=== PATIENT | male | born 1950 | race Caucasian/White ===

== ENCOUNTER 2019-02-14 14:41 | Outpatient (CLI) | payer MEDICARE ==
--- NOTE | 2019-02-14 15:11 | RAD ---
Exam: 2 views lumbar spine HISTORY: Fall lumbar spine fracture COMPARISON: 12/27/2018 FINDINGS: Stable atherosclerosis. 5 lumbar type vertebral bodies are identified. Redemonstration of a compression fracture at L4. There is been interval slight decrease in loss of vertebral body height when compared to the previous examination. There is a resorption of the superior endplate of L 4. IMPRESSION: Redemonstration of compression fracture at L4 with interval slight decrease in loss of ve rtebral body height and resumption of the superior endplate.
== END 2019-02-14 14:42 | disposition home or self-care (01) ==
LOC: TBSIIMAG 14:41
PROVIDERS: ATTEND Neurological Surgery
DX: S32.049D Unspecified fracture of fourth lumbar vertebra, subsequent encounter for fracture with routine healing (principal)
CPT/HCPCS: 72100

== ENCOUNTER 2019-02-17 16:16 | Inpatient (IN) | payer MEDICARE ==
[~2019-02-17 16:16] MED LIST: ISOVUE-370 76%-LOCM 1 ML ONE
[2019-02-17] MEDS ORDERED: Norepinephrine 8 MG/0.9% NS 250 ML ONE (16:23)
[2019-02-17 16:45] LABS: Hemoglobin 3.9 g/dL (14.0-18.0); Mean Corpuscular HGB CONC 32.8 g/dL (32.0-36.0); Mean Platelet Volume 6.9 fL (7.4-10.4); Platelet Count 283 thou/uL (130-400); RBC Distribution Width 11.5 % (11.5-14.5); Red Blood Cell (RBC) Count 1.19 mill/uL (4.70-6.10); White Blood Cell (WBC) Count 9.1 thou/uL (4.8-10.8)
[2019-02-17 16:54] LABS: ALT (SGPT) 7 U/L (8-55); AST (SGOT) 16 U/L (5-34); Alkaline Phosphatase 31 U/L (40-150); Anion Gap 11 mmol/L (10-20); BUN (Urea Nitrogen) 48 mg/dL (8.4-25.7); Bilirubin, Total 0.2 mg/dL (0.2-1.2); Calc. Creatinine Clearance 0 mL/min (70-130); Calcium 7.1 mg/dL (7.8-10.44); Carbon Dioxide 16 mmol/L (23-31); Chloride 106 mmol/L (98-107); Estimated GFR-MDRD 63; Globulin 1.7 g/dL (2.4-3.5); Glucose 165 mg/dL (80-115); Lipase 239 U/L (8-78); Magnesium 1.5 mg/dL (1.6-2.6); Potassium 4.4 mmol/L (3.5-5.1); Protein, Total 3.7 g/dL (5.8-8.1); Sodium 129 mmol/L (136-145)
[2019-02-17 16:55] LABS: INR-International Normal Ratio 1.4; PTT 41.3 SEC (22.9-36.1); Prothrombin Time 17.7 SEC (12.0-14.7)
[2019-02-17 16:59] LABS: #Eosinphils 0.4 thou/uL (0.0-0.7); #Lymphocytes 1.3 thou/uL (1.20-3.40); #Monocytes 0.6 thou/uL (0.11-0.59); #Neutrophils 6.7 thou/uL (1.40-6.50); %Basophils 0.3 % (0.0-1.0); %Eosinophils 4.9 % (0.0-10.0); %Lymphocytes 14.4 % (21.0-51.0); %Monocytes 6.3 % (0.0-10.0); %Neutrophils 74.2 % (42.0-75.0); Platelet Morphology Comment Appears Adequate
[2019-02-17] MEDS ORDERED: Fentanyl 100 MCG/2 ML VIAL ONE ×4 (17:10→21:11)
[2019-02-17] MEDS ORDERED: Ondansetron PF 4 MG/2 ML Vial ONE (17:18)
[2019-02-17] MEDS ORDERED: Succinylcholine Chloride 20 MG/ML 10 ml SYRINGE FS ONE (17:18)
[2019-02-17] MEDS ORDERED: Magnesium 2 GM/50 ML BAG (IN WATER) ONE (17:18)
[2019-02-17] MEDS ORDERED: EPINEPHrine 1 MG/10 ML Abboject SYRINGE ONE ×2 (17:18→23:33)
[2019-02-17] MEDS ORDERED: PHENYLEPHRINE-NS 100 MCG/ML 10 ML SYRINGE ONE (17:18)
[2019-02-17] MEDS ORDERED: PROPOFOL 200 MG/20 ML VIAL ONE (17:18)
[2019-02-17] MEDS ORDERED: ePHEDrine 50 MG/ML VIAL ONE (17:18)
[2019-02-17] MEDS ORDERED: Calcium Chloride 1 GM/10 ML Abboject SYRINGE ONE ×3 (17:18→23:04)
[2019-02-17] MEDS ORDERED: Lidocaine 1% PF 5 ML VIAL ONE (17:18)
[2019-02-17] MEDS ORDERED: Acetaminophen 1,000 MG in Premix Bag 1 BAG IVPB ONE (17:30)
--- NOTE | 2019-02-17 17:33 | CT ---
CTA CHEST WITH IV CONTRAST AND 3D POST PROCESSING CTA ABDOMEN WITH IV CONTRAST AND 3D POST PROCESSING: History: Chest pain, back pain, nausea. FINDINGS: There are vascular calcifications without evidence of aneurysm or dilatation of the thoracoabdominal aorta. The aortic lumen is well opacified without intimal flap to suggest dissection. There is severe stenosis at the origin of the celiac access and moderate stenosis of the origin of the SMA. There is good flow to the right renal artery. Flow is seen in the JAZMIN. There is good contrast opacification of the pulmonary artery vasculature without filling defects as w ell as pulmonary embolism. No pericardial or pleural effusions are seen. There has been interval resolution of the multiple pulm onary nodules noted on the CT chest of 07-01-15. There is a 5 mm peripheral nodule in the right upper l obe. There is a calcified granuloma in the left lower lobe. There are mild patchy infiltrates in the lung holland bilaterally. No calcified gallstones are seen. The patient is post left nephrectomy. The liver, pancreas, adrenal glands, and right kidney are unremarkable. No free air or free fluid is seen in the abdomen. No lymphadenopathy is seen in the chest or abdomen. There are fluid filled dilated loops of small bowel with transition zone in the distal ileum. There i s chronic compression of the superior endplates of L4 and T12 vertebral bodies. No subluxation was se en in the thoracolumbar spine. IMPRESSION: 1. No CT evidence of aortic dissection. 2. Findings are suspicious for bilateral pneumonia. A follow up CT chest after course of antibiotics is recommended. 3. Small bowel obstruction. Possibility of ischemic bowel cannot be excluded given the presence of at herosclerotic vascular disease. POS: YA[facility]
[2019-02-17] MEDS ORDERED: cefTRIAXone\\ROCEPHIN 1 GM VIAL ONE (17:36)
[2019-02-17] MEDS ORDERED: Pantoprazole 40 MG VIAL ONE ×2 (17:36→18:16)
--- NOTE | 2019-02-17 17:37 | CON ---
DATE OF CONSULTATION: 02/17/2019 REASON FOR CONSULTATION: Chest pain, possible STEMI. HISTORY OF PRESENT ILLNESS: Mr. Stroud is a 69-year-old white gentleman, who comes to the hospital after he was in the bathroom and had a syncopal spell. He has been having diarrhea for the last 2 days. He was found pale, diaphoretic, nauseated, and complained of chest pain, 5/10. His blood pressure was 50/30. He was given IV fluids, blood pressure normalized. Again, dropped blood pressure and had to be started on Levophed. EKG showed inferior ST elevations with reciprocal changes and tachycardia. So, Cardiology was consulted. CT of the chest was done to rule out dissection as he had back pain as well. He was ruled out, taken emergently to the catheterization lab, where initially a needle was placed on the right femoral artery and the blood was very, very diluted suggesting a very, very low hemoglobin. At that same time, ER came up and let us know about the blood work being with a hemoglobin of 3.9, so the cath was aborted. He continued to have chest pain, but most likely related to demand from having such a low hemoglobin. PAST MEDICAL HISTORY: 1. History of renal cell carcinoma with metastasis to the lungs in the past. 2. Nephrectomy due to renal cell cancer. 3. Hypertension. SOCIAL HISTORY: He smokes about 2 packs a day for many years now. PAST SURGICAL HISTORY: Nephrectomy. ALLERGIES: NO KNOWN DRUG ALLERGIES. MEDICATIONS: Outpatient medications are unknown. He does not remember. Somebody will bring his medications. REVIEW OF SYSTEMS: A 12-point review of systems was done and was found to be negative unless stated in history of present illness. PHYSICAL EXAMINATION: VITAL SIGNS: Blood pressure 120/62, on Levophed and fluids, however, 77/57 on arrival to the ER with a pulse of 112; respiratory rate 16; saturating 98% on room air; temperature was 96. GENERAL: Awake, alert, and oriented x3, in no distress. HEENT: Normocephalic and atraumatic. NECK: Supple. LUNGS: Have reduced breath sounds bilaterally. CARDIOVASCULAR: S1 and S2. No S3 or S4. No murmurs. ABDOMEN: Soft. EXTREMITIES: No edema. SKIN: Warm, but very pale. LABORATORY DATA: Laboratory work was reviewed. EKGs were reviewed. ASSESSMENT AND PLAN: 1. Severe symptomatic anemia. 2. Inferior ST elevations, improved after blood pressure increased. Most likely demand ischemia. Catheterization was attempted, but not done given the very low hemoglobin. 3. History of renal cell carcinoma with metastatic disease in the past. This was in 2014. I do not have any updates on this. 4. Very critically ill and would not be unexpected. We will follow. 80 minutes of critical care were delivered at bedside. Job ID: [id number]
[2019-02-17 17:51] LABS: Bilirubin Negative (Negative); Blood, Urine Negative (Negative); Clarity CLEAR (Clear); Glucose, Urine (Dipstick) Negative (Negative); Leukocyte Negative (Negative); Nitrite Negative (Negative); Protein, Urine (Dipstick) Negative (Neg-Trace); Specific Gravity, Urine 1.021 (1.002-1.036); Urobilinogen 0.2 mg/dL (0.2-1.0)
[2019-02-17] MEDS ORDERED: Octreotide Acetate 50 MCG/ML AMP SLOW IVP SCH (18:00)
[2019-02-17] MEDS ORDERED: Pantoprazole 80 MG in Sodium Chloride 0.9% 100 ML IVPB SCH (18:00)
[2019-02-17] MEDS ORDERED: Octreotide Acetate 1,250 MCG in Sodium Chloride 0.9% 250 ML 250 ML IVPB SCH (18:00)
[2019-02-17 18:48] LABS: #Eosinphils 0.3 thou/uL (0.0-0.7); #Lymphocytes 1.1 thou/uL (1.20-3.40); #Monocytes 0.7 thou/uL (0.11-0.59); #Neutrophils 8.4 thou/uL (1.40-6.50); %Basophils 0.2 % (0.0-1.0); %Eosinophils 2.8 % (0.0-10.0); %Lymphocytes 10.7 % (21.0-51.0); %Neutrophils 79.3 % (42.0-75.0); Hemoglobin 7.4 g/dL (14.0-18.0); Mean Corpuscular HGB CONC 33.6 g/dL (32.0-36.0); Mean Corpuscular Hemoglobin 30.1 pg (27.0-31.0); Mean Corpuscular Volume 89.8 fL (78.0-98.0); Platelet Count 241 thou/uL (130-400); RBC Distribution Width 14.3 % (11.5-14.5); Red Blood Cell (RBC) Count 2.46 mill/uL (4.70-6.10); White Blood Cell (WBC) Count 10.6 thou/uL (4.8-10.8)
--- NOTE | 2019-02-17 19:06 | RAD ---
XR Chest 1 View Portable HISTORY: Chest pain, nausea COMPARISON: 02/17/2019, 4:14 PM FINDINGS: The heart size is normal. The lungs are well expanded without focal areas of consolidation, pneumothorax or pleural effusions. The aorta is tortuous. There is evidence of old granulomatous disease. I IMPRESSION: No radiographic evidence of acute cardiopulmonary process.
--- NOTE | 2019-02-17 19:07 | RAD ---
XR Chest 1 View Portable HISTORY: Chest pain COMPARISON: None FINDINGS: The heart size is normal. The lungs are well expanded without focal areas of consolidation, pneumothorax or pleural effusions. The aorta is tortuous. There is evidence of old granulomatous disease. I IMPRESSION: No radiographic evidence of acute cardiopulmonary process.
--- NOTE | 2019-02-17 19:14 | HP ---
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 He was brought in by EMS after a syncopal episode. The patient reports that he has had been having diarrhea for 2-3 days, black copious stool, foul smelling. He prior to that was having constipation, taking a laxative. He has not experienced hematemesis. In the hospital, he was evaluated by Dr. Wheeler. Apparently at some point, he complained of chest pain. His troponins were negative. He has a significant smoking history. He apparently had some ST changes and Dr. Parikh was called and the patient was taken to the label rewinder and on cannulation of his femoral artery, the blood was very dilute, red colored saline as described and Dr. Parikh called the ER to check the patient's hemoglobin, it was 3.9. The procedure was canceled. He was brought back to the emergency room. During this hospitalization, initially the patient was hypotensive, blood pressure is in the 50s to 70s. He was on pressors. He had a central line placed, was given blood and his pressure now is 120-130/70, heart rate is 80. He is mentating communicating normally. He has been complaining of mid to lower back pain. He has not had any nausea or vomiting. He has not had any abdominal pain. Review of labs reveals his white count is 9 hemoglobin 3.9. He has received 4 units of blood. His coagulation studies are normal. His CO2 was 16 on 02/15. Sodium 129, creatinine 1.59. The patient's liver function tests are normal. BUN slightly elevated at 48 and creatinine 1.15. CAT scan dissection protocol obtained on admission suggests possible bowel obstruction, distended small bowel loops, transitioned to ileum. The patient has not had any prior abdominal operations except for robotic left nephrectomy 2 years ago at [facility]. ALLERGIES: NONE. SOCIAL HISTORY: Tobacco, over one pack a day until the last few weeks when he has cut down to a half to one pack a day. Alcohol, 2-3 beers a day. A month ago, he was drinking 9-12 beers a day. MEDICATIONS: At home: 1. Zolpidem tartrate. 2. Votrient. 3. Lisinopril 40 mg a day. 4. Lorazepam as needed. 5. Hydrocortisone . PAST MEDICAL HISTORY: Left renal cell carcinoma status post left robotic left nephrectomy at [facility] 2 years ago. Surveillance scans do not reveal any evidence of disease per the patient. The patient had a colonoscopy with Dr. Gaytan about 2 years ago, was told to come back in 5 years. Review of the hospital records reveals pathology report from August 2017 revealing TVA ascending polyp, descending TVA from Dr. Gaytan. The patient has a bone scan on 07/01/2015, at [facility] that revealed absence of any metastasis. He has a chest CAT scan from 07/01/2015, revealing bilateral pulmonary nodules suggestive of metastatic disease. On the repeat CT angio in this hospitalization, those nodules are not present anymore. On 02/14/2019, lumbar spine x-rays were obtained ordered by Dr. Messina revealed a compression fracture at L4 with slight interval decrease and loss of vertebral height and resumption of superior endplate, this compared to 12/27/2018 lumbar scan. The patient reports having had a treadmill stress test probably 6 years ago or more that was normal. He denies having chest pain prior to this. He is not having chest pain now. On 09/19/2016, he had a hemoglobin of 15.9, today it is 3.9. He denies prior history of peptic ulcer disease. As noted above, socially lives with his . 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 He lives in [place]. PHYSICAL EXAMINATION: VITAL SIGNS: Blood pressure 120/70, heart rate 88, respiratory rate 18. CARDIAC: Regular rate and rhythm without murmur or gallop. ABDOMEN: Soft, slightly full, slightly distended, but nontender. Bowel sounds present. EXTREMITIES: Unremarkable. ASSESSMENT AND PLAN: 1. GI bleeding, severe anemia, suspect upper GI source. We will place an NG tube to decompress him which I have already had. He has about 600 mL of dark stool. Rectal exam performed was without masses, but he had copious amount of bloody stool. This is dark maroon stools. Probably, the patient has upper GI bleed and Dr. Candido Beavers has been called and he will perform the upper endoscopy. 2. ST changes with anemia, probably related to his anemia. Resuscitate the patient. His troponins are negative. Dr. Parikh has seen the patient, and cardiac cath initiated but aborted due to findings of severe anemia in which his hypotension has resolved with a blood resuscitation. 3. History of left renal cell carcinoma. Prior CAT scan suggested pulmonary metastases which have resolved after left nephrectomy. I do not know whether he has received chemotherapy or not. 4. Tobacco abuse. 5. Hypertension. 6. Alcohol abuse. Coagulation studies are normal. Platelet counts were normal. Currently, no indication for surgical intervention. Although CAT scan suggests transition point of bowel obstruction. I suspect this is a distended bowel with blood and fluid and with him having bowel movements and bloody stools , clinically does not have a bowel obstruction. I will be following the patient along with medical and surgical. He has a central line placed in the ER. Job ID: [id number]
[2019-02-17] MEDS ORDERED: Ondansetron PF 4 MG/2 ML Vial IVP PRN (19:56)
[2019-02-17] MEDS ORDERED: Norepinephrine 8 MG/0.9% NS 250 ML IVPB SCH (20:00)
[2019-02-17] MEDS ORDERED: Sodium Chloride 0.9% 1,000 ML IV SCH (20:00)
[2019-02-17] MEDS ORDERED: Ondansetron HCl/PF 4 MG/2 ML Vial IVP PRN (20:58)
[2019-02-17] MEDS ORDERED: Promethazine HCl 25 MG/ML VIAL IM PRN (20:58)
[2019-02-17] MEDS ORDERED: Promethazine HCl 25 MG/ML VIAL SLOW IVP PRN (20:58)
--- NOTE | 2019-02-17 21:34 | HP ---
PRIMARY CARE DOCTOR: Dr. Viki Cohen. CODE STATUS: Full code. TIME OF EVALUATION: 07:50 p.m. CHIEF COMPLAINT: GI bleeding and severe chest pain. HISTORY OF PRESENT ILLNESS: This is a 69-year-old male patient with past medical history of multiple comorbidities, including hypertension; renal cell carcinoma, status full nephrectomy; also history of hep C, treated with interferon; also history of chronic back pain. The patient uses NSAIDs on a daily basis 2 to 3 times a day for pain, also on hydrocortisone, came to the hospital after having severe chest pain associated with nausea, diaphoresis, hypotension. The patient was found to be in shock, was taken to the cardiac cath due to acute ST-elevation [place], result came back and they found the patient was in severe acute anemia with hemoglobin of 3.9. The patient was resuscitated with fluids, blood products including 4 PRBCs, 3 FFPs, and 1 unit of platelet. The patient has recovered, initially needed to be on Levophed. By the time of my examination, the patient is still needing Levophed 10 mcg, however, blood pressure is in the normal range. We will attempt to taper it if possible. Surgery has been consulted, Dr. Beavers has been consulted. Most likely source of the bleeding is upper given presence of blood in the NG tube. The patient is going for endoscopy and hopefully we can find the etiology and it can be treated. After that, we will place the patient in ICU for close monitoring given high risk for severe decompensation. REVIEW OF SYSTEMS: CONSTITUTIONAL: No fever. The patient did have severe chills and generalized weakness. RESPIRATORY: No cough, sputum production, shortness of breath. CARDIOVASCULAR: The patient has severe chest pain, palpitation. GASTROINTESTINAL: The patient has bloody stools for the past few days that were in the dark side, liquid stools and mild abdominal tenderness. 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 GENITOURINARY: No burning on urination. EXTREMITIES: No leg swelling. All other systems were reviewed and negative except for the findings mentioned above. PAST MEDICAL HISTORY: Positive for the findings mentioned in the HPI. PAST SURGICAL HISTORY: Left nephrectomy and left adrenal gland removal. PSYCH HISTORY: No previous psych history. SOCIAL HISTORY: The patient has a history of alcohol use, although he has not been drinking that much in the past few days. Everyday smoker. FAMILY HISTORY: Reviewed and noncontributory for current presentation. ALLERGIES: NO KNOWN DRUG ALLERGIES REPORTED TO MEDICATIONS. MEDICATIONS: 1. Sodium chloride. 2. Hydrocortisone. 3. Lisinopril. PHYSICAL EXAMINATION: VITAL SIGNS: On presentation, blood pressure was low. The patient was in shock with systolic in the 70s. This has recovered after replacement with blood products, IV fluids, and Levophed. Heart rate was within normal limits. Respiratory rate was 16. Pain was 5/10. GENERAL APPEARANCE: The patient is alert, oriented, not in acute distress. HEENT: Eyes, normal conjunctivae. Moist oral mucosa. Anicteric. NECK: No JVD. RESPIRATORY: Bilateral air entry. No rales. No wheezes. Symmetric expansion. CARDIOVASCULAR: Normal rate. Patient is hypotensive, on Levophed. Blood pressure now is within normal limits. No murmurs or gallops. No edema. ABDOMEN: Soft, tender. Normal bowel sounds. MUSCULOSKELETAL: Baseline range of motion and strength. No tenderness. SKIN: Warm and cold, pale. No redness. Peripheral pulses are present. Capillary refill seems to be intact. NEUROLOGIC: No evidence of any new focal weakness. Baseline speech. Cranial nerves seem to be intact. PSYCHIATRIC: The patient is in good mood. No anxiety. Optimal judgment. IMAGING STUDIES: EKG was reviewed. The patient has undetermined rhythm with pulmonary disease pattern with ST and then T-wave abnormalities consistent with anterolateral ischemia. EKG from EMS showed ST-elevation IN. Chest x-ray was reviewed. The patient has no other acute evidence of acute cardiopulmonary process. CT dissection was done. The patient had no CTA evidence of aortic dissection. Findings are suspicious for bilateral pneumonia. Followup CT chest after course of antibiotics recommended. Small bowel obstruction. Possibility of ischemic bowel cannot be excluded given the presence of atherosclerotic vascular disease. LABORATORY DATA: Labs were reviewed. The patient presented with white count 9.1, hemoglobin 3.9, hematocrit 12, MCV 101, platelet count 283, neutrophils 74.2. Coagulation was PT 17.7, INR 1.4, PTT 41.3. Sodium 129, potassium 4.4, chloride 106, carbon dioxide 16, anion gap 11, BUN 48, creatinine 1.15, GFR 63, glucose 165, POC glucose 187, calcium 7.1, magnesium 1.5, total bilirubin 0.2. LFTs were negative. Troponin was negative. Serum total protein 3.7, albumin 2.0, globulin 1.7, albumin globulin ratio is 1.2, lipase 239. Urine was negative. Repeat hemoglobin after 4 PRBCs was 7.4. ASSESSMENT AND PLAN: The patient will be placed in the hospital with following medical problems; 1. Acute coronary syndrome secondary to acute severe anemia. We will treat the underlying condition. Dr. Parikh was consulted. We will follow his recommendations. 2. Acute severe blood loss anemia due to upper gastrointestinal bleeding with hemoglobin 3.9. The patient was in hypovolemic shock, has received 4 PRBCs, 3 units of FFP, and 1 unit of platelets with calcium IV for the massive transfusion protocol. The patient has recovered, is more stable. He needed Levophed. We might be able to take care off if the patient does not continue to bleed or we are able to find the bleeding source and stop the bleeding by Dr. Beavers during the EGD. The patient will be transferred to ICU given high risk for severe complications including . We will continue to monitor closely. Continue aggressive fluid resuscitation and blood products as necessary. 3. Abnormal coagulation panel. This could be secondary to underlying liver disease. It is known that the patient had history of alcohol use and also history of hep C in the past. We will not be surprised if thi is variceal bleeding given the large amount of blood loss. The patient had received FFPs, continue to monitor and treat accordingly. 4. Hyponatremia, sodium 129. The patient is receiving IV fluids, we will monitor, we will treat accordingly, this problem is moderate. 5. Nonanion gap metabolic acidosis. This might be due to GI bicarb lost from reported diarrhea that he had in the past few days. 6. High BUN in the ratio more than 3:1 when compared with creatinine, likely due to upper gastrointestinal bleeding. We will treat underlying condition. 7. Hyperglycemia likely due to acute physical distress. We will monitor. No need for any acute intervention at this point. 8. Mildly elevated lipase, could be secondary to shock, no evidence of pancreatitis on the CT. We will treat underlying condition. 9. Deep venous thrombosis prophylaxis. 10. Hemorrhagic shock. The patient needing Levophed, has responded well to resuscitation. We will try to taper off on Levophed. Rest of treatment as above. Monitor in ICU. CRITICAL CARE TIME: I spent more than 35 minutes in bedside assessment, discussion with consultants, medication reconciliation, stabilization of the patient in coordination of care. Job ID: [id number]
--- NOTE | 2019-02-17 21:53 | RAD ---
ABDOMINAL RADIOGRAPH: History: NG tube placement. FINDINGS/IMPRESSION: Nasogastric tube with tip in the projection of the proximal stomach in the left upper medial quadrant . There are degenerative changes of the spine. POS: YA[facility]
[2019-02-17] MEDS ORDERED: Rocuronium Bromide 10 MG/ML (10ML VIAL) ONE (22:22)
--- NOTE | 2019-02-17 22:33 | CON ---
DATE OF CONSULTATION: 02/17/2019 CHIEF COMPLAINT: Passed out. HISTORY OF PRESENT ILLNESS: Mr. Stroud is a 69-year-old man, who has had diarrhea for the last couple of days. He noted that was very dark. He has had no abdominal pain with this. He suddenly developed some nausea and was about to throw up, but then passed out earlier this evening. He was taken to the local emergency room by ambulance. On ambulance ride, he was thought to have a possible ST-elevation [place] and he was transferred to [place]. During the workup, he was found to have severe anemia with a hemoglobin of 3.9. He was hypotensive and tachycardic. He was transfused 4 units of red blood cells, 3 units of FFP, and 1 unit of liquid plasma. After that, his blood pressure and heart rate have improved. He is still on pressors with Levophed. He is awake and alert. An NG tube placed with a large amount of dark material returned. Prior to the diarrhea, 2 days ago, he has been having more problems with constipation. He had some diffuse pressure-like abdominal pain associated with constipation, but otherwise no ongoing pain. He has been short of breath with exertion for the last couple of days. He has been on Motrin and steroids. He has a history of hepatitis C treated with interferon, 20 years ago, this achieved cure. He has had chronic alcohol use, but has cut down to a couple of beers per day and cut down further than that more recently. PAST MEDICAL HISTORY: Renal cancer status post left nephrectomy, history of hypertension, chronic back pain, and adrenal insufficiency. PAST SURGICAL HISTORY: Nephrectomy and colonoscopy a couple years ago with Dr. Lucila estrada. 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 FAMILY HISTORY: Negative for GI malignancies. SOCIAL HISTORY: He smoked 2 packs per day for many years. He started smoking when he was 16. He cut down to half a pack a day more recently over the last few years. He used to drink more heavily and then cut down to a couple of beers per day and more recently drinks less than that. History of IV drug use in the remote past. ALLERGIES: NO KNOWN DRUG ALLERGIES. MEDICATIONS: Prior to admission: 1. Lisinopril. 2. Hydrocortisone. 3. Motrin. 4. Tylenol No. 3. REVIEW OF SYSTEMS: Negative x10 systems reviewed except as stated in history of present illness. He did have a CT scan dissection protocol in the ER that showed findings suspicious for bilateral pneumonia and question small bowel obstruction with dilated fluid-filled loops of small bowel with a transition zone in the distal ileum. Clinically, however, he has been passing bowel movements and he has no abdominal pain and he is nontender. PHYSICAL EXAMINATION: VITAL SIGNS: Pulse 90, blood pressure 92/60. He is on Levophed. Temperature 96.0. His blood pressure was low as the 40s systolic on initial presentation. GENERAL: He is pale. An NG tube in place. Alert and oriented x3. HEENT: Eyes have no scleral icterus. Oropharynx is clear without lesions. No cervical or supraclavicular lymphadenopathy. LUNGS: Clear to auscultation bilaterally. HEART: Regular rate and rhythm without murmur. ABDOMEN: Soft, nontender, and nondistended. Bowel sounds are present. EXTREMITIES: No lower extremity edema. Cranial nerves are grossly intact. LABORATORY DATA: White blood cell count 10.6, hemoglobin is 7.4 after 3 or 4 units of blood, platelets 241. INR 1.4. Sodium 129, creatinine 1.15, bilirubin 0.2, AST 16, ALT 7, alkaline phosphatase 31, albumin 2.0, and lipase 239. IMPRESSION: 1. Apparent acute gastrointestinal bleed with severe anemia and hypovolemic shock. He is at risk for peptic ulcer given the chronic NSAID and steroid use. He is also a risk for cirrhosis and varices considering the past history of hepatitis C and chronic alcohol abuse. 2. Anemia of acute blood loss. 3. Hypovolemic shock, improved with blood transfusion and FFP. 4. Elevated INR and hypoalbuminemia raises again possibility for chronic liver disease. His platelet count, however, has been normal. 5. Adrenal insufficiency and history of renal cancer, status post resection. RECOMMENDATIONS: 1. Octreotide. 2. Proton pump inhibitor drip. 3. He has been volume resuscitated and received appropriate transfusion. 4. He is still on Levophed to maintain blood pressure. 5. We will plan for EGD this evening. 6. If varices are identified, then we will start antibiotics for SBP prophylaxis. In fact, he did receive a dose of ceftriaxone in the ER this evening. Job ID: [id number]
[2019-02-17 22:52] LABS: Hemoglobin 5.4 g/dL (14.0-18.0); Platelet Count 174 thou/uL (130-400)
[2019-02-17] MEDS ORDERED: EPINEPHrine 1 MG/ML AMP ONE (23:33)
--- NOTE | 2019-02-17 23:39 | RAD ---
PORTABLE CHEST ONE VIEW: Date: 02-17-19 Time: 10:56 p.m. History: Code Blue. Respiratory failure. FINDINGS: Interval placement of an endotracheal tube is seen with the tip about 2.5 cm above the devon since e arlier exam at 5:20 p.m. same day. The right subclavian central line remains in place. No pneumothoraces, lobar consolidation or large e ffusions are identified. Calcified granuloma in the left lower lobe is again seen. There is gaseous d istention of the stomach. POS: [facility]
--- NOTE | 2019-02-17 23:41 | RAD ---
ABDOMEN ONE VIEW: History: Nasogastric tube placement. FINDINGS/IMPRESSION: There has been interval re-positioning of the nasogastric tube since earlier exam at 6:06 p.m. The na sogastric tube is coiled in the gastric fundus with tip directed in the region of the GE junction. r is noted in loops of small and large bowel. The small bowel loops appear well dilated. POS: [facility]
--- NOTE | 2019-02-17 23:44 | PDOC.EVN ---
Event Note - Event Note Event Note: Code note Course after admission: Pt went for EGD after admission, and returned from OR stable off vasopressors, sitting in bed and talkative. I was paged by RN because pt became hypotensive again, needing levophed high dose, agressive IVF resuscitation. Pt continued to be unstable, with mental status deterioration, and was intubated for airway protection and because he was complaining that he was not able to breath properly. repeat hb when pt became hypotensive was 5.2, Pt has received another 4 units of PRBC with FFP/PLt and calcium as per massive transfusion protocol. Case has been discussed with Dr Beavers who is going to repeat egd to look for a bleeding source. xrays has been ordered to r/o perforation and radiology has reported that there is no evidence of perforation. Case also discussed with Dr Madden , we will follow recommendations.
--- NOTE | 2019-02-17 23:44 | RAD ---
PORTABLE LATERAL VIEW OF THE ABDOMEN: History: free air. FINDINGS: There are dilated loops of small bowel. No free air is seen. POS: [facility]
[2019-02-18] MEDS ORDERED: Fentanyl 100 MCG/2 ML VIAL ONE (00:24)
[2019-02-18 00:31] LABS: Base Excess (BEa) -16.7 mEq/L (-2.0 to +3.0); CO2 Tension 46.9 mmHg (35.0-45.0); Calcium, Ionized 0.94 mmol/L (1.12-1.30); Carboxyhemoglobin (COHb) 0.6 gm% (0.0-3.0); Hemoglobin (Hb) 10.5 g/dL (14.0-18.0); O2 Tension (PaO2) 276.2 mmHg (> 80.0); Potassium - ABG Lab 4.54 mmol/L (3.70-5.30)
[2019-02-18 00:32] LABS: ALV-art Gradient 378.175 (0-20); Puncture Site ALINE; pH, Arterial 7.06 (7.35-7.45)
[2019-02-18] MEDS ORDERED: Sodium Bicarb 50 MEQ/50 ML Abboject 8.4% SYRINGE ONE (00:40)
[2019-02-18] MEDS ORDERED: Norepinephrine 8 MG/0.9% NS 0 ML ONE (01:05)
--- NOTE | 2019-02-18 02:39 | OP ---
DATE OF PROCEDURE: 02/17/2019 PROCEDURES PERFORMED: Esophagogastroduodenoscopy with control of hemorrhage and biopsy. PREOPERATIVE DIAGNOSES: Gastrointestinal bleed and septic shock and anemia of acute blood loss. DESCRIPTION OF PROCEDURE: Informed consent was obtained from the patient. He was sedated with general anesthesia. The endoscope was advanced easily to the second portion of the duodenum and retroflexion was performed in the stomach. The esophagus was normal. There were no varices. The stomach was normal including retroflex views as far as the mucosa is concerned. There was red blood and clot in the fundus, which was suctioned clear. The scope was advanced to the duodenum where there was a large 2 cm ulcer on the lateral wall of the duodenum just beyond the first portion of the duodenum into the second portion of the duodenum. There was a large blood clot in the base of this, which was suctioned free. Epinephrine 1:91945 was injected a total of 5 mL per injection in 5 areas around the ulcer. A total of 5 mL of epinephrine were injected. The clot was then fully dislodged and there was a large blood vessel in the base of the ulcer with active pulsatile bleeding. This was then cauterized with a 10-[place] Gold Probe with good hemostasis confirmed. Biopsies were then taken from the stomach to rule out Helicobacter pylori. IMPRESSION: 1. Large ulcer on the lateral wall of the duodenum just beyond the first portion into the second portion. 2. Blood clot was dislodged from the ulcer base and a large visible vessel with pulsatile bleeding was found underneath. Epinephrine 5 mL were injected around the ulcer. The vessel was then cauterized with a 10-[place] Gold Probe with good hemostasis. 3. Otherwise normal esophagogastroduodenoscopy. Gastric biopsies were taken to rule out Helicobacter pylori. 4. Ulcer is most likely secondary to the nonsteroidal anti-inflammatory drugs and steroids. 5. The patient has received 5 units red blood cell transfusion. He has had a total of 3 units fresh frozen plasma and 1 unit of platelet. With additional volume resuscitation and blood transfusion, he has been able to wean off the Levophed for now. RECOMMENDATIONS: 1. Continue Protonix drip. 2. Transfer to the Intensive Care Unit and remain n.p.o. 3. Discontinue octreotide. There are no signs of cirrhosis at this point. There were no varices. 4. Monitor trend of the hemoglobin. Job ID: [id number]
--- NOTE | 2019-02-18 02:51 | OP ---
DATE OF PROCEDURE: 02/17/2019 PROCEDURE PERFORMED: Esophagogastroduodenoscopy with submucosal injection. PREOPERATIVE NOTE: Mr. Stroud initially did well following upper endoscopy and cautery of the blood vessel in the base of the duodenal ulcer. He was transferred up to CCU. He developed respiratory distress and hypotension and was intubated. He received additional blood transfusion and an OG tube was placed without much return. An x-ray was obtained upright as possible and also lateral decubitus, which showed no obvious free air. I repeated upper endoscopy and the endoscope was advanced through the first portion of the duodenum. The stomach was full of blood and clot. The endoscope was advanced through the first portion of the duodenum. However, there was somewhat large organized clot in the duodenum that I cannot see the ulcer base or really even get adequate access to the duodenum itself. I injected epinephrine 3 mL into the duodenal wall, but it was difficult to maintain position in the duodenum and even have any meaningful chance of treating his recurrent bleeds. Ultimately, the procedure was aborted and plan is to go to the OR for surgical treatment of the patient's ongoing recurrent bleed from his ulcer. His clinical status is complicated by hemorrhagic shock. He has received additional blood transfusions, FFP and platelets. IMPRESSION: Recurrent bleeding from duodenal ulcer again with hemorrhagic shock and severe anemia. He has received multiple blood products. The blood clot prevents adequate access to the bleeding sites endoscopically. Epinephrine was injected into the duodenum to try to restrict the blood flow to the ulcer. However, ultimately the endoscopic therapy is not adequate at this point. RECOMMENDATIONS: Dr. Rea is taking this patient back now for surgery for the bleeding ulcer. Job ID: [id number]
[2019-02-18] MEDS ORDERED: Sodium Chloride 0.9% 1,000 ML IV SCH (03:15)
[2019-02-18] MEDS ORDERED: Ventilator Sedation Protocol 1 EACH FS SCH (03:15)
[2019-02-18] MEDS ORDERED: Fentanyl BOLUS 250 ML IVPB PRN (03:20)
[2019-02-18] MEDS ORDERED: Fentanyl CADD 250 ML IVPB SCH (03:20)
[2019-02-18] MEDS ORDERED: Lorazepam 2 MG/ML VIAL SLOW IVP PRN (03:20)
[2019-02-18] MEDS ORDERED: Propofol BOLUS 1,000 MG/100 ML VIAL IV PRN (03:20)
[2019-02-18] MEDS ORDERED: DISCONTINUE PREVIOUS NARCOTIC PAIN MEDICATIONS AND BENZODIAZEPINES FS SCH (03:20)
[2019-02-18] MEDS ORDERED: Morphine 2 MG/ML SYRINGE SLOW IVP PRN (03:20)
[2019-02-18 03:44] LABS: Actual Bicarbonate (HCO3a) 22.1 mEq/L (22-28); Base Excess (BEa) -2.1 mEq/L (-2.0 to +3.0); CO2 Tension 34.8 mmHg (35.0-45.0); Calcium, Ionized 1.21 mmol/L (1.12-1.30); Carboxyhemoglobin (COHb) 1.8 gm% (0.0-3.0); Hemoglobin (Hb) 7.4 g/dL (14.0-18.0); O2 Tension (PaO2) 230.2 mmHg (> 80.0); Potassium - ABG Lab 3.47 mmol/L (3.70-5.30); pH, Arterial 7.42 (7.35-7.45)
[2019-02-18 03:45] LABS: Puncture Site ALINE
[2019-02-18 03:54] LABS: Hemoglobin 7.5 g/dL (14.0-18.0); Mean Corpuscular HGB CONC 35.4 g/dL (32.0-36.0); Mean Corpuscular Hemoglobin 31.8 pg (27.0-31.0); Mean Corpuscular Volume 89.8 fL (78.0-98.0); Mean Platelet Volume 7.3 fL (7.4-10.4); Platelet Count 149 thou/uL (130-400); RBC Distribution Width 14.3 % (11.5-14.5); Red Blood Cell (RBC) Count 2.35 mill/uL (4.70-6.10)
[2019-02-18 04:09] LABS: Phosphorus 4.2 mg/dL (2.3-4.7)
[2019-02-18 04:18] LABS: ALT (SGPT) 59 U/L (8-55); AST (SGOT) 128 U/L (5-34); Albumin 2.1 g/dL (3.4-4.8); Alkaline Phosphatase 31 U/L (40-150); Anion Gap 9 mmol/L (10-20); BUN (Urea Nitrogen) 32 mg/dL (8.4-25.7); Calc. Creatinine Clearance 66 mL/min (70-130); Calcium 8.8 mg/dL (7.8-10.44); Carbon Dioxide 22 mmol/L (23-31); Chloride 115 mmol/L (98-107); Estimated GFR-MDRD 75; Globulin 1.3 g/dL (2.4-3.5); Glucose 123 mg/dL (80-115); Magnesium 1.4 mg/dL (1.6-2.6); Potassium 3.6 mmol/L (3.5-5.1); Protein, Total 3.4 g/dL (5.8-8.1); Sodium 142 mmol/L (136-145)
[2019-02-18] MEDS: Fluconazole In NaCl,Iso-Osm 200 MG in Premix Bag 1 BAG IVPB SCH (04:19)
[2019-02-18] MEDS: fentaNYL Citrate/PF 2,000 MCG in Sodium Chloride 0.9% 60 ML IV SCH (04:31)
[2019-02-18 04:48] LABS: Band 24 % (5-11); Eosinophils 2 % (0-10); Lymphocytes 6 % (21-51); MDiff Complete? YES; Metamyelocyte 1 % (0-0); Monocytes 4 % (0-10); Neutrophil 63 % (42-75); Platelet Morphology Comment Appears Adequate
[2019-02-18] MEDS: Piperacillin/Tazobactam 3.375 GM in Sodium Chloride 0.9% 100 ML IVPB SCH ×4 (04:59→23:26)
--- NOTE | 2019-02-18 05:05 | OP ---
DATE OF PROCEDURE: 02/18/2019 PREOPERATIVE DIAGNOSES: Bleeding duodenal ulcer, status post esophagogastroduodenoscopy cauterization with recurrent bleeding and hemorrhagic shock requiring emergency transport to the operating room for laparotomy and control of bleeding duodenal ulcer, hepatitis C history, history of left nephrectomy, and robotic renal cell carcinoma. POSTOPERATIVE DIAGNOSES: Bleeding duodenal ulcer, status post esophagogastroduodenoscopy cauterization with recurrent bleeding and hemorrhagic shock requiring emergency transport to the operating room for laparotomy and control of bleeding duodenal ulcer, hepatitis C history, history of left nephrectomy, and robotic renal cell carcinoma. PROCEDURES PERFORMED: Exploratory laparotomy, gastrotomy to evacuate clots and evacuate bowel to allow treatment. Duodenostomy source oversew duodenal ulcer, Heineke-Mikulicz pyloroplasty. ANESTHESIA: General. Blood evacuated from the GI tract and out of the NG tube in the OR, more than 5 L. Blood transfused in the emergency room on presentation, 5 units of blood, 3 units of fresh frozen plasma, 1 unit of platelets. In the emergency room, resuscitation in the ICU, he had another 5 units of blood, 1 unit of fresh frozen plasma, and another unit of platelets. During this operation, he has 6 units of blood, 4 units of FFP, 2 units of platelets and . ANESTHESIA: General. The patient on high-dose Levophed, coming to the operating room on Levophed and ventilator going back to the ICU. DRAINS: #19 Gold KRIS drain. DESCRIPTION OF PROCEDURE: The patient was taken to the operating room, transferred emergently from the ICU, where he underwent bedside EGD, attempted controlling the duodenal ulcer unsuccessful by Dr. Candido Beavers. He was transferred to the operating room. In the supine position, abdomen was clipped of hair, prepared with ChloraPrep, and draped in routine fashion. Midline incision was made from the xiphoid to below the umbilicus, having to extend the incision due to his bowel dilatation with blood and post endoscopy treatment. Small bowel contents milked retrograde into the stomach and after 2 NG tube attempts at evacuating the stomach, I made a small gastrotomy, pursestring 2-0 silk to evacuate clot and blood to decompress the stomach and bowel to allow treatment. Bennett maneuver was performed remobilizing the duodenum and the hepatic flexure, taking down fatty attachments, ligamentous attachments with cautery. The 1st, 2nd, and 3rd portions of the duodenum mobilized into the field. Bookwalter retractor was used for stabilization. A pool sucker device was left in the stomach to continue evacuation of the stomach. A duodenotomy made over the 2nd portion and I could visualize the bleeding ulcer with a hemorrhaging large arterial bleeder in the posterior distal first portion of the duodenum. This was oversewn with 2 [id number] sutures of 3-0 silk. Good hemostasis was noted. Clot was evacuated from the stomach with ring forceps and a new NG tube placed and palpated in good position. The duodenostomy was closed in a transverse fashion in 2 layers with the inner layer of continuous locking sutures of 3-0 Vicryl and outer layer of interrupted Lembert sutures of 3-0 silk. To facilitate better drainage procedure, the stomach and some form of ulcer control (the patient on steroid replacement for adrenal insufficiency, NSAIDs), a pyloromyotomy was made. Approximately 3 cm incision was made over the pylorus and pool Heineke-Mikulicz pyloroplasty undertaken with lateral closure, interrupted Lembert suture of 3-0 silk. The gastrotomy was closed by excising this with a MANGO 75 stapler. The staple line with interrupted Lembert suture of 3-0 silk. Abdominal cavity was irrigated thoroughly with saline solution. Irrigant evacuated. inspected and noted to be free of harm. Liver appeared to be normal. Gallbladder was without masses or stones. #19 gold KRIS drain was placed in the right lateral abdomen in the subhepatic space and subdiaphragmatic and secured with 3-0 nylon suture. Mastisol and OpSite applied. Sponge, needle, and instrument counts were correct. The midline fascia was closed with continuous suture of #1 PDS after placing 2 layers of Seprafilm. An omental patch had been fashioned, mobilizing the omentum from the proximal transverse colon and swinging the flap prior to the abdominal wall closure, placing the omentum over the duodenostomy and pyloroplasty area and securing with 3-0 silk to the serosa. Once the abdominal wall was closed, skin and subcutaneous tissues were irrigated. Skin was approximated loosely with parvez and Telfa mahesh placed between and incisional dressing applied. Again, this incisional dressing replacement for Prevena was suboptimal. It had leaks and no alarms and it was reinforced to obtain a seal. The patient tolerated the procedure well. The patient was transferred to the intensive care unit in critical condition on the ventilator on Levophed, which was slowly being weaned. Job ID: [id number]
[2019-02-18] MEDS: Propofol 1,000 MG/100 ML VIAL IV PRN ×3 (05:08→23:30)
[2019-02-18] MEDS ORDERED: Heparin 10,000 UNITS/1 ML VIAL ONE (06:26)
[2019-02-18] MEDS: Albumin 25% 25 GM/100 ML BOT IVPB SCH ×3 (06:28→16:06)
[2019-02-18] MEDS ORDERED: Albuterol Sulfate 2.5 mg/3 ml Neb NEB SCH ×2 (06:30→14:30)
[2019-02-18] MEDS: Albuterol Sulfate 2.5 mg/3 ml Neb NEB SCH ×2 (07:16→12:44)
[2019-02-18] MEDS ORDERED: Magnesium Sulfate 4 GM in Sodium Chloride 0.9% 250 ML 250 ML IVPB SCH (07:30)
--- NOTE | 2019-02-18 07:35 | RAD ---
CHEST 1 VIEW: Date: 02/18/19 INDICATION: Intubation and central line placement. COMPARISON: Prior exam dated 02/17/19 at 2253 hours. IMPRESSION: There is worsening central edema pattern, pulmonary vascular congestion, and tiny bilateral pleural e ffusions. Cardiomegaly persists. Right subclavian central venous catheter, ET tube, and gastric pedro pablo ter are unchanged. No pneumothorax is evident. POS: [facility]
[2019-02-18] MEDS: Hydrocortisone Sod Succ/PF 100 MG in Sodium Chloride 0.9% 50 ML IVPB SCH ×2 (08:01→14:31)
[2019-02-18] MEDS: Hydrocortisone Sod Succ/PF 100 mg/2 ml Vial IVP SCH ×3 (08:01→21:56)
[2019-02-18] MEDS: Lactated Ringer's 1,000 ML IV SCH ×2 (08:02→16:07)
--- NOTE | 2019-02-18 08:07 | PRG ---
DATE OF SERVICE: 02/18/2019 SUBJECTIVE: Mr. Stroud is doing well today. This morning, he is intubated. His vital signs remained stable. He returned from the operating room off pressors and has remained off vasopressors overnight. OBJECTIVE: VITAL SIGNS: His heart rate is 88, blood pressure 130 to 136/90. His urine output has remained excellent one at 150 to 300 per hour with dilute urine. NG tube output is more serous and certainly not bloody, 30 mL postoperatively. The patient is sedated on the ventilator. LUNGS: Clear to auscultation. CARDIAC: Regular rate and rhythm without murmur or gallop. ABDOMEN: Soft, flat, nontender. Incisional wound VAC intact. Dressing dry. KRIS drain serosanguineous. LABORATORY DATA: This morning, his sodium is 142, potassium 3.6, chloride 115, carbon dioxide 22, BUN 32 (improved from preoperative 48), creatinine 1. His magnesium is 1.5, slightly low, and bilirubin is 1.0. Transaminases slightly elevated, 128 and 59 AST and ALT. Hemoglobin 7.5, white count 9, platelet count 149,000. His blood gases are normal this morning on the ventilator. ASSESSMENT/PLAN: 1. Bleeding duodenal ulcer, bleeding abscess. Hemoglobin is stable. We will monitor this. We will not transfuse him for this as his vital signs are stable. He is diuresing, and we will decrease his IV fluids from 150 to 100 and his sodium has corrected. We will change his IV fluids from normal saline to LR. We will check his hemoglobin at noon today. 2. Low magnesium, replaced. 3. Respiratory failure. Would expect him to remain on the ventilator for another day or 2 as he recovers from his hemorrhagic shock and resuscitation and mobilize his fluids. Abdominal closure was very loose, and I do not have any concerns for compartment syndrome and there are no clinical signs for that. 4. Tobacco abuse. 5. Status post left nephrectomy for renal cell carcinoma with multiple pulmonary nodules, resolved on chemotherapy. 6. Adrenal insufficiency on Solu-Cortef 100 mg IV q.8 hours for stress levels. Wean as appropriate. Job ID: [id number]
--- NOTE | 2019-02-18 08:26 | PDOC.PN ---
- Subjective Encounter Start Date: 02/18/19 Encounter Start Time: 11:40 -: non-verbal Subjective: Patient intubated and sedated. Had surgery overnight for recurrent -: hemorrage from ulcer, now resolved. - Objective Resuscitation Status - Order Detail: 02/17/19 19:56 Resuscitation Status Routine Resuscitation Status: FULL: Full Resuscitation MAR Reviewed: Yes Vital Signs & Weight: Vital Signs (12 hours) Temp Pulse Pulse Resp BP BP Pulse Ox 02/18/19 07:17 74 02/18/19 06:00 93.2 F L 14 02/18/19 04:00 14 100 02/18/19 03:28 91 F L 02/17/19 23:30 98.5 F 141 H 16 111/70 02/17/19 23:25 98.7 F 02/17/19 23:16 149 H 126/86 02/17/19 21:45 93 L 02/17/19 21:40 98.5 F Weight Admit Weight 144 lb 6.444 oz Weight 144 lb 6.444 oz Most Recent Monitor Data Heart Rate from ECG 72 NIBP 136/99 NIBP BP-Mean 110 Respiration from ECG 14 SpO2 100 I&O: 02/17/19 02/18/19 02/19/19 06:59 06:59 06:59 Intake Total 604.6 Output Total 1555 Balance -950.4 Result Diagrams: 02/18/19 13:07 02/18/19 03:41 Additional Labs: Accuchecks 02/18/19 02/17/19 01:40 16:22 POC Glucose 191 H 187 H Phys Exam - Physical Examination sedated, easily agitated on vent HEENT: moist MMs Respiratory: no rales, no rhonchi some upper airway/ tube noises with ventilation Cardiovascular: RRR, no significant murmur Gastrointestinal: soft, positive bowel sounds Musculoskeletal: no edema Deviation from normal: sedated on vent Dx/Plan (1) Acute upper GI hemorrhage Code(s): K92.2 - GASTROINTESTINAL HEMORRHAGE, UNSPECIFIED Status: Acute Comment: severe, multiple units PRBC and FFP, now resolved (2) Duodenal ulcer Status: Acute Comment: Large, pulsatile vessel, s/p failed endoscopic control s/p laparotomy with oversewing ulcer and pyloroplasty (3) Anemia due to acute blood loss Code(s): D62 - ACUTE POSTHEMORRHAGIC ANEMIA Status: Acute Comment: stabilized in 7s, monitor closely (4) Acute respiratory failure Code(s): J96.00 - ACUTE RESPIRATORY FAILURE, UNSP W HYPOXIA OR HYPERCAPNIA Status: Acute Qualifiers: Respiratory failure complication: unspecified whether with hypoxia or hypercapnia Qualified Code(s): J96.00 - Acute respiratory failure, unspecified whether with hypoxia or hypercapnia Comment: intubated (5) Hypertension Code(s): I10 - ESSENTIAL (PRIMARY) HYPERTENSION Status: Chronic (6) Hx of renal cell carcinoma Code(s): Z85.528 - PERSONAL HISTORY OF OTHER MALIGNANT NEOPLASM OF KIDNEY Status: Chronic Comment: S/P nephrectomy (7) Hx of hepatitis C Code(s): Z86.19 - PERSONAL HISTORY OF OTHER INFECTIOUS AND PARASITIC DISEASES Status: Chronic Comment: s/p interferron therapy - Plan cont current plan of care ventilator management and wean per pulmonology * . - Discharge Day Encounter end time: 11:50
[2019-02-18 09:13] LABS: Hemoglobin 9.1 g/dL (14.0-18.0)
--- NOTE | 2019-02-18 09:17 | CON ---
DATE OF CONSULTATION: 02/18/2019 SUBJECTIVE: Dannie Stroud is a 69-year-old who is intubated in the vent and sedated with Diprivan and fentanyl. History is obtained by reviewing his medical record. His is to arrive and we will discuss with at length. Presented to the hospital after he became unresponsive. He is diaphoretic. His blood pressure was low, systolic was 50. He was given IV fluids on arrival to ER. Initial vital signs in the ER revealed a pulse of 91, respirations 16, sat difficult to obtain. He is apparently having chest pain all day as per the family. He then was seen by Dr. Candido Beavers on an emergency basis for abdominal pain, diarrhea and vomiting. Severe anemia. Endoscopy revealed bleeding ulcer, which was uncontrollable. He was then taken to surgery where he underwent appropriate surgical intervention. Please review surgery note. PAST MEDICAL HISTORY: Pertinent for renal cell carcinoma status post nephrectomy, hypertension, chronic pain and renal insufficiency. PAST SURGICAL HISTORY: Colonoscopy, nephrectomy. SOCIAL HISTORY: Longstanding history of tobacco abuse. Apparently, no alcohol or drugs. HOME MEDICATIONS: Includes Votrient 600 mg a day, treatment for renal cell; lisinopril 40; Ativan 0.1; hydrocortisone 2 in the morning and 5 in the evening. ALLERGIES: NONE. REVIEW OF SYSTEMS: Otherwise unobtainable. PHYSICAL EXAMINATION: VITAL SIGNS: Pulse 109, blood pressure is 160/80 on the A line, saturations are 100%. CHEST: Decreased breath sounds. No wheezing. CARDIAC: Normal S1, S2. No gallops. ABDOMEN: No masses. LABORATORY DATA: His initial hemoglobin was 3.9, hematocrit was 16. H and H this morning 7.5 and 21, platelet count normal. White count 9000, 63 segs. PO2 is 230, pCO2 34, pH 7.42, O2 60%. His lytes are normal. Albumin is low 2.1. ASSESSMENT: 1. Status post massive gastrointestinal bleed, status post lap for bleeding duodenal ulcer. 2. Chronic obstructive pulmonary disease and tobacco abuse. 3. . 4. Left nephrectomy for renal cell carcinoma. 5. Pulmonary nodules apparently. I agree with present treatment. Continue vent support, neb treatments, steroids, wean when stable. We will discuss with family as they arrive. This is a 45-minute critical time. Job ID: [id number]
[2019-02-18 10:53] LABS: Actual Bicarbonate (HCO3a) 18.4 mEq/L (22-28); Analyzer IN Cardio OR; Base Excess (BEa) -7.4 mEq/L (-2.0 to +3.0); CO2 Tension 38.4 mmHg (35.0-45.0); Calcium, Ionized 0.84 mmol/L (1.12-1.30); O2 Tension (PaO2) 234.3 mmHg (> 80.0); Potassium - ABG Lab 4.17 mmol/L (3.70-5.30)
[2019-02-18 10:53] LABS: Actual Bicarbonate (HCO3a) 19.6 mEq/L (22-28); Analyzer IN Cardio OR; Base Excess (BEa) -4.5 mEq/L (-2.0 to +3.0); CO2 Tension 31.8 mmHg (35.0-45.0); Calcium, Ionized 1.19 mmol/L (1.12-1.30); Carboxyhemoglobin (COHb) 0.5 gm% (0.0-3.0); Hemoglobin (Hb) 8.8 g/dL (14.0-18.0); O2 Tension (PaO2) 443.5 mmHg (> 80.0); Potassium - ABG Lab 3.69 mmol/L (3.70-5.30); pH, Arterial 7.41 (7.35-7.45)
[2019-02-18 10:55] LABS: Puncture Site A
[2019-02-18 10:56] LABS: Puncture Site A
[2019-02-18 13:19] LABS: #Basophils 0.1 thou/uL (0.0-0.2); #Lymphocytes 0.2 thou/uL (1.20-3.40); #Monocytes 0.2 thou/uL (0.11-0.59); #Neutrophils 6.9 thou/uL (1.40-6.50); %Basophils 1.3 % (0.0-1.0); %Eosinophils 0.5 % (0.0-10.0); %Lymphocytes 2.5 % (21.0-51.0); %Monocytes 2.4 % (0.0-10.0); %Neutrophils 93.3 % (42.0-75.0); Mean Corpuscular HGB CONC 34.3 g/dL (32.0-36.0); Mean Corpuscular Volume 87.3 fL (78.0-98.0); Mean Platelet Volume 8.1 fL (7.4-10.4); Platelet Count 176 thou/uL (130-400); RBC Distribution Width 14.4 % (11.5-14.5); Red Blood Cell (RBC) Count 2.66 mill/uL (4.70-6.10); White Blood Cell (WBC) Count 7.4 thou/uL (4.8-10.8)
[2019-02-18] MEDS ORDERED: Sodium Bicarb 50 MEQ/50 ML VIAL ONE (16:40)
[2019-02-18] MEDS ORDERED: Calcium Chloride 1 GM/10 ML Abboject SYRINGE ONE (16:40)
[2019-02-18] MEDS ORDERED: Hydrocortisone Sod Succ/PF 100 mg/2 ml Vial ONE (16:40)
[2019-02-18] MEDS ORDERED: Rocuronium Bromide 10 MG/ML (10ML VIAL) ONE (16:40)
--- NOTE | 2019-02-18 17:29 | PDOC.CTH ---
Cardiology Progress Note - Subjective He remains intubated, sedated. - Objective Vital Signs Temp Pulse Resp Pulse Ox 02/18/19 16:00 98.8 F 14 02/18/19 14:24 64 02/18/19 14:00 11 L 02/18/19 13:04 87 02/18/19 12:00 10 L 02/18/19 11:00 99 F 02/18/19 10:23 75 02/18/19 10:00 14 02/18/19 09:00 96.9 F L 02/18/19 08:00 14 100 02/18/19 07:17 74 02/18/19 06:00 93.2 F L 14 Admit Weight 144 lb 6.444 oz Weight 144 lb 6.444 oz 02/17/19 02/18/19 02/19/19 06:59 06:59 06:59 Intake Total 604.6 1288 Output Total 1555 1065 Balance -950.4 223 - Physical Examination General/Neuro: other: (Intubated, sedated. ) Neck: no JVD present Lungs: unlabored respirations Heart: RRR Abdomen: NT/ND Extremities: other: (no edema) - Telemetry Telemetry Rhythm: NSR - Labs Result Diagrams: 02/18/19 13:07 02/18/19 03:41 Troponin/CKMB Troponin I Less than 0.010 ng/mL (< 0.028) 02/17/19 16:26 - Assessment/Plan 1. Acute blood loss anemia 2. Severe symptomatic anemia 3. ST elevations on ECG while Hgb 3.9 PLAN: - Echocadiogram - Likely ECG changes from demand ischemia. - Continue supportive care.
[2019-02-18 17:49] LABS: Hemoglobin 7.2 g/dL (14.0-18.0)
[2019-02-18] MEDS: Sodium Chloride 0.9% (PF) 10 ML VIAL FS PRN (20:43)
[2019-02-18] MEDS: Pantoprazole 40 MG VIAL IVP SCH (20:43)
[2019-02-19] MEDS: Fluconazole In NaCl,Iso-Osm 200 MG in Premix Bag 1 BAG IVPB SCH (03:52)
[2019-02-19 04:35] LABS: #Lymphocytes 0.3 thou/uL (1.20-3.40); #Monocytes 0.3 thou/uL (0.11-0.59); #Neutrophils 8.6 thou/uL (1.40-6.50); %Basophils 0.3 % (0.0-1.0); %Eosinophils 0.2 % (0.0-10.0); %Lymphocytes 3.7 % (21.0-51.0); %Monocytes 3.6 % (0.0-10.0); %Neutrophils 92.3 % (42.0-75.0); Mean Corpuscular Hemoglobin 30.6 pg (27.0-31.0); Mean Corpuscular Volume 89.9 fL (78.0-98.0); Platelet Count 155 thou/uL (130-400); RBC Distribution Width 14.9 % (11.5-14.5); Red Blood Cell (RBC) Count 2.29 mill/uL (4.70-6.10); White Blood Cell (WBC) Count 9.4 thou/uL (4.8-10.8)
[2019-02-19] MEDS: fentaNYL Citrate/PF 2,000 MCG in Sodium Chloride 0.9% 60 ML IV SCH ×2 (04:45→10:26)
[2019-02-19 05:09] LABS: ALT (SGPT) 30 U/L (8-55); AST (SGOT) 52 U/L (5-34); Albumin 3.2 g/dL (3.4-4.8); Alkaline Phosphatase 27 U/L (40-150); Anion Gap 12 mmol/L (10-20); BUN (Urea Nitrogen) 28 mg/dL (8.4-25.7); Bilirubin, Total 0.4 mg/dL (0.2-1.2); Calc. Creatinine Clearance 51 mL/min (70-130); Calcium 8.5 mg/dL (7.8-10.44); Carbon Dioxide 21 mmol/L (23-31); Chloride 114 mmol/L (98-107); Estimated GFR-MDRD 56; Globulin 1.6 g/dL (2.4-3.5); Glucose 120 mg/dL (80-115); Magnesium 2.5 mg/dL (1.6-2.6); Potassium 3.9 mmol/L (3.5-5.1); Protein, Total 4.8 g/dL (5.8-8.1); Sodium 143 mmol/L (136-145)
[2019-02-19] MEDS: Piperacillin/Tazobactam 3.375 GM in Sodium Chloride 0.9% 100 ML IVPB SCH ×3 (05:10→17:58)
[2019-02-19] MEDS: Hydrocortisone Sod Succ/PF 100 mg/2 ml Vial IVP SCH ×3 (05:48→21:31)
[2019-02-19 06:40] LABS: Actual Bicarbonate (HCO3a) 23.7 mEq/L (22-28); Base Excess (BEa) -1.3 mEq/L (-2.0 to +3.0); CO2 Tension 41.1 mmHg (35.0-45.0); Calcium, Ionized 1.16 mmol/L (1.12-1.30); Carboxyhemoglobin (COHb) 1.5 gm% (0.0-3.0); Hemoglobin (Hb) 6.7 g/dL (14.0-18.0); O2 Tension (PaO2) 82.2 mmHg (> 80.0); Potassium - ABG Lab 3.79 mmol/L (3.70-5.30); pH, Arterial 7.38 (7.35-7.45)
[2019-02-19 06:48] LABS: ALV-art Gradient 80.325 (0-20); Puncture Site LINE
[2019-02-19] MEDS: Propofol 1,000 MG/100 ML VIAL IV PRN (07:05)
--- NOTE | 2019-02-19 08:37 | PRG ---
DATE OF SERVICE: 02/19/2019 SUBJECTIVE: Maximus remains intubated in the vent. Sedated. OBJECTIVE: VITAL SIGNS: Blood pressure 127/36, pulse 87, saturations 99%, respirations 18. GENERAL: He is afebrile. His I's and O's have been . CHEST: Decreased breath sounds. No wheezing. CARDIAC: Normal S1 and S2. No gallops. ABDOMEN: Soft without masses. NEUROLOGICAL: He is sedated. LABORATORY DATA: His H and H are 7 and 20. His platelet count is normal. PO2 is 82, pCO2 is 41.38, and ph 7,43_ 30%. His lytes are normal. His creatinine is 1.29. IMPRESSION: Respiratory failure, status post laparotomy for massive gastrointestinal bleed, anemia, abnormal EKG. PLAN: Transfusion of packed cells. Hold sedation. We will try and hopefully wean and extubate, neb treatment, supportive care. We will follow. One-half hour of critical time. Job ID: [id number] MTDD
[2019-02-19] MEDS: Pantoprazole 40 MG VIAL IVP SCH ×2 (08:57→21:31)
[2019-02-19] MEDS: Sodium Chloride 0.9% (PF) 10 ML VIAL FS PRN ×2 (08:57→21:31)
--- NOTE | 2019-02-19 10:13 | PRG ---
DATE OF SERVICE: 02/18/2019 SUBJECTIVE: Mr. Stroud is intubated. The nurses state that when his sedation is diminished, he does respond appropriately. OBJECTIVE: VITAL SIGNS: Pulse 53, blood pressure 120/58, temperature 97.7. ABDOMEN: Soft and nontender. There is no blood in the NG tube. LABORATORY DATA: Hemoglobin 8, white count 7.4, platelet count 173. BUN and creatinine are 32 and 1, magnesium 1.4, AST 128, ALT 59, alkaline phosphatase 31. ASSESSMENT: Status post massive gastrointestinal hemorrhage from duodenal ulcer, which was unable to be controlled endoscopically. He has gone to surgery and is doing well. We will continue to follow. Job ID: [id number]
[2019-02-19] MEDS ORDERED: Ondansetron PF 4 MG/2 ML Vial IVP PRN (10:30)
[2019-02-19] MEDS ORDERED: diphenhydrAMINE 50 MG/ML VIAL IM/IV PRN (10:30)
[2019-02-19] MEDS ORDERED: Promethazine HCl 25 MG/ML VIAL IM PRN (10:30)
[2019-02-19] MEDS ORDERED: Ketorolac Tromethamine 30 MG/ML VIAL IVP PRN (10:30)
[2019-02-19] MEDS ORDERED: Naloxone HCl 0.4 mg/ml Vial IV PRN (10:30)
[2019-02-19] MEDS ORDERED: Zolpidem Tartrate 5 MG TAB PO PRN (10:30)
[2019-02-19] MEDS ORDERED: diphenhydrAMINE 25 MG CAP PO PRN (10:30)
[2019-02-19] MEDS: Lactated Ringer's 1,000 ML IV SCH ×2 (10:31→21:31)
--- NOTE | 2019-02-19 10:46 | PDOC.PN ---
- Subjective Encounter Start Date: 02/19/19 Encounter Start Time: 10:44 Mr. Stroud was seen today in follow-up of Duodenal Ulcer with bleed and hemorrhagic shock. He is complaining of feeling weak, and having back pain. - Objective Resuscitation Status - Order Detail: 02/17/19 19:56 Resuscitation Status Routine Resuscitation Status: FULL: Full Resuscitation MAR Reviewed: Yes Vital Signs & Weight: Vital Signs (12 hours) Temp Pulse Resp BP Pulse Ox 02/19/19 08:10 63 18 100 02/19/19 07:19 99 02/19/19 07:13 87 02/19/19 07:00 98.2 F 02/19/19 06:00 20 02/19/19 04:00 98.3 F 11 L 02/19/19 02:55 69 02/19/19 02:00 10 L 02/19/19 00:00 98.2 F 02/18/19 23:52 56 L 114/62 Weight Admit Weight 144 lb 6.444 oz Weight 144 lb 6.444 oz Most Recent Monitor Data Heart Rate from ECG 62 NIBP 127/56 NIBP BP-Mean 75 Respiration from ECG 26 SpO2 100 I&O: 02/18/19 02/19/19 02/20/19 06:59 06:59 06:59 Intake Total 604.6 3072 Output Total 1555 1910 35 Balance -950.4 1162 -35 Result Diagrams: 02/19/19 04:23 02/19/19 04:23 Phys Exam - Physical Examination HEENT: PERRLA Respiratory: no rales, wheezing present + occasional faint wheeze, and occasional rhonchi Cardiovascular: RRR, no significant murmur, no rub Gastrointestinal: soft, non-tender, no distention, positive bowel sounds Musculoskeletal: no edema Dx/Plan (1) Duodenal ulcer hemorrhagic Code(s): K26.4 - CHRONIC OR UNSPECIFIED DUODENAL ULCER WITH HEMORRHAGE Status : Acute (2) Hemorrhagic shock Code(s): R57.8 - OTHER SHOCK Status: Acute (3) Hx of renal cell carcinoma Code(s): Z85.528 - PERSONAL HISTORY OF OTHER MALIGNANT NEOPLASM OF KIDNEY Status: Chronic Comment: S/P nephrectomy (4) Hypertension Code(s): I10 - ESSENTIAL (PRIMARY) HYPERTENSION Status: Chronic (5) Low back pain Code(s): M54.5 - LOW BACK PAIN Status: Acute - Plan * Duodenal Ulcer with Bleed- He is s/p surgery with duodenal oversew-continue IV Protonix- * His H&H has been stable * HTN- blood pressure is a bit labile- will add Hydralazine as needed * Low back pain- he reports having a recent Lumbar fracture- continue symptom control.
[2019-02-19] MEDS ORDERED: hydrALAZINE 20 MG/ML VIAL SLOW IVP PRN (10:48)
[2019-02-19] MEDS: Acetaminophen 1,000 MG in Premix Bag 1 BAG IVPB SCH ×2 (12:14→17:58)
--- NOTE | 2019-02-19 13:50 | PRG ---
DATE OF SERVICE: 02/19/2019 SUBJECTIVE: He is extubated today. He is having no bleeding. He wants the eat. OBJECTIVE: VITAL SIGNS: Temperature is 98.3, pulse is 63, blood pressure is 149/97. ABDOMEN: Soft and nontender. He has NG tube in place. LABORATORY DATA: Hemoglobin 7, white count is 9.4, and platelets 155, BUN and creatinine are 28 and 1.29, . Electrolytes are otherwise normal. AST 52, ALT 30, alkaline phosphatase 27, TSH is 0.316. ASSESSMENT: Upper gastrointestinal hemorrhage, duodenal ulcer. He was taking quite a bit of NSAIDs for the past 2 weeks. Apparently, he has had a back injury, possibly a fracture, for this he has an outpatient MRI set up with, he has been seeing [facility]. RECOMMENDATIONS: Continue PPI. Continue postop care per General Surgery. We will check a stool H pylori antigen. Job ID: [id number]
--- NOTE | 2019-02-19 16:36 | PRG ---
DATE OF SERVICE: 02/19/2019 SUBJECTIVE: Dannie Stroud is in ICU. He was extubated this morning. He is followed by Dr. Sherman. He has a T5 compression fracture and wears a brace at home. His will bring that brace tomorrow. Otherwise, he will be on bed till then. I have made a call to Dr. Messina to see if this brace is to be worn for comfort or all times when out of bed. I am awaiting his call. OBJECTIVE: VITAL SIGNS: Heart rate 99 and blood pressure 163/82. GENERAL: He has a LOCOMOTIVE ELECTRICIAN pump for pain management, started today by Anesthesia and managed by Anesthesia. LUNGS: Clear to auscultation. CARDIAC: Regular tristen and rhythm without murmur or gallop. ABDOMEN: Soft. Bowel sounds present. NG tube output reveals perhaps old blood. KRIS drain is serosanguineous at 380 for 24 hours. Urine output 1430 for 24 hours. Gastric drainage 100 for 24 hours. LABORATORY DATA: Apparently, his hemoglobin yesterday morning was 8 and today is 7.2, I rechecked it, 5 yesterday and 7.0 today this morning. We will recheck another. ASSESSMENT AND PLAN: 1. Anemia, status post duodenal ulcer hemorrhage and laparotomy oversew of duodenal ulcer bleeder with pyloroplasty performed and gastrotomy repair. Continue NG tube. Avoid Lovenox at this time. Use SCDs. Recheck his CBC tonight in the morning. Platelet count is good at 155. 2. The patient's BUN is chronically elevated with GFR 56. He has had a left nephrectomy for renal cell many years ago, has a well-functioning right kidney. 3. Respiratory failure, extubated today. Job ID: [id number]
[2019-02-19 16:49] LABS: #Basophils 0.1 thou/uL (0.0-0.2); #Lymphocytes 0.4 thou/uL (1.20-3.40); #Monocytes 0.7 thou/uL (0.11-0.59); #Neutrophils 11.7 thou/uL (1.40-6.50); %Basophils 0.7 % (0.0-1.0); %Eosinophils 0.2 % (0.0-10.0); %Lymphocytes 3.5 % (21.0-51.0); %Monocytes 5.3 % (0.0-10.0); %Neutrophils 90.3 % (42.0-75.0); Hemoglobin 7.8 g/dL (14.0-18.0); Mean Corpuscular HGB CONC 33.8 g/dL (32.0-36.0); Mean Corpuscular Hemoglobin 30.1 pg (27.0-31.0); Mean Corpuscular Volume 89.1 fL (78.0-98.0); Mean Platelet Volume 8.4 fL (7.4-10.4); Platelet Count 168 thou/uL (130-400); RBC Distribution Width 15.4 % (11.5-14.5)
[2019-02-20] MEDS: Piperacillin/Tazobactam 3.375 GM in Sodium Chloride 0.9% 100 ML IVPB SCH ×5 (00:05→23:30)
[2019-02-20] MEDS: Acetaminophen 1,000 MG in Premix Bag 1 BAG IVPB SCH ×5 (00:05→23:30)
[2019-02-20] MEDS: fentaNYL Citrate/PF 2,000 MCG in Sodium Chloride 0.9% 60 ML IV PRN ×2 (01:43→16:33)
[2019-02-20] MEDS: Fluconazole In NaCl,Iso-Osm 200 MG in Premix Bag 1 BAG IVPB SCH (03:32)
[2019-02-20 04:18] LABS: ALT (SGPT) 22 U/L (8-55); AST (SGOT) 31 U/L (5-34); Albumin 3.2 g/dL (3.4-4.8); Alkaline Phosphatase 30 U/L (40-150); Anion Gap 12 mmol/L (10-20); BUN (Urea Nitrogen) 28 mg/dL (8.4-25.7); Bilirubin, Total 0.6 mg/dL (0.2-1.2); Calc. Creatinine Clearance 60 mL/min (70-130); Calcium 8.6 mg/dL (7.8-10.44); Carbon Dioxide 25 mmol/L (23-31); Chloride 111 mmol/L (98-107); Estimated GFR-MDRD 67; Globulin 1.9 g/dL (2.4-3.5); Glucose 132 mg/dL (80-115); Magnesium 2.2 mg/dL (1.6-2.6); Protein, Total 5.1 g/dL (5.8-8.1); Sodium 145 mmol/L (136-145)
[2019-02-20 04:20] LABS: Potassium 2.8 mmol/L (3.5-5.1)
[2019-02-20 04:41] LABS: Band 13 % (5-11); Hemoglobin 7.8 g/dL (14.0-18.0); MDiff Complete? YES; Mean Corpuscular HGB CONC 34.1 g/dL (32.0-36.0); Mean Corpuscular Hemoglobin 30.3 pg (27.0-31.0); Mean Corpuscular Volume 88.7 fL (78.0-98.0); Mean Platelet Volume 7.9 fL (7.4-10.4); Monocytes 8 % (0-10); Neutrophil 79 % (42-75); Platelet Count 174 thou/uL (130-400); RBC Distribution Width 15.7 % (11.5-14.5); Red Blood Cell (RBC) Count 2.57 mill/uL (4.70-6.10); White Blood Cell (WBC) Count 19.1 thou/uL (4.8-10.8)
[2019-02-20] MEDS ORDERED: Potassium Chloride 40 MEQ in Premix Bag 1 BAG IVPB SCH (04:45)
[2019-02-20] MEDS: Hydrocortisone Sod Succ/PF 100 mg/2 ml Vial IVP SCH ×3 (05:17→15:56)
[2019-02-20] MEDS: Lactated Ringer's 1,000 ML IV SCH (05:30)
[2019-02-20] MEDS: Pantoprazole 40 MG VIAL IVP SCH ×2 (08:03→21:01)
--- NOTE | 2019-02-20 08:12 | PRG ---
DATE OF SERVICE: 02/20/2019 SUBJECTIVE: Mr. Stroud is doing well today. He is in the ICU. His NG tube has only put out 200 mL for 24 hours. It is slightly bloody. His hemoglobin has remained stable. His urine output is excellent with his Garcia catheter. His urine output for 24 hours is 1895. KRIS drain 205 for 24 hours, serosanguineous, gastric drainage 100 mL for 24 hours. OBJECTIVE: LUNGS: Clear to auscultation. CARDIAC: Regular rate and rhythm without murmur or gallop. ABDOMEN: Soft. Bowel sounds present. ABDOMEN: Nondistended. EXTREMITIES: Unremarkable. LABORATORY DATA: Sodium 145, potassium 2.8, chloride 111, carbon dioxide 25, BUN 28, creatinine 1.10. Magnesium and phosphorus are normal. Liver function tests essentially normal. This morning, his hemoglobin is stable at 7.8, which has been for the last 3 days. White count 19. ASSESSMENT/PLAN: 1. Decrease hydrocortisone from 100 to 50 q.8h. 2. T5 compression fracture. He has a back brace. His is bringing today. I have contacted Dr. Patrice Messina who has seen him in the past to see whether this back brace is for comfort or should be on at all times when out of bed. We were waiting to get him out of bed until we resolve this issue and his brings the brace. 3. Chronic pain secondary to above. He is on Tylenol No. 3 and hydrocodone for this at home. 4. Nonsteroidal antiinflammatory drug use. We will discontinue oral nonsteroidal antiinflammatory drugs due to his recent hemorrhaging duodenal ulcer. 5. Anemia. His hemodynamics are stable. 6. Mobilizing fluids. Urine output is high and we will decrease IV fluids to 50 per hour. We will remove his NG tube and remove his Garcia. Change his IV fluids to half-normal saline with potassium for his hypokalemia. We will recheck his potassium and hemoglobin later tonight and of course in the morning. I would like to increase his mobility after he gets his back brace. 7. Tobacco use. 8. Transfer to the floor. Job ID: [id number]
--- NOTE | 2019-02-20 08:46 | PRG ---
DATE OF SERVICE: 02/20/2019 SUBJECTIVE: Dannie echavarria was extubated yesterday. He is doing well. Less short of breath, still having some abdominal pain. OBJECTIVE: VITAL SIGNS: Blood pressure 168/97, temperature 97, respiratory rate 21, oxygen saturation 96% on 2L. GENERAL: Awake, alert, and responsive. CHEST: No wheezing. CARDIAC: Normal S1 and S2. No gallops. ABDOMEN: Soft. LABORATORY DATA: Potassium is 2.8. Otherwise, lytes are normal. White count 19,000, H and H are 7 and 22, platelet count is 174. IMPRESSION: 1. Status post massive gastrointestinal bleed. 2. Underlying adrenal insufficiency for renal cell carcinoma. PLAN: Continue PT supportive care. Disposition is as per surgery. We will follow while in the ICU. Job ID: [id number]
[2019-02-20] MEDS: Potassium Chloride 40 MEQ in Sodium Chloride 0.45% 1,000 ML IV SCH (08:51)
--- NOTE | 2019-02-20 09:45 | RAD ---
Exam: Chest one view HISTORY:Shortness of breath Comparison: 02/18/2019 FINDINGS: Cardiac silhouette: Normal Pulmonary vessels: Normal Costophrenic angles: Clear LUNGS: Diffuse interstitial and alveolar opacities, unchanged from the previous examination Pneumothorax: None Interval removal of endotracheal tube. Stable right-sided vascular catheter. Osseous abnormalities: None IMPRESSION: Stable interstitial and alveolar opacities. Correlate for congestive heart failure. Super imposed pneumonia cannot be excluded.
--- NOTE | 2019-02-20 10:34 | PDOC.PN ---
- Subjective Encounter Start Date: 02/20/19 Encounter Start Time: 10:32 Mr. Stroud was seen today in follow-up. He is complaining of feeling sore. He also notes a bit of shortness of breath. - Objective Resuscitation Status - Order Detail: 02/17/19 19:56 Resuscitation Status Routine Resuscitation Status: FULL: Full Resuscitation MAR Reviewed: Yes Vital Signs & Weight: Vital Signs (12 hours) Temp Pulse Resp Pulse Ox 02/20/19 08:00 97.9 F 94 L 02/20/19 06:51 68 17 97 02/20/19 04:00 98.2 F 02/20/19 01:20 93 L 02/20/19 00:00 97.9 F 02/19/19 23:35 64 16 97 Weight Admit Weight 144 lb 6.444 oz Weight 144 lb 6.444 oz Most Recent Monitor Data Heart Rate from ECG 78 NIBP 167/98 NIBP BP-Mean 136 Respiration from ECG 20 SpO2 92 I&O: 02/19/19 02/20/19 02/21/19 06:59 06:59 06:59 Intake Total 3072 4381.0 500 Output Total 1910 2200 875 Balance 1162 2181.0 -375 Result Diagrams: 02/20/19 03:00 02/20/19 03:00 Phys Exam - Physical Examination HEENT: PERRLA Cardiovascular: RRR, no significant murmur, no rub Gastrointestinal: soft + diffuse tenderness, no rebound or guarding Musculoskeletal: no edema, pulses present Dx/Plan (1) Duodenal ulcer hemorrhagic Code(s): K26.4 - CHRONIC OR UNSPECIFIED DUODENAL ULCER WITH HEMORRHAGE Status : Acute (2) Hemorrhagic shock Code(s): R57.8 - OTHER SHOCK Status: Acute (3) Hx of renal cell carcinoma Code(s): Z85.528 - PERSONAL HISTORY OF OTHER MALIGNANT NEOPLASM OF KIDNEY Status: Chronic Comment: S/P nephrectomy (4) Hypertension Code(s): I10 - ESSENTIAL (PRIMARY) HYPERTENSION Status: Chronic (5) Low back pain Code(s): M54.5 - LOW BACK PAIN Status: Acute - Plan * Duodenal Ulcer with hemorrhage- he is s/p surgical repair . * His H&H has been stable- continue Protonix IV * Hypokalemia- replace * HTN- blood pressure has been a bit elevated- will start Amlodipine in lieu of Lisinopril, given the recent hemorrhagic shock * Periods of intermittent hypoxemia- possible undiagnosed COPD ( he smokes daily per history)
[2019-02-20] MEDS ORDERED: Furosemide 40 MG/4 ML VIAL SLOW IVP SCH (10:45)
[2019-02-20] MEDS ORDERED: Amlodipine 5 MG TAB PO SCH (12:00)
[2019-02-20 16:41] LABS: Anion Gap 16 mmol/L (10-20); BUN (Urea Nitrogen) 22 mg/dL (8.4-25.7); Calc. Creatinine Clearance 61 mL/min (70-130); Calcium 8.9 mg/dL (7.8-10.44); Carbon Dioxide 28 mmol/L (23-31); Chloride 104 mmol/L (98-107); Estimated GFR-MDRD 67; Glucose 125 mg/dL (80-115); Sodium 145 mmol/L (136-145)
[2019-02-20 16:44] LABS: Potassium 2.6 mmol/L (3.5-5.1)
[2019-02-20 16:52] LABS: Anisocytosis SLIGHT = 6-15 cells (100X) (0-5/hpf); Band 3 % (5-11); Hemoglobin 8.6 g/dL (14.0-18.0); Lymphocytes 2 % (21-51); MDiff Complete? YES; Mean Corpuscular HGB CONC 32.9 g/dL (32.0-36.0); Mean Corpuscular Hemoglobin 29.4 pg (27.0-31.0); Mean Corpuscular Volume 89.4 fL (78.0-98.0); Mean Platelet Volume 8.4 fL (7.4-10.4); Monocytes 2 % (0-10); Neutrophil 93 % (42-75); Platelet Count 217 thou/uL (130-400); Platelet Morphology Comment Appears Adequate; RBC Distribution Width 15.8 % (11.5-14.5); Red Blood Cell (RBC) Count 2.94 mill/uL (4.70-6.10); White Blood Cell (WBC) Count 24.3 thou/uL (4.8-10.8)
[2019-02-20] MEDS: Potassium Chloride 40 MEQ in Premix Bag 1 BAG IVPB SCH ×2 (17:45→23:32)
--- NOTE | 2019-02-20 17:49 | PDOC.CTH ---
Cardiology Progress Note - Subjective He is doing better. He is still having chest pains. No bleeding. - Objective Vital Signs Temp Pulse Pulse Pulse Resp BP BP 02/20/19 15:26 93 108 H 149/85 H 02/20/19 13:55 75 20 02/20/19 12:00 98.4 F 02/20/19 10:51 73 161/101 H 02/20/19 08:00 97.9 F 02/20/19 06:51 68 17 Pulse Ox Pulse Ox Pulse Ox 02/20/19 15:26 90 L 96 02/20/19 13:55 97 02/20/19 12:00 02/20/19 10:51 02/20/19 08:00 94 L 02/20/19 06:51 97 Admit Weight 144 lb 6.444 oz Weight 144 lb 6.444 oz 02/19/19 02/20/19 02/21/19 06:59 06:59 06:59 Intake Total 3072 4381.0 1100 Output Total 1910 2200 4425 Balance 1162 2181.0 -3325 - Physical Examination General/Neuro: NAD Neck: no JVD present Lungs: unlabored respirations Heart: RRR Abdomen: NT/ND Extremities: other: (no edema) - Telemetry Telemetry Rhythm: NSR - Labs Result Diagrams: 02/20/19 16:06 02/20/19 16:06 Troponin/CKMB Troponin I Less than 0.010 ng/mL (< 0.028) 02/17/19 16:26 - Assessment/Plan 1. Acute blood loss anemia 2. Severe symptomatic anemia 3. ST elevations on ECG while Hgb 3.9 4. Dilated CM EF at 35-40% PLAN: - Prohibitive at this time to do any risk stratification for his heart given his life threatening blood loss. - Once more stable will need to start BB and ACEI if BP allows. - Will follow. - Hypokalemia, replace K.
[2019-02-21 03:30] LABS: Actual Bicarbonate (HCO3a) 28.6 mEq/L (22-28); Base Excess (BEa) 5.2 mEq/L (-2.0 to +3.0); CO2 Tension 37.2 mmHg (35.0-45.0); Calcium, Ionized 1.12 mmol/L (1.12-1.30); Carboxyhemoglobin (COHb) 0.6 gm% (0.0-3.0); Hemoglobin (Hb) 9.3 g/dL (14.0-18.0); Potassium - ABG Lab 2.84 mmol/L (3.70-5.30)
[2019-02-21 03:47] LABS: Mean Corpuscular HGB CONC 33.2 g/dL (32.0-36.0); Mean Corpuscular Hemoglobin 29.9 pg (27.0-31.0); Mean Platelet Volume 7.9 fL (7.4-10.4); Platelet Count 260 thou/uL (130-400); RBC Distribution Width 15.5 % (11.5-14.5); Red Blood Cell (RBC) Count 3.01 mill/uL (4.70-6.10); White Blood Cell (WBC) Count 27.1 thou/uL (4.8-10.8)
[2019-02-21 04:01] LABS: ALT (SGPT) 21 U/L (8-55); AST (SGOT) 36 U/L (5-34); Albumin 3.5 g/dL (3.4-4.8); Alkaline Phosphatase 42 U/L (40-150); Anion Gap 15 mmol/L (10-20); BUN (Urea Nitrogen) 19 mg/dL (8.4-25.7); Bilirubin, Total 0.9 mg/dL (0.2-1.2); Calc. Creatinine Clearance 65 mL/min (70-130); Carbon Dioxide 29 mmol/L (23-31); Chloride 104 mmol/L (98-107); Estimated GFR-MDRD 73; Globulin 2.2 g/dL (2.4-3.5); Glucose 133 mg/dL (80-115); Potassium 3.2 mmol/L (3.5-5.1); Protein, Total 5.7 g/dL (5.8-8.1); Sodium 145 mmol/L (136-145)
[2019-02-21 04:03] LABS: Lymphocytes 4 % (21-51); MDiff Complete? YES; Monocytes 1 % (0-10); Neutrophil 95 % (42-75); Toxic Granulation SLIGHT
[2019-02-21] MEDS: Potassium Chloride 40 MEQ in Sodium Chloride 0.45% 1,000 ML IV SCH (05:38)
[2019-02-21] MEDS: Fluconazole In NaCl,Iso-Osm 200 MG in Premix Bag 1 BAG IVPB SCH (05:39)
[2019-02-21] MEDS: Piperacillin/Tazobactam 3.375 GM in Sodium Chloride 0.9% 100 ML IVPB SCH ×4 (05:40→23:02)
[2019-02-21] MEDS: Acetaminophen 1,000 MG in Premix Bag 1 BAG IVPB SCH ×4 (05:41→23:02)
[2019-02-21 05:42] LABS: Puncture Site RRA
[2019-02-21] MEDS: fentaNYL Citrate/PF 2,000 MCG in Sodium Chloride 0.9% 60 ML IV PRN (06:30)
--- NOTE | 2019-02-21 07:48 | RAD ---
PORTABLE CHEST: HISTORY: Respiratory distress. COMPARISON: Prior day's study. FINDINGS: The interstitial alveolar lung changes are similar to the prior exam. Right subclavian line is uncha nged in position. IMPRESSION: Stable exam. POS: YAIR
--- NOTE | 2019-02-21 08:32 | PRG ---
DATE OF SERVICE: 02/20/2019 SUBJECTIVE: Mr. Stroud is tolerating liquid diet. He has had no nausea or vomiting. He did have some black stools today. OBJECTIVE: VITAL SIGNS: Temperature 98.9, blood pressure 149/85, and pulse 88 to 95. GENERAL: He is resting in bed. LUNGS: Clear. HEART: Regular rate and rhythm. ABDOMEN: Soft and nontender. LABORATORY DATA: White count of 24,000, hemoglobin 8.6, and platelet count 217. INR 1.4 on the 28th, potassium is 2.6, going to replace, sodium 145. BUN and creatinine of 22 and 1.9. BNP was 1191. ASSESSMENT: 1. Gastrointestinal bleed from a large duodenal ulcer, treated surgically. 2. Massive transfusion protocol. 3. He has had some shortness of breath and received some Lasix. Did have an elevated BNP. It is unclear if he has had some pneumonia or if he has heart failure. Echocardiogram is planned. RECOMMENDATIONS: 1. The patient is going to stay in the ICU. H and H are rechecked and stable. 2. Observe in ICU secondary to respiratory issues and elevated white blood cell count. We will continue to follow. Job ID: [id number]
[2019-02-21] MEDS: Hydrocortisone Sod Succ/PF 100 mg/2 ml Vial IVP SCH ×4 (08:54→23:02)
[2019-02-21] MEDS ORDERED: Furosemide 20 MG/2 ML VIAL SLOW IVP SCH (09:00)
--- NOTE | 2019-02-21 09:03 | PRG ---
DATE OF SERVICE: 02/21/2019 SUBJECTIVE: This morning, he is having difficulty breathing. X-ray shows diffuse pulmonary infiltrates consistent with CHF, ARDS. OBJECTIVE: VITAL SIGNS: High-flow 45, saturations 100%, pulse 100, respirations 24, blood pressure 124/107. GENERAL: He is clearly having difficulty breathing. His I's and O's have been ahead. CHEST: Decreased breath sounds. Bilateral crackles. CARDIAC: Sinus tach. ABDOMEN: Soft, massive. LABORATORY DATA: His lytes are normal. His BNP was elevated at 1000. Echo shows decreased EF. White count 29537. ASSESSMENT: Congestive heart failure, acute respiratory distress syndrome, status post lap, massive gastrointestinal bleed. PLAN: Continue high-flow, continue neb treatments, steroids, PT supportive care. He cannot be transferred out of the ICU until he is more stable. One-half hour of critical time. Job ID: [id number]
[2019-02-21] MEDS: Pantoprazole 40 MG VIAL IVP SCH ×2 (09:08→20:15)
[2019-02-21] MEDS: Amlodipine 5 MG TAB PO SCH (09:09)
[2019-02-21] MEDS ORDERED: Potassium Chloride 40 MEQ in Premix Bag 1 BAG IVPB SCH (10:00)
--- NOTE | 2019-02-21 10:08 | PRG ---
DATE OF SERVICE: 02/21/2019 SUBJECTIVE: Mr. Stroud is in ICU still because of lung infiltrates, dyspnea, and hypoxia. The patient has a combination of possible aspiration from his duodenal ulcer bleed versus ARDS or combination of the tube. The chest x-ray demonstrates infiltrates. He is dyspneic with minimal activity. OBJECTIVE: VITAL SIGNS: Heart rate 128, blood pressure 126/95. LUNGS: Rhonchi at base. CARDIAC: Regular rate and rhythm. Sinus tachycardia. ABDOMEN: Soft plus bowel sounds. Nontender. He has had stools black. LABORATORY DATA: Hemoglobin is stable at 9, white count is 27 with a normal differential. Sodium 145, potassium 3.2, BUN 19, creatinine 1.02. ASSESSMENT AND PLAN: 1. Acute kidney injury has improved with hydration. He is diuresing, his IV fluids were TKO with a POWER ELECTRONICS RESEARCH ENGINEER. Garcia left in place due to his diuresis. With diuresis, he is put out 7.6 L in the last 24 hours. 2. Hypokalemia, replaced. He is on IV fluids with potassium, although TKO, we may need of fluids. He is on hydrocortisone 50 q.8. He has adrenal insufficiency treated as he came to the hospital. Wean steroids as able. Continue ICU observation. Job ID: [id number]
--- NOTE | 2019-02-21 11:43 | PDOC.PN ---
- Subjective Encounter Start Date: 02/21/19 Encounter Start Time: 11:41 Mr. Stroud was seen today in follow-up of duodenal ulcer with hemorrhagic shock, and respiratory failure. He says he gets severely short of breath, with just minimal exertion, for example, moving around in the bed, and talking. He also notes some lower back and abdominal discomfort. - Objective Resuscitation Status - Order Detail: 02/17/19 19:56 Resuscitation Status Routine Resuscitation Status: FULL: Full Resuscitation MAR Reviewed: Yes Vital Signs & Weight: Vital Signs (12 hours) Temp Pulse Resp BP Pulse Ox 02/21/19 10:06 127 H 22 H 97 02/21/19 09:09 128 H 126/95 H 02/21/19 08:00 97.6 F 02/21/19 07:06 100 02/21/19 07:03 110 H 24 H 100 02/21/19 03:51 100 02/21/19 03:00 99.2 F Weight Admit Weight 144 lb 6.444 oz Weight 144 lb 6.444 oz Most Recent Monitor Data Heart Rate from ECG 118 NIBP 135/102 NIBP BP-Mean 113 Respiration from ECG 27 SpO2 98 I&O: 02/20/19 02/21/19 02/22/19 06:59 06:59 06:59 Intake Total 4381.0 3918 254 Output Total 2200 8175 420 Balance 2181.0 -4257 -166 Result Diagrams: 02/21/19 03:15 02/21/19 03:15 Phys Exam - Physical Examination HEENT: PERRLA Respiratory: wheezing present + wheezing and rhonchi bilaterally Cardiovascular: RRR, no significant murmur, no rub Gastrointestinal: soft, non-tender, no distention, positive bowel sounds Musculoskeletal: no edema, pulses present + mottling of skin in both lower extremities Dx/Plan (1) Duodenal ulcer hemorrhagic Code(s): K26.4 - CHRONIC OR UNSPECIFIED DUODENAL ULCER WITH HEMORRHAGE Status : Acute (2) Acute and chronic respiratory failure with hypoxia Code(s): J96.21 - ACUTE AND CHRONIC RESPIRATORY FAILURE WITH HYPOXIA Status: Acute (3) Hemorrhagic shock Code(s): R57.8 - OTHER SHOCK Status: Acute (4) Hx of renal cell carcinoma Code(s): Z85.528 - PERSONAL HISTORY OF OTHER MALIGNANT NEOPLASM OF KIDNEY Status: Chronic Comment: S/P nephrectomy (5) Hypertension Code(s): I10 - ESSENTIAL (PRIMARY) HYPERTENSION Status: Chronic (6) Low back pain Code(s): M54.5 - LOW BACK PAIN Status: Acute (7) Acute on chronic systolic and diastolic heart failure, NYHA class 4 Code(s): I50.43 - ACUTE ON CHRONIC COMBINED SYSTOLIC AND DIASTOLIC HRT FAIL Status: Acute - Plan * Duodenal Ulcer with hemorrhage and hemorrhagic shock- he is s/p surgery- his H &H has remained stable- continue IV Protonix * Acute respiratory failure- this is likely due to both CHF exacerbation and COPD- he has diuresed a large volume overnight. He is still symptomatic * Continue duonebs as needed * Chronic low back pain- treat symptomatically. * HTN- blood pressure is stable
[2019-02-21] MEDS: Furosemide 20 MG/2 ML VIAL SLOW IVP SCH (14:00)
--- NOTE | 2019-02-21 14:11 | PRG ---
DATE OF SERVICE: 02/21/2019 SUBJECTIVE: Mr. Stroud has a nasal prong oxygen on, nasal prong CPAP. Nurses note he has had 2 stools, which were dark and black. He had been staying in ICU secondary to pulmonary concerns. He has coarse breath sounds and worsening pulmonary function. MEDICATIONS: 1. Tylenol. 2. Norvasc. 3. Benadryl. 4. Fentanyl. 5. Fluconazole. 6. Furosemide. 7. Hydrocortisone 50 IV q.8. 8. Toradol. 9. Zosyn. PHYSICAL EXAMINATION: GENERAL: He is frail and thin. VITAL SIGNS: Pulse is 127, respirations 22, O2 saturations 97% on 45% FiO2 by nasal CPAP. HEENT: Conjunctivae and sclerae are clear. Oropharynx is without lesions. LUNGS: Coarse breath sounds. EXTREMITIES: No edema. LABORATORY DATA: White count is 27,000 today, hemoglobin is 9, platelet count is 260. Sodium 145, potassium 3.2, BUN and creatinine are 19 and 1.02. AST is 36, ALT is 21, bilirubin is normal. ASSESSMENT: 1. Gastrointestinal hemorrhage, duodenal ulcer, status post endoscopy, which was unsuccessful in controlling hemorrhage and then he had a laparotomy. Last transfusion was on the . No blood products yesterday or today. 2. Respiratory difficulties, unclear if it is ARDS or pneumonia. He has been started on broad-spectrum antibiotics. We are giving some diuretics. His EF was okay on his echocardiogram. Pulmonary is concerned that the x-ray looks like ARDS. There is no prior history of hepatitis C. No cirrhosis. PLAN: Continue IV PPI. I agree with keeping in the ICU for now. We will follow along with you. Job ID: [id number]
[2019-02-21] MEDS ORDERED: Furosemide 40 MG/4 ML VIAL SLOW IVP SCH (14:30)
[2019-02-21 16:06] LABS: Actual Bicarbonate (HCO3a) 26.4 mEq/L (22-28); Base Excess (BEa) 3.4 mEq/L (-2.0 to +3.0); Calcium, Ionized 1.11 mmol/L (1.12-1.30); Carboxyhemoglobin (COHb) 0.4 gm% (0.0-3.0); Hemoglobin (Hb) 9.8 g/dL (14.0-18.0); O2 Tension (PaO2) 87.9 mmHg (> 80.0); Potassium - ABG Lab 2.95 mmol/L (3.70-5.30); pH, Arterial 7.51 (7.35-7.45)
[2019-02-21 16:07] LABS: Puncture Site RRA
[2019-02-21] MEDS: Sodium Chloride 0.9% (PF) 10 ML VIAL FS PRN (20:15)
--- NOTE | 2019-02-21 20:22 | PDOC.CTH ---
Cardiology Progress Note - Subjective He has been much more SOB today. Currently on BiPAP. - Objective Vital Signs Temp Pulse Resp BP Pulse Ox 02/21/19 18:20 112 H 02/21/19 18:19 124 H 30 H 02/21/19 16:00 97.9 F 97 02/21/19 14:26 111 H 02/21/19 13:06 130 H 30 H 95 02/21/19 12:00 96 02/21/19 10:06 127 H 22 H 97 02/21/19 09:09 128 H 126/95 H Admit Weight 144 lb 6.444 oz Weight 144 lb 6.444 oz 02/20/19 02/21/19 02/22/19 06:59 06:59 06:59 Intake Total 4381.0 3918 1023.3 Output Total 2200 8175 1385 Balance 2181.0 -4257 -361.7 - Physical Examination General/Neuro: NAD Neck: no JVD present Lungs: other: (Tachypneic, reduced breath sounds. ) Heart: RRR, other: (Tachycardic. ) Abdomen: soft Extremities: other: (no edema) - Telemetry Telemetry Rhythm: S tach - Labs Result Diagrams: 02/21/19 03:15 02/21/19 03:15 Troponin/CKMB Troponin I Less than 0.010 ng/mL (< 0.028) 02/17/19 16:26 - Assessment/Plan 1. Acute blood loss anemia 2. Severe symptomatic anemia 3. ST elevations on ECG while Hgb 3.9 4. Dilated CM EF at 35-40% 5. Acute on chronic systolic heart failure. PLAN: - Replace K. - IV lasix at 80 BID for one or two days - Sinus tachycardia, no arrhythmias for now. - Judiscious use of fluids due to LV dysfunction. - Will follow.
[2019-02-22] MEDS: Fluconazole In NaCl,Iso-Osm 200 MG in Premix Bag 1 BAG IVPB SCH (03:53)
[2019-02-22] MEDS: Furosemide 20 MG/2 ML VIAL SLOW IVP SCH ×2 (05:31→14:17)
[2019-02-22] MEDS: Acetaminophen 1,000 MG in Premix Bag 1 BAG IVPB SCH (05:31)
[2019-02-22] MEDS: Piperacillin/Tazobactam 3.375 GM in Sodium Chloride 0.9% 100 ML IVPB SCH ×4 (05:31→22:25)
[2019-02-22 06:07] LABS: ALT (SGPT) 265 U/L (8-55); AST (SGOT) 518 U/L (5-34); Albumin 3.2 g/dL (3.4-4.8); Alkaline Phosphatase 45 U/L (40-150); Anion Gap 16 mmol/L (10-20); BUN (Urea Nitrogen) 32 mg/dL (8.4-25.7); Bilirubin, Total 0.8 mg/dL (0.2-1.2); Calc. Creatinine Clearance 56 mL/min (70-130); Calcium 8.6 mg/dL (7.8-10.44); Carbon Dioxide 30 mmol/L (23-31); Chloride 106 mmol/L (98-107); Estimated GFR-MDRD 61; Globulin 2.1 g/dL (2.4-3.5); Glucose 96 mg/dL (80-115); Protein, Total 5.3 g/dL (5.8-8.1); Sodium 149 mmol/L (136-145)
[2019-02-22 06:08] LABS: Band 2 % (5-11); Hemoglobin 9.3 g/dL (14.0-18.0); Lymphocytes 4 % (21-51); MDiff Complete? YES; Mean Corpuscular HGB CONC 33.7 g/dL (32.0-36.0); Mean Corpuscular Hemoglobin 30.5 pg (27.0-31.0); Mean Corpuscular Volume 90.6 fL (78.0-98.0); Mean Platelet Volume 9.1 fL (7.4-10.4); Monocytes 1 % (0-10); Neutrophil 93 % (42-75); Nucleated RBC 4 % (0); Platelet Count 302 thou/uL (130-400); Platelet Morphology Comment Appears Adequate; RBC Distribution Width 15.8 % (11.5-14.5); Red Blood Cell (RBC) Count 3.04 mill/uL (4.70-6.10); White Blood Cell (WBC) Count 21.3 thou/uL (4.8-10.8)
[2019-02-22 06:13] LABS: Potassium 2.8 mmol/L (3.5-5.1)
--- NOTE | 2019-02-22 08:03 | RAD ---
PORTABLE CHEST 1 VIEW: DATE: 02/22/2019. TIME: 4:47 a.m. HISTORY: Respiratory distress. FINDINGS: Comparison is made with the exam of the previous day. There is mild interval improvement in the aera tion of the lungs since the previous day. Parenchymal lung changes demonstrate mild interval improve ment in the lower lung hol[place]. Right-sided central line remains in place. POS: OFF
[2019-02-22] MEDS: Hydrocortisone Sod Succ/PF 100 mg/2 ml Vial IVP SCH ×2 (08:10→16:30)
[2019-02-22] MEDS: Pantoprazole 40 MG VIAL IVP SCH ×2 (08:13→21:32)
[2019-02-22] MEDS: Sodium Chloride 0.9% (PF) 10 ML VIAL FS PRN ×2 (08:14→21:32)
[2019-02-22] MEDS ORDERED: Potassium Chloride 40 MEQ in Premix Bag 1 BAG IVPB SCH (08:15)
[2019-02-22] MEDS: Amlodipine 5 MG TAB PO SCH (08:19)
[2019-02-22] MEDS: Multivitamin W/ Minerals 1 TAB PO SCH (08:20)
--- NOTE | 2019-02-22 08:23 | PRG ---
DATE OF SERVICE: 02/22/2019 SUBJECTIVE: Dannie Stroud is in the ICU with respiratory problems. He is otherwise doing well. He has required BiPAP for adequate oxygenation. During his duodenal ulcer hemorrhage, it is felt he probably suffered aspiration at some point. He probably has some degree of aspiration pneumonitis and/or ARDS from his hemorrhagic shock episode. He did require more than 15 units of blood transfusion during that episode. He is communicating appropriately. Heart rate 119 to 126, respiratory rate 30, saturations 92% to 97% on supplemental oxygen, blood pressure 125/93. His white count this morning is 21, down from 27 yesterday. His differential is unremarkable. Hemoglobin is stable at 9.3. He has not required transfusions in several days. He is on Lasix IV twice a day, and urine output, the last 24 hours has been 1985. The last 24 hours prior to that 7.6 L. He is tolerating clear liquids. He has an incisional wound VAC, which was removed today. His Telfa mahesh removed today. His wound looks good. He is having black stool. This is probably from old blood in the GI tract. Lungs, rhonchi base. Cardiac sinus tachycardia. Abdomen soft, nondistended. Serosanguineous drainage from KRIS drain has been minimal over the past 24 hours. His KRIS drain is removed. He has diffuse infiltrates in both lung holland on his chest x-ray. ASSESSMENT/PLAN: 1. Aspiration pneumonitis versus and/or acute respiratory distress syndrome. Continue ICU monitoring. This is the source of his tachycardia, tachypnea, hypoxia. Treatment per Pulmonary. 2. Adrenal insufficiency. He was on steroid replacement prior to the operation. He currently is on 50 mg of Solu-Cortef q.8 hours. We will talk to Dr. Sherman regarding appropriate antibiotic coverage for his pulmonary condition and is renal insufficiency. We could wean this as appropriate per Pulmonary recommendation. 3. Status post hemorrhagic shock from bleeding duodenal ulcer, status post laparotomy oversewn and pyloroplasty. I advanced him to full liquids and nutritional supplements, leave him on full liquids for a few a day or 2 with slow advancement to a GI soft diet. I will be away until next . Dr. Allen is covering on the weekend. We will assume his care. 4. Incisional wound VAC. It has been removed. His Telfa mahesh removed. His wound is healthy looking. There is no infection. At this point, I would wash it daily with soap and water, place a dry dressing and can leave it open after 1 or 2 days, if there is no significant drainage. We will leave the parvez in for another 5 to 7 days. 5. History of renal cell carcinoma status post left nephrectomy. Renal function is stable. 6. History of tobacco abuse. 7. History of alcohol consumption, 2 to 3 beers a day. A month prior to this admission, he was drinking 9 to 12 beers a day. Job ID: [id number]
--- NOTE | 2019-02-22 08:39 | PRG ---
DATE OF SERVICE: 02/22/2019 SUBJECTIVE: This morning, he is awake, alert, and responsive. BiPAP, he is somewhat better. OBJECTIVE: VITAL SIGNS: His heart rate is 140, blood pressure 110/50, respiratory rate is 30_. His I's and O's have been ahead. Awake and responsive. Still short of breath, on BiPAP. CHEST: Bilateral crackles. CARDIAC: Sinus tach. ABDOMEN: Soft without any masses. PHYSICAL EXAMINATION: PO2 is 87, pCO2 34. pH 7.5. White count 21,000, H and H 9 and 27. Potassium is 2.8. Otherwise, ALT is 518, AST 265, markedly elevated. Chest x-ray still shows bilateral diffuse pulmonary infiltrates. IMPRESSION: 1. Respiratory failure. 2. Acute respiratory distress syndrome. 3. Congestive heart failure. 4. Abnormal LFT. PLAN: Continue diuretics. Continue to place steroids. Continue to replace potassium. Continue broad-spectrum antibiotics. Continue observation in the ICU. If his condition gets worse, he may need to be intubated. We will follow. One-half hour of critical care time. Job ID: [id number] [id number]
[2019-02-22] MEDS ORDERED: CCU Electrolyte Replacement 1 EACH IVPB ONE (10:02)
--- NOTE | 2019-02-22 10:04 | PDOC.PN ---
- Subjective Encounter Start Date: 02/22/19 (f/u elevated lft's) Encounter Start Time: 10:00 Subjective: Pt c/o difficulty with his breathing this morning. Denies anything new - Objective Resuscitation Status - Order Detail: 02/17/19 19:56 Resuscitation Status Routine Resuscitation Status: FULL: Full Resuscitation Vital Signs & Weight: Vital Signs (12 hours) Temp Pulse Resp Pulse Ox 02/22/19 09:56 142 H 31 H 99 02/22/19 08:19 119 H 02/22/19 08:00 97.8 F 02/22/19 06:45 119 H 97 02/22/19 06:43 126 H 30 H 92 L 02/22/19 04:00 98.6 F 02/22/19 00:00 98.2 F 02/21/19 23:07 137 H 28 H Weight Admit Weight 144 lb 6.444 oz Weight 143 lb 15.39 oz Most Recent Monitor Data Heart Rate from ECG 128 NIBP 121/102 NIBP BP-Mean 113 Respiration from ECG 31 SpO2 98 I&O: 02/21/19 02/22/19 02/23/19 06:59 06:59 06:59 Intake Total 3918 2366.3 100 Output Total 8175 2050 375 Balance -4257 316.3 -275 Result Diagrams: 02/22/19 04:30 02/22/19 04:30 EKG Reviewed by me: Yes (narrow complex tachy 120-140's) Phys Exam - Physical Examination Constitutional: NAD wheezing, fair air movement, rhonchi Cardiovascular: RRR Musculoskeletal: no edema Neurological: non-focal, moves all 4 limbs Psychiatric: normal affect Dx/Plan (1) Tachycardia Code(s): R00.0 - TACHYCARDIA, UNSPECIFIED Status: Acute (2) Elevated liver function tests Code(s): R94.5 - ABNORMAL RESULTS OF LIVER FUNCTION STUDIES Status: Acute (3) Hypokalemia Code(s): E87.6 - HYPOKALEMIA Status: Acute (4) Acute and chronic respiratory failure with hypoxia Code(s): J96.21 - ACUTE AND CHRONIC RESPIRATORY FAILURE WITH HYPOXIA Status: Acute (5) Acute upper GI hemorrhage Code(s): K92.2 - GASTROINTESTINAL HEMORRHAGE, UNSPECIFIED Status: Acute Comment: severe, multiple units PRBC and FFP, now resolved (6) Anemia due to acute blood loss Code(s): D62 - ACUTE POSTHEMORRHAGIC ANEMIA Status: Acute Comment: stabilized in 7s, monitor closely (7) Duodenal ulcer hemorrhagic Code(s): K26.4 - CHRONIC OR UNSPECIFIED DUODENAL ULCER WITH HEMORRHAGE Status : Acute (8) Hypertension Code(s): I10 - ESSENTIAL (PRIMARY) HYPERTENSION Status: Chronic - Plan * Pt with multiple significant issues - appreciate Specialist care * Pulmonology - managing breathing on HF oxygen now, was on bipap and with any change may need intubation * Gen Surgery - s/p surgery, on antibiotics, antifungal, * Cardiology - tachycardia - will d/w Dr Parikh as narrow complex, on neb treatments, however baseline is 120's over night and up to 140's - may be atrial fibrillation as well * Elevated LFT's - repeating these and will contact GI, minimize medications if repeat is true, and US liver ordered * Heart failure/volume overload - on diuresis for this * hypokalemia - add the electrolyte replacement protocol for potassium, check magnesium today * * pt remains in critical condition * * dvt prophy - scd's * gi prophy - PPI * code status full * * reviewed the changes with patient with regards to further evaluating liver, no questions at end of eval.
[2019-02-22] MEDS ORDERED: Magnesium 2 GM/50 ML 2 GM in Premix Bag 1 BAG IVPB PRN (10:05)
[2019-02-22] MEDS ORDERED: Potassium Chloride 40 MEQ in Sodium Chloride 0.9% 250 ML 250 ML IVPB PRN (10:05)
[2019-02-22] MEDS ORDERED: Potassium Phosphate 15 MMOL in Sodium Chloride 0.9% 250 ML 250 ML IV PRN (10:05)
[2019-02-22] MEDS ORDERED: CCU ELECTROLYTE REPLACEMENT PROTOCOL FS PRN (10:05)
[2019-02-22] MEDS ORDERED: PHOS-NAK 1 PKT PACK PO PRN ×2 (10:05)
[2019-02-22] MEDS ORDERED: Potassium Phosphate 9 MMOL in Sodium Chloride 0.9% 100 ML IVPB PRN (10:05)
[2019-02-22] MEDS ORDERED: Potassium Phosphate 12 MMOL in Sodium Chloride 0.9% 250 ML 250 ML IV PRN (10:05)
[2019-02-22] MEDS ORDERED: Potassium Chloride 20 MEQ TAB PO PRN (10:05)
[2019-02-22] MEDS ORDERED: Magnesium Oxide 400 MG TAB PO PRN ×2 (10:05)
[2019-02-22 10:10] LABS: INR-International Normal Ratio 1.7; Prothrombin Time 19.9 SEC (12.0-14.7)
[2019-02-22 10:25] LABS: ALT (SGPT) 249 U/L (8-55); AST (SGOT) 339 U/L (5-34); Albumin 3.2 g/dL (3.4-4.8); Alkaline Phosphatase 46 U/L (40-150); Bilirubin, Direct 0.5 mg/dL (0.1-0.3); Bilirubin, Total 0.9 mg/dL (0.2-1.2); Protein, Total 5.5 g/dL (5.8-8.1)
[2019-02-22] MEDS: Potassium Chloride 40 MEQ in Premix Bag 1 BAG IVPB PRN (12:38)
--- NOTE | 2019-02-22 15:04 | ULT ---
RIGHT UPPER QUADRANT ULTRASOUND: HISTORY: Elevated LFTs. Recent surgery. The patient has parvez along the midline. FINDINGS: The liver demonstrates normal echogenicity without focal mass or intrahepatic ductal dilatation. No shadowing gallstones are seen. There is sludge in the dependent portion of the gallbladder with a no nshadowing, 3 mm, immobile, echogenic focus arising from the wall of the gallbladder, consistent with a polyp. The gallbladder wall measures 3 mm in thickness. No pericholecystic fluid is seen. The c ommon duct measures 3 mm in diameter. The pancreas could not be visualized due to overlying bowel ga s. The right kidney is unremarkable. No free fluid is seen in the Harrison pouch. IMPRESSION: A 3 mm gallbladder polyp. POS: OFF
--- NOTE | 2019-02-22 15:45 | PDOC.CTH ---
Cardiology Progress Note - Subjective He is better as he is not needing BiPAP and is maintaining his sats on high flow oxygen. No chest pain, tightness, pressure, SOB. - Objective Vital Signs Temp Pulse Resp Pulse Ox 02/22/19 13:43 131 H 34 H 97 02/22/19 12:00 98.0 F 02/22/19 09:56 142 H 31 H 99 02/22/19 08:19 119 H 02/22/19 08:00 97.8 F 88 L 02/22/19 06:45 119 H 97 02/22/19 06:43 126 H 30 H 92 L 02/22/19 04:00 98.6 F Admit Weight 144 lb 6.444 oz Weight 143 lb 15.39 oz 02/21/19 02/22/19 02/23/19 06:59 06:59 06:59 Intake Total 3918 2366.3 150 Output Total 8175 2050 660 Balance -4257 316.3 -510 - Physical Examination General/Neuro: NAD Neck: no JVD present Lungs: other: (reduced breath sounds. ) Heart: RRR Abdomen: NT/ND Extremities: other: (no edema) - Telemetry Telemetry Rhythm: S tach HR 110-140 - Labs Result Diagrams: 02/22/19 04:30 02/22/19 11:59 Troponin/CKMB Troponin I Less than 0.010 ng/mL (< 0.028) 02/17/19 16:26 - Assessment/Plan 1. Acute blood loss anemia 2. Severe symptomatic anemia 3. ST elevations on ECG while Hgb 3.9 4. Dilated CM EF at 35-40% 5. Acute on chronic systolic heart failure. 6. Sinus tachycardia. PLAN: - Replace K. - Continue IV lasix - Judiscious use of fluids due to LV dysfunction. - Likely ischemic CM but prohibitive to do a LHC due to acute life-threatening bleed. - Elevated LFT's may be related to RV dysfunction due to COPD and LV dysfunction but may want to make sure no other hepatic process is going on.
[2019-02-22] MEDS ORDERED: Amiodarone In Dextrose 200 ML IVPB SCH (17:00)
[2019-02-22] MEDS ORDERED: Norepinephrine 8 MG/0.9% NS 250 ML ONE (17:14)
--- NOTE | 2019-02-22 17:44 | PRG ---
DATE OF SERVICE: 02/22/2019 SUBJECTIVE: Mr. Stroud remains in the ICU, remains tachycardic, so that began about 48 hours ago, late on 02/20. He is alert and awake, does ask questions about what happened to him and how he ended up here when he came off the helicopter. Nurses noted a KRIS drain was removed. He has not had any further bleeding. He remains on nasal CPAP. MEDICATIONS: 1. Albuterol. 2. Norvasc. 3. Furosemide. 4. Solu-Cortef 50 IV q.8. 5. Multivitamin, thiamine, folate. 6. Magnesium. 7. Protonix q.12. 8. Zosyn 3.375 g IV q.6. 9. Fluconazole 200 mg daily. OBJECTIVE: VITAL SIGNS: Pulse 131, respirations 34, blood pressure 129/96, weight 143. GENERAL: He is tachypneic. He has nasal CPAP. LUNGS: Coarse rhonchi bilaterally. ABDOMEN: Nontender. There is fluid draining from his KRIS drain site that was pulled. There is no palpable hepatosplenomegaly. EXTREMITIES: Livedo reticularis with cool extremities. LABORATORY DATA: White count 21,000, hemoglobin 9.3, platelet count 302, 93 segs, 2% bands, 4% nucleated. red blood cells. INR is 1.7. Sodium 149, potassium 2.8, chloride 106, BUN 32, creatinine 1.92. AST from 36 to 518 today. ALT from 21 to 265. Albumin 3.2. His recheck AST was 339 and ALT was 249. ASSESSMENT: 1. Duodenal ulcer, likely secondary to NSAIDs, status post surgical control of bleeding with multiple transfusions required at that time, now no longer bleeding, remains on PPIs. H. pylori serology was negative. This is likely an NSAID related ulcer. 2. Did well for a time after extubation, but with worsening respiratory function and was felt to have acute respiratory distress syndrome. It is unclear if this is transfusion related lung injury aspiration. 3. Component of congestive heart failure, but no signs of right heart failure with minimal tricuspid regurgitation. 4. Liver function tests became abnormal today. On recheck, they were a little bit less abnormal. I suspect this is ischemic. They jumped up to 518 and 265, now 339 and 249. They had ultimately showed some stones, but no masses in the liver. Differential diagnosis includes drug toxicity. He is on Diflucan 200 mg daily, dropped to 100 a day now. RECOMMENDATIONS: Follow liver enzymes. If they continue to escalate, he needs Doppler studies of his liver to rule out portal vein or hepatic vein thrombosis which was not assessed upon recent ultrasound of the liver. We will continue to follow along with you. Job ID: [id number]
--- NOTE | 2019-02-22 17:58 | RAD ---
Portable frontal chest radiograph: 02/22/2019. COMPARISON: 02/22/2019 HISTORY: Evaluate following intubation FINDINGS: This study is performed at 5:37 PM and compared to prior study at 4:57 AM. Endotracheal tube in proper position. Coarse increased linear interstitial density noted bilaterally, suspicious for interstitial pulmonary edema. Supine imaging limits assessment for pneumothorax and pleural fluid. Heart and mediastinal contours are stable. Right-sided vascular catheter present, distal tip overlying the region of the cavoatrial junction. Tubing overlies the visualized neck which may represent a nasogastric tube curling in the hypopharynx . Probable nasogastric tube terminates at the level of the thoracic inlet and should be advanced and reimaged. IMPRESSION: Lines and tubes as detailed above. Please see above discussion regarding malpositioned na sogastric tube. The covering nurse, Verónica, was made aware of these findings at 5:56 PM. Findings suggesting pulmonary edema.
[2019-02-22 18:10] LABS: Actual Bicarbonate (HCO3a) 25.4 mEq/L (22-28); Base Excess (BEa) 0.4 mEq/L (-2.0 to +3.0); CO2 Tension 42.2 mmHg (35.0-45.0); Calcium, Ionized 1.11 mmol/L (1.12-1.30); Carboxyhemoglobin (COHb) 0.3 gm% (0.0-3.0); Hemoglobin (Hb) 10.2 g/dL (14.0-18.0); Potassium - ABG Lab 3.28 mmol/L (3.70-5.30)
[2019-02-22] MEDS ORDERED: Fentanyl BOLUS 250 ML IVPB PRN (18:10)
[2019-02-22] MEDS ORDERED: Propofol BOLUS 1,000 MG/100 ML VIAL IV PRN (18:10)
[2019-02-22 18:11] LABS: Puncture Site RR
[2019-02-22] MEDS: methylPREDNISolone Sod Succ/PF 125 MG/2 ML VIAL IVP SCH ×2 (18:38→23:55)
[2019-02-22] MEDS: Propofol 1,000 MG/100 ML VIAL IV PRN (18:38)
[2019-02-22] MEDS ORDERED: EPINEPHrine 1 MG/10 ML Abboject SYRINGE ONE (19:00)
[2019-02-22] MEDS ORDERED: Sodium Bicarb 50 MEQ/50 ML VIAL ONE (19:00)
[2019-02-22] MEDS ORDERED: Amiodarone 150 MG/3 ML VIAL ONE (19:00)
--- NOTE | 2019-02-22 19:04 | CON ---
DATE OF CONSULTATION: HISTORY OF PRESENT ILLNESS: This is a 69-year-old gentleman, who about 5 o'clock suddenly vomited a very large quantity of dark blackish brown vomitus. Proceeded to aspirate, and he proceeded to stop breathing right away. A code blue was called, and on arrival, he was being bagged. Clearly agonal respirations. His pulse was about 44. I could not get a blood pressure as he was bagged and given an amp of epi. A direct visualization of his posterior pharynx revealed a large volume of dark blackish brown vomitus, which was lavaged and suctioned with the help of a big Yankauer until we were able to see his vocal cords. 7.5 endotracheal tube was used to intubate him directly with the help of constant suctioning. A tube was placed in, cuff was inflated. Placement was confirmed by change in color of the CO2 disk, continued bagging going on. Bronchoscope was passed in and tube was in appropriate position. Very large volume of dark blackish brown vomitus was found in both lungs, which was suctioned and lavaged numerous times until all the vomitus secretions were completely clear. Ongoing bagging, blood pressure remained low. He was started on Levophed drip. Thereafter, he went into a fast what appeared to be SVT about 230. He was shocked 3 times. He was given an amp of bicarb. Continued CPR in progress. He was given thereafter 150 of amiodarone and started on amiodarone drip. He is now on Levophed drip. Amiodarone drip is connected to volume cycle respirator. PHYSICAL EXAMINATION: VITAL SIGNS: His heart rate is now 110, respiratory drives set at 30, and his oxygen saturation is difficult to obtain at this time, but his blood pressure systolic is 100. CHEST: Rhonchi. CARDIAC: Sinus tach. ABDOMEN: Soft. IMPRESSION: 1. Large volume aspiration followed by respiratory arrest and cardiac arrest. 2. CPR emergency intubation, emergency bronchoscopy lavage, emergency cardioversion, and on multiple trips as outlined. I spoke to the patient's that she needs to come to the hospital to see the . Prognosis was grave. I spoke to his safe and vault installer, Dr. Parikh, informed him about the events. He is being connected to volume cycle respirator. At this stage, I would consider his prognosis as grave. Continue all supportive care. He is a full code. This is a one-half hour of critical time along with the CPR time along with intubation time along with bronchoscopy lavage time. Job ID: [id number]
[2019-02-22] MEDS: Cefepime 1 GM in Sodium Chloride 0.9% 100 ML IVPB SCH (21:32)
[2019-02-22] MEDS: Amiodarone 450 MG in Dextrose 5% in Water 250 ML IVPB SCH (21:54)
[2019-02-22] MEDS: fentaNYL Citrate/PF 2,000 MCG in Sodium Chloride 0.9% 60 ML IV SCH (23:34)
[2019-02-23] MEDS: Norepinephrine 8 MG/250 ML IVPB SCH ×2 (04:17→10:36)
[2019-02-23] MEDS: Piperacillin/Tazobactam 3.375 GM in Sodium Chloride 0.9% 100 ML IVPB SCH (04:46)
[2019-02-23] MEDS: Propofol 1,000 MG/100 ML VIAL IV PRN ×2 (04:49→15:42)
[2019-02-23] MEDS: methylPREDNISolone Sod Succ/PF 125 MG/2 ML VIAL IVP SCH (05:02)
[2019-02-23 05:05] LABS: ALT (SGPT) 476 U/L (8-55); AST (SGOT) 739 U/L (5-34); Albumin 2.8 g/dL (3.4-4.8); Alkaline Phosphatase 49 U/L (40-150); Anion Gap 18 mmol/L (10-20); BUN (Urea Nitrogen) 51 mg/dL (8.4-25.7); Bilirubin, Total 1.2 mg/dL (0.2-1.2); Calc. Creatinine Clearance 38 mL/min (70-130); Calcium 8.4 mg/dL (7.8-10.44); Carbon Dioxide 28 mmol/L (23-31); Chloride 111 mmol/L (98-107); Estimated GFR-MDRD 40; Globulin 2.2 g/dL (2.4-3.5); Glucose 96 mg/dL (80-115); Phosphorus 3.2 mg/dL (2.3-4.7); Potassium 3.1 mmol/L (3.5-5.1); Sodium 154 mmol/L (136-145)
[2019-02-23] MEDS: Furosemide 20 MG/2 ML VIAL SLOW IVP SCH (05:22)
[2019-02-23 05:26] LABS: Band 45 % (5-11); Elliptocytes MODERATE= 6-15 cells (100X) (0-1/hpf); Hemoglobin 10.3 g/dL (14.0-18.0); Lymphocytes 3 % (21-51); MDiff Complete? YES; Mean Corpuscular HGB CONC 32.7 g/dL (32.0-36.0); Mean Corpuscular Hemoglobin 30.4 pg (27.0-31.0); Mean Platelet Volume 8.4 fL (7.4-10.4); Metamyelocyte 3 % (0-0); Monocytes 2 % (0-10); Myelocyte 1 % (0-0); Neutrophil 46 % (42-75); Nucleated RBC 14 % (0); Platelet Count 202 thou/uL (130-400); Platelet Morphology Comment Appears Adequate; Polychromasia SLIGHT = 2-3 cells (100X) (0-2/hpf); RBC Distribution Width 16.3 % (11.5-14.5); Red Blood Cell (RBC) Count 3.38 mill/uL (4.70-6.10); White Blood Cell (WBC) Count 22.3 thou/uL (4.8-10.8)
[2019-02-23 07:09] LABS: Base Excess (BEa) 0.9 mEq/L (-2.0 to +3.0); CO2 Tension 28.4 mmHg (35.0-45.0); Calcium, Ionized 1.09 mmol/L (1.12-1.30); Carboxyhemoglobin (COHb) 0.4 gm% (0.0-3.0); Hemoglobin (Hb) 10.5 g/dL (14.0-18.0); O2 Tension (PaO2) 252.6 mmHg (> 80.0); pH, Arterial 7.53 (7.35-7.45)
[2019-02-23 07:10] LABS: Puncture Site LRA
[2019-02-23] MEDS: Potassium Chloride 40 MEQ in Premix Bag 1 BAG IVPB PRN (07:36)
--- NOTE | 2019-02-23 08:30 | RAD ---
AP view chest. HISTORY: Ventilator dependent patient. AP view chest obtained. Nasogastric and endotracheal tubes in place. Right subclavian central line is seen. Pulmonary vascular congestion seen. Airspace opacities seen in both lungs. IMPRESSION: Stable AP view chest not significantly changed since the previous day's exam.
[2019-02-23] MEDS: Pantoprazole 40 MG VIAL IVP SCH ×2 (08:35→20:48)
[2019-02-23] MEDS: Cefepime 1 GM in Sodium Chloride 0.9% 100 ML IVPB SCH ×2 (08:35→20:47)
[2019-02-23] MEDS: Amlodipine 5 MG TAB PO SCH (08:36)
[2019-02-23] MEDS ORDERED: Fluconazole In NaCl,Iso-Osm 100 MG, Admixture Fee 1 EACH in Premix Bag 1 BAG IVPB SCH (09:00)
[2019-02-23] MEDS ORDERED: Fluconazole In NaCl,Iso-Osm 100 MG in Premix Bag 1 BAG IVPB SCH (09:00)
--- NOTE | 2019-02-23 09:20 | PRG ---
DATE OF SERVICE: 02/23/2019 SUBJECTIVE: This morning, he is intubated in the vent, sedated on Diprivan. He is on amiodarone drip and Levophed. OBJECTIVE: VITAL SIGNS: Pulse is 90, blood pressure is 92/64, and respiratory rate was 30. GENERAL: He is unresponsive. His I's and O's have been consistently negative. CHEST: Decreased breath sounds with bilateral rhonchi. CARDIAC: Sinus tach. ABDOMEN: Soft without masses. LABORATORY DATA: White count 22,000, H and H 10 and 30, and platelet count is normal. He has a big left shift. The pO2 is 252, pCO2 20%, pH 7.53 at a rate of 30 on a bilevel. Sodium is 154. He is probably dry. BUN and creatinine are 54 and 1.72. Renal function shows an AST 739 and ALT of 576. IMPRESSION: 1. Acute respiratory distress syndrome, on x-ray. 2. Congestive heart failure. 3. Aspiration pneumonia. 4. Elevated LFT. 5. Azotemia prerenal. 6. Hypotension shock. PLAN: Lasix discontinued. Slow hydration. Continue amiodarone for SVT. Continue steroids. Continue broad-spectrum antibiotics. Consider nutrition. We will discuss with Surgery regarding nutrition. PT. Prognosis is guarded. This is One-half hour of critical time. Job ID: [id number]
--- NOTE | 2019-02-23 09:26 | PDOC.PN ---
- Subjective Encounter Start Date: 02/23/19 (f/u sally) Encounter Start Time: 09:24 Subjective: Pt with resp/cardiac arrest and code blue yesterday -intubated and sedated -: pupil asymmetry noted, both reactive to light. overnight hypotensive -: and remains on pressor support - Objective Resuscitation Status - Order Detail: 02/17/19 19:56 Resuscitation Status Routine Resuscitation Status: FULL: Full Resuscitation Vital Signs & Weight: Vital Signs (12 hours) Temp Pulse Resp Pulse Ox 02/23/19 08:36 92 02/23/19 08:00 30 H 02/23/19 06:49 92 02/23/19 06:00 30 H 02/23/19 04:00 100.6 F H 30 H 02/23/19 02:16 108 H 02/23/19 02:00 31 H 02/23/19 00:38 113 H 29 H 94 L 02/23/19 00:00 99.8 F H 30 H 02/22/19 22:22 89 02/22/19 22:00 34 H Weight Admit Weight 144 lb 6.444 oz Weight 143 lb 8.335 oz Most Recent Monitor Data Heart Rate from ECG 96 NIBP 95/69 NIBP BP-Mean 79 Respiration from ECG 30 SpO2 100 I&O: 02/22/19 02/23/19 02/24/19 06:59 06:59 06:59 Intake Total 2366.3 1971.8 Output Total 2050 2460 5 Balance 316.3 -488.2 -5 Result Diagrams: 02/23/19 04:30 02/23/19 04:30 EKG Reviewed by me: Yes (tele - sinus 100's occ pvc's) Phys Exam - Physical Examination Constitutional: NAD intubated and sedated right pupil slightly enlarged compared to left fair air movement, no audible wheezing Cardiovascular: RRR, no significant murmur Gastrointestinal: soft, positive bowel sounds bilateral pulses present by doppler, feet are cool to touch some spontaneous eye opening Deviation from normal: unable to assess Dx/Plan (1) Cardiac arrest Code(s): I46.9 - CARDIAC ARREST, CAUSE UNSPECIFIED Status: Acute (2) Tachycardia Code(s): R00.0 - TACHYCARDIA, UNSPECIFIED Status: Acute (3) Elevated liver function tests Code(s): R94.5 - ABNORMAL RESULTS OF LIVER FUNCTION STUDIES Status: Acute (4) Hypokalemia Code(s): E87.6 - HYPOKALEMIA Status: Acute (5) Acute and chronic respiratory failure with hypoxia Code(s): J96.21 - ACUTE AND CHRONIC RESPIRATORY FAILURE WITH HYPOXIA Status: Acute (6) Acute upper GI hemorrhage Code(s): K92.2 - GASTROINTESTINAL HEMORRHAGE, UNSPECIFIED Status: Acute Comment: severe, multiple units PRBC and FFP, now resolved (7) Anemia due to acute blood loss Code(s): D62 - ACUTE POSTHEMORRHAGIC ANEMIA Status: Acute Comment: stabilized in 7s, monitor closely (8) Duodenal ulcer hemorrhagic Code(s): K26.4 - CHRONIC OR UNSPECIFIED DUODENAL ULCER WITH HEMORRHAGE Status : Acute (9) Hypertension Code(s): I10 - ESSENTIAL (PRIMARY) HYPERTENSION Status: Chronic (10) SALLY (acute kidney injury) Code(s): N17.9 - ACUTE KIDNEY FAILURE, UNSPECIFIED Status: Acute - Plan * Intubated and sedated on pressor support * Appreciate Pulm - directing care during this critical time. Zosyn changed to cefepime, on Vent. * SALLY secondary to cardiac arrest and hypotension, currently on pressor support - receiving volume, monitor UOP * worsening lft's - attribute to cardiac arrest. will d/c fluconazole, continue to monitor, GI following as well * s/p surgery - wound appears clean/dry * . * Monitor distal pulses for complications associated with this critical state and pressor support * * dvt prophy - scd's * gi prophy - IV protonix * code status full * * pt remains at high risk and in critical condition, including risk of in- hospital decompensation/
[2019-02-23] MEDS: Multivitamin W/ Minerals 1 TAB PO SCH (10:33)
[2019-02-23] MEDS: methylPREDNISolone Sod Succ 40 MG VIAL IVP SCH ×2 (10:34→20:48)
[2019-02-23] MEDS: D5 1/2 NS w/20 mEq KCL 1,000 ML IV SCH (10:40)
[2019-02-23] MEDS: Amiodarone 450 MG in Dextrose 5% in Water 250 ML IVPB SCH (13:54)
[2019-02-23] MEDS: Lorazepam 2 MG/ML VIAL SLOW IVP PRN (13:54)
[2019-02-23] MEDS: Ventilator Sedation Protocol 1 EACH FS SCH (13:58)
[2019-02-23] MEDS: fentaNYL Citrate/PF 2,000 MCG in Sodium Chloride 0.9% 60 ML IV SCH (15:43)
--- NOTE | 2019-02-23 16:51 | PRG ---
DATE OF SERVICE: 02/23/2019 REASON FOR CONSULTATIONS: elevated liver function tests SUBJECTIVE: The patient experienced a Code Blue last night, but was ultimately able to achieve return of spontaneous circulation. However, today he remains intubated, sedated and on pressor support in the wake of the code experience yesterday. During the code, he was noted to have a large amount of black/coffee-ground emesis that was suctioned out through his mouth and upon placement of an OG tube, has had suctioning of an additional 100 to 200 mL of this particular fluid. Otherwise, there has been no evidence of gross bleeding and per nursing staff, he has had some darker colored stools today, but has not had a melenic type stools yet. OBJECTIVE: VITAL SIGNS: Temperature 99.7, pulse 94, blood pressure 93/64, respiratory rate 27, saturating 94% on mechanical ventilation. GENERAL: The patient was lying in bed, in no acute distress. Currently, intubated and sedated, on mechanical ventilation. CARDIOVASCULAR: Regular rate and rhythm. RESPIRATORY: Coarse breath sounds heard in all lung [place] consistent with mechanical ventilation. ABDOMEN: Normoactive bowel sounds. Soft, nondistended, possible tenderness to palpation in the left upper quadrant, but otherwise no grimacing to palpation. EXTREMITIES: Livedo reticularis with cool extremities. LABORATORY DATA: CBC with a white blood cell count of 22.3, hemoglobin 10.3, hematocrit 31.4, platelets 202. Chemistry with a sodium of 154, potassium 3.1, chloride 111, CO2 of 28, BUN 51, creatinine 1.72, glucose 76. AST 739, ALT 476, alkaline phosphatase 49, total bilirubin 1.2. IMAGING DATA: Chest x-ray obtained on February 23, 2019, showed nasogastric and endotracheal tubes in appropriate positioning with the appearance of pulmonary vascular congestion and airspace opacities seen in both lungs. ASSESSMENT AND PLAN: 1. Duodenal ulcer, likely secondary to NSAIDs, now status post surgical control bleeding. There had been no evidence of bleeding up until the code last night, but with the Code Blue yesterday did have expression of a large amount of black coffee-ground emesis concerning for rebleeding within this region. I would continue to monitor his H and H, and if he continues to drop his H and H or has significant coffee-ground material expressed from his OG tube, would consider consultation of surgery for evaluation given the difficulty with stopping bleeding endoscopically, although we could consider endoscopic evaluation as well. 2. Elevated LFTs. The patient initially presented with a significant elevation in his LFTs, but had been downtrending up until yesterday with most likely a congestive hepatopathy type picture. However, with the code that he experienced yesterday , he has had uptrend in both AST and ALT again, which is more likely related to the hypotension experienced during the code. I agree with discontinuation of any hepatotoxic medications. I would continue to trend these enzymes as we maintain more normotensive pressures. If his LFTs continue to rise, then I would consider possible right upper quadrant ultrasound with Doppler to rule out portal vein or hepatic vein thrombosis. We will continue to follow. Please call with any questions. Job ID: [id number] MTDD
[2019-02-23] MEDS ORDERED: Sodium Chloride 0.9% 200 ML IVPB SCH (18:30)
[2019-02-23] MEDS ORDERED: Digoxin 0.5 MG/2 ML AMP ONE (19:47)
[2019-02-23] MEDS ORDERED: Digoxin 0.5 MG/2 ML AMP SLOW IVP SCH (20:00)
[2019-02-23] MEDS ORDERED: Metoprolol Tartrate 5 MG/5 ML VIAL ONE (20:18)
[2019-02-23] MEDS ORDERED: Metoprolol Tartrate 5 MG/5 ML VIAL IVP SCH (20:30)
--- NOTE | 2019-02-23 21:38 | PDOC.GSPN ---
Surgery Progress Note: Subj - Subjective Narrative: Patient had cardiac arrest last night and was intubated and resuscitated. He is following commands for his nurses when his sedation is withheld and moving all extremities to command except the left leg. He is still requiring pressors and is oliguric. He reportedly aspirated at the time of his arrest after throwing up a large amount of brownish fluid. NG tube was placed at the time of his intubation and had immediate return of over a liter of brownish fluid and has been draining since. He was diuresed yesterday but today has had very little urine output. He just received a small fluid bolus to see if this would help with the urine output and tachycardia but has not so far. He has clear serous drainage from the old KRIS site on the right abdomen. He is having melenic stools as well. No bright for fresh-appearing blood from the NG tube. Incision is clean. Bowel sounds are diminished. Assessment/plan: Patient is status post arrest and still critically ill requiring pressors. Cardiology and pulmonology are managing his cardiac issues and critical care. He has a large amount of brownish drainage from his NG tube but no fresh-appearing blood. I doubt that he has any surgical bleeding or leak. His fever and white count are likely due to his massive aspiration. His prognosis is very poor given his underlying heart failure and other medical issues. He is also in acute renal failure at this time. No new recommendations. Surgery Progress Note: Obj - Vital signs Vital signs: Vital Signs - Most Recent Temp Pulse Resp BP Pulse Ox 97.7 F 147 H 22 H 99/82 100 02/23/19 19:58 02/23/19 20:43 02/23/19 20:00 02/22/19 17:37 02/23/19 20:00 Surgery Progress Note: Results - Labs Result Diagrams: 02/23/19 04:30 02/23/19 04:30
[2019-02-24] MEDS: Metoprolol Tartrate 5 MG/5 ML VIAL IVP PRN ×5 (00:28→19:58)
[2019-02-24] MEDS: D5 1/2 NS w/20 mEq KCL 1,000 ML IV SCH (04:50)
[2019-02-24 04:51] LABS: Anion Gap 12 mmol/L (10-20); BUN (Urea Nitrogen) 55 mg/dL (8.4-25.7); Calc. Creatinine Clearance 38 mL/min (70-130); Calcium 7.9 mg/dL (7.8-10.44); Carbon Dioxide 29 mmol/L (23-31); Chloride 114 mmol/L (98-107); Estimated GFR-MDRD 40; Glucose 167 mg/dL (80-115); Potassium 3.8 mmol/L (3.5-5.1); Sodium 151 mmol/L (136-145)
[2019-02-24 04:54] LABS: ALT (SGPT) 396 U/L (8-55); AST (SGOT) 421 U/L (5-34); Albumin 2.9 g/dL (3.4-4.8); Alkaline Phosphatase 49 U/L (40-150); Bilirubin, Direct 0.8 mg/dL (0.1-0.3); Bilirubin, Total 1.3 mg/dL (0.2-1.2); Protein, Total 4.9 g/dL (5.8-8.1)
[2019-02-24 05:06] LABS: Hemoglobin 8.3 g/dL (14.0-18.0); Mean Corpuscular HGB CONC 34.2 g/dL (32.0-36.0); Mean Corpuscular Volume 93.3 fL (78.0-98.0); Mean Platelet Volume 9.1 fL (7.4-10.4); Platelet Count 71 thou/uL (130-400); RBC Distribution Width 16.3 % (11.5-14.5); Red Blood Cell (RBC) Count 2.61 mill/uL (4.70-6.10); White Blood Cell (WBC) Count 42.5 thou/uL (4.8-10.8)
[2019-02-24 05:29] LABS: Band 25 % (5-11); Elliptocytes SLIGHT = 2-5 cells (100X) (0-1/hpf); Lymphocytes 5 % (21-51); MDiff Complete? YES; Metamyelocyte 3 % (0-0); Monocytes 1 % (0-10); Neutrophil 66 % (42-75); Nucleated RBC 4 % (0); Platelet Morphology Comment Appears Decreased; Polychromasia SLIGHT = 2-3 cells (100X) (0-2/hpf); Vacuoles SLIGHT
[2019-02-24] MEDS: Amiodarone 450 MG in Dextrose 5% in Water 250 ML IVPB SCH ×2 (06:19→21:55)
[2019-02-24 07:16] LABS: Actual Bicarbonate (HCO3a) 26.7 mEq/L (22-28); CO2 Tension 37.5 mmHg (35.0-45.0); Calcium, Ionized 1.09 mmol/L (1.12-1.30); Carboxyhemoglobin (COHb) 1.9 gm% (0.0-3.0); O2 Tension (PaO2) 82.5 mmHg (> 80.0); pH, Arterial 7.47 (7.35-7.45)
[2019-02-24 07:19] LABS: ALV-art Gradient 155.825 (0-20); Puncture Site RRA
--- NOTE | 2019-02-24 07:44 | PDOC.PN ---
- Subjective Encounter Start Date: 02/24/19 (f/u SALLY) Encounter Start Time: 07:43 Subjective: Pt remains intubated, off pressor support, in A fib and has received -: digoxin and IV lopressor, continues on amiodarone gtt - Objective Resuscitation Status - Order Detail: 02/17/19 19:56 Resuscitation Status Routine Resuscitation Status: FULL: Full Resuscitation Vital Signs & Weight: Vital Signs (12 hours) Temp Pulse Resp Pulse Ox 02/24/19 07:04 94 02/24/19 06:00 21 H 02/24/19 04:00 99.2 F 20 02/24/19 02:09 137 H 02/24/19 02:00 23 H 02/24/19 00:07 109 H 22 H 100 02/24/19 00:00 99.7 F H 21 H 02/23/19 22:01 122 H 02/23/19 22:00 21 H 02/23/19 20:43 147 H 02/23/19 20:00 22 H 100 02/23/19 19:58 97.7 F 02/23/19 19:48 147 H Weight Admit Weight 144 lb 6.444 oz Weight 146 lb 2.664 oz Most Recent Monitor Data Heart Rate from ECG 111 NIBP 115/76 NIBP BP-Mean 81 Respiration from ECG 20 SpO2 100 I&O: 02/23/19 02/24/19 02/25/19 06:59 06:59 06:59 Intake Total 1971.8 3385.1 Output Total 2460 941 Balance -488.2 2444.1 Result Diagrams: 02/24/19 04:55 02/24/19 04:17 Radiology Reviewed by me: Yes (pulmonary edema/infiltrates - left > right) EKG Reviewed by me: Yes (a fib 120-140's) Phys Exam - Physical Examination Constitutional: NAD decreased/distant breath sounds throughout the left side no audible wheezing Cardiovascular: no significant murmur, irregular Gastrointestinal: soft, positive bowel sounds incision clean/dry/intact opens eyes briefly and moves head. Intubated and sedated Deviation from normal: unable to assess Dx/Plan (1) Cardiac arrest Code(s): I46.9 - CARDIAC ARREST, CAUSE UNSPECIFIED Status: Acute (2) Tachycardia Code(s): R00.0 - TACHYCARDIA, UNSPECIFIED Status: Acute (3) Elevated liver function tests Code(s): R94.5 - ABNORMAL RESULTS OF LIVER FUNCTION STUDIES Status: Acute (4) Hypokalemia Code(s): E87.6 - HYPOKALEMIA Status: Acute (5) Acute and chronic respiratory failure with hypoxia Code(s): J96.21 - ACUTE AND CHRONIC RESPIRATORY FAILURE WITH HYPOXIA Status: Acute (6) Acute upper GI hemorrhage Code(s): K92.2 - GASTROINTESTINAL HEMORRHAGE, UNSPECIFIED Status: Acute Comment: severe, multiple units PRBC and FFP, now resolved (7) Anemia due to acute blood loss Code(s): D62 - ACUTE POSTHEMORRHAGIC ANEMIA Status: Acute Comment: stabilized in 7s, monitor closely (8) Duodenal ulcer hemorrhagic Code(s): K26.4 - CHRONIC OR UNSPECIFIED DUODENAL ULCER WITH HEMORRHAGE Status : Acute (9) Hypertension Code(s): I10 - ESSENTIAL (PRIMARY) HYPERTENSION Status: Chronic (10) SALLY (acute kidney injury) Code(s): N17.9 - ACUTE KIDNEY FAILURE, UNSPECIFIED Status: Acute (11) Hypernatremia Code(s): E87.0 - HYPEROSMOLALITY AND HYPERNATREMIA Status: Acute - Plan * Pt remains complicated and in critical condition - intubated/sedated * Appreciate Pulm - directing care during this critical time. On cefepime, on Vent. Worsening CXR today * SALLY secondary to cardiac arrest and hypotension - stable with consistent UOP * Appreciate GI - elevated lft's - mildly improved - fluconazole d/c yesterday * s/p surgery - wound appears clean/dry * Appreciate Cardiology - Atrial fibrillation on amiodarone gtt with prn lopressor to manage rate. * Hypernatremia - on D5 1/2 NS currently. * continue electrolyte replacement, ordered magnesium level this AM. * * dvt prophy - scd's * gi prophy - IV protonix * code status full * * pt remains at high risk and in critical condition, including risk of in- hospital decompensation/.
[2019-02-24] MEDS: Cefepime 1 GM in Sodium Chloride 0.9% 100 ML IVPB SCH (08:20)
[2019-02-24] MEDS: methylPREDNISolone Sod Succ 40 MG VIAL IVP SCH ×2 (08:21→21:04)
[2019-02-24] MEDS: Multivitamin W/ Minerals 1 TAB PO SCH (08:26)
[2019-02-24] MEDS: Pantoprazole 40 MG VIAL IVP SCH ×2 (08:26→21:05)
--- NOTE | 2019-02-24 08:45 | PRG ---
DATE OF SERVICE: 02/24/2019 SUBJECTIVE: This morning, he is on the vent, responsive, off sedation. OBJECTIVE: VITAL SIGNS: Respiratory rate is 22, blood pressure 122/96, pulse 100, temperature 99, heart rate is 114, irregularly irregular. I's and O's 3385 in 941 out. CHEST: Decreased breath sounds. Extensive rhonchi and crackles. CARDIAC: Atrial fibrillation. ABDOMEN: Soft. NEUROLOGIC: He opens eyes. Moves all 4 extremities. LABORATORY DATA: White count 42,000, H and H 8 and 24, platelet count is low 71,000; drop for yesterday from 202 to 71. Still has a big left shift. PO2 82, pCO2 40%, PEEP of 7. Sodium 151. Lytes otherwise normal. Creatinine 1.73. Liver function somewhat improved. IMPRESSION: 1. Multiorgan failure, status post large volume aspiration. 2. Leukocytosis. 3. Atrial fibrillation. 4. Abnormal liver function profile. 5. Increasing azotemia, electrolyte imbalance, atrial fibrillation, congestive heart failure. PLAN: Antibiotics being adjusted. He is on meropenem and Diflucan, steroids, neb treatments, and his nutrition. He needs ongoing supportive care. Discussed with family as they arrive. Prognosis remains guarded. One-half hour of critical care time. Job ID: [id number]
--- NOTE | 2019-02-24 09:23 | RAD ---
AP VIEW CHEST: HISTORY: Ventilator dependent patient. FINDINGS: AP view chest obtained on 02/24/2019. Comparison made to previous exam from 02/23/2019. Multiple lines and tubes in place. Pulmonary vascular congestion seen. Bilateral airspace opacities seen. Radiographic appearance of the chest is stable and unchanged. IMPRESSION: Stable AP view chest. Transcribed Date/Time: 02/24/2019 9:44 AM
[2019-02-24] MEDS: Micafungin 100 MG in Sodium Chloride 0.9% 100 ML IVPB SCH (09:26)
[2019-02-24] MEDS: Propofol 1,000 MG/100 ML VIAL IV PRN (09:48)
[2019-02-24] MEDS: Lorazepam 2 MG/ML VIAL SLOW IVP PRN (09:48)
--- NOTE | 2019-02-24 10:06 | CT ---
CT brain. HISTORY: Clinical symptoms of stroke. Noncontrast enhanced CT images of the brain obtained. Images and demonstrates diffuse cortical atrophy and deep white matter ischemic changes. No evidence of acute intracranial masses hemorrhages or strokes seen. No significant evidence of intr acranial pathology seen. IMPRESSION: Cortical atrophy otherwise unremarkable CT brain.
[2019-02-24] MEDS: Dextrose 5% in Water 1,000 ML IV SCH ×2 (10:19→21:04)
[2019-02-24] MEDS: fentaNYL Citrate/PF 2,000 MCG in Sodium Chloride 0.9% 60 ML IV SCH (12:45)
[2019-02-24] MEDS: MEROPENEM 1 GM/50 ML 1 GM in Premix Bag 1 BAG IVPB SCH ×2 (13:57→21:05)
[2019-02-24] MEDS ORDERED: Meropenem 1 GM in Sodium Chloride 0.9% 100 ML IVPB SCH (14:00)
[2019-02-24] MEDS: Heparin 5,000 UNITS/ML VIAL SC SCH ×2 (14:33→21:04)
[2019-02-24] MEDS: Ventilator Sedation Protocol 1 EACH FS SCH (14:34)
--- NOTE | 2019-02-24 15:10 | PRG ---
DATE OF SERVICE: 02/24/2019 SUBJECTIVE: The patient was able to be weaned from pressor support over the last 24 hours, but still remains otherwise intubated and sedated. Per nursing staff, he has had minimal amounts of black liquid suction through the OG tube and did have a small darker bowel movement earlier today, but was minimal in terms of volume. As part of the workup yesterday, he did receive a fair amount of fluid including albumin infusion. OBJECTIVE: VITAL SIGNS: Temperature 98.5, pulse 103, blood pressure 120/81, respiratory rate 23, and saturating 98% on mechanical ventilation. GENERAL: The patient is lying in bed, in no acute distress, currently intubated and sedated. CARDIOVASCULAR: Tachycardic rate with possible irregular rhythm. RESPIRATORY: Coarse breath sounds heard in all lung [place] consistent with mechanical ventilation. ABDOMEN: Hypoactive bowel sounds. Soft and nondistended. No eliciting, grimacing or tenderness to palpation in any abdominal quadrant. EXTREMITIES: No cyanosis, clubbing, or edema. LABORATORY DATA: CBC with a white blood cell count of 42.5, hemoglobin 8.3, hematocrit 24.4, platelets 71. Chemistry with a sodium of 151, potassium 3.8, chloride 114, CO2 of 29, BUN 55, creatinine 1.73, glucose 167. AST 421, ALT 396 , alkaline phosphatase 49, and total bilirubin 1.3. IMAGING DATA: No current GI imaging is available for review. ASSESSMENT AND PLAN: Duodenal ulcer, likely secondary to NSAIDs. The patient is now status post surgery for bleeding duodenal ulcer that was unable to be controlled endoscopically and had not had any repeat episodes of bleeding until after the code blue where he had a large amount of black-colored emesis as well as black- colored stools concerning for melenic type process. In the last 12 to 24 hours, he has had minimal amounts of more this black colored gastric fluid or melenic type stools , but has experienced a significant drop in his hemoglobin and hematocrit. At this point, it is unclear if the drop in his hemoglobin and hematocrit is more reflective of a hemodilutional type process given the fluids and resuscitation he received during the course of his code blue or if this truly reflects a bleeding type process. Given that the amount of fluid received from the OG tube and the lack of significant melenic stools, makes me think that this is less likely a recurrent GI bleed, but may be in relation to the actual code itself. At this time, I would continue to monitor his hemoglobin and hematocrit and transfuse as necessary to maintain hemoglobin and hematocrit of 7/21. If his hemoglobin and hematocrit continues to drop or he has worsening of this black-colored fluid or gross blood per OG tube , I would then consider endoscopic evaluation. Recommendations: 1. Would continue to trend H/H and transfuse as necessary to maintain an H/H of 7/21 2. Continue to monitor clinically for active GI bleeding 3. Would avoid any unnecessary anticoagulation for now in light of recent probable rebleeding Elevated LFTs. The patient initially presented with significant elevation in his LFTs and had been downtrending until he experienced the code. He did experience a slight spike in the immediate period after the code, but now has continued downward trend again. At this point, the most likely reason for his elevation in LFTs would be congestive hepatopathy versus ischemic type injury related to either blood loss or code. If his LFTs continue to rise, I would then consider possible right upper quadrant ultrasound with Doppler to rule out any portal or hepatic vein thrombosis. Recommendations: 1. Would continue to trend LFTs and INR daily 2. Would avoid any potential hepatotoxins 3. Would maintain normotensive pressures to prevent against further liver injury We will continue to follow. Please call with any questions. Job ID: [id number] [facility]
--- NOTE | 2019-02-24 15:37 | PDOC.OP ---
Operative Note - Operative Note Operative Note: Patient is still sedated on the vent although his Levophed has been weaned off. Urine output is better today and after the initial large amount of output from the NG there was very little output, so I have started tube feeds and the nurse is checking residuals which are low. He is still having some serous drainage from the KRIS site but his midline incision is clean. No new surgical issues. Prognosis remains guarded but he has improved somewhat since yesterday.
[2019-02-25 04:36] LABS: Hemoglobin 8.3 g/dL (14.0-18.0); Mean Corpuscular HGB CONC 31.7 g/dL (32.0-36.0); Mean Corpuscular Hemoglobin 30.4 pg (27.0-31.0); RBC Distribution Width 16.8 % (11.5-14.5); Red Blood Cell (RBC) Count 2.73 mill/uL (4.70-6.10); White Blood Cell (WBC) Count 46.8 thou/uL (4.8-10.8)
[2019-02-25 04:49] LABS: Anion Gap 11 mmol/L (10-20); BUN (Urea Nitrogen) 49 mg/dL (8.4-25.7); Calc. Creatinine Clearance 52 mL/min (70-130); Calcium 7.8 mg/dL (7.8-10.44); Carbon Dioxide 31 mmol/L (23-31); Chloride 110 mmol/L (98-107); Estimated GFR-MDRD 56; Glucose 168 mg/dL (80-115); Potassium 3.6 mmol/L (3.5-5.1); Sodium 148 mmol/L (136-145)
[2019-02-25 04:50] LABS: ALT (SGPT) 296 U/L (8-55); AST (SGOT) 169 U/L (5-34); Albumin 2.7 g/dL (3.4-4.8); Alkaline Phosphatase 83 U/L (40-150); Bilirubin, Direct 0.7 mg/dL (0.1-0.3); Protein, Total 4.9 g/dL (5.8-8.1)
[2019-02-25 04:56] LABS: Band 2 % (5-11); Hypochromia SLIGHT = 6-15 cells (100X) (0-5/hpf); Lymphocytes 1 % (21-51); MDiff Complete? YES; Mean Platelet Volume 10.3 fL (7.4-10.4); Monocytes 3 % (0-10); Neutrophil 94 % (42-75); Nucleated RBC 5 % (0); Platelet Count 57 thou/uL (130-400); Platelet Morphology Comment Appears Adequate
[2019-02-25] MEDS: MEROPENEM 1 GM/50 ML 1 GM in Premix Bag 1 BAG IVPB SCH ×3 (05:26→21:04)
[2019-02-25] MEDS: Metoprolol Tartrate 5 MG/5 ML VIAL IVP PRN ×3 (06:03→20:58)
[2019-02-25] MEDS: Ventilator Sedation Protocol 1 EACH FS SCH (07:10)
[2019-02-25 07:30] LABS: Actual Bicarbonate (HCO3a) 29.1 mEq/L (22-28); Base Excess (BEa) 4.5 mEq/L (-2.0 to +3.0); CO2 Tension 43.9 mmHg (35.0-45.0); Carboxyhemoglobin (COHb) 1.9 gm% (0.0-3.0); Hemoglobin (Hb) 8.9 g/dL (14.0-18.0); O2 Tension (PaO2) 101.4 mmHg (> 80.0); Potassium - ABG Lab 3.62 mmol/L (3.70-5.30); pH, Arterial 7.44 (7.35-7.45)
--- NOTE | 2019-02-25 07:49 | RAD ---
Chest AP view INDICATION: Intubation COMPARISON: Prior exam dated February 24, 2019 FINDINGS: Lungs:Bilateral infrahilar opacities are stable. Cardiac silhouette pulmonary vasculature:Mild pulmonary vascular congestion persists. Heart size is n ormal. Pleural spaces:There are small bilateral pleural effusions which are stable. No pneumothorax is demon strated. Upper abdomen:Gastric catheter is unchanged in position. There are skin parvez overlying the upper m idline of the abdomen. Osseous structures: No acute osseous abnormality. ET tube and right subclavian central venous catheter are unchanged in position. IMPRESSION: Stable exam. No pneumothorax
[2019-02-25 07:53] LABS: ALV-art Gradient 128.925 (0-20); Puncture Site LRA
[2019-02-25] MEDS: Heparin 5,000 UNITS/ML VIAL SC SCH (08:01)
[2019-02-25] MEDS: methylPREDNISolone Sod Succ 40 MG VIAL IVP SCH ×2 (08:05→21:02)
[2019-02-25] MEDS: Pantoprazole 40 MG VIAL IVP SCH ×2 (08:05→21:03)
[2019-02-25] MEDS: Multivitamin W/ Minerals 1 TAB PO SCH (08:06)
[2019-02-25] MEDS: Propofol 1,000 MG/100 ML VIAL IV PRN (09:10)
[2019-02-25 09:11] LABS: Platelet Count 58 thou/uL (130-400)
[2019-02-25 09:36] LABS: EPI 138 SEC (67-199)
--- NOTE | 2019-02-25 10:06 | PRG ---
DATE OF SERVICE: 02/25/2019 SUBJECTIVE: This morning, he was on fentanyl and Diprivan drip, amiodarone drip. He is off all the pressors, alert and more responsive. OBJECTIVE: VITAL SIGNS: His pulse is 135 and AFib, blood pressure is 130/80, saturations are 97% to 98%, respiratory rate 5. His I's and O's have been consistently ahead. NEUROLOGIC: He appears to be moving his left side, which he was not doing yesterday. CHEST: Decreased breath sounds. No wheezing. Minimal crackles. CARDIAC: Atrial fibrillation. ABDOMEN: Soft. LABORATORY DATA: X-ray shows much improvement in his diffuse pulmonary infiltrates. His platelet count is 57,000 and white count is 46,000. PO2 is 101, pCO2 of 40, pH 7.44, on 40%, 7 of PEEP. BUN and creatinine much improved to 149 and 1.2. Liver function is improved. To note, he has evidence of some bluish discoloration of his feet. IMPRESSION: 1. Respiratory failure, massive aspiration of gastrointestinal tract. 2. Status post lap. 3. Ongoing leukocytosis with azotemia, better. 4. Atrial fibrillation. 5. Hypertension, resolved. 6. Thrombocytopenia. PLAN: We concerned about the ongoing leukocytosis and ongoing worsening thrombocytopenia. He was started on heparin a few days ago. I doubt this is HIT. We will order a HIT panel, though stop his heparin for the time being. Cardiology to address his ongoing atrial fibrillation. He is still on broad-spectrum antibiotics, meropenem and micafungin. PROGNOSIS: Guarded. TIME SPENT: I spent one-half hour of critical care time. Job ID: [id number]
[2019-02-25] MEDS: Micafungin 100 MG in Sodium Chloride 0.9% 100 ML IVPB SCH (10:39)
[2019-02-25] MEDS: Dextrose 5% in Water 1,000 ML IV SCH (11:48)
--- NOTE | 2019-02-25 11:57 | PDOC.PN ---
- Subjective Encounter Start Date: 02/25/19 Encounter Start Time: 11:00 -: non-verbal Subjective: Patient remains intubated and sedated. No events overnight. - Objective Resuscitation Status - Order Detail: 02/17/19 19:56 Resuscitation Status Routine Resuscitation Status: FULL: Full Resuscitation MAR Reviewed: Yes Vital Signs & Weight: Vital Signs (12 hours) Temp Pulse Resp Pulse Ox 02/25/19 11:08 93 02/25/19 10:00 21 H 02/25/19 08:00 22 H 100 02/25/19 07:13 104 H 02/25/19 06:00 18 02/25/19 04:00 97.9 F 17 02/25/19 02:30 114 H 02/25/19 02:00 19 02/25/19 00:34 127 H 18 100 02/25/19 00:00 98.2 F 21 H Weight Admit Weight 144 lb 6.444 oz Weight 146 lb 2.664 oz Most Recent Monitor Data Heart Rate from ECG 90 NIBP 106/72 NIBP BP-Mean 89 Respiration from ECG 17 SpO2 100 I&O: 02/24/19 02/25/19 02/26/19 06:59 06:59 06:59 Intake Total 3385.1 3191.3 Output Total 941 1215 285 Balance 2444.1 1976.3 -285 Result Diagrams: 02/25/19 04:17 02/25/19 04:17 Phys Exam - Physical Examination Constitutional: NAD HEENT: moist MMs Respiratory: no wheezing, no rales, no rhonchi Cardiovascular: RRR Gastrointestinal: no distention, positive bowel sounds Neurological: non-focal Deviation from normal: sedated on vent Dx/Plan (1) Aspiration pneumonia due to regurgitated gastric secretions Code(s): J69.0 - PNEUMONITIS DUE TO INHALATION OF FOOD AND VOMIT Status: Acute Qualifiers: Laterality: bilateral Comment: Due to vomiting of coffee ground emesis from GI bleed, bronchoscopy with lavage during initial code (2) Sepsis associated hypotension Code(s): A41.9 - SEPSIS, UNSPECIFIED ORGANISM; I95.9 - HYPOTENSION, UNSPECIFIED Status: Acute Comment: Severe WBC elevation, on broad spectrum antibiotics - Meropenem and Micofungin (3) Acute respiratory failure Code(s): J96.00 - ACUTE RESPIRATORY FAILURE, UNSP W HYPOXIA OR HYPERCAPNIA Status: Acute Qualifiers: Respiratory failure complication: unspecified whether with hypoxia or hypercapnia Qualified Code(s): J96.00 - Acute respiratory failure, unspecified whether with hypoxia or hypercapnia Comment: intubated (4) Acute upper GI hemorrhage Code(s): K92.2 - GASTROINTESTINAL HEMORRHAGE, UNSPECIFIED Status: Acute Comment: severe, multiple units PRBC and FFP, now resolved (5) Duodenal ulcer Status: Acute Comment: Large, pulsatile vessel, s/p failed endoscopic control s/p laparotomy with oversewing ulcer and pyloroplasty (6) Anemia due to acute blood loss Code(s): D62 - ACUTE POSTHEMORRHAGIC ANEMIA Status: Acute Comment: stabilized in 7s, monitor closely (7) Hypertension Code(s): I10 - ESSENTIAL (PRIMARY) HYPERTENSION Status: Chronic (8) Hx of renal cell carcinoma Code(s): Z85.528 - PERSONAL HISTORY OF OTHER MALIGNANT NEOPLASM OF KIDNEY Status: Chronic Comment: S/P nephrectomy (9) Hx of hepatitis C Code(s): Z86.19 - PERSONAL HISTORY OF OTHER INFECTIOUS AND PARASITIC DISEASES Status: Chronic Comment: s/p interferron therapy - Plan cont current plan of care, plan discussed w/ family, continue antibiotics, respiratory therapy patient remains critically ill with poor prognosis -: son updated on status -: CT abd planned for today to workup leukocytosis * . - Discharge Day Encounter end time: 11:15 Pulmonology Consult: Meds - Medications MAR Reviewed: Yes Medications: Current Medications Albuterol/Ipratropium (Duoneb) 3 ml NEB [id number] PRN PRN Reason: SOB &/or Wheezing Last Admin: 02/22/19 09:56 Dose: 3 ml Albuterol/Ipratropium (Duoneb) 3 ml NEB [id number] LANRE Last Admin: 02/25/19 07:12 Dose: 3 ml Diphenhydramine HCl (Benadryl) 25 mg IM/IV Q3H PRN PRN Reason: Itching Last Admin: 02/20/19 00:10 Dose: 25 mg Diphenhydramine HCl (Benadryl) 25 mg PO Q3H PRN PRN Reason: Itching Hydralazine HCl (Apresoline) 10 mg SLOW IVP Q4H PRN PRN Reason: SBP > 180 and HR < 70 Thiamine HCl 100 mg/ Sodium (Chloride) 51 mls @ 100 mls/hr IVPB Q24HR LANRE Last Admin: 02/25/19 07:26 Dose: 51 mls Potassium Chloride 40 meq/ (Sodium Chloride) 270 mls @ 135 mls/hr IVPB ASDIR PRN PRN Reason: FOR SERUM K+ 2.5 - 3.5 Potassium Chloride 40 meq/ (Device) 100 mls @ 50 mls/hr IVPB ASDIR PRN PRN Reason: FOR SERUM K+ 2.5 - 3.5 Last Admin: 02/23/19 07:36 Dose: 100 mls Magnesium Sulfate 1 gm/ Sodium (Chloride) 102 mls @ 102 mls/hr IV PRN PRN PRN Reason: MAG LEVEL 1.4 - 2.0 Last Admin: 02/23/19 08:35 Dose: 102 mls Magnesium Sulfate 2 gm/ Device 50 mls @ 50 mls/hr IVPB ASDIR PRN PRN Reason: MAGNESIUM < 1.4 Potassium Phosphate 9 mmol/ (Sodium Chloride) 103 mls @ 25.75 mls/hr IVPB ASDIR PRN PRN Reason: Phosphate 1.0-1.8 Potassium Phosphate 12 mmol/ (Sodium Chloride) 254 mls @ 63.5 mls/hr IV ASDIR PRN PRN Reason: Serum phosphate 0.5-0.9 Potassium Phosphate 15 mmol/ (Sodium Chloride) 255 mls @ 63.75 mls/hr IV ASDIR PRN PRN Reason: Serum Phos < 0.5 Fentanyl Citrate 2,000 mcg/ (Sodium Chloride) 100 mls @ 0 mls/hr IV INF LANRE; Protocol Stop: 03/24/19 18:10 Last Admin: 02/24/19 12:45 Dose: 100 mls Fentanyl Citrate (Fentanyl Bolus) 250 mls @ 0 mls/hr IVPB PRN PRN PRN Reason: Breakthrough pain/agitation Stop: 03/24/19 18:10 Amiodarone HCl 450 mg/ (Dextrose/Water) 259 mls @ 0 mls/hr IVPB INF LANRE; Protocol Last Admin: 02/24/19 21:55 Dose: 259 mls Norepinephrine Bitartrate (Levophed) 250 mls @ 0 mls/hr IVPB INF LANRE; Protocol Last Admin: 05/04/19 10:36 Dose: 250 mls Dextrose/Water (D5w) 1,000 mls @ 75 mls/hr IV .[id number] [facility] Last Admin: 02/25/19 11:48 Dose: 1,000 mls Micafungin Sodium 100 mg/ (Sodium Chloride) 100 mls @ 100 mls/hr IVPB Q24H [facility] Last Admin: 02/25/19 10:39 Dose: 100 mls Meropenem 1 gm/ Device 50 mls @ 100 mls/hr IVPB Q8HR [facility] Last Admin: 02/25/19 05:26 Dose: 50 mls Iron/Minerals/Multivitamins (Theragran M) 1 tab PO DAILY [facility] Last Admin: 02/25/19 08:06 Dose: Not Given Lorazepam (Ativan) 2 mg SLOW IVP Q1H PRN PRN Reason: Breakthrough agitation Stop: 03/24/19 18:10 Last Admin: 02/24/19 09:48 Dose: 2 mg Magnesium Oxide (Magnesium Oxide) 400 mg PO BIDPRN PRN PRN Reason: FOR SERUM MAG 1.4 - 2.0 Magnesium Oxide (Magnesium Oxide) 800 mg PO PRN PRN PRN Reason: FOR SERUM MAG < 1.4 Methylprednisolone Sodium Succinate (Solu-Medrol) 40 mg IVP BID [facility] Last Admin: 02/25/19 08:05 Dose: 40 mg Metoprolol Tartrate (Lopressor) 2 mg IVP Q2H PRN PRN Reason: HR > 120 and SBP > 100 Last Admin: 02/25/19 09:09 Dose: 2 mg Miscellaneous Medication (Phos-Nak) 1 pkt PO TIDPRN PRN PRN Reason: FOR PHOS LEVEL 1.0 - 1.8 Miscellaneous Medication (Phos-Nak) 2 pkt PO TIDPRN PRN PRN Reason: FOR PHOS LEVEL 0.5 - 1.0 Miscellaneous Medication (Ventilator Sedation Protocol) 1 each FS 1800 [facility] Last Admin: 02/25/19 07:10 Dose: Not Given Morphine Sulfate (Morphine) 2 mg SLOW IVP Q1H PRN PRN Reason: BREAKTHROUGH PAIN/Agitation Stop: 03/24/19 18:10 Naloxone HCl (Narcan) 0.2 mg IV Q5MIN PRN PRN Reason: RR <8 or pt obtun/unarousable Ccu Electrolyte (Replacement Protocol) 0 each FS PRN PRN PRN Reason: FOR ELECTROLYTE REPLACEMENT Ondansetron HCl (Zofran) 4 mg IVP Q6H PRN PRN Reason: Nausea/Vomiting Pantoprazole Sodium (Protonix) 40 mg IVP Q12HR LANRE Last Admin: 02/25/19 08:05 Dose: 40 mg Potassium Chloride (K-Dur) 40 meq PO ASDIR PRN PRN Reason: FOR SERUM K+ 2.5 - 3.5 Potassium Chloride (Klor-Con) 40 meq PER TUBE ASDIR PRN PRN Reason: FOR SERUM K+ 2.5-3.5 Propofol (Diprivan) 1,000 mg IV INF PRN; Protocol PRN Reason: TO ACHIEVE GOAL RASS Stop: 03/24/19 18:10 Last Admin: 02/25/19 09:10 Dose: 1,000 mg Propofol (Diprivan Bolus) 20 mg IV Q5MIN PRN PRN Reason: BREAKTHROUGH AGITATION Stop: 03/24/19 18:10 Sodium Chloride (Flush - Normal Saline) 10 ml IVF PRN PRN PRN Reason: Saline Flush Last Admin: 02/19/19 21:31 Dose: 10 ml Sodium Chloride (Normal Saline Pf) 10 ml FS PRN PRN PRN Reason: RECONSTITUTION Last Admin: 02/22/19 21:32 Dose: 10 ml - Allergies Allergies/Adverse Reactions: Allergies Allergy/AdvReac Type Severity Reaction Status Date / Time No Known Allergies Allergy Unverified 09/19/16 12:31
--- NOTE | 2019-02-25 12:04 | PDOC.CTH ---
Cardiology Progress Note - Subjective He had a PEA arrest Monday. He went into asystole and had several doses of epinephrine. Eventually had VT and had to be shocked once. He is now on amiodarone drip and has been weaned off all pressors and inotropes. During the episode he had a large amount of coffee grounds emesis, he had a bronchoscopy and had some coffee grounds aspirated from his lungs. He remains intubated and sedated. He staretd to have tachycardia last night and he was in afib RVR so he had his amiodarone restarted. - Objective Vital Signs Temp Pulse Resp Pulse Ox 02/25/19 11:08 93 02/25/19 10:00 21 H 02/25/19 08:00 22 H 100 02/25/19 07:13 104 H 02/25/19 06:00 18 02/25/19 04:00 97.9 F 17 02/25/19 02:30 114 H 02/25/19 02:00 19 02/25/19 00:34 127 H 18 100 Admit Weight 144 lb 6.444 oz Weight 146 lb 2.664 oz 02/24/19 02/25/19 02/26/19 06:59 06:59 06:59 Intake Total 3385.1 3191.3 Output Total 941 1215 285 Balance 2444.1 1976.3 -285 - Physical Examination General/Neuro: other: (Sedated intubated. ) Neck: no JVD present Lungs: CTA, unlabored respirations Heart: RRR Abdomen: NT/ND Extremities: + edema B (1+) - Telemetry Telemetry Rhythm: Afib HR 80's to 90's - Labs Result Diagrams: 02/25/19 04:17 02/25/19 04:17 Troponin/CKMB Troponin I Less than 0.010 ng/mL (< 0.028) 02/17/19 16:26 - Assessment/Plan 1. Acute blood loss anemia, hgb stable at this time. 2. Severe symptomatic anemia 3. ST elevations on ECG while Hgb 3.9 4. Dilated CM EF at 35-40% 5. Acute on chronic systolic heart failure. 6. Afib RVR, rate controlled now. 7. Possible aspiration. PLAN: - Judiscious use of fluids due to LV dysfunction. - Likely ischemic CM but prohibitive to do a LHC due to acute life-threatening bleed. - Dropped his hgb 2 points from day of event, may be related to bleeding or large amount of fluid resuscitation and dilution. - Continue Amiodarone drip. - Continue supportive care. - Rate control for afib only for now. - Elevated white count, would worry about abdominal process. Per general surgery. - Severely ill and would not be unexpected. - 30 minutes critical care.
[2019-02-25] MEDS: Lorazepam 2 MG/ML VIAL SLOW IVP PRN (13:10)
--- NOTE | 2019-02-25 14:35 | PRG ---
DATE OF SERVICE: 02/25/2019 SUBJECTIVE: Mr. Stroud is intubated. He apparently had respiratory arrest on Monday evening. His LFTs have increased on Monday the 3rd could be likely related to shock liver that have dropped down over the weekend. Leukocytosis has worsened. The patient had a CT scan last night modified. Presently he is intubated, he has minimal NG output. OBJECTIVE: VITAL SIGNS: T-max 97.9, intubated and sedated. LUNGS: Coarse rhonchi. HEART: Regular rate and rhythm. ABDOMEN: Soft and nontender. abdomen. LABORATORY DATA: Sodium 148, potassium 3.6, BUN and creatinine are 49 and 1.29 and down from 51 and 1.72. Bilirubin 1; AST is 169 down from 739 a few days ago. AlT 296 down from 476 a few days ago. Albumin is 2.7. Mircobiologies,moderate white cells, no organisms from 02/24. Helicobacter stool negative. Blood cultures on 02/17, negative. Hematology: White count 13897, hemoglobin is 8.8, platelet count 57,000, 94 segs . ASSESSMENT: 1. Status post laparoscopy last week for GI hemorrhage could not be controlled endoscopically. 2. treated in the remote past. No signs of cirrhosis. Normal liver function tests . 3. Likely aspiration at the time of initial presentation. 4. Respiratory arrest . 5. Thrombocytopenia likely related to sepsis. 6. Elevated liver enzymes . RECOMMENDATIONS: . I would recommend a CAT scan of the abdomen and pelvis. Job ID: [id number]
--- NOTE | 2019-02-25 15:00 | CT ---
CT ABDOMEN AND PELVIS WITH IV AND ORAL CONTRAST: HISTORY: Abdominal pain. Recent surgery for bleeding ulcer. Leukocytosis. Evaluate for leak. COMPARISON: 02/17/2019. FINDINGS: Bilateral pleural fluid and dense bibasilar infiltrates/atelectasis. Nasogastric tube in place. Posto perative changes of the upper anterior abdomen and bowel. No evidence of bowel obstruction. No free fluid or free air at the site of surgery. Minimal free fluid within the dependent portion of the pelv is. Left kidney not visualized, likely surgically absent. Bowel is not dilated. Mild circumferential wall thickening and adjacent fat stranding involving the cecum is nonspecific. The small bowel overall is significantly improved compared to the previous exam. Degenerative changes lumbar spine. Calcifica tion throughout the arterial structures. IMPRESSION: 1. Interval surgical bowel changes. No evidence of complication. 2. Bilateral pleural fluid with dense bibasilar atelectasis/infiltrates. Likely dependent atelectasi s. 3. Atherosclerosis. Transcribed Date/Time: 02/25/2019 3:15 PM
--- NOTE | 2019-02-25 15:03 | PDOC.GSPN ---
Surgery Progress Note: Subj - Subjective Narrative: White count went up today and a CT of the abdomen and pelvis with oral contrast has been ordered. His abdomen is soft and nondistended and his incision looks good. He doesn't have any grimacing or indication of pain with abdominal palpation and the drainage from his KRIS site is clear and serous. I doubt that he is leaking from his operation, although a contained leak as possible. I will await the CT results Surgery Progress Note: Obj - Vital signs Vital signs: Vital Signs - Most Recent Temp Pulse Resp BP Pulse Ox 97.9 F 90 24 H 134/108 H 100 02/25/19 04:00 02/25/19 14:54 02/25/19 12:00 02/25/19 14:54 02/25/19 11:04 Surgery Progress Note: Results - Labs Result Diagrams: 02/25/19 04:17 02/25/19 04:17 Lab results: Laboratory Results - last 24 hr 02/25/19 02/25/19 02/25/19 04:17 04:17 04:17 WBC 46.8 H* RBC 2.73 L Hgb 8.3 L Hct 26.2 L MCV 96.0 MCH 30.4 MCHC 31.7 L RDW 16.8 H Plt Count 57 L MPV 10.3 Neutrophils % (Manual) 94 H Band Neuts % (Manual) 2 L Lymphocytes % (Manual) 1 L Monocytes % (Manual) 3 Neutrophils # Not Reportable Lymphocytes # Not Reportable Nucleated RBCs # (Man) 5 H Hypochromia SLIGHT = 6-15 cells Plt Morphology Comment Appears Adequate Hematocrit Plt Func Scrn - Epineph Plt Func Collagen/Epi Plt Function Comment Specimen Type Puncture Site Bicarbonate Actual ABG pH ABG pCO2 ABG pO2 ABG O2 Sat Calc/Christian ABG O2 Content ABG Base Excess ABG Hematocrit ABG Hemoglobin ABG Oxyhemoglobin ABG Carboxyhemoglobin ABG Methemoglobin ABG Deoxyhemoglobin A-a O2 Gradient Ionized Calcium Mode of Support % Minute Volume Mechanical Rate Spontaneous Rate Inspired O2 Tidal Volume Spontaneous Tidal Vol Peak Inspir Pressure Pressure Support PEEP or CPAP Sodium 148 H Potassium 3.6 Chloride 110 H Carbon Dioxide 31 Anion Gap 11 BUN 49 H Creatinine 1.29 Estimated GFR (MDRD) 56 Glucose 168 H Calcium 7.8 Total Bilirubin 1.0 Direct Bilirubin 0.7 H AST 169 H ALT 296 H Alkaline Phosphatase 83 Serum Total Protein 4.9 L Albumin 2.7 L 02/25/19 02/25/19 06:50 08:54 WBC RBC Hgb Hct MCV MCH MCHC RDW Plt Count 58 L MPV Neutrophils % (Manual) Band Neuts % (Manual) Lymphocytes % (Manual) Monocytes % (Manual) Neutrophils # Lymphocytes # Nucleated RBCs # (Man) Hypochromia Plt Morphology Comment Hematocrit 27.2 L Plt Func Scrn - Epineph No Message Plt Func Collagen/Epi 138 Plt Function Comment : Specimen Type ARTERIAL Puncture Site LRA Bicarbonate Actual 29.1 H ABG pH 7.44 ABG pCO2 43.9 ABG pO2 101.4 H ABG O2 Sat Calc/Christian 98.2 H ABG O2 Content 12.2 L ABG Base Excess 4.5 H ABG Hematocrit 26.0 L ABG Hemoglobin 8.9 L ABG Oxyhemoglobin 96.1 ABG Carboxyhemoglobin 1.9 ABG Methemoglobin 0.20 ABG Deoxyhemoglobin 1.8 A-a O2 Gradient 128.925 H Ionized Calcium 1.10 L Mode of Support SIMV % Minute Volume 8.6 Mechanical Rate 12 Spontaneous Rate 7 Inspired O2 40 Tidal Volume 500 Spontaneous Tidal Vol 385 Peak Inspir Pressure 22 Pressure Support 10 PEEP or CPAP 7.0 Sodium 145 Potassium 3.62 L Chloride 111 H Carbon Dioxide Anion Gap BUN Creatinine Estimated GFR (MDRD) Glucose Calcium Total Bilirubin Direct Bilirubin AST ALT Alkaline Phosphatase Serum Total Protein Albumin
[2019-02-25] MEDS: Amiodarone 450 MG in Dextrose 5% in Water 250 ML IVPB SCH (15:13)
[2019-02-25] MEDS ORDERED: Iopamidol 370 76% 50 ML VIAL FS ONE (17:07)
[2019-02-25] MEDS ORDERED: ISOVUE-370 76%-LOCM 1 ML ONE (17:07)
[2019-02-25] MEDS: fentaNYL Citrate/PF 2,000 MCG in Sodium Chloride 0.9% 60 ML IV SCH (21:49)
[2019-02-26] MEDS: Dextrose 5% in Water 1,000 ML IV SCH ×2 (01:00→13:59)
[2019-02-26 04:00] LABS: Anion Gap 7 mmol/L (10-20); BUN (Urea Nitrogen) 39 mg/dL (8.4-25.7); Calc. Creatinine Clearance 78 mL/min (70-130); Calcium 7.8 mg/dL (7.8-10.44); Carbon Dioxide 32 mmol/L (23-31); Chloride 109 mmol/L (98-107); Estimated GFR-MDRD 84; Glucose 158 mg/dL (80-115); Potassium 3.4 mmol/L (3.5-5.1); Sodium 145 mmol/L (136-145)
[2019-02-26] MEDS: Amiodarone 450 MG in Dextrose 5% in Water 250 ML IVPB SCH ×2 (05:50→21:34)
[2019-02-26] MEDS: MEROPENEM 1 GM/50 ML 1 GM in Premix Bag 1 BAG IVPB SCH ×3 (05:51→21:34)
[2019-02-26] MEDS: Propofol 1,000 MG/100 ML VIAL IV PRN ×2 (05:54→09:55)
[2019-02-26 07:04] LABS: pH, Arterial 7.44 (7.35-7.45)
[2019-02-26 07:05] LABS: ALV-art Gradient 124.375 (0-20); Actual Bicarbonate (HCO3a) 30.8 mEq/L (22-28); Base Excess (BEa) 5.9 mEq/L (-2.0 to +3.0); CO2 Tension 46.9 mmHg (35.0-45.0); Calcium, Ionized 1.11 mmol/L (1.12-1.30); Carboxyhemoglobin (COHb) 1.7 gm% (0.0-3.0); Hemoglobin (Hb) 7.7 g/dL (14.0-18.0); O2 Tension (PaO2) 102.2 mmHg (> 80.0); Puncture Site RRA
--- NOTE | 2019-02-26 08:34 | PDOC.PN ---
- Subjective Encounter Start Date: 02/26/19 Encounter Start Time: 11:50 Subjective: Patient remains on vent. Vitals stable. Off pressors. On sedation holiday -: right now. - Objective Resuscitation Status - Order Detail: 02/17/19 19:56 Resuscitation Status Routine Resuscitation Status: FULL: Full Resuscitation MAR Reviewed: Yes Vital Signs & Weight: Vital Signs (12 hours) Pulse Resp BP Pulse Ox 02/26/19 06:44 86 115/81 02/26/19 06:40 98 19 99 02/26/19 04:00 18 02/26/19 02:00 17 02/26/19 00:00 16 02/25/19 23:23 104 H 20 100 02/25/19 22:00 24 H Weight Admit Weight 144 lb 6.444 oz Weight 152 lb 5.431 oz Most Recent Monitor Data Heart Rate from ECG 108 NIBP 128/98 NIBP BP-Mean 112 Respiration from ECG 20 SpO2 100 I&O: 02/25/19 02/26/19 02/27/19 06:59 06:59 06:59 Intake Total 3191.3 3756.3 30 Output Total 1215 1965 Balance 1976.3 1791.3 30 Result Diagrams: 02/26/19 10:30 02/26/19 03:30 Phys Exam - Physical Examination on vent, opens eyes some but not responsive HEENT: moist MMs junky breath sounds L worse than R Cardiovascular: RRR, no significant murmur Gastrointestinal: soft hypoactive bowel sounds, some significant old KRIS drain site drainage not moving left foot per nursing Deviation from normal: minimally responsive right now Dx/Plan (1) Aspiration pneumonia due to regurgitated gastric secretions Code(s): J69.0 - PNEUMONITIS DUE TO INHALATION OF FOOD AND VOMIT Status: Acute Qualifiers: Laterality: bilateral Comment: Due to vomiting of coffee ground emesis from GI bleed, bronchoscopy with lavage during initial code (2) Sepsis associated hypotension Code(s): A41.9 - SEPSIS, UNSPECIFIED ORGANISM; I95.9 - HYPOTENSION, UNSPECIFIED Status: Acute Comment: Severe WBC elevation, on broad spectrum antibiotics - Meropenem and Micofungin, CT abdomen without evidence of leak (3) Acute respiratory failure Code(s): J96.00 - ACUTE RESPIRATORY FAILURE, UNSP W HYPOXIA OR HYPERCAPNIA Status: Acute Qualifiers: Respiratory failure complication: unspecified whether with hypoxia or hypercapnia Qualified Code(s): J96.00 - Acute respiratory failure, unspecified whether with hypoxia or hypercapnia Comment: intubated (4) Acute upper GI hemorrhage Code(s): K92.2 - GASTROINTESTINAL HEMORRHAGE, UNSPECIFIED Status: Acute Comment: severe, multiple units PRBC and FFP, now resolved (5) Duodenal ulcer Status: Acute Comment: Large, pulsatile vessel, s/p failed endoscopic control s/p laparotomy with oversewing ulcer and pyloroplasty (6) Anemia due to acute blood loss Code(s): D62 - ACUTE POSTHEMORRHAGIC ANEMIA Status: Acute Comment: stabilized in 7s, monitor closely (7) Hypertension Code(s): I10 - ESSENTIAL (PRIMARY) HYPERTENSION Status: Chronic (8) Hx of renal cell carcinoma Code(s): Z85.528 - PERSONAL HISTORY OF OTHER MALIGNANT NEOPLASM OF KIDNEY Status: Chronic Comment: S/P nephrectomy (9) Hx of hepatitis C Code(s): Z86.19 - PERSONAL HISTORY OF OTHER INFECTIOUS AND PARASITIC DISEASES Status: Chronic Comment: s/p interferron therapy - Plan cont current plan of care, plan discussed w/ family, continue antibiotics, social worker aide, DVT proph w/SCDs * . - Discharge Day Encounter end time: 12:05
--- NOTE | 2019-02-26 09:44 | PRG ---
DATE OF SERVICE: 02/26/2019 SUBJECTIVE: Dannie Stroud remains intubated in the vent, sedated. CT of the abdomen did not show any abdominal pathology, but showed bilateral pleural effusion and atelectatic changes. His pulse 119. He is on amiodarone drip. OBJECTIVE: VITAL SIGNS: Blood pressure 128/68, sats 100%, respirations are 19. His I's and O's have been consistently ahead. CHEST: Decreased breath sounds. Bilateral crackles. CARDIAC: Normal S1 and S2. No gallops. ABDOMEN: No masses. His lytes are normal. Await results of the CBCs. His platelet count is only 58,000. IMPRESSION: 1. Status post lap. 2. Perforated duodenal ulcer. 3. Respiratory failure. 4. Acute respiratory distress syndrome. 5. Congestive heart failure. 6. Encephalopathy. Vent is being adjusted. Continue nutrition and PT. Prognosis remains guarded. One-half hour of critical time. Job ID: [id number]
[2019-02-26] MEDS: methylPREDNISolone Sod Succ 40 MG VIAL IVP SCH ×2 (09:45→21:34)
[2019-02-26] MEDS: Sodium Chloride 0.9% (PF) 10 ML VIAL FS PRN (09:51)
[2019-02-26] MEDS: Pantoprazole 40 MG VIAL IVP SCH ×2 (09:51→21:34)
[2019-02-26] MEDS: Multivitamin W/ Minerals 1 TAB PO SCH (09:54)
[2019-02-26] MEDS: Micafungin 100 MG in Sodium Chloride 0.9% 100 ML IVPB SCH (09:56)
[2019-02-26] MEDS: Potassium Chloride 40 MEQ in Premix Bag 1 BAG IVPB PRN (10:04)
[2019-02-26 10:47] LABS: Hemoglobin 8.1 g/dL (14.0-18.0); Mean Corpuscular HGB CONC 31.7 g/dL (32.0-36.0); Mean Corpuscular Hemoglobin 30.6 pg (27.0-31.0); Mean Corpuscular Volume 96.5 fL (78.0-98.0); Mean Platelet Volume 11.4 fL (7.4-10.4); Platelet Count 63 thou/uL (130-400); RBC Distribution Width 17.9 % (11.5-14.5); Red Blood Cell (RBC) Count 2.63 mill/uL (4.70-6.10); White Blood Cell (WBC) Count 49.4 thou/uL (4.8-10.8)
[2019-02-26 11:07] LABS: Band 5 % (5-11); Hypochromia SLIGHT = 6-15 cells (100X) (0-5/hpf); Lymphocytes 1 % (21-51); MDiff Complete? YES; Neutrophil 94 % (42-75); Nucleated RBC 4 % (0); Platelet Morphology Comment Appears Decreased; Polychromasia SLIGHT = 2-3 cells (100X) (0-2/hpf)
[2019-02-26] MEDS: Metoprolol Tartrate 5 MG/5 ML VIAL IVP PRN (13:40)
[2019-02-26] MEDS: Ventilator Sedation Protocol 1 EACH FS SCH (13:59)
[2019-02-26] MEDS: Lorazepam 2 MG/ML VIAL SLOW IVP PRN ×2 (14:39→18:49)
--- NOTE | 2019-02-26 16:11 | PDOC.GSPN ---
Surgery Progress Note: Subj - Subjective Narrative: CT yesterday didn't show any evidence of leak. He continues to have a lot of serous drainage from his KRIS site which I believe is due to his heart failure. We are managing this with an ostomy bag. He is tolerating his tube feeds with low residuals. His incision looks good. No surgical issues. Surgery Progress Note: Obj - Vital signs Vital signs: Vital Signs - Most Recent Temp Pulse Resp BP Pulse Ox 97.8 F 94 24 H 135/95 H 99 02/26/19 12:00 02/26/19 14:53 02/26/19 13:03 02/26/19 14:53 02/26/19 13:03 Surgery Progress Note: Results - Labs Result Diagrams: 02/26/19 10:30 02/26/19 03:30 Lab results: Laboratory Results - last 24 hr 02/26/19 02/26/19 06:45 10:30 WBC 49.4 H* RBC 2.63 L Hgb 8.1 L Hct 25.4 L MCV 96.5 MCH 30.6 MCHC 31.7 L RDW 17.9 H Plt Count 63 L MPV 11.4 H Neutrophils % (Manual) 94 H Band Neuts % (Manual) 5 Lymphocytes % (Manual) 1 L Neutrophils # Not Reportable Lymphocytes # Not Reportable Nucleated RBCs # (Man) 4 H Hypochromia SLIGHT = 6-15 cells Plt Morphology Comment Appears Decreased L Polychromasia SLIGHT = 2-3 cells Specimen Type ARTERIAL Puncture Site RRA Bicarbonate Actual 30.8 H ABG pH 7.44 ABG pCO2 46.9 H ABG pO2 102.2 H ABG O2 Sat Calc/Christian 98.1 H ABG O2 Content 10.6 L ABG Base Excess 5.9 H ABG Hematocrit 23.0 L ABG Hemoglobin 7.7 L ABG Carboxyhemoglobin 1.7 ABG Methemoglobin 0.30 Noe Test POSITIVE A-a O2 Gradient 124.375 H Sodium 141 Potassium 3.40 L Chloride 107 H Ionized Calcium 1.11 L Mode of Support SIMV.PSV Mechanical Rate 10 Inspired O2 40 Tidal Volume 460 Pressure Support 10 PEEP or CPAP 7.0
--- NOTE | 2019-02-26 17:01 | PDOC.CTH ---
Cardiology Progress Note - Subjective He remains sedated nad intubated, Had a sedation holiday this morning. Still not moving left leg. - Objective Vital Signs Temp Pulse Pulse Pulse Resp BP BP 02/26/19 14:53 94 135/95 H 02/26/19 13:04 100 136/98 H 02/26/19 13:03 96 24 H 02/26/19 12:00 97.8 F 24 H 02/26/19 11:28 107 H 106 H 131/92 H 02/26/19 11:10 95 121/105 H 02/26/19 10:00 20 02/26/19 08:00 16 02/26/19 07:00 97.9 F 02/26/19 06:44 86 115/81 02/26/19 06:40 98 19 BP Pulse Ox Pulse Ox Pulse Ox 02/26/19 14:53 02/26/19 13:04 02/26/19 13:03 99 02/26/19 12:00 02/26/19 11:28 143/98 H 100 100 02/26/19 11:10 02/26/19 10:00 02/26/19 08:00 94 L 02/26/19 07:00 02/26/19 06:44 02/26/19 06:40 99 Admit Weight 144 lb 6.444 oz Weight 152 lb 5.431 oz 02/25/19 02/26/19 02/27/19 06:59 06:59 06:59 Intake Total 3191.3 3756.3 380 Output Total 1215 1965 570 Balance 1976.3 1791.3 -190 - Physical Examination General/Neuro: other: (Intubated, sedated. ) Neck: no JVD present Lungs: CTA, unlabored respirations Heart: RRR Abdomen: NT/ND Extremities: + edema B (1+) - Telemetry Telemetry Rhythm: Afib HR 90's. - Labs Result Diagrams: 02/26/19 10:30 02/26/19 03:30 Troponin/CKMB Troponin I Less than 0.010 ng/mL (< 0.028) 02/17/19 16:26 - Assessment/Plan 1. Acute blood loss anemia, hgb stable at this time. 2. Severe symptomatic anemia 3. ST elevations on ECG while Hgb 3.9 4. Dilated CM EF at 35-40% 5. Acute on chronic systolic heart failure. 6. Afib RVR, rate controlled now. 7. Possible aspiration. PLAN: - Judiscious use of fluids due to LV dysfunction. - Likely ischemic CM but prohibitive to do a LHC due to acute life-threatening bleed. - Continue Amiodarone drip. - Continue supportive care. - Rate control for afib only for now, no anticoagulation given life-threatening bleed. - CT abdomen reviewed. - Severely ill and would not be unexpected. - 30 minutes critical care.
[2019-02-27] MEDS: Dextrose 5% in Water 1,000 ML IV SCH ×2 (03:10→07:46)
[2019-02-27 04:43] LABS: Anion Gap 11 mmol/L (10-20); BUN (Urea Nitrogen) 29 mg/dL (8.4-25.7); Calc. Creatinine Clearance 85 mL/min (70-130); Calcium 7.7 mg/dL (7.8-10.44); Carbon Dioxide 29 mmol/L (23-31); Chloride 105 mmol/L (98-107); Estimated GFR-MDRD Greater than 90; Glucose 150 mg/dL (80-115); Potassium 3.4 mmol/L (3.5-5.1); Sodium 142 mmol/L (136-145)
[2019-02-27 04:48] LABS: Hypochromia SLIGHT = 6-15 cells (100X) (0-5/hpf); Lymphocytes 8 % (21-51); MDiff Complete? YES; Mean Corpuscular HGB CONC 32.1 g/dL (32.0-36.0); Mean Corpuscular Volume 96.5 fL (78.0-98.0); Mean Platelet Volume 11.6 fL (7.4-10.4); Monocytes 2 % (0-10); Neutrophil 90 % (42-75); Nucleated RBC 2 % (0); Platelet Count 61 thou/uL (130-400); Platelet Morphology Comment Appears Decreased; RBC Distribution Width 18.6 % (11.5-14.5); Red Blood Cell (RBC) Count 2.57 mill/uL (4.70-6.10); White Blood Cell (WBC) Count 39.4 thou/uL (4.8-10.8)
--- NOTE | 2019-02-27 05:13 | RAD ---
XR Chest 1 View Portable HISTORY: Respiratory distress COMPARISON: 02/25/2019 study. FINDINGS: Heart size is within normal limits. There are atherosclerotic changes of aorta. Endotrachea l and NG tubes remain in satisfactory position. Patient is rotated on this exam. There is increasing opacification in both lung bases suggesting infiltrate with increasing effusions. IMPRESSION: Worsening bibasilar lung changes probably mainly related to increased size to effusions b ut the infiltrative changes may also be worsened particularly on the left side.
[2019-02-27] MEDS: MEROPENEM 1 GM/50 ML 1 GM in Premix Bag 1 BAG IVPB SCH ×3 (06:08→21:23)
[2019-02-27 07:02] LABS: Actual Bicarbonate (HCO3a) 27.6 mEq/L (22-28); Base Excess (BEa) 3.7 mEq/L (-2.0 to +3.0); CO2 Tension 38.6 mmHg (35.0-45.0); Calcium, Ionized 1.08 mmol/L (1.12-1.30); Carboxyhemoglobin (COHb) 2.3 gm% (0.0-3.0); Hemoglobin (Hb) 6.9 g/dL (14.0-18.0); O2 Tension (PaO2) 64.8 mmHg (> 80.0); Potassium - ABG Lab 3.32 mmol/L (3.70-5.30); pH, Arterial 7.47 (7.35-7.45)
[2019-02-27 07:36] LABS: Puncture Site RRA
[2019-02-27] MEDS: Propofol 1,000 MG/100 ML VIAL IV PRN (07:46)
[2019-02-27] MEDS ORDERED: Calcium Gluconate 4.6 MEQ in Sodium Chloride 0.9% 100 ML IVPB SCH (08:29)
[2019-02-27] MEDS ORDERED: Furosemide 40 MG/4 ML VIAL SLOW IVP SCH (08:30)
[2019-02-27] MEDS: methylPREDNISolone Sod Succ 40 MG VIAL IVP SCH (09:04)
[2019-02-27] MEDS: Pantoprazole 40 MG VIAL IVP SCH ×2 (09:04→21:22)
[2019-02-27] MEDS: Potassium Chloride 40 MEQ in Premix Bag 1 BAG IVPB PRN (09:17)
[2019-02-27] MEDS: fentaNYL Citrate/PF 2,000 MCG in Sodium Chloride 0.9% 60 ML IV SCH (09:19)
--- NOTE | 2019-02-27 09:19 | PRG ---
DATE OF SERVICE: 02/27/2019 SUBJECTIVE: This morning, he is sedated on fentanyl and Diprivan. According to the nurse, he is agitated. He is coughing. OBJECTIVE: VITAL SIGNS: Blood pressure is 115/81, saturations are 96%-97%, respirations are 18. I's and O's have been ahead. He has been afebrile. Temperature 97. CHEST: Decreased breath sounds. Bilateral rhonchi or crackles. CARDIAC: Normal S1 and S2. Negative mass. LABORATORY DATA: PO2 is 64, pCO2 is 43, pH is 7.47, on a 30%, and a PEEP of 5. Lytes are normal. Potassium 3.4, glucose 150, calcium 7.7. IMAGING STUDIES: Chest x-ray shows worsening bilateral pleural effusions. IMPRESSION: 1. Respiratory failure, aspiration pneumonia. 2. Status post laparotomy, peptic ulcer disease. 3. Supraventricular tachycardia. 4. Congestive heart failure. PLAN: Lasix will be initiated, Reglan, broad-spectrum antibiotics. PT and supportive care. Minimize sedation. Correct electrolytes. TIME SPENT: One-half hour of critical time. Job ID: [id number] [facility]
[2019-02-27] MEDS: Micafungin 100 MG in Sodium Chloride 0.9% 100 ML IVPB SCH (10:02)
[2019-02-27] MEDS: Metoclopramide HCl 10 MG/2 ML VIAL IVP SCH ×2 (10:13→16:59)
[2019-02-27] MEDS: Lorazepam 2 MG/ML VIAL SLOW IVP PRN ×2 (10:18→14:37)
[2019-02-27] MEDS: Multivits W-Minerals Liquid 15mL UDCUP PER TUBE SCH (10:21)
--- NOTE | 2019-02-27 10:34 | PRG ---
DATE OF SERVICE: 02/26/2019 SUBJECTIVE: Mr. Stroud remains intubated in the ICU. CAT scan from the 6th of the abdomen showed no evidence of leak or ascites. He continues to have drainage from his previous KRIS site, which was managed with an ostomy bag. Nurses note no overt bleeding, but have noted some bluish discoloration of the fingertips and toes presumptively from when he was on pressors. I personally reviewed his CAT scan, he has atelectasis and fluid in the lung bases with no evidence of intraperitoneal air or fluid collections. The liver is nodular. His hemoglobin has been stable with no signs of overt bleeding. When he did rest over the weekend, he did have some coffee-grounds emesis and had signs of aspiration. MEDICATIONS: 1. DuoNeb. 2. Amiodarone. 3. Budesonide neb solution. 4. Electrolyte replacement protocol. 5. Multivitamins. 6. P.r.n. Ativan. 7. Solu-Medrol 40 IV daily. 8. Reglan 10 q.8. 9. P.r.n. morphine. 10. Protonix 40 IV q.12. 11. Thiamine. PHYSICAL EXAMINATION: VITAL SIGNS: T-max over the last week was 101, for the 6th and 7th T-max 97.8, pulse 105 to 95, and blood pressure 100/70. LUNGS: Coarse rhonchi in the bases. GENERAL: He is intubated. He is sedated. HEENT: Pupils are equal and reactive. No icterus. ABDOMEN: Soft and nontender. Abdominal scar is healing. EXTREMITIES: Reveal trace edema. LABORATORY DATA: White count 49,000, hemoglobin 8.1, platelet count 63,000, this was normal on admission. Sodium 145, potassium 3.4, BUN and creatinine of 39 and 0.9. Liver function tests on 02/25 were down with a bilirubin of 1, AST 169, and ALT of 296. ASSESSMENT: 1. Gastrointestinal bleed, status post surgical management secondary to inability to control bleeding endoscopically. 2. Status post massive transfusion protocol for severe anemia, presentation hemoglobin between 3 and 4. Gastrointestinal bleed. 3. Aspiration pneumonia. 4. Persistent leaking of fluid from his KRIS drain site. It is felt it is related to his heart failure. He has no overt signs of cirrhosis. 5. Leukocytosis related to aspiration pneumonia with related sepsis. No signs of intraabdominal sepsis on CT scan. 6. Dilated cardiomyopathy. Ejection fraction 35% to 40%. RECOMMENDATIONS: 1. Continue IV PPIs. ARDS and heart failure per Pulmonary and Cardiology. 2. The patient is started on some tube feeds at a low dose. We will advance as tolerated. We will follow with you. Job ID: [id number]
--- NOTE | 2019-02-27 12:28 | PDOC.PN ---
- Subjective Encounter Start Date: 02/27/19 Encounter Start Time: 13:00 -: non-verbal Subjective: Patient stable on vent. Still not moving LLE. Not tolerating tube -: feeds yet. - Objective Resuscitation Status - Order Detail: 02/17/19 19:56 Resuscitation Status Routine Resuscitation Status: FULL: Full Resuscitation MAR Reviewed: Yes Vital Signs & Weight: Vital Signs (12 hours) Temp Pulse Resp BP Pulse Ox 02/27/19 10:23 98 140/102 H 02/27/19 08:00 24 H 02/27/19 07:00 98.1 F 02/27/19 06:22 105 H 131/84 02/27/19 06:17 92 18 99 02/27/19 06:00 33 H 02/27/19 04:00 97.9 F 18 02/27/19 02:00 19 02/27/19 01:00 97.9 F Weight Admit Weight 144 lb 6.444 oz Weight 158 lb 4.67 oz Most Recent Monitor Data Heart Rate from ECG 109 NIBP 140/102 NIBP BP-Mean 117 Respiration from ECG 28 SpO2 98 I&O: 02/26/19 02/27/19 02/28/19 06:59 06:59 06:59 Intake Total 3756.3 3554.3 205 Output Total 1965 2285 100 Balance 1791.3 1269.3 105 Result Diagrams: 02/27/19 04:06 02/27/19 04:06 Phys Exam - Physical Examination lightly sedated on the vent HEENT: moist MMs Respiratory: no wheezing bilateral rhonchi and course breath sounds mild tachycardic Gastrointestinal: soft, positive bowel sounds incision c/d/i Deviation from normal: sedated on vent Dx/Plan (1) Aspiration pneumonia due to regurgitated gastric secretions Code(s): J69.0 - PNEUMONITIS DUE TO INHALATION OF FOOD AND VOMIT Status: Acute Qualifiers: Laterality: bilateral Comment: Due to vomiting of coffee ground emesis from GI bleed, bronchoscopy with lavage during initial code (2) Sepsis associated hypotension Code(s): A41.9 - SEPSIS, UNSPECIFIED ORGANISM; I95.9 - HYPOTENSION, UNSPECIFIED Status: Acute Comment: Severe WBC elevation, on broad spectrum antibiotics - Meropenem and Micofungin, CT abdomen without evidence of leak, likely due to # 1 (3) Acute respiratory failure Code(s): J96.00 - ACUTE RESPIRATORY FAILURE, UNSP W HYPOXIA OR HYPERCAPNIA Status: Acute Qualifiers: Respiratory failure complication: unspecified whether with hypoxia or hypercapnia Qualified Code(s): J96.00 - Acute respiratory failure, unspecified whether with hypoxia or hypercapnia Comment: intubated (4) Acute upper GI hemorrhage Code(s): K92.2 - GASTROINTESTINAL HEMORRHAGE, UNSPECIFIED Status: Acute Comment: severe, multiple units PRBC and FFP, now resolved (5) Duodenal ulcer Status: Acute Comment: Large, pulsatile vessel, s/p failed endoscopic control s/p laparotomy with oversewing ulcer and pyloroplasty (6) Anemia due to acute blood loss Code(s): D62 - ACUTE POSTHEMORRHAGIC ANEMIA Status: Acute Comment: stabilized in 7s, monitor closely (7) Hypertension Code(s): I10 - ESSENTIAL (PRIMARY) HYPERTENSION Status: Chronic (8) Hx of renal cell carcinoma Code(s): Z85.528 - PERSONAL HISTORY OF OTHER MALIGNANT NEOPLASM OF KIDNEY Status: Chronic Comment: S/P nephrectomy (9) Hx of hepatitis C Code(s): Z86.19 - PERSONAL HISTORY OF OTHER INFECTIOUS AND PARASITIC DISEASES Status: Chronic Comment: s/p interferron therapy - Plan cont current plan of care, continue antibiotics, respiratory therapy, DVT proph w/SCDs * . - Discharge Day Encounter end time: 13:10
--- NOTE | 2019-02-27 12:54 | PRG ---
DATE OF SERVICE: 02/27/2019 SUBJECTIVE: Mr. Stroud remains intubated in the ICU. I have talked with the nurses, but no events overnight except for he is not tolerating tube feeds. He can get about 10 mL an hour. He is having bowel movements, however, has positive bowel sounds. OBJECTIVE: VITAL SIGNS: Temperature max 98 to 99 overnight, blood pressure 140/102, and pulse 98 to 105. GENERAL: He has had some temporal wasting. He is intubated. Nurses note he is following some commands. He is arousable and moves all extremities. LUNGS: Notable for rhonchi. HEART: Has regular rate and rhythm to sinus tachycardia. ABDOMEN: Positive bowel sounds. There is no rebound. There is no guarding. There is still some drainage in the right lower quadrant where his KRIS drain was. EXTREMITIES: Reveal trace edema. He has cyanotic changes consistent with ischemia, fingertips, and toes. LABORATORY DATA: White count 39,000, hemoglobin 8, platelet count 61,000. Sodium 142, potassium 4.3, BUN and creatinine of 29 and 0.82. Chest x-ray, worsening bibasilar changes with effusion and some infiltrate. ASSESSMENT AND PLAN: 1. Status post duodenal ulcer with bleeding, treated laparoscopically as he failed endoscopic therapy. 2. Supraventricular tachycardia. 3. Congestive heart failure. 4. Respiratory failure, aspiration pneumonia. 5. Some ischemic changes in the digits and toes. He is being watched closely by ICU staff. 6. Intolerance of tube feeds. He has been started on some Reglan to see if this helps. He may have some edema at the pylorus and duodenum, which is hampering feeding. Dobbhoff tube placement radiographically may be an option. Presently, he is probably too sick to go downstairs for this elective procedure. 7. Shock liver, improving yesterday. PLAN: Agree with plans for Lasix. We will follow along with you. We will repeat LFTs while this dictation complete. Job ID: [id number]
[2019-02-27] MEDS: Amiodarone 450 MG in Dextrose 5% in Water 250 ML IVPB SCH (14:02)
[2019-02-27 14:44] LABS: Heparin-Induced Ab (HITA) Negative (Negative)
--- NOTE | 2019-02-27 16:43 | PRG ---
DATE OF SERVICE: 02/27/2019 Mr. Stroud is stable from a Surgical standpoint. He is tolerating his tube feeds and I have asked the nurse to advance the rate as tolerated. His residuals have been minimal. He is still having a large amount of clear serous drainage from his KRIS site and we have an ileostomy bag in place for this. He remains critically ill, but with no acute surgical issues. Job ID: [id number]
--- NOTE | 2019-02-27 16:50 | PDOC.CTH ---
Cardiology Progress Note - Subjective Remains sedated intubated. - Objective Vital Signs Temp Pulse Resp BP Pulse Ox 02/27/19 16:00 28 H 02/27/19 15:00 98.5 F 02/27/19 14:18 125 H 107/79 02/27/19 14:00 26 H 02/27/19 13:11 98 116/90 02/27/19 13:09 101 H 22 H 96 02/27/19 12:00 23 H 02/27/19 11:00 98.2 F 02/27/19 10:23 98 140/102 H 02/27/19 10:00 27 H 02/27/19 08:00 24 H 98 02/27/19 07:00 98.1 F 02/27/19 06:22 105 H 131/84 02/27/19 06:17 92 18 99 02/27/19 06:00 33 H Admit Weight 144 lb 6.444 oz Weight 158 lb 4.67 oz 02/26/19 02/27/19 02/28/19 06:59 06:59 06:59 Intake Total 3756.3 3554.3 585 Output Total 1965 2285 2210 Balance 1791.3 1269.3 -1625 - Physical Examination General/Neuro: other: (Sedated, intubated.) Neck: no JVD present Lungs: CTA, unlabored respirations Heart: other: (Irreg, irreg) Abdomen: soft Extremities: + edema B (trace) - Telemetry Telemetry Rhythm: Afib HR 90-120 - Labs Result Diagrams: 02/27/19 04:06 02/27/19 04:06 Troponin/CKMB Troponin I Less than 0.010 ng/mL (< 0.028) 02/17/19 16:26 - Assessment/Plan 1. Acute blood loss anemia, hgb stable at this time. 2. Severe symptomatic anemia 3. ST elevations on ECG while Hgb 3.9 4. Dilated CM EF at 35-40% 5. Acute on chronic systolic heart failure. 6. Afib RVR, rate controlled now. 7. Possible aspiration. PLAN: - Judiscious use of fluids due to LV dysfunction. - Likely ischemic CM but prohibitive to do a LHC due to acute life-threatening bleed. - Continue Amiodarone drip. - Continue supportive care. - Rate control for afib only for now, no anticoagulation given life-threatening bleed. - Will add low dose BB to try to rate control better. - IV lasix daily. - Replace K. - 30 minutes critical care.
[2019-02-27] MEDS: Metoprolol Tartrate 5 MG/5 ML VIAL IVP SCH (17:13)
[2019-02-27] MEDS: Budesonide 0.5 MG/2 ML NEB INH SCH (18:23)
[2019-02-27] MEDS: Ventilator Sedation Protocol 1 EACH FS SCH (21:24)
[2019-02-27] MEDS: Multivitamin W/ Minerals 1 TAB PO SCH (21:52)
[2019-02-28] MEDS: Metoclopramide HCl 10 MG/2 ML VIAL IVP SCH ×3 (00:42→17:09)
[2019-02-28] MEDS: Metoprolol Tartrate 5 MG/5 ML VIAL IVP SCH ×5 (00:46→23:06)
[2019-02-28 05:01] LABS: Anion Gap 10 mmol/L (10-20); BUN (Urea Nitrogen) 30 mg/dL (8.4-25.7); Calc. Creatinine Clearance 90 mL/min (70-130); Calcium 7.7 mg/dL (7.8-10.44); Carbon Dioxide 33 mmol/L (23-31); Chloride 106 mmol/L (98-107); Estimated GFR-MDRD Greater than 90; Glucose 123 mg/dL (80-115); Potassium 3.5 mmol/L (3.5-5.1); Sodium 145 mmol/L (136-145)
[2019-02-28 05:03] LABS: Band 8 % (5-11); Hemoglobin 7.7 g/dL (14.0-18.0); MDiff Complete? YES; Mean Corpuscular HGB CONC 31.6 g/dL (32.0-36.0); Mean Corpuscular Volume 98.1 fL (78.0-98.0); Mean Platelet Volume 11.2 fL (7.4-10.4); Monocytes 2 % (0-10); Neutrophil 90 % (42-75); Nucleated RBC 1 % (0); Platelet Count 83 thou/uL (130-400); Platelet Morphology Comment Appears Decreased; RBC Distribution Width 19.2 % (11.5-14.5); Red Blood Cell (RBC) Count 2.47 mill/uL (4.70-6.10)
[2019-02-28 05:07] LABS: ALT (SGPT) 116 U/L (8-55); AST (SGOT) 53 U/L (5-34); Albumin 2.2 g/dL (3.4-4.8); Alkaline Phosphatase 89 U/L (40-150); Bilirubin, Direct 0.6 mg/dL (0.1-0.3); Protein, Total 4.5 g/dL (5.8-8.1)
[2019-02-28] MEDS: MEROPENEM 1 GM/50 ML 1 GM in Premix Bag 1 BAG IVPB SCH ×3 (05:20→21:37)
[2019-02-28] MEDS: Amiodarone 450 MG in Dextrose 5% in Water 250 ML IVPB SCH ×2 (05:37→21:45)
[2019-02-28] MEDS: Budesonide 0.5 MG/2 ML NEB INH SCH ×2 (06:37→18:18)
[2019-02-28 06:53] LABS: Actual Bicarbonate (HCO3a) 28.2 mEq/L (22-28); Base Excess (BEa) 4.1 mEq/L (-2.0 to +3.0); CO2 Tension 40.7 mmHg (35.0-45.0); Calcium, Ionized 1.14 mmol/L (1.12-1.30); Carboxyhemoglobin (COHb) 1.3 gm% (0.0-3.0); Hemoglobin (Hb) 8.4 g/dL (14.0-18.0); O2 Tension (PaO2) 103.7 mmHg (> 80.0); Potassium - ABG Lab 3.46 mmol/L (3.70-5.30); pH, Arterial 7.46 (7.35-7.45)
[2019-02-28 06:54] LABS: ALV-art Gradient 130.625 (0-20); Puncture Site RBA
[2019-02-28] MEDS: Potassium Chloride 40 MEQ in Premix Bag 1 BAG IVPB PRN (07:17)
--- NOTE | 2019-02-28 07:59 | RAD ---
Portable chest: HISTORY: CCU follow-up COMPARISON: 02/27/2019 FINDINGS:Bilateral lung infiltrates again noted with evidence of bilateral effusions. ET tube and NG tube remain in place. IMPRESSION:No interval change
[2019-02-28] MEDS: Furosemide 40 MG/4 ML VIAL SLOW IVP SCH (08:11)
--- NOTE | 2019-02-28 08:49 | PDOC.PN ---
- Subjective Encounter Start Date: 02/28/19 Encounter Start Time: 12:00 -: non-verbal Subjective: Patient on digital imager sedation, following some commands, remains on the -: vent. - Objective Resuscitation Status - Order Detail: 02/17/19 19:56 Resuscitation Status Routine Resuscitation Status: FULL: Full Resuscitation MAR Reviewed: Yes Vital Signs & Weight: Vital Signs (12 hours) Temp Pulse Resp BP Pulse Ox 02/28/19 08:00 24 H 02/28/19 07:00 97.7 F 02/28/19 06:38 85 110/77 02/28/19 06:36 81 17 94 L 02/28/19 06:00 16 02/28/19 04:00 98.1 F 16 02/28/19 02:00 16 02/28/19 00:00 98.3 F 24 H 02/27/19 23:31 95 23 H 100 02/27/19 22:00 19 Weight Admit Weight 144 lb 6.444 oz Weight 151 lb 14.376 oz Most Recent Monitor Data Heart Rate from ECG 105 NIBP 104/90 NIBP BP-Mean 95 Respiration from ECG 24 SpO2 96 I&O: 02/27/19 02/28/19 03/01/19 06:59 06:59 06:59 Intake Total 3554.3 1925.6 50 Output Total 2285 3052 80 Balance 1269.3 -1126.4 -30 Result Diagrams: 02/28/19 03:55 02/28/19 03:55 Phys Exam - Physical Examination Constitutional: NAD HEENT: moist MMs Respiratory: no wheezing, no rales, no rhonchi Cardiovascular: RRR Gastrointestinal: soft, positive bowel sounds Musculoskeletal: no edema bluish toes bilaterally, but good peripheral pulses not moving LLE, moves all others to command Deviation from normal: lightly sedated on the vent Dx/Plan (1) Aspiration pneumonia due to regurgitated gastric secretions Code(s): J69.0 - PNEUMONITIS DUE TO INHALATION OF FOOD AND VOMIT Status: Acute Qualifiers: Laterality: bilateral Comment: Due to vomiting of coffee ground emesis from GI bleed, bronchoscopy with lavage during initial code (2) Sepsis associated hypotension Code(s): A41.9 - SEPSIS, UNSPECIFIED ORGANISM; I95.9 - HYPOTENSION, UNSPECIFIED Status: Acute Comment: Severe WBC elevation slowly trending down, on broad spectrum antibiotics- Meropenem and Micofungin, CT abdomen without evidence of leak, likely due to #1 (3) Acute respiratory failure Code(s): J96.00 - ACUTE RESPIRATORY FAILURE, UNSP W HYPOXIA OR HYPERCAPNIA Status: Acute Qualifiers: Respiratory failure complication: unspecified whether with hypoxia or hypercapnia Qualified Code(s): J96.00 - Acute respiratory failure, unspecified whether with hypoxia or hypercapnia Comment: intubated (4) Acute upper GI hemorrhage Code(s): K92.2 - GASTROINTESTINAL HEMORRHAGE, UNSPECIFIED Status: Acute Comment: severe, multiple units PRBC and FFP, now resolved (5) Duodenal ulcer Status: Acute Comment: Large, pulsatile vessel, s/p failed endoscopic control s/p laparotomy with oversewing ulcer and pyloroplasty (6) Anemia due to acute blood loss Code(s): D62 - ACUTE POSTHEMORRHAGIC ANEMIA Status: Acute Comment: stabilized in 7s, monitor closely (7) Hypertension Code(s): I10 - ESSENTIAL (PRIMARY) HYPERTENSION Status: Chronic (8) Hx of renal cell carcinoma Code(s): Z85.528 - PERSONAL HISTORY OF OTHER MALIGNANT NEOPLASM OF KIDNEY Status: Chronic Comment: S/P nephrectomy (9) Hx of hepatitis C Code(s): Z86.19 - PERSONAL HISTORY OF OTHER INFECTIOUS AND PARASITIC DISEASES Status: Chronic Comment: s/p interferron therapy (10) Anoxic brain injury Status: Acute Comment: complicating cardiac arrest, not moving LLE since, normal CT brain on 02/24/2019 - Plan cont current plan of care, continue antibiotics, respiratory therapy, DVT proph w/SCDs * . - Discharge Day Encounter end time: 12:15
[2019-02-28] MEDS: methylPREDNISolone Sod Succ 40 MG VIAL IVP SCH (08:54)
[2019-02-28] MEDS: Pantoprazole 40 MG VIAL IVP SCH ×2 (08:55→21:38)
[2019-02-28] MEDS: Micafungin 100 MG in Sodium Chloride 0.9% 100 ML IVPB SCH (08:59)
[2019-02-28] MEDS ORDERED: Ziprasidone 20 MG CAP PO SCH (09:00)
--- NOTE | 2019-02-28 09:09 | PRG ---
DATE OF SERVICE: 02/28/2019 SUBJECTIVE: This morning, is on the vent, responsive. He is still on sedation, Diprivan and fentanyl. His I's and O's have been now negative. OBJECTIVE: VITAL SIGNS: Respiratory rate 24, saturations 95%, blood pressure 104/90, pulse 110 a fib HEENT: Opens his eyes. CHEST: Bilateral rhonchi and crackles, minimal wheezing. CARDIAC: SVT. ABDOMEN: Distended, but soft. LABORATORY DATA: His bicarb is 33. Otherwise, his liver function is much improved. His albumin is 2.2. PO2 103, pCO2 40. pH 7.46 at a rate of 10 on 40%. White count 31,000, H and H 7 and 24, platelet count is 83, improved. His chest x-ray now shows persistent bilateral pleural effusion. IMPRESSION: 1. Congestive heart failure, atrial fibrillation. 2. Aspiration pneumonia, marked leukocytosis, status post lap, congestive heart failure, abnormal liver function tests, and poor nutrition status. PLAN: Continue diuretics. Continue antibiotics, PT, supportive care. Bronchoscopy with lavage later. One-half hour of critical care time. We will follow. Job ID: [id number] [facility]
[2019-02-28] MEDS: Multivits W-Minerals Liquid 15mL UDCUP PER TUBE SCH (09:59)
[2019-02-28] MEDS: Lorazepam 2 MG/ML VIAL SLOW IVP PRN (14:13)
--- NOTE | 2019-02-28 14:41 | PRG ---
DATE OF SERVICE: SUBJECTIVE: Mr. Stroud since in my absence has suffered aspiration, code green, mechanical ventilation. After spoken with Dr. Sherman, plan is to place a tracheostomy and feeding tube. I have discussed with the family, who are in agreement. The patient is following commands and it is hope that he will recover. Since removal of his KRIS drain, he has had serous drainage from the old KRIS site and ileostomy bag has been placed to control that. Drainage output is 240 mL in the last 24 hours. OBJECTIVE: LUNGS: Clear to auscultation. The patient's diffuse infiltrates in his lung holland has improved with bilateral effusions present. CARDIAC: Regular rate and rhythm with history of SVT. ABDOMEN: Soft and nontender. Midline wound is well healed. No evidence of a wound infection. VITAL SIGNS: His vital signs have been stable, 101, 105/78, 127/95. LABORATORY DATA: The patient's hemoglobin has remained stable at 7.7 to 8.3. He is receiving 1 unit of blood ordered by his hospitalist. The patient's white count is down to 31 from 49,000 since his aspiration event. A CT scan of his abdomen and pelvis had been obtained under my absence and this was normal. There is no evidence of leak, which fits clinically as his abdomen physically is benign, flat, nontender, good bowel sounds. The patient's renal function is stable. BUN 30 and creatinine 0.78. ASSESSMENT/PLAN: 1. Status post left nephrectomy with well-functioning right kidney. His renal function remains relatively normal. Urine output is good. 2. History of cardiomyopathy, ischemic. 3. History of bleeding duodenal ulcer, status post duodenotomy repair and massive transfusion. Hemoglobin is stable. No evidence of bleeding. He is transfused 1 unit of blood. 4. Status post left nephrectomy with a well-functioning right kidney. Renal function relatively stable. 5. Adrenal insufficiency, on steroid replacement. 6. Malnutrition and respiratory failure. We will plan placement of a tracheostomy and PEG tube. I have talked with the patient's daughter per telephone and explained the risks of infection, bleeding, reoperation, and they consent. They understand he will need to go to an LTAC eventually. Because of his malnutrition, we will ask Dietary to make recommendations for TPN and initiate that while we continue to work on the enteral feedings. Job ID: [id number]
[2019-02-28] MEDS ORDERED: Furosemide 40 MG/4 ML VIAL ONE (15:50)
[2019-02-28] MEDS ORDERED: Furosemide 40 MG/4 ML VIAL SLOW IVP SCH (16:00)
[2019-02-28] MEDS ORDERED: Rocuronium Bromide 10 MG/ML (10ML VIAL) ONE (16:34)
[2019-02-28] MEDS ORDERED: ePHEDrine 50 MG/ML VIAL ONE (16:34)
[2019-02-28] MEDS: Propofol 1,000 MG/100 ML VIAL IV PRN (17:12)
[2019-02-28] MEDS: Ventilator Sedation Protocol 1 EACH FS SCH (18:00)
--- NOTE | 2019-02-28 18:50 | PDOC.CTH ---
Cardiology Progress Note - Subjective Remains sedated and intubated. Will get Peg and trach tomorrow. - Objective Vital Signs Temp Pulse Pulse Resp BP BP Pulse Ox 02/28/19 18:19 96 02/28/19 18:18 82 24 H 94 L 02/28/19 18:00 14 02/28/19 16:00 26 H 02/28/19 15:00 98.4 F 02/28/19 14:23 120 H 136/91 H 02/28/19 14:00 24 H 02/28/19 13:55 98.2 F 103 H 24 H 130/96 H 98 02/28/19 12:58 101 H 105/78 02/28/19 12:57 103 H 17 93 L 02/28/19 12:00 14 02/28/19 11:23 97.9 F 108 H 20 129/96 H 99 02/28/19 11:05 98.4 F 112 H 16 116/87 94 L 02/28/19 11:00 98.4 F 02/28/19 10:35 107 H 120/77 02/28/19 10:00 22 H 02/28/19 08:00 24 H 95 02/28/19 07:00 97.7 F Admit Weight 144 lb 6.444 oz Weight 151 lb 14.376 oz 02/27/19 02/28/19 03/01/19 06:59 06:59 06:59 Intake Total 3554.3 1925.6 1366.5 Output Total 2285 3052 3275 Balance 1269.3 -1126.4 -1908.5 - Physical Examination General/Neuro: other: (Sed int. ) Neck: no JVD present Lungs: unlabored respirations Heart: other: (Irreg ) Abdomen: soft Extremities: other: (no edema) - Telemetry Telemetry Rhythm: Afib HR 80-120 - Labs Result Diagrams: 02/28/19 03:55 02/28/19 03:55 Troponin/CKMB Troponin I Less than 0.010 ng/mL (< 0.028) 02/17/19 16:26 - Assessment/Plan 1. Acute blood loss anemia, hgb stable at this time. 2. Severe symptomatic anemia 3. ST elevations on ECG while Hgb 3.9 4. Dilated CM EF at 35-40% 5. Acute on chronic systolic heart failure. 6. Afib RVR, rate controlled now. 7. Possible aspiration. PLAN: - Judicious use of fluids due to LV dysfunction. - Likely ischemic CM but prohibitive to do a LHC due to acute life-threatening bleed. - Continue Amiodarone drip. - Rate control for afib only for now, no anticoagulation given life-threatening bleed. - Continue current dose of IV metoprolol scheduled./ - IV lasix continue daily for now. - Would give extra dose IV lasix with transfusion. - 45 minutes critical care.
[2019-02-28] MEDS: fentaNYL Citrate/PF 2,000 MCG in Sodium Chloride 0.9% 60 ML IV SCH (23:53)
[2019-03-01] MEDS: Metoclopramide HCl 10 MG/2 ML VIAL IVP SCH ×3 (01:24→17:35)
[2019-03-01 04:45] LABS: Anisocytosis SLIGHT = 6-15 cells (100X) (0-5/hpf); Band 12 % (5-11); Hemoglobin 10.2 g/dL (14.0-18.0); MDiff Complete? YES; Mean Corpuscular Hemoglobin 29.8 pg (27.0-31.0); Mean Corpuscular Volume 96.2 fL (78.0-98.0); Mean Platelet Volume 10.9 fL (7.4-10.4); Monocytes 1 % (0-10); Neutrophil 87 % (42-75); Nucleated RBC 1 % (0); Platelet Count 113 thou/uL (130-400); Platelet Morphology Comment Appears Decreased; RBC Distribution Width 19.6 % (11.5-14.5); Red Blood Cell (RBC) Count 3.42 mill/uL (4.70-6.10); White Blood Cell (WBC) Count 28.6 thou/uL (4.8-10.8)
[2019-03-01 04:53] LABS: Phosphorus 2.7 mg/dL (2.3-4.7)
[2019-03-01 04:55] LABS: Anion Gap 9 mmol/L (10-20); BUN (Urea Nitrogen) 31 mg/dL (8.4-25.7); Calc. Creatinine Clearance 100 mL/min (70-130); Calcium 8.2 mg/dL (7.8-10.44); Carbon Dioxide 37 mmol/L (23-31); Chloride 104 mmol/L (98-107); Estimated GFR-MDRD Greater than 90; Glucose 114 mg/dL (80-115); Magnesium 1.9 mg/dL (1.6-2.6); Potassium 3.1 mmol/L (3.5-5.1); Sodium 147 mmol/L (136-145)
[2019-03-01] MEDS: Metoprolol Tartrate 5 MG/5 ML VIAL IVP SCH ×3 (06:16→17:37)
[2019-03-01] MEDS: MEROPENEM 1 GM/50 ML 1 GM in Premix Bag 1 BAG IVPB SCH ×3 (06:17→22:14)
[2019-03-01] MEDS: Potassium Chloride 40 MEQ in Premix Bag 1 BAG IVPB PRN (06:17)
[2019-03-01 06:45] LABS: Actual Bicarbonate (HCO3a) 28.5 mEq/L (22-28); Base Excess (BEa) 5.5 mEq/L (-2.0 to +3.0); CO2 Tension 35.8 mmHg (35.0-45.0); Calcium, Ionized 1.12 mmol/L (1.12-1.30); Carboxyhemoglobin (COHb) 1.2 gm% (0.0-3.0); Hemoglobin (Hb) 10.8 g/dL (14.0-18.0); O2 Tension (PaO2) 84.8 mmHg (> 80.0); Potassium - ABG Lab 3.41 mmol/L (3.70-5.30); pH, Arterial 7.52 (7.35-7.45)
[2019-03-01] MEDS: Budesonide 0.5 MG/2 ML NEB INH SCH ×2 (07:03→18:22)
--- NOTE | 2019-03-01 07:03 | RAD ---
CHEST ONE VIEW: INDICATIONS: Daily CCU examination. COMPARISON: Prior exam dated 02/28/2019. FINDINGS: ET tube and nasogastric tube are unchanged in position. Bilateral perihilar air space opacities are stable. Bilateral pleural effusions persist. No pneumothorax is evident. The right subclavian cent ral venous catheter is stable. IMPRESSION: Stable examination. No pneumothorax. POS: BH
--- NOTE | 2019-03-01 07:39 | PRG ---
DATE OF SERVICE: 02/28/2019 SUBJECTIVE: Mr. Stroud remains intubated. Dr. Rea saw him today and is planning on putting a PEG and trach in tomorrow. With the PEG, the nurse informs me he is going to have jejunal extension. Hopefully, he will tolerate those tube feeds. He did receive 1 unit of blood today. Otherwise, there have been no acute changes. OBJECTIVE: VITAL SIGNS: Temperature is 98.4, pulse 104 to 107, blood pressure 137/95. LUNGS: Decreased breath sounds in the bases. ABDOMEN: Soft and nontender. Bowel sounds are quiescent. EXTREMITIES: No clubbing, cyanosis, or edema. There is muscle wasting. LABORATORY DATA: White count 31,000; hemoglobin 7.7, since that time, he has received a unit of blood; platelet count 90,000. AST and ALT have come down to 53 and 116. BUN and creatinine are 30 and 0.7. Electrolytes are normal. ASSESSMENT: 1. Aspiration pneumonia with a component of acute respiratory distress syndrome, improving. 2. Thrombocytopenia, likely related to sepsis or medications, improving and stable. 3. Elevated liver enzymes, likely shock liver, resolved. 4. Congestive heart failure and atrial fibrillation. 5. Poor tolerance of p.o. feeds. This may be related to edema in the pylorus and the duodenal bulb after his surgery for his bleeding ulcer. PLAN: Agree with plans for trach and PEG tomorrow with jejunal extension. Dr. Rea, General Surgery, is going to perform both as he is going to have to go to the OR for the trach anyway. We will follow along with you. If I can be of any further assistance, please do not hesitate to contact me. Job ID: [id number]
[2019-03-01 07:44] LABS: Puncture Site RRA
--- NOTE | 2019-03-01 08:41 | PRG ---
DATE OF SERVICE: 03/01/2019 SUBJECTIVE: This morning, he is still in the ICU, on the vent, slightly sedated , day 12. OBJECTIVE: VITAL SIGNS: Pulse 75, blood pressure 140/90, saturations are 100%, respiratory rate 20. His I's and O's have been consistently negative. CHEST: Decreased breath sounds. Minimal crackles. CARDIAC: Atrial fibrillation. ABDOMEN: Soft. NEUROLOGIC: Mildly sedated, less encephalopathic. LABORATORY DATA: His bicarb is 37, potassium 3.1. His white count 28,000, H and H 10 and 30, platelet count improved to 113. PO2 is 84, pCO2 35 on 35%. X-ray showed bilateral pleural effusion. IMPRESSION: 1. Status post massive upper gastrointestinal bleed, status post surgery. 2. Acute respiratory distress syndrome. 3. Pneumonia. 4. Encephalopathy. 5. Congestive heart failure. PLAN: I would add Diamox for a few days. His cough is much improved. Broad-spectrum antibiotics on board. PT. He needs nutrition. Probably consider TPN by General surgery today. Otherwise, low-dose steroids and amiodarone on board. One-half hour of critical care time. Job ID: [id number] MTDD
[2019-03-01] MEDS: acetaZOLAMIDE Sodium 500 mg Vial IVP SCH (08:59)
[2019-03-01] MEDS: Multivits W-Minerals Liquid 15mL UDCUP PER TUBE SCH (09:01)
[2019-03-01] MEDS: methylPREDNISolone Sod Succ 40 MG VIAL IVP SCH (09:01)
[2019-03-01] MEDS: Furosemide 40 MG/4 ML VIAL SLOW IVP SCH (09:02)
[2019-03-01] MEDS: Pantoprazole 40 MG VIAL IVP SCH ×2 (09:02→20:47)
[2019-03-01] MEDS: Amiodarone 450 MG in Dextrose 5% in Water 250 ML IVPB SCH (09:44)
[2019-03-01] MEDS: Micafungin 100 MG in Sodium Chloride 0.9% 100 ML IVPB SCH (09:45)
[2019-03-01] MEDS: Propofol 1,000 MG/100 ML VIAL IV PRN ×2 (09:46→20:46)
--- NOTE | 2019-03-01 15:55 | PDOC.CTH ---
Cardiology Progress Note - Subjective Remains intubated, sedated. He converted to sinus rhythm earlier today. - Objective Vital Signs Temp Pulse Resp BP Pulse Ox 03/01/19 14:18 73 128/68 03/01/19 14:00 25 H 03/01/19 12:33 65 105/79 03/01/19 12:32 67 23 H 99 03/01/19 12:00 98.5 F 15 03/01/19 11:00 82 152/90 H 03/01/19 10:00 30 H 03/01/19 08:00 98.6 F 21 H 100 03/01/19 06:40 70 146/98 H 03/01/19 06:36 67 21 H 99 03/01/19 06:00 18 03/01/19 04:00 98.5 F 14 Admit Weight 144 lb 6.444 oz Weight 141 lb 12.116 oz 02/28/19 03/01/19 03/02/19 06:59 06:59 06:59 Intake Total 1925.6 2018.4 Output Total 3052 4985 2001 Balance -1126.4 -2966.6 -2001 - Physical Examination General/Neuro: other: Neck: no JVD present Lungs: CTA Heart: RRR Abdomen: NT/ND Extremities: other: (no edema) - Telemetry Telemetry Rhythm: NSR - Labs Result Diagrams: 03/01/19 04:00 03/01/19 04:00 Troponin/CKMB Troponin I Less than 0.010 ng/mL (< 0.028) 02/17/19 16:26 - Assessment/Plan 1. Acute blood loss anemia, hgb stable. 2. Severe symptomatic anemia 3. ST elevations on ECG while Hgb 3.9 4. Dilated CM EF at 35-40% 5. Acute on chronic systolic heart failure. 6. Afib RVR, back in sinus. 7. Possible aspiration. PLAN: - Likely ischemic CM but prohibitive to do a LHC due to acute life-threatening bleed. - Continue Amiodarone drip for now. Once PEG tube done will switch to PO amiodarone. - No anticoagulation given life-threatening bleed. - Continue current dose of IV metoprolol scheduled. - IV lasix continue daily for now. - Replace K. - 35 minutes critical care.
[2019-03-01] MEDS ORDERED: Fentanyl 100 MCG/2 ML VIAL ONE (16:13)
[2019-03-01] MEDS ORDERED: Midazolam HCl 5 mg/5 ml Vial ONE (16:13)
--- NOTE | 2019-03-01 16:27 | PRG ---
DATE OF SERVICE: 03/01/2019 SUBJECTIVE: Mr. Stroud is intubated and still sedated. He is going for a trach and PEG today. I talked with the nurse. Dr. Rea is going to go ahead and start some TPN even with the tube feeds as residuals have been high. Medications reviewed. Discontinued on methylprednisolone, Reglan, micafungin, thiamine, meropenem . OBJECTIVE: VITAL SIGNS: T-max 98.6, pulse 73, blood pressure 128/68. GENERAL: He is very frail, cachectic appearing. LUNGS: Clear except for coarse breath sounds in the bases. HEART: Regular rate and rhythm. ABDOMEN: Soft and nontender. LABORATORY DATA: Sodium 147, potassium 3.1, BUN and creatinine 31 and 0.7, AST and ALT are 53 and 116 as of yesterday. White count 28,000 down from 31,000, platelet count 113. ASSESSMENT: 1. acute respiratory distress syndrome, slowly improving. 2. Poor tolerance of tube feeds, probably secondary to duodenal edema with recent surgery for bleeding duodenal ulcer, that cannot be stopped endoscopically. 3. Prior history of hepatitis C, treated. No signs of cirrhosis at that time. 4. Gastrointestinal bleed with severe anemia. On presentation, hemoglobin of 3. H pylori was negative. This is likely NSAID related. This has been controlled surgically. PLAN: The patient is going for PEG/trach later today. We will follow from a distance at this point in time, Dr. Ghulam Thompson will be on-call for GI if there are any emergencies arise over the weekend. Otherwise, I will check back on Mr. Stroud on Monday. Job ID: [id number]
[2019-03-01] MEDS ORDERED: Dextrose 5% in Water 1,000 ML IV PRN (16:35)
--- NOTE | 2019-03-01 17:12 | PRG ---
DATE OF SERVICE: SUBJECTIVE: Dannie Stroud is n.p.o. today for a tracheostomy, PEG tube, central line change. We will also remove his parvez during his anesthetic. The patient has been not tolerating his tube feedings. He has been on Reglan. Considering his n.p.o. status for the above-mentioned surgery, his gastric tube was put to suction and evacuated 400 to 500 mL. The patient continues to drain serous output from his old KRIS site, 320 mL in the past 24 hours; output from Garcia, 40 to 50 mL in the past 24 hours. Yesterday, his hemoglobin was 7.7, he was given a unit of blood, today is 10.2. There is no evidence of bleeding. His hemoglobin is stable at 7.7 to 8.2 for several days prior. His renal function is good. BUN maintained at 29 to 31, creatinine 0.7. Urine output is excellent. Chest x-ray is improved with the effusions bilaterally, right greater than left. OBJECTIVE: LUNGS: Clear to auscultation. No wheezing. CARDIAC: Regular rate and rhythm. ABDOMEN: Soft, flat, and nontender. Bowel sounds present. EXTREMITIES: Unremarkable. ASSESSMENT/PLAN: 1. Gastroparesis, poor gastric emptying, not tolerating tube feedings. He is malnourished. We will initiate TPN. During his PEG tube today, we will make efforts to place a Dobbhoff post gastric and hopefully we will advance into his duodenum. I will not make an aggressive effort as it is concerning a recent duodenotomy. We may have to obtain serial x-rays to assure the Dobbhoff tube is in the duodenum and begin tube feedings later. Restart Reglan post procedure. We can initiate TPN until tube feedings are reliably tolerated. 2. Respiratory failure. Plan tracheostomy today. 3. Senescent central line, plan replacement of new central line. Consider PICC line next week. 4. Malnourishment. 5. Acute respiratory distress syndrome, resolving. 6. Respiratory failure, on the ventilator. 7. Status post duodenal hemorrhage. 8. History of left nephrectomy. 9. Adrenal insufficiency on chronic steroid replacement. Continue steroid as given now. Job ID: [id number]
[2019-03-01] MEDS: Ventilator Sedation Protocol 1 EACH FS SCH (17:37)
[2019-03-01] MEDS ORDERED: Lidocaine 1% (PF) 30 ML VIAL ONE (18:06)
[2019-03-01] MEDS ORDERED: Bupivacaine HCl 0.5%/Epinephrine 1:200,000/PF 30 ml Vial ONE (18:06)
[2019-03-01] MEDS ORDERED: Lidocaine 2% PF 5 ML VIAL ONE (18:07)
--- NOTE | 2019-03-01 20:14 | RAD ---
Exam: Chest one view HISTORY:Respiratory distress. Ventilated patient. Comparison: 03/01/2019 FINDINGS: Left-sided central venous catheter terminates in the expected region of the superior vena cava. Interval replacement of an endotracheal tube with a tracheostomy, appropriate position Dobbhoff feeding tube is noted. Dobbhoff feeding tube extends beyond the diaphragm. The distal tip ap pears to project over the cardiac silhouette, likely due to a the distal tip being in the GE junction/distal thoracic esophagus. The lingula Nasogastric feeding tube is noted, also projecting over the gastric silhouette. Lungs are hyperinflated. Bilateral pleural effusion with parenchymal changes IMPRESSION: 1. Lines and tubes as above. The Dobbhoff feeding tube needs to be repositioned as it is likely in th e distal thoracic esophagus or GE junction 2. Hyperinflation. Bilateral pleural and parenchyma changes CODE T
[2019-03-01] MEDS: Enoxaparin Sodium 40 MG/0.4 ML SYRINGE SC SCH (20:46)
--- NOTE | 2019-03-01 21:39 | OP ---
DATE OF PROCEDURE: 03/01/2019 PREOPERATIVE DIAGNOSES: Respiratory failure, aspiration pneumonia, hemorrhagic shock, bleeding duodenal ulcer status post repair, dysphagia, malnutrition, senescent central line. PROCEDURES PERFORMED: Placement of left subclavian vein, new triple-lumen catheter. #8 Shiley tracheostomy tube. Percutaneous endoscopic gastrostomy tube. Removal of right subclavian vein central line. ANESTHESIA: General, local 0.5% Marcaine with epinephrine. DESCRIPTION OF PROCEDURE: The patient was taken to the operating room where under general anesthesia, the chest and neck were prepared with ChloraPrep and draped in routine fashion. Seldinger technique was used to place a left subclavian vein triple-lumen catheter, securing it with 3-0 nylon suture, removed the J-wire, aspirated each port and the blood flushed with saline solution. Sterile dressings applied. Local anesthetic was infiltrated into the skin and subcutaneous tissue for a tracheostomy with supra manubrial lower anterior skin incision made, carried down through skin. Platysma and strap muscles dissected free in the midline, isthmus of thyroid divided with cautery, identifying the trachea below the cricoid. Strap sutures of 3-0 Prolene placed on either side and air knots tied. Anterior tracheal wound excised using 11 blade. Decreased FiO2 to 30, not using cautery. Once a window was made over 2.5 to 3 cartilaginous rings, the endotracheal tube visualized under direct visualization. Endotracheal tube withdrawn to adequate level to allow placement of a #8 Shiley tracheostomy tube, inflating the balloon, securing the catheter to the ventilator and closing the wound on either side with 3-0 Prolene and tracheostomy appliance to the skin with 3-0 Prolene and tracheostomy strap and dressings applied. Endoscope placed per os under direct visualization, air insufflation passed throughout the esophagus and the stomach obtaining good indentation. Light reflex in left subcostal medial. Area had been prepared with ChloraPrep and local anesthetic was infiltrated in the skin and subcutaneous tissue. Stab incision was made. Trocar catheter introduced percutaneously into the gastric lumen, visualized endoscopically, grasping the wire with snare and bringing the scope and wire out of the mouth. The gastrostomy tube was located, connected to the wire and brought down the esophagus and fixated to the abdominal wall with a fixation device, tightened tube in length and secured to the feeding device. An abdominal binder applied to protect the tube from dislodgement. A Dobhoff tube was then placed in left nasal easily and repeat endoscopy not performed. X-rays will be obtained. The patient tolerated the procedure well. Job ID: [id number]
[2019-03-01] MEDS: Lactated Ringer's 1,000 ML IV SCH (22:15)
--- NOTE | 2019-03-01 22:15 | PDOC.PN ---
- Subjective Encounter Start Date: 03/01/19 Encounter Start Time: 12:30 Subjective: pt intubated - Objective Resuscitation Status - Order Detail: 02/17/19 19:56 Resuscitation Status Routine Resuscitation Status: FULL: Full Resuscitation Vital Signs & Weight: Vital Signs (12 hours) Temp Pulse Resp BP Pulse Ox 03/01/19 22:02 93 03/01/19 21:06 74 168/106 H 03/01/19 18:00 20 03/01/19 16:00 98.5 F 18 03/01/19 14:18 73 128/68 03/01/19 14:00 25 H 03/01/19 12:33 65 105/79 03/01/19 12:32 67 23 H 99 03/01/19 12:00 98.5 F 15 03/01/19 11:00 82 152/90 H Weight Admit Weight 144 lb 6.444 oz Weight 141 lb 12.116 oz Most Recent Monitor Data Heart Rate from ECG 78 NIBP 173/115 NIBP BP-Mean 130 Respiration from ECG 14 SpO2 94 I&O: 02/28/19 03/01/19 03/02/19 06:59 06:59 06:59 Intake Total 1925.6 2018.4 734.1 Output Total 3052 4985 2427 Balance -1126.4 -2966.6 -1692.9 Result Diagrams: 03/01/19 04:00 03/01/19 04:00 Phys Exam - Physical Examination mild rhonchi all over Cardiovascular: RRR, no significant murmur, no rub, gallop, irregular Gastrointestinal: soft, positive bowel sounds Musculoskeletal: no edema, pulses present, edema present bilateral lower toes and finger appear ischemic moving right side and left upper ext Dx/Plan (1) Acute and chronic respiratory failure with hypoxia Code(s): J96.21 - ACUTE AND CHRONIC RESPIRATORY FAILURE WITH HYPOXIA Status: Acute (2) Acute upper GI hemorrhage Code(s): K92.2 - GASTROINTESTINAL HEMORRHAGE, UNSPECIFIED Status: Acute Comment: severe, multiple units PRBC and FFP, now resolved (3) Anoxic brain injury Status: Acute Comment: complicating cardiac arrest, not moving LLE since, normal CT brain on 02/24/2019 (4) Aspiration pneumonia due to regurgitated gastric secretions Code(s): J69.0 - PNEUMONITIS DUE TO INHALATION OF FOOD AND VOMIT Status: Acute Qualifiers: Laterality: bilateral Comment: Due to vomiting of coffee ground emesis from GI bleed, bronchoscopy with lavage during initial code - Plan pt going for peg/trach today -: on meropenem and micafungin -: pt off pressors. s/p laparotomy and pyloroplasty * . Review of Systems - Review of Systems Other: pt intubated - Medications/Allergies Allergies/Adverse Reactions: Allergies Allergy/AdvReac Type Severity Reaction Status Date / Time No Known Allergies Allergy Unverified 09/19/16 12:31 Medications: Current Medications Acetazolamide Sodium (Diamox) 500 mg IVP DAILY [facility] Stop: 03/04/19 09:01 Last Admin: 03/01/19 08:59 Dose: 500 mg Albuterol/Ipratropium (Duoneb) 3 ml NEB [id number] [facility] Last Admin: 03/01/19 18:21 Dose: Not Given Budesonide (Pulmicort Neb Solution) 0.5 mg INH BID-RT [facility] Stop: 03/04/19 18:31 Last Admin: 03/01/19 18:22 Dose: Not Given Dextrose/Water (Dextrose 50%) 25 gm SLOW IVP PRN PRN PRN Reason: Hypoglycemia Enoxaparin Sodium (Lovenox) 40 mg SC 2100 [facility] Last Admin: 03/01/19 20:46 Dose: 40 mg Furosemide (Lasix) 40 mg SLOW IVP DAILY [facility] Last Admin: 03/01/19 09:02 Dose: 40 mg Glucagon (Glucagon) 1 mg IM PRN PRN PRN Reason: Hypoglycemia Hydralazine HCl (Apresoline) 10 mg SLOW IVP Q4H PRN PRN Reason: SBP > 180 and HR < 70 Last Admin: 03/01/19 21:06 Dose: 10 mg Thiamine HCl 100 mg/ Sodium (Chloride) 51 mls @ 100 mls/hr IVPB Q24HR [facility] Last Admin: 03/01/19 08:03 Dose: 51 mls Potassium Chloride 40 meq/ (Sodium Chloride) 270 mls @ 135 mls/hr IVPB ASDIR PRN PRN Reason: FOR SERUM K+ 2.5 - 3.5 Potassium Chloride 40 meq/ (Device) 100 mls @ 50 mls/hr IVPB ASDIR PRN PRN Reason: FOR SERUM K+ 2.5 - 3.5 Last Admin: 03/01/19 06:17 Dose: 100 mls Magnesium Sulfate 1 gm/ Sodium (Chloride) 102 mls @ 102 mls/hr IV PRN PRN PRN Reason: MAG LEVEL 1.4 - 2.0 Last Admin: 02/23/19 08:35 Dose: 102 mls Magnesium Sulfate 2 gm/ Device 50 mls @ 50 mls/hr IVPB ASDIR PRN PRN Reason: MAGNESIUM < 1.4 Potassium Phosphate 9 mmol/ (Sodium Chloride) 103 mls @ 25.75 mls/hr IVPB ASDIR PRN PRN Reason: Phosphate 1.0-1.8 Potassium Phosphate 12 mmol/ (Sodium Chloride) 254 mls @ 63.5 mls/hr IV ASDIR PRN PRN Reason: Serum phosphate 0.5-0.9 Potassium Phosphate 15 mmol/ (Sodium Chloride) 255 mls @ 63.75 mls/hr IV ASDIR PRN PRN Reason: Serum Phos < 0.5 Fentanyl Citrate 2,000 mcg/ (Sodium Chloride) 100 mls @ 0 mls/hr IV INF LANRE; Protocol Stop: 03/24/19 18:10 Last Admin: 02/28/19 23:53 Dose: 100 mls Fentanyl Citrate (Fentanyl Bolus) 250 mls @ 0 mls/hr IVPB PRN PRN PRN Reason: Breakthrough pain/agitation Stop: 03/24/19 18:10 Amiodarone HCl 450 mg/ (Dextrose/Water) 259 mls @ 0 mls/hr IVPB INF LANRE; Protocol Last Admin: 03/01/19 09:44 Dose: 259 mls Norepinephrine Bitartrate (Levophed) 250 mls @ 0 mls/hr IVPB INF LANRE; Protocol Last Admin: 02/23/19 10:36 Dose: 250 mls Micafungin Sodium 100 mg/ (Sodium Chloride) 100 mls @ 100 mls/hr IVPB Q24H [facility] Last Admin: 03/01/19 09:45 Dose: 100 mls Meropenem 1 gm/ Device 50 mls @ 100 mls/hr IVPB Q8HR [facility] Last Admin: 03/01/19 22:14 Dose: 50 mls Dextrose/Water (D5w) 1,000 mls @ 0 mls/hr IV .Q0M PRN PRN Reason: Hypoglycemia Sodium Acetate 70 meq/Potassium Acetate 40 meq/Potassium Chloride 40 meq/ Calcium Gluconate 10 meq/Magnesium Sulfate 10 meq/Multivitamins 10 ml/ Chromium/ Copper/Manganese/Seleni/Zn 5 ml/ Insulin Human Regular 14 units/ Dextrose/Water / Sterile Water/ Amino Acids 1,414.3421 mls @ 58.931 mls/hr IV 1400 [facility] Lactated Ringer's (Lactated Ringer's) 1,000 mls @ 50 mls/hr IV .Q20H [facility] Last Admin: 03/01/19 22:15 Dose: 1,000 mls Insulin Human Lispro (Humalog) 0 units SC .MILD SLIDING SCALE PRN PRN Reason: Mild Correctional Scale Iron/Minerals/Multivitamins (Certa Ana Liquid) 15 ml PER TUBE DAILY [facility] Last Admin: 03/01/19 09:01 Dose: Not Given Lorazepam (Ativan) 2 mg SLOW IVP Q1H PRN PRN Reason: Breakthrough agitation Stop: 03/24/19 18:10 Last Admin: 02/28/19 14:13 Dose: 2 mg Magnesium Oxide (Magnesium Oxide) 400 mg PO BIDPRN PRN PRN Reason: FOR SERUM MAG 1.4 - 2.0 Magnesium Oxide (Magnesium Oxide) 800 mg PO PRN PRN PRN Reason: FOR SERUM MAG < 1.4 Methylprednisolone Sodium Succinate (Solu-Medrol) 20 mg IVP DAILY [facility] Last Admin: 03/01/19 09:01 Dose: 20 mg Metoclopramide HCl (Reglan) 10 mg IVP 0100,0900,1700 [facility] Last Admin: 03/01/19 17:35 Dose: Not Given Metoprolol Tartrate (Lopressor) 5 mg IVP Q6HR [facility] Last Admin: 03/01/19 17:37 Dose: 5 mg Miscellaneous Medication (Phos-Nak) 1 pkt PO TIDPRN PRN PRN Reason: FOR PHOS LEVEL 1.0 - 1.8 Miscellaneous Medication (Phos-Nak) 2 pkt PO TIDPRN PRN PRN Reason: FOR PHOS LEVEL 0.5 - 1.0 Miscellaneous Medication (Ventilator Sedation Protocol) 1 each FS 1800 [facility] Last Admin: 03/01/19 17:37 Dose: Not Given Morphine Sulfate (Morphine) 2 mg SLOW IVP Q1H PRN PRN Reason: BREAKTHROUGH PAIN/Agitation Stop: 03/24/19 18:10 Ccu Electrolyte (Replacement Protocol) 0 each FS PRN PRN PRN Reason: FOR ELECTROLYTE REPLACEMENT Ondansetron HCl (Zofran) 4 mg IVP Q6H PRN PRN Reason: Nausea/Vomiting Pantoprazole Sodium (Protonix) 40 mg IVP Q12HR [facility] Last Admin: 03/01/19 20:47 Dose: 40 mg Potassium Chloride (K-Dur) 40 meq PO ASDIR PRN PRN Reason: FOR SERUM K+ 2.5 - 3.5 Potassium Chloride (Klor-Con) 40 meq PER TUBE ASDIR PRN PRN Reason: FOR SERUM K+ 2.5-3.5 Propofol (Diprivan) 1,000 mg IV INF PRN; Protocol PRN Reason: TO ACHIEVE GOAL RASS Stop: 03/24/19 18:10 Last Admin: 03/01/19 20:46 Dose: 1,000 mg Propofol (Diprivan Bolus) 20 mg IV Q5MIN PRN PRN Reason: BREAKTHROUGH AGITATION Stop: 03/24/19 18:10 Sodium Chloride (Flush - Normal Saline) 10 ml IVF PRN PRN PRN Reason: Saline Flush Last Admin: 02/19/19 21:31 Dose: 10 ml Sodium Chloride (Normal Saline Pf) 10 ml FS PRN PRN PRN Reason: RECONSTITUTION Last Admin: 02/26/19 09:51 Dose: 10 ml
[2019-03-02] MEDS: Metoprolol Tartrate 5 MG/5 ML VIAL IVP SCH ×4 (00:50→16:41)
[2019-03-02] MEDS: Metoclopramide HCl 10 MG/2 ML VIAL IVP SCH ×3 (00:51→17:34)
[2019-03-02] MEDS: Amiodarone 450 MG in Dextrose 5% in Water 250 ML IVPB SCH ×2 (03:47→17:35)
[2019-03-02 05:40] LABS: INR-International Normal Ratio 1.2; Prothrombin Time 14.9 SEC (12.0-14.7)
[2019-03-02 05:41] LABS: PTT 30.3 SEC (22.9-36.1)
[2019-03-02] MEDS: MEROPENEM 1 GM/50 ML 1 GM in Premix Bag 1 BAG IVPB SCH ×3 (05:56→22:40)
[2019-03-02 05:59] LABS: Phosphorus 2.8 mg/dL (2.3-4.7)
[2019-03-02 06:12] LABS: Anisocytosis SLIGHT = 6-15 cells (100X) (0-5/hpf); Band 11 % (5-11); Hemoglobin 11.1 g/dL (14.0-18.0); Large Platelets SLIGHT; Lymphocytes 2 % (21-51); MDiff Complete? YES; Mean Corpuscular HGB CONC 31.2 g/dL (32.0-36.0); Mean Corpuscular Volume 96.1 fL (78.0-98.0); Mean Platelet Volume 10.7 fL (7.4-10.4); Monocytes 2 % (0-10); Neutrophil 85 % (42-75); Platelet Count 145 thou/uL (130-400); Platelet Morphology Comment Appears Adequate; RBC Distribution Width 18.9 % (11.5-14.5); Red Blood Cell (RBC) Count 3.71 mill/uL (4.70-6.10); White Blood Cell (WBC) Count 28.3 thou/uL (4.8-10.8)
[2019-03-02 06:26] LABS: Anion Gap 10 mmol/L (10-20); BUN (Urea Nitrogen) 30 mg/dL (8.4-25.7); Calc. Creatinine Clearance 88 mL/min (70-130); Calcium 7.9 mg/dL (7.8-10.44); Carbon Dioxide 29 mmol/L (23-31); Chloride 108 mmol/L (98-107); Estimated GFR-MDRD Greater than 90; Glucose 79 mg/dL (80-115); Magnesium 1.9 mg/dL (1.6-2.6); Sodium 144 mmol/L (136-145)
[2019-03-02 06:30] LABS: Potassium 2.8 mmol/L (3.5-5.1)
[2019-03-02] MEDS: Budesonide 0.5 MG/2 ML NEB INH SCH ×2 (06:31→18:26)
[2019-03-02] MEDS: Potassium Chloride 40 MEQ in Premix Bag 1 BAG IVPB PRN (06:37)
[2019-03-02 06:44] LABS: Actual Bicarbonate (HCO3a) 24.2 mEq/L (22-28); Base Excess (BEa) 1.5 mEq/L (-2.0 to +3.0); CO2 Tension 31.8 mmHg (35.0-45.0); Carboxyhemoglobin (COHb) 1.6 gm% (0.0-3.0); Hemoglobin (Hb) 11.8 g/dL (14.0-18.0); O2 Tension (PaO2) 89.6 mmHg (> 80.0); Potassium - ABG Lab 2.81 mmol/L (3.70-5.30)
--- NOTE | 2019-03-02 07:28 | RAD ---
KUB: DATE: 03/02/19 INDICATION: Dobbhoff tube placement. COMPARISON: 02/17/19. FINDINGS: Dobbhoff feeding tube tip is coiled in the region of the body and projects up to the cardia. There is a gastrostomy tube within the left upper quadrant of the abdomen. There is a small left pleural effu fermin with left basilar air space opacity. Visualized upper abdomen bowel gas is nonspecific. IMPRESSION: 1. Feeding tube coiled in the region of the gastric body and projects up to the cardia. 2. Gastrostomy tube at left upper quadrant of the abdomen. 3. Left basilar pleural parenchymal opacity suspicious for a small pleural effusion. Basilar opacity may reflect atelectasis; however, pneumonia is not excluded. POS: BH
[2019-03-02 07:39] LABS: Puncture Site RBA
[2019-03-02] MEDS: Pantoprazole 40 MG VIAL IVP SCH ×2 (09:22→20:35)
[2019-03-02] MEDS: Micafungin 100 MG in Sodium Chloride 0.9% 100 ML IVPB SCH (09:22)
[2019-03-02] MEDS: Multivits W-Minerals Liquid 15mL UDCUP PER TUBE SCH (09:22)
[2019-03-02] MEDS: acetaZOLAMIDE Sodium 500 mg Vial IVP SCH (09:23)
[2019-03-02] MEDS: methylPREDNISolone Sod Succ 40 MG VIAL IVP SCH (09:23)
[2019-03-02] MEDS: Furosemide 40 MG/4 ML VIAL SLOW IVP SCH (09:23)
[2019-03-02] MEDS: Propofol 1,000 MG/100 ML VIAL IV PRN (09:43)
[2019-03-02] MEDS: fentaNYL Citrate/PF 2,000 MCG in Sodium Chloride 0.9% 60 ML IV SCH ×2 (09:58→22:48)
[2019-03-02 10:55] LABS: Potassium 3.6 mmol/L (3.5-5.1)
--- NOTE | 2019-03-02 13:17 | PRG ---
DATE OF SERVICE: 03/02/2019 SUBJECTIVE: Mr. Stroud remains mechanically ventilated. He has a trach and PEG in now. OBJECTIVE: VITAL SIGNS: Blood pressure 100/73, heart rate 87, respiratory rate 30. His pressure support, tidal volume is around 300 mL. Clinical evidence of diaphragm weakness. Intake and output negative 2101. LUNGS: Clear anteriorly. HEART: Regular rhythm. ABDOMEN: Soft. EXTREMITIES: Without edema. IMAGING: Chest x-ray from yesterday was reviewed. There is no film today. X-ray shows finding suggestive of bilateral large effusions that are layering posteriorly. LABORATORY DATA: White count 28.3, hemoglobin 11.1, platelets 145. Sodium 144; potassium 2.8, this has been replaced, is now 3.6; chloride 108; bicarb 29; BUN 30; creatinine 0.74. IMPRESSION: 1. Respiratory failure, status post trach and PEG. 2. Status post massive gastrointestinal bleed, requiring emergent laparotomy. 3. Adult respiratory distress syndrome. 4. Pneumonia. 5. Critical illness encephalopathy. 6. Cardiomyopathy and congestive heart failure. PLAN: Continue to diurese as tolerated. Continue to slowly decrease ventilatory support, although with his weakness, I do not anticipate him weaning quickly. We will continue to follow the other physicians. He may benefit from albumin to hopefully facilitate mobilization of more fluid. We will continue with his nebulizer treatments, amiodarone, broad antimicrobial therapy, steroids, and electrolyte replacement. CRITICAL CARE TIME: 30 minutes. Job ID: [id number]
[2019-03-02] MEDS: POTASSIUM CHLORIDE IV SCH (14:19)
[2019-03-02] MEDS: SODIUM ACETATE IV SCH (14:19)
[2019-03-02] MEDS: [UNRECOGNIZED DRUG - OTHER] IV SCH (14:19)
[2019-03-02] MEDS: POTASSIUM ACETATE IV SCH (14:19)
--- NOTE | 2019-03-02 14:32 | PDOC.PN ---
- Subjective Encounter Start Date: 03/02/19 Encounter Start Time: 11:15 Subjective: pt intubated - Objective Resuscitation Status - Order Detail: 02/17/19 19:56 Resuscitation Status Routine Resuscitation Status: FULL: Full Resuscitation Vital Signs & Weight: Vital Signs (12 hours) Temp Pulse Resp BP Pulse Ox 03/02/19 14:21 87 92/49 L 03/02/19 13:19 88 97/66 03/02/19 13:18 89 17 99 03/02/19 12:00 99.1 F 18 03/02/19 10:20 89 91/53 L 03/02/19 10:00 19 03/02/19 09:00 98.5 F 03/02/19 08:00 98.5 F 19 100 03/02/19 06:27 73 127/87 03/02/19 06:23 71 31 H 99 03/02/19 06:00 27 H 03/02/19 04:00 98 F 28 H Weight Admit Weight 144 lb 6.444 oz Weight 136 lb 14.513 oz Most Recent Monitor Data Heart Rate from ECG 87 NIBP 92/49 NIBP BP-Mean 79 Respiration from ECG 17 SpO2 100 I&O: 03/01/19 03/02/19 03/03/19 06:59 06:59 06:59 Intake Total 2018.4 1569.4 Output Total 4985 3672 1165 [facility] -2966.6 -2102.6 -1165 Result Diagrams: 03/02/19 04:36 03/02/19 10:03 Phys Exam - Physical Examination mild rhonchi all over Cardiovascular: RRR, no significant murmur, no rub, gallop, irregular Gastrointestinal: soft, non-tender, no distention, positive bowel sounds Musculoskeletal: no edema, pulses present, edema present Dx/Plan (1) Acute and chronic respiratory failure with hypoxia Code(s): J96.21 - ACUTE AND CHRONIC RESPIRATORY FAILURE WITH HYPOXIA Status: Acute (2) Acute upper GI hemorrhage Code(s): K92.2 - GASTROINTESTINAL HEMORRHAGE, UNSPECIFIED Status: Acute Comment: severe, multiple units PRBC and FFP, now resolved. s/p laparotomy with pyloroplasty (3) Anoxic brain injury Status: Acute Comment: complicating cardiac arrest, not moving LLE since, normal CT brain on 02/24/2019 (4) Aspiration pneumonia due to regurgitated gastric secretions Code(s): J69.0 - PNEUMONITIS DUE TO INHALATION OF FOOD AND VOMIT Status: Acute Qualifiers: Laterality: bilateral Comment: Due to vomiting of coffee ground emesis from GI bleed, bronchoscopy with lavage during initial code - Plan s/p peg and trach 03/01, will hold off on feeding for now and start tpn -: hh stable. * . Review of Systems - Review of Systems Other: unable to obtain - Medications/Allergies Allergies/Adverse Reactions: Allergies Allergy/AdvReac Type Severity Reaction Status Date / Time No Known Allergies Allergy Unverified 09/19/16 12:31 Medications: Current Medications Acetazolamide Sodium (Diamox) 500 mg IVP DAILY [facility] Stop: 03/04/19 09:01 Last Admin: 03/02/19 09:23 Dose: 500 mg Albumin Human (Albumin 25%) 25 gm IVPB Q6HR [facility] Stop: 03/03/19 18:01 Albuterol/Ipratropium (Duoneb) 3 ml NEB [id number] [facility] Last Admin: 03/02/19 13:18 Dose: 3 ml Budesonide (Pulmicort Neb Solution) 0.5 mg INH BID-RT [facility] Stop: 03/04/19 18:31 Last Admin: 03/02/19 06:31 Dose: 0.5 mg Dextrose/Water (Dextrose 50%) 25 gm SLOW IVP PRN PRN PRN Reason: Hypoglycemia Enoxaparin Sodium (Lovenox) 40 mg SC 2100 [facility] Last Admin: 03/01/19 20:46 Dose: 40 mg Furosemide (Lasix) 40 mg SLOW IVP DAILY [facility] Last Admin: 03/02/19 09:23 Dose: 40 mg Glucagon (Glucagon) 1 mg IM PRN PRN PRN Reason: Hypoglycemia Hydralazine HCl (Apresoline) 10 mg SLOW IVP Q4H PRN PRN Reason: SBP > 180 and HR < 70 Last Admin: 03/01/19 21:06 Dose: 10 mg Thiamine HCl 100 mg/ Sodium (Chloride) 51 mls @ 100 mls/hr IVPB Q24HR [facility] Last Admin: 03/02/19 09:22 Dose: 51 mls Potassium Chloride 40 meq/ (Sodium Chloride) 270 mls @ 135 mls/hr IVPB ASDIR PRN PRN Reason: FOR SERUM K+ 2.5 - 3.5 Potassium Chloride 40 meq/ (Device) 100 mls @ 50 mls/hr IVPB ASDIR PRN PRN Reason: FOR SERUM K+ 2.5 - 3.5 Last Admin: 03/02/19 06:37 Dose: 100 mls Magnesium Sulfate 1 gm/ Sodium (Chloride) 102 mls @ 102 mls/hr IV PRN PRN PRN Reason: MAG LEVEL 1.4 - 2.0 Last Admin: 02/23/19 08:35 Dose: 102 mls Magnesium Sulfate 2 gm/ Device 50 mls @ 50 mls/hr IVPB ASDIR PRN PRN Reason: MAGNESIUM < 1.4 Potassium Phosphate 9 mmol/ (Sodium Chloride) 103 mls @ 25.75 mls/hr IVPB ASDIR PRN PRN Reason: Phosphate 1.0-1.8 Potassium Phosphate 12 mmol/ (Sodium Chloride) 254 mls @ 63.5 mls/hr IV ASDIR PRN PRN Reason: Serum phosphate 0.5-0.9 Potassium Phosphate 15 mmol/ (Sodium Chloride) 255 mls @ 63.75 mls/hr IV ASDIR PRN PRN Reason: Serum Phos < 0.5 Fentanyl Citrate 2,000 mcg/ (Sodium Chloride) 100 mls @ 0 mls/hr IV INF LANRE; Protocol Stop: 03/24/19 18:10 Last Admin: 03/02/19 09:58 Dose: 100 mls Fentanyl Citrate (Fentanyl Bolus) 250 mls @ 0 mls/hr IVPB PRN PRN PRN Reason: Breakthrough pain/agitation Stop: 03/24/19 18:10 Amiodarone HCl 450 mg/ (Dextrose/Water) 259 mls @ 0 mls/hr IVPB INF LANRE; Protocol Last Admin: 03/02/19 03:47 Dose: 259 mls Norepinephrine Bitartrate (Levophed) 250 mls @ 0 mls/hr IVPB INF LANRE; Protocol Last Admin: 02/23/19 10:36 Dose: 250 mls Micafungin Sodium 100 mg/ (Sodium Chloride) 100 mls @ 100 mls/hr IVPB Q24H [facility] Last Admin: 03/02/19 09:22 Dose: 100 mls Meropenem 1 gm/ Device 50 mls @ 100 mls/hr IVPB Q8HR [facility] Last Admin: 03/02/19 14:20 Dose: 50 mls Dextrose/Water (D5w) 1,000 mls @ 0 mls/hr IV .Q0M PRN PRN Reason: Hypoglycemia Sodium Acetate 70 meq/Potassium Acetate 40 meq/Potassium Chloride 40 meq/ Calcium Gluconate 10 meq/Magnesium Sulfate 10 meq/Multivitamins 10 ml/ Chromium/ Copper/Manganese/Seleni/Zn 5 ml/ Insulin Human Regular 14 units/ Dextrose/Water / Sterile Water/ Amino Acids 1,414.3421 mls @ 58.931 mls/hr IV 1400 [facility] Last Admin: 03/02/19 14:19 Dose: 1,414.3421 mls Lactated Ringer's (Lactated Ringer's) 1,000 mls @ 50 mls/hr IV .Q20H [facility] Last Admin: 03/01/19 22:15 Dose: 1,000 mls Insulin Human Lispro (Humalog) 0 units SC .MILD SLIDING SCALE PRN PRN Reason: Mild Correctional Scale Iron/Minerals/Multivitamins (Certa Ana Liquid) 15 ml PER TUBE DAILY [facility] Last Admin: 03/02/19 09:22 Dose: 15 ml Lorazepam (Ativan) 2 mg SLOW IVP Q1H PRN PRN Reason: Breakthrough agitation Stop: 03/24/19 18:10 Last Admin: 02/28/19 14:13 Dose: 2 mg Magnesium Oxide (Magnesium Oxide) 400 mg PO BIDPRN PRN PRN Reason: FOR SERUM MAG 1.4 - 2.0 Magnesium Oxide (Magnesium Oxide) 800 mg PO PRN PRN PRN Reason: FOR SERUM MAG < 1.4 Methylprednisolone Sodium Succinate (Solu-Medrol) 20 mg IVP DAILY [facility] Last Admin: 03/02/19 09:23 Dose: 20 mg Metoclopramide HCl (Reglan) 10 mg IVP 0100,0900,1700 [facility] Last Admin: 03/02/19 09:24 Dose: 10 mg Metoprolol Tartrate (Lopressor) 5 mg IVP Q6HR [facility] Last Admin: 03/02/19 11:40 Dose: Not Given Miscellaneous Medication (Phos-Nak) 1 pkt PO TIDPRN PRN PRN Reason: FOR PHOS LEVEL 1.0 - 1.8 Miscellaneous Medication (Phos-Nak) 2 pkt PO TIDPRN PRN PRN Reason: FOR PHOS LEVEL 0.5 - 1.0 Miscellaneous Medication (Ventilator Sedation Protocol) 1 each FS 1800 [facility] Last Admin: 03/01/19 17:37 Dose: Not Given Morphine Sulfate (Morphine) 2 mg SLOW IVP Q1H PRN PRN Reason: BREAKTHROUGH PAIN/Agitation Stop: 03/24/19 18:10 Ccu Electrolyte (Replacement Protocol) 0 each FS PRN PRN PRN Reason: FOR ELECTROLYTE REPLACEMENT Ondansetron HCl (Zofran) 4 mg IVP Q6H PRN PRN Reason: Nausea/Vomiting Pantoprazole Sodium (Protonix) 40 mg IVP Q12HR [facility] Last Admin: 03/02/19 09:22 Dose: 40 mg Potassium Chloride (K-Dur) 40 meq PO ASDIR PRN PRN Reason: FOR SERUM K+ 2.5 - 3.5 Potassium Chloride (Klor-Con) 40 meq PER TUBE ASDIR PRN PRN Reason: FOR SERUM K+ 2.5-3.5 Propofol (Diprivan) 1,000 mg IV INF PRN; Protocol PRN Reason: TO ACHIEVE GOAL RASS Stop: 03/24/19 18:10 Last Admin: 03/02/19 09:43 Dose: 1,000 mg Propofol (Diprivan Bolus) 20 mg IV Q5MIN PRN PRN Reason: BREAKTHROUGH AGITATION Stop: 03/24/19 18:10 Sodium Chloride (Flush - Normal Saline) 10 ml IVF PRN PRN PRN Reason: Saline Flush Last Admin: 02/19/19 21:31 Dose: 10 ml Sodium Chloride (Normal Saline Pf) 10 ml FS PRN PRN PRN Reason: RECONSTITUTION Last Admin: 02/26/19 09:51 Dose: 10 ml
[2019-03-02] MEDS: Lactated Ringer's 1,000 ML IV SCH (16:41)
[2019-03-02] MEDS: Ventilator Sedation Protocol 1 EACH FS SCH (16:42)
[2019-03-02] MEDS: Albumin 25% 25 GM/100 ML BOT IVPB SCH (17:34)
[2019-03-02] MEDS: Enoxaparin Sodium 40 MG/0.4 ML SYRINGE SC SCH (20:34)
--- NOTE | 2019-03-02 23:01 | PRG ---
DATE OF SERVICE: 03/02/2019 HISTORY: 69-year-old man who is postoperative day #13, status post exploratory laparotomy, gastrotomy to evacuate clot, duodenostomy, and over-sew of duodenal bleeding ulcer with pyloroplasty. He remains in respiratory failure. Status post tracheostomy and percutaneous endoscopic gastrostomy tube placement. Output has been adequate for this patient's age and weight. Abdomen is soft, nondistended. Incision remains intact, clean, dry. He has no peritoneal signs on examination. LABORATORY FINDINGS: Today includes a CBC with 28,300 white blood cells. Hemoglobin and hematocrit 11.1 and 35.7 respectively. Platelet count is 145,000. Metabolic profile; sodium 144, potassium 2.8, chloride is 108, bicarb is 29, BUN 30, creatinine 0.74, glucose 79, magnesium 1.9, and phosphorus is 2.8. IMPRESSION: 1. Postop day #13 status post exploratory laparotomy and over-sew of a bleeding duodenal ulcer with pyloroplasty. 2. Status post percutaneous gastrostomy tube placement. 3. Status post tracheostomy tube placement. 4. Acute respiratory failure secondary to recent severe duodenal ulcer and hemorrhage. 5. Stable acute blood loss anemia. 6. Acute hypokalemia. 7. Acute hypomagnesemia. PLAN: 1. Correct abnormal electrolytes. 2. There remains no acute surgical indication for this patient at this time. PROGNOSIS: Guarded. Job ID: [id number]
[2019-03-03] MEDS: Albumin 25% 25 GM/100 ML BOT IVPB SCH ×4 (00:15→17:36)
[2019-03-03] MEDS: Metoprolol Tartrate 5 MG/5 ML VIAL IVP SCH ×5 (00:15→23:52)
[2019-03-03] MEDS: Metoclopramide HCl 10 MG/2 ML VIAL IVP SCH ×4 (00:15→23:52)
[2019-03-03 05:48] LABS: Anion Gap 8 mmol/L (10-20); BUN (Urea Nitrogen) 36 mg/dL (8.4-25.7); Calc. Creatinine Clearance 86 mL/min (70-130); Calcium 8.3 mg/dL (7.8-10.44); Carbon Dioxide 29 mmol/L (23-31); Chloride 110 mmol/L (98-107); Estimated GFR-MDRD Greater than 90; Glucose 111 mg/dL (80-115); Potassium 3.4 mmol/L (3.5-5.1); Sodium 144 mmol/L (136-145)
[2019-03-03] MEDS: MEROPENEM 1 GM/50 ML 1 GM in Premix Bag 1 BAG IVPB SCH ×3 (05:55→21:18)
[2019-03-03 06:22] LABS: Anisocytosis SLIGHT = 6-15 cells (100X) (0-5/hpf); Band 11 % (5-11); Hemoglobin 8.6 g/dL (14.0-18.0); Large Platelets SLIGHT; Lymphocytes 2 % (21-51); MDiff Complete? YES; Mean Corpuscular HGB CONC 31.4 g/dL (32.0-36.0); Mean Corpuscular Hemoglobin 30.6 pg (27.0-31.0); Mean Corpuscular Volume 97.6 fL (78.0-98.0); Mean Platelet Volume 10.7 fL (7.4-10.4); Monocytes 4 % (0-10); Neutrophil 83 % (42-75); Platelet Count 127 thou/uL (130-400); Platelet Morphology Comment Appears Decreased; RBC Distribution Width 18.1 % (11.5-14.5); White Blood Cell (WBC) Count 26.9 thou/uL (4.8-10.8)
[2019-03-03] MEDS: Budesonide 0.5 MG/2 ML NEB INH SCH ×2 (06:30→18:22)
--- NOTE | 2019-03-03 07:18 | RAD ---
KUB: DATE: 03/03/19 INDICATION: Dobbhoff tube placement. COMPARISON: Prior exam dated 03/02/19. IMPRESSION: Dobbhoff feeding tube tip is unchanged. The tube is coiled in the region of the body and projecting u p to the fundus. There is a percutaneous gastrostomy tube overlying the upper abdomen. Bowel gas theresa lilian is unobstructed. POS: BH
[2019-03-03] MEDS: Micafungin 100 MG in Sodium Chloride 0.9% 100 ML IVPB SCH (09:46)
[2019-03-03] MEDS: acetaZOLAMIDE Sodium 500 mg Vial IVP SCH (09:46)
[2019-03-03] MEDS: Pantoprazole 40 MG VIAL IVP SCH ×2 (09:46→21:19)
[2019-03-03] MEDS: Furosemide 40 MG/4 ML VIAL SLOW IVP SCH (09:46)
[2019-03-03] MEDS: Multivits W-Minerals Liquid 15mL UDCUP PER TUBE SCH (09:47)
[2019-03-03] MEDS: Amiodarone 450 MG in Dextrose 5% in Water 250 ML IVPB SCH (09:47)
[2019-03-03] MEDS: methylPREDNISolone Sod Succ 40 MG VIAL IVP SCH (10:00)
[2019-03-03] MEDS ORDERED: Lactated Ringer's 1,000 ML IV SCH (10:41)
--- NOTE | 2019-03-03 11:59 | PRG ---
DATE OF SERVICE: 03/03/2019 SUBJECTIVE: Dannie Stroud is doing well. He has been switched to a trach collar and is in no distress. OBJECTIVE: VITAL SIGNS: Oximetry is 99. Blood pressure 139/69, heart rate 82, and respiratory rate in the teens. LUNGS: Clear anteriorly. HEART: Regular rhythm. ABDOMEN: Soft and nontender. EXTREMITIES: Without edema. He has pulses in his feet. His feet are warm. Mildly encephalopathic, but he is cooperative. DIAGNOSTIC DATA: Abdominal film shows a Dobbhoff in place and a PEG in place. There is no chest x-ray today. LABORATORY DATA: White count 26.9, hemoglobin 8.6, platelets 127,000, 11% bands. Sodium 144, potassium 3.4, chloride 110, bicarb 29, BUN 36, and creatinine 0.75. IMPRESSION: 1. Status post trach and percutaneous endoscopic gastrostomy, clinically stable. 2. Respiratory failure, status post massive gastrointestinal bleed, requiring emergent laparotomy. 3. Adult respiratory distress syndrome. 4. Pneumonia. 5. Critical illness encephalopathy, probable critical illness myopathy. 6. History of cardiomyopathy and congestive heart failure. Intake and output was positive 216 mL. We will continue with monitoring and diuresis as well as antimicrobial therapy. Sedation protocol will be discontinued, now that he is off his mechanical ventilation. CRITICAL CARE TIME: 30 minutes. Job ID: [id number]
[2019-03-03] MEDS ORDERED: Amiodarone 200 MG TAB PER TUBE SCH (12:15)
[2019-03-03] MEDS: Potassium Chloride 40 MEQ in Premix Bag 1 BAG IVPB PRN (12:42)
[2019-03-03] MEDS: SODIUM ACETATE IV SCH (13:52)
[2019-03-03] MEDS: POTASSIUM CHLORIDE IV SCH (13:52)
[2019-03-03] MEDS: POTASSIUM ACETATE IV SCH (13:52)
[2019-03-03] MEDS: [UNRECOGNIZED DRUG - OTHER] IV SCH (13:52)
[2019-03-03] MEDS: Ventilator Sedation Protocol 1 EACH FS SCH (14:47)
[2019-03-03] MEDS: Morphine 2 MG/ML SYRINGE SLOW IVP PRN (15:12)
--- NOTE | 2019-03-03 15:20 | PDOC.PN ---
- Subjective Encounter Start Date: 03/03/19 Encounter Start Time: 10:15 Subjective: pt up in bed following commands - Objective Resuscitation Status - Order Detail: 02/17/19 19:56 Resuscitation Status Routine Resuscitation Status: FULL: Full Resuscitation Vital Signs & Weight: Vital Signs (12 hours) Temp Pulse Pulse Pulse Resp BP BP 03/03/19 12:39 97 18 03/03/19 12:00 97.8 F 03/03/19 11:00 97.8 F 03/03/19 09:11 03/03/19 09:00 03/03/19 08:41 96 91 142/84 H 03/03/19 08:00 22 H 03/03/19 07:00 99.2 F 03/03/19 06:31 74 125/82 03/03/19 06:29 83 19 03/03/19 06:00 12 03/03/19 04:00 98.2 F 15 BP Pulse Ox Pulse Ox Pulse Ox 03/03/19 12:39 99 03/03/19 12:00 03/03/19 11:00 03/03/19 09:11 99 03/03/19 09:00 100 03/03/19 08:41 135/75 100 100 03/03/19 08:00 03/03/19 07:00 03/03/19 06:31 03/03/19 06:29 99 03/03/19 06:00 03/03/19 04:00 Weight Admit Weight 144 lb 6.444 oz Weight 139 lb 12.369 oz Most Recent Monitor Data Heart Rate from ECG 84 NIBP 166/92 NIBP BP-Mean 113 Respiration from ECG 26 SpO2 100 I&O: 03/02/19 03/03/19 03/04/19 06:59 06:59 06:59 Intake Total 1569.4 2841 183 Output Total 2107 8736 8679 Balance -2108.5 568 -4583 Result Diagrams: 03/03/19 04:50 03/03/19 04:50 Additional Labs: Accuchecks 03/03/19 03/02/19 03/02/19 04:54 22:53 15:56 POC Glucose 117 H 96 127 H Phys Exam - Physical Examination Respiratory: no wheezing, no rales, no rhonchi, wheezing present, clear to auscultation bilateral Cardiovascular: RRR, no significant murmur, no rub, gallop, irregular Gastrointestinal: soft, non-tender, no distention, positive bowel sounds Musculoskeletal: no edema, pulses present, edema present no movement to his left upper and left lower ext Dx/Plan (1) Acute and chronic respiratory failure with hypoxia Code(s): J96.21 - ACUTE AND CHRONIC RESPIRATORY FAILURE WITH HYPOXIA Status: Acute (2) Acute upper GI hemorrhage Code(s): K92.2 - GASTROINTESTINAL HEMORRHAGE, UNSPECIFIED Status: Acute Comment: severe, multiple units PRBC and FFP, now resolved. s/p laparotomy with pyloroplasty (3) Anoxic brain injury Status: Acute Comment: complicating cardiac arrest, not moving LLE since, normal CT brain on 02/24/2019 (4) Aspiration pneumonia due to regurgitated gastric secretions Code(s): J69.0 - PNEUMONITIS DUE TO INHALATION OF FOOD AND VOMIT Status: Acute Qualifiers: Laterality: bilateral Comment: Due to vomiting of coffee ground emesis from GI bleed, bronchoscopy with lavage during initial code - Plan tpn started, pt more awake, hh stable -: s/p peg and trach * . Review of Systems - Review of Systems Cardiovascular: negative: chest pain, palpitations, orthopnea, paroxysmal nocturnal dyspnea, edema, light headedness, other Gastrointestinal: negative: Nausea, Vomiting, Abdominal Pain, Diarrhea, Constipation, Melena, Hematochezia, Other - Medications/Allergies Allergies/Adverse Reactions: Allergies Allergy/AdvReac Type Severity Reaction Status Date / Time No Known Allergies Allergy Unverified 09/19/16 12:31 Medications: Current Medications Acetazolamide Sodium (Diamox) 500 mg IVP DAILY [facility] Stop: 03/04/19 09:01 Last Admin: 03/03/19 09:46 Dose: 500 mg Albumin Human (Albumin 25%) 25 gm IVPB Q6HR [facility] Stop: 03/03/19 18:01 Last Admin: 03/03/19 12:42 Dose: 25 gm Albuterol/Ipratropium (Duoneb) 3 ml NEB [id number] [facility] Last Admin: 03/03/19 12:39 Dose: 3 ml Amiodarone HCl (Cordarone) 400 mg PER TUBE BID [facility] Budesonide (Pulmicort Neb Solution) 0.5 mg INH BID-RT [facility] Stop: 03/04/19 18:31 Last Admin: 03/03/19 06:30 Dose: 0.5 mg Dextrose/Water (Dextrose 50%) 25 gm SLOW IVP PRN PRN PRN Reason: Hypoglycemia Enoxaparin Sodium (Lovenox) 40 mg SC 2100 [facility] Last Admin: 03/02/19 20:34 Dose: 40 mg Furosemide (Lasix) 40 mg SLOW IVP DAILY [facility] Last Admin: 03/03/19 09:46 Dose: 40 mg Glucagon (Glucagon) 1 mg IM PRN PRN PRN Reason: Hypoglycemia Hydralazine HCl (Apresoline) 10 mg SLOW IVP Q4H PRN PRN Reason: SBP > 180 and HR < 70 Last Admin: 03/01/19 21:06 Dose: 10 mg Potassium Chloride 40 meq/ (Sodium Chloride) 270 mls @ 135 mls/hr IVPB ASDIR PRN PRN Reason: FOR SERUM K+ 2.5 - 3.5 Potassium Chloride 40 meq/ (Device) 100 mls @ 50 mls/hr IVPB ASDIR PRN PRN Reason: FOR SERUM K+ 2.5 - 3.5 Last Admin: 03/03/19 12:42 Dose: 100 mls Magnesium Sulfate 1 gm/ Sodium (Chloride) 102 mls @ 102 mls/hr IV PRN PRN PRN Reason: MAG LEVEL 1.4 - 2.0 Last Admin: 02/23/19 08:35 Dose: 102 mls Magnesium Sulfate 2 gm/ Device 50 mls @ 50 mls/hr IVPB ASDIR PRN PRN Reason: MAGNESIUM < 1.4 Potassium Phosphate 9 mmol/ (Sodium Chloride) 103 mls @ 25.75 mls/hr IVPB ASDIR PRN PRN Reason: Phosphate 1.0-1.8 Potassium Phosphate 12 mmol/ (Sodium Chloride) 254 mls @ 63.5 mls/hr IV ASDIR PRN PRN Reason: Serum phosphate 0.5-0.9 Potassium Phosphate 15 mmol/ (Sodium Chloride) 255 mls @ 63.75 mls/hr IV ASDIR PRN PRN Reason: Serum Phos < 0.5 Amiodarone HCl 450 mg/ (Dextrose/Water) 259 mls @ 0 mls/hr IVPB INF [facility]; Protocol Stop: 03/03/19 18:00 Last Admin: 03/03/19 09:47 Dose: 259 mls Micafungin Sodium 100 mg/ (Sodium Chloride) 100 mls @ 100 mls/hr IVPB Q24H [facility] Last Admin: 03/03/19 09:46 Dose: 100 mls Meropenem 1 gm/ Device 50 mls @ 100 mls/hr IVPB Q8HR [facility] Last Admin: 03/03/19 13:53 Dose: 50 mls Dextrose/Water (D5w) 1,000 mls @ 0 mls/hr IV .Q0M PRN PRN Reason: Hypoglycemia Sodium Acetate 70 meq/Potassium Acetate 40 meq/Potassium Chloride 40 meq/ Calcium Gluconate 10 meq/Magnesium Sulfate 10 meq/Multivitamins 10 ml/ Chromium/ Copper/Manganese/Seleni/Zn 5 ml/ Insulin Human Regular 14 units/ Dextrose/Water / Sterile Water/ Amino Acids 1,414.3421 mls @ 58.931 mls/hr IV 1400 [facility] Last Admin: 03/03/19 13:52 Dose: 1,414.3421 mls Lactated Ringer's (Lactated Ringer's) 1,000 mls @ 0 mls/hr IV .Q0M [facility] Insulin Human Lispro (Humalog) 0 units SC .MILD SLIDING SCALE PRN PRN Reason: Mild Correctional Scale Iron/Minerals/Multivitamins (Certa Ana Liquid) 15 ml PER TUBE DAILY [facility] Last Admin: 03/03/19 09:47 Dose: 15 ml Magnesium Oxide (Magnesium Oxide) 400 mg PO BIDPRN PRN PRN Reason: FOR SERUM MAG 1.4 - 2.0 Magnesium Oxide (Magnesium Oxide) 800 mg PO PRN PRN PRN Reason: FOR SERUM MAG < 1.4 Methylprednisolone Sodium Succinate (Solu-Medrol) 20 mg IVP DAILY [facility] Last Admin: 03/03/19 10:00 Dose: 20 mg Metoclopramide HCl (Reglan) 10 mg IVP 0100,0900,1700 [facility] Last Admin: 03/03/19 09:46 Dose: 10 mg Metoprolol Tartrate (Lopressor) 5 mg IVP Q6HR [facility] Last Admin: 03/03/19 12:42 Dose: 5 mg Miscellaneous Medication (Phos-Nak) 1 pkt PO TIDPRN PRN PRN Reason: FOR PHOS LEVEL 1.0 - 1.8 Miscellaneous Medication (Phos-Nak) 2 pkt PO TIDPRN PRN PRN Reason: FOR PHOS LEVEL 0.5 - 1.0 Miscellaneous Medication (Ventilator Sedation Protocol) 1 each FS 1800 LANRE Last Admin: 03/03/19 14:47 Dose: Not Given Morphine Sulfate (Morphine) 2 mg SLOW IVP Q1H PRN PRN Reason: BREAKTHROUGH PAIN/Agitation Stop: 03/24/19 18:10 Last Admin: 03/03/19 15:12 Dose: 2 mg Ccu Electrolyte (Replacement Protocol) 0 each FS PRN PRN PRN Reason: FOR ELECTROLYTE REPLACEMENT Ondansetron HCl (Zofran) 4 mg IVP Q6H PRN PRN Reason: Nausea/Vomiting Pantoprazole Sodium (Protonix) 40 mg IVP Q12HR [facility] Last Admin: 03/03/19 09:46 Dose: 40 mg Potassium Chloride (K-Dur) 40 meq PO ASDIR PRN PRN Reason: FOR SERUM K+ 2.5 - 3.5 Potassium Chloride (Klor-Con) 40 meq PER TUBE ASDIR PRN PRN Reason: FOR SERUM K+ 2.5-3.5 Sodium Chloride (Flush - Normal Saline) 10 ml IVF PRN PRN PRN Reason: Saline Flush Last Admin: 02/19/19 21:31 Dose: 10 ml Sodium Chloride (Normal Saline Pf) 10 ml FS PRN PRN PRN Reason: RECONSTITUTION Last Admin: 02/26/19 09:51 Dose: 10 ml
[2019-03-03] MEDS: Scopolamine 1.5 mg/72 hour Patch TOP SCH (16:10)
[2019-03-03] MEDS ORDERED: Haloperidol Lactate 5 MG/ML VIAL IM SCH (17:00)
--- NOTE | 2019-03-03 18:38 | PRG ---
DATE OF SERVICE: 03/03/2019 SUBJECTIVE: This is a 69-year-old gentleman, who is postop day #14 for exploratory laparotomy, gastrotomy to evacuate clot, duodenostomy, and oversew to duodenal bleeding ulcer with pyloroplasty. The patient remains in the CCU in respiratory failure. The patient is status post tracheostomy and percutaneous endoscopic gastrostomy tube placement. The patient continues to have good urine output. The nurse reports an increase in his KRIS drain today of 600 mL. OBJECTIVE: VITAL SIGNS: Temperature 97.8, heart rate 88, respirations 17, SpO2 of 100%, and blood pressure 133/76. GENERAL: The patient is awake and alert, attempts to speak, follows commands. ABDOMEN: Soft, nontender, incision remains intact, clean, and dry. The patient has no peritoneal signs on examination. LABORATORY DATA: WBC 26.9, RBC 2.80, hemoglobin 8.6, and hematocrit 27.4. Sodium 144, potassium 3.4, chloride 110, BUN 36, creatinine 0.75, estimated GFR greater than 90, and glucose 111. DIAGNOSTICS: KUB, impression, Dobbhoff feeding tube tip is unchanged. The tube is coiled in the region of the body and projecting up to the fundus. There is a percutaneous gastrostomy tube overlying the upper abdomen. Bowel gas pattern is unobstructed. IMPRESSION: 1. Postop day #14 status post exploratory laparotomy and oversew of bleeding duodenal ulcer with pyloroplasty. 2. Status post percutaneous gastrostomy tube placement. 3. Status post tracheostomy tube placement. 4. Acute respiratory failure secondary to recent severe duodenal ulcer and hemorrhage. PLAN: Continue supportive care. Continue TPN. There remains no acute surgical indication for this patient at this time. The patient was examined with Dr. Navas during morning rounds. The patient is to be up in the chair more during the day. Job ID: [id number]
[2019-03-03] MEDS: Enoxaparin Sodium 40 MG/0.4 ML SYRINGE SC SCH (21:18)
[2019-03-03] MEDS: Amiodarone 200 MG TAB PER TUBE SCH (21:18)
[2019-03-03] MEDS: Sodium Chloride 0.9% (PF) 10 ML VIAL FS PRN (21:19)
[2019-03-03] MEDS: Morphine 4 MG/ML VIAL SLOW IVP PRN (21:19)
[2019-03-04] MEDS: Morphine 4 MG/ML VIAL SLOW IVP PRN ×4 (02:53→19:26)
[2019-03-04 03:18] LABS: Anion Gap 10 mmol/L (10-20); BUN (Urea Nitrogen) 37 mg/dL (8.4-25.7); Calc. Creatinine Clearance 91 mL/min (70-130); Calcium 9.2 mg/dL (7.8-10.44); Carbon Dioxide 26 mmol/L (23-31); Chloride 112 mmol/L (98-107); Estimated GFR-MDRD Greater than 90; Glucose 118 mg/dL (80-115); Potassium 3.6 mmol/L (3.5-5.1); Sodium 144 mmol/L (136-145)
[2019-03-04] MEDS: Metoprolol Tartrate 5 MG/5 ML VIAL IVP SCH ×3 (05:19→17:47)
[2019-03-04] MEDS: MEROPENEM 1 GM/50 ML 1 GM in Premix Bag 1 BAG IVPB SCH ×3 (05:23→21:23)
[2019-03-04] MEDS: Budesonide 0.5 MG/2 ML NEB INH SCH ×2 (06:47→18:18)
--- NOTE | 2019-03-04 07:36 | RAD ---
XR Abdomen 1 View/KUB History: [Dobbhoff tube placement] Comparison: Radiograph prior day Findings: Dobbhoff tube is in place with tip projecting over the left upper quadrant of the abdomen. This may be cold within the gastric body. There are sutures projecting over the left upper quadrant of the abdomen. Impression: Dobbhoff tube tip projecting over the left upper quadrant the abdomen. There is a new sut ure from the CT examination February 25, 2019.
--- NOTE | 2019-03-04 08:38 | RAD ---
CHEST 1 VIEW: Date: 03/04/19 HISTORY: Dyspnea. Follow-up. COMPARISON: 03/01/19. FINDINGS: Cardiac silhouette is magnified and enlarged. Pulmonary vasculature remains engorged. Dense left graciela hilar infiltrate and right basilar infiltrate are similar in appearance to the prior study. Blunting of each costophrenic angle suggests bilateral pleural fluid. Mediastinum is midline. Dobbhoff feeding catheter exits the inferior aspect of the image, changed slightly in position compared to the prior study. Other lines and tubes are unchanged in appearance. No evidence of pneumothorax. IMPRESSION: Bilateral infiltrates, hyperinflation, and other findings are stable. POS: CET
[2019-03-04] MEDS ORDERED: Amiodarone 200 MG TAB ONE (08:53)
[2019-03-04] MEDS ORDERED: Metoclopramide HCl 10 MG/2 ML VIAL ONE (08:53)
[2019-03-04] MEDS ORDERED: Furosemide 40 MG/4 ML VIAL ONE (08:53)
[2019-03-04] MEDS ORDERED: Pantoprazole 40 MG VIAL ONE (08:54)
[2019-03-04] MEDS ORDERED: methylPREDNISolone Sod Succ 40 MG VIAL ONE (08:55)
[2019-03-04] MEDS ORDERED: acetaZOLAMIDE Sodium 500 mg Vial ONE (08:55)
[2019-03-04] MEDS ORDERED: Morphine 4 MG/ML VIAL ONE (09:07)
[2019-03-04] MEDS: methylPREDNISolone Sod Succ 40 MG VIAL IVP SCH (09:08)
[2019-03-04] MEDS: Metoclopramide HCl 10 MG/2 ML VIAL IVP SCH ×2 (09:08→17:47)
[2019-03-04] MEDS: acetaZOLAMIDE Sodium 500 mg Vial IVP SCH (09:08)
[2019-03-04] MEDS: Furosemide 40 MG/4 ML VIAL SLOW IVP SCH (09:08)
[2019-03-04] MEDS: Micafungin 100 MG in Sodium Chloride 0.9% 100 ML IVPB SCH (09:08)
[2019-03-04] MEDS: Amiodarone 200 MG TAB PER TUBE SCH ×2 (09:09→20:17)
[2019-03-04] MEDS: Multivits W-Minerals Liquid 15mL UDCUP PER TUBE SCH (09:09)
[2019-03-04] MEDS: Pantoprazole 40 MG VIAL IVP SCH ×2 (09:09→20:17)
--- NOTE | 2019-03-04 10:09 | PRG ---
DATE OF SERVICE: 03/04/2019 SUBJECTIVE: Mr. Stroud has been off mechanical ventilation since yesterday morning. He started developing some signs of fatigue. OBJECTIVE: VITAL SIGNS: Heart rate 99, blood pressure 160/109, respiratory rate in the 30s, and oximetry is 94%. GENERAL: On exam, he has thoracoabdominal dissociation, signs of diaphragm fatigue. LUNGS: Remarkable for mild rhonchi. HEART: Regular rhythm. ABDOMEN: Soft. EXTREMITIES: Without edema. LABORATORY DATA: White count 26.9, down from 28.3 yesterday. There is no white count today. Sodium 144, potassium 3.6, chloride 112, bicarb 26, BUN 37, and creatinine 0.71. IMPRESSION: Respiratory failure, status post tracheostomy. He probably needs to continue to be ventilated intermittently and definitely ventilated at night. We will place him back on mechanical ventilation. He still has pulmonary infiltrates bilaterally on chest x-ray. He is negative 590 on volume today. We will continue to slowly diurese him as long as his blood pressure tolerates it and his renal function tolerates it. CRITICAL CARE TIME: 30 minutes. Job ID: [id number]
[2019-03-04] MEDS ORDERED: Haloperidol Lactate 5 MG/ML VIAL ONE (11:31)
[2019-03-04] MEDS ORDERED: Haloperidol Lactate 5 MG/ML VIAL IM SCH (12:00)
--- NOTE | 2019-03-04 13:51 | PRG ---
DATE OF SERVICE: 03/04/2019 SUBJECTIVE: Dannie Stroud is in ICU. He is on the ventilator at bedtime, but tired, has been put back on ventilator 24 hours. The patient is on TPN. His Dobbhoff tube has remained in the stomach despite being on Reglan. OBJECTIVE: VITAL SIGNS: Heart rate 91, blood pressure 108/83. Urine output is good 6.2 L in the last 24 hours. KRIS drain site 980 mL in the last 24 hours. LUNGS: Clear to auscultation. CARDIAC: Rate and rhythm without murmur or gallop. ABDOMEN: Soft and nontender. Wound well healed. Abdomen is nondistended. LABORATORY DATA: White count 26, hemoglobin 8.6. Sodium 144, chloride 112, BUN 37, creatinine 0.71. Accu-Cheks 109 to 135. Chest x-ray reveals bilateral infiltrates, hyperinflation, stable, sliding. ASSESSMENT AND PLAN: 1. Respiratory failure, status post aspiration pneumonia with diffuse infiltrates. Resolved acute respiratory distress syndrome, but still unable to ventilate on his own. Continue ventilator per Pulmonary. 2. Status post tracheostomy. 3. Malnutrition, status post PEG tube. Have Dobbhoff in the stomach hoping that will pass distally to institute enteral feedings as he has had problems with gastric emptying. I was reluctant to try to advance the tube endoscopically into the duodenum pass spontaneously. At this point, we would continue TPN. I have asked dietary to give him enteral bolus feedings per his PEG tube half target rate and monitor him for the next 24 to 48 hours to see how he tolerates this as far as residuals. 4. History of left nephrectomy for renal cell carcinoma. 5. Duodenal ulcer, hemorrhage, status post laparotomy, duodenotomy, and pyloroplasty. Continue PPIs. Job ID: [id number]
[2019-03-04] MEDS ORDERED: Dextrose 10% in Water 1,000 ML IV SCH (14:30)
[2019-03-04] MEDS: SODIUM ACETATE IV SCH (14:48)
[2019-03-04] MEDS: [UNRECOGNIZED DRUG - OTHER] IV SCH (14:48)
[2019-03-04] MEDS: POTASSIUM CHLORIDE IV SCH (14:48)
[2019-03-04] MEDS: POTASSIUM ACETATE IV SCH (14:48)
--- NOTE | 2019-03-04 15:50 | PDOC.PN ---
- Subjective Encounter Start Date: 03/04/19 Encounter Start Time: 10:15 Subjective: pt appears in distress, tachypenic - Objective Resuscitation Status - Order Detail: 02/17/19 19:56 Resuscitation Status Routine Resuscitation Status: FULL: Full Resuscitation Vital Signs & Weight: Vital Signs (12 hours) Temp Pulse Resp BP Pulse Ox 03/04/19 14:36 98 109/87 03/04/19 14:00 25 H 03/04/19 12:45 91 108/83 03/04/19 12:44 89 38 H 99 03/04/19 12:00 99 F 30 H 03/04/19 10:23 108 H 146/104 H 03/04/19 10:00 37 H 03/04/19 08:10 99 160/109 H 03/04/19 08:00 99.4 F 94 L 03/04/19 06:46 99 03/04/19 06:43 86 28 H 99 Weight Admit Weight 144 lb 6.444 oz Weight 136 lb 5 oz Most Recent Monitor Data Heart Rate from ECG 96 NIBP 114/84 NIBP BP-Mean 91 Respiration from ECG 37 SpO2 100 I&O: 03/03/19 03/04/19 03/05/19 06:59 06:59 06:59 Intake Total 2841 4877 250 Output Total 2628 3359 2137 Balance 244 -1752 -3691 Result Diagrams: 03/03/19 04:50 03/04/19 02:32 Additional Labs: Accuchecks 03/04/19 03/04/19 03/03/19 10:45 02:40 21:45 POC Glucose 132 H 109 130 H 03/03/19 15:43 POC Glucose 135 H Phys Exam - Physical Examination Neck: no nodes, no JVD, supple, full ROM mild rales to bases Cardiovascular: RRR, no significant murmur, no rub, gallop, irregular Gastrointestinal: soft, non-tender, no distention, positive bowel sounds pt's left foot is more cool than right, pedal pulse present to bilateral feet. pt unable to move left side Dx/Plan (1) Acute and chronic respiratory failure with hypoxia Code(s): J96.21 - ACUTE AND CHRONIC RESPIRATORY FAILURE WITH HYPOXIA Status: Acute (2) Acute upper GI hemorrhage Code(s): K92.2 - GASTROINTESTINAL HEMORRHAGE, UNSPECIFIED Status: Acute Comment: severe, multiple units PRBC and FFP, now resolved. s/p laparotomy with pyloroplasty (3) Anoxic brain injury Status: Acute Comment: complicating cardiac arrest, not moving LLE since, normal CT brain on 02/24/2019 (4) Aspiration pneumonia due to regurgitated gastric secretions Code(s): J69.0 - PNEUMONITIS DUE TO INHALATION OF FOOD AND VOMIT Status: Acute Qualifiers: Laterality: bilateral Comment: Due to vomiting of coffee ground emesis from GI bleed, bronchoscopy with lavage during initial code (5) Leukocytosis Code(s): D72.829 - ELEVATED WHITE BLOOD CELL COUNT, UNSPECIFIED Status: Acute (6) Protein-calorie malnutrition, moderate Code(s): E44.0 - MODERATE PROTEIN-CALORIE MALNUTRITION Status: Acute - Plan pt continues to have elevated wbc, on abx since 02/24, ? discontinue -: pt's cx negative, may consider giving lasix -: also may cosider ct chest for better eval. He is also on iv steroids -: may consider changing to po steroids. platelets are improving * . Review of Systems - Review of Systems Other: pt on tach collar - Medications/Allergies Allergies/Adverse Reactions: Allergies Allergy/AdvReac Type Severity Reaction Status Date / Time No Known Allergies Allergy Unverified 09/19/16 12:31 Medications: Current Medications Albuterol/Ipratropium (Duoneb) 3 ml NEB [id number] [facility] Last Admin: 03/04/19 12:44 Dose: 3 ml Amiodarone HCl (Cordarone) 400 mg PER TUBE BID [facility] Last Admin: 03/04/19 09:09 Dose: 400 mg Budesonide (Pulmicort Neb Solution) 0.5 mg INH BID-RT [facility] Stop: 03/04/19 18:31 Last Admin: 03/04/19 06:47 Dose: 0.5 mg Dextrose/Water (Dextrose 50%) 25 gm SLOW IVP PRN PRN PRN Reason: Hypoglycemia Enoxaparin Sodium (Lovenox) 40 mg SC 2100 [facility] Last Admin: 03/03/19 21:18 Dose: 40 mg Furosemide (Lasix) 40 mg SLOW IVP DAILY [facility] Last Admin: 03/04/19 09:08 Dose: 40 mg Glucagon (Glucagon) 1 mg IM PRN PRN PRN Reason: Hypoglycemia Hydralazine HCl (Apresoline) 10 mg SLOW IVP Q4H PRN PRN Reason: SBP > 180 and HR < 70 Last Admin: 03/01/19 21:06 Dose: 10 mg Potassium Chloride 40 meq/ (Sodium Chloride) 270 mls @ 135 mls/hr IVPB ASDIR PRN PRN Reason: FOR SERUM K+ 2.5 - 3.5 Potassium Chloride 40 meq/ (Device) 100 mls @ 50 mls/hr IVPB ASDIR PRN PRN Reason: FOR SERUM K+ 2.5 - 3.5 Last Admin: 03/03/19 12:42 Dose: 100 mls Magnesium Sulfate 1 gm/ Sodium (Chloride) 102 mls @ 102 mls/hr IV PRN PRN PRN Reason: MAG LEVEL 1.4 - 2.0 Last Admin: 02/23/19 08:35 Dose: 102 mls Magnesium Sulfate 2 gm/ Device 50 mls @ 50 mls/hr IVPB ASDIR PRN PRN Reason: MAGNESIUM < 1.4 Potassium Phosphate 9 mmol/ (Sodium Chloride) 103 mls @ 25.75 mls/hr IVPB ASDIR PRN PRN Reason: Phosphate 1.0-1.8 Potassium Phosphate 12 mmol/ (Sodium Chloride) 254 mls @ 63.5 mls/hr IV ASDIR PRN PRN Reason: Serum phosphate 0.5-0.9 Potassium Phosphate 15 mmol/ (Sodium Chloride) 255 mls @ 63.75 mls/hr IV ASDIR PRN PRN Reason: Serum Phos < 0.5 Micafungin Sodium 100 mg/ (Sodium Chloride) 100 mls @ 100 mls/hr IVPB Q24H [facility] Last Admin: 03/04/19 09:08 Dose: 100 mls Meropenem 1 gm/ Device 50 mls @ 100 mls/hr IVPB Q8HR [facility] Last Admin: 03/04/19 14:09 Dose: 50 mls Dextrose/Water (D5w) 1,000 mls @ 0 mls/hr IV .Q0M PRN PRN Reason: Hypoglycemia Sodium Acetate 70 meq/Potassium Acetate 40 meq/Potassium Chloride 40 meq/ Calcium Gluconate 10 meq/Magnesium Sulfate 10 meq/Multivitamins 10 ml/ Chromium/ Copper/Manganese/Seleni/Zn 5 ml/ Insulin Human Regular 14 units/ Dextrose/Water / Sterile Water/ Amino Acids 1,414.3421 mls @ 58.931 mls/hr IV 1400 [facility] Last Admin: 03/04/19 14:48 Dose: 1,414.3421 mls Lactated Ringer's (Lactated Ringer's) 1,000 mls @ 0 mls/hr IV .Q0M [facility] Dexmedetomidine HCl 200 mcg/ (Sodium Chloride) 50 mls @ 0 mls/hr IVPB INF PRN; Protocol PRN Reason: .RESTLESSNESS Dextrose/Water (Dextrose 10% In Water) 1,000 mls @ 0 mls/hr IV .Q0M [facility] Last Admin: 03/04/19 14:25 Dose: 1,000 mls Insulin Human Lispro (Humalog) 0 units SC .MILD SLIDING SCALE PRN PRN Reason: Mild Correctional Scale Iron/Minerals/Multivitamins (Certa Ana Liquid) 15 ml PER TUBE DAILY [facility] Last Admin: 03/04/19 09:09 Dose: 15 ml Magnesium Oxide (Magnesium Oxide) 400 mg PO BIDPRN PRN PRN Reason: FOR SERUM MAG 1.4 - 2.0 Magnesium Oxide (Magnesium Oxide) 800 mg PO PRN PRN PRN Reason: FOR SERUM MAG < 1.4 Methylprednisolone Sodium Succinate (Solu-Medrol) 20 mg IVP DAILY [facility] Last Admin: 03/04/19 09:08 Dose: 20 mg Metoclopramide HCl (Reglan) 10 mg IVP 0100,0900,1700 [facility] Last Admin: 03/04/19 09:08 Dose: 10 mg Metoprolol Tartrate (Lopressor) 5 mg IVP Q6HR [facility] Last Admin: 03/04/19 11:33 Dose: 5 mg Miscellaneous Medication (Phos-Nak) 1 pkt PO TIDPRN PRN PRN Reason: FOR PHOS LEVEL 1.0 - 1.8 Miscellaneous Medication (Phos-Nak) 2 pkt PO TIDPRN PRN PRN Reason: FOR PHOS LEVEL 0.5 - 1.0 Miscellaneous Medication (Ventilator Sedation Protocol) 1 each FS 1800 [facility] Last Admin: 03/03/19 14:47 Dose: Not Given Morphine Sulfate (Morphine) 2 mg SLOW IVP Q1H PRN PRN Reason: BREAKTHROUGH PAIN/Agitation Stop: 03/24/19 18:10 Last Admin: 03/03/19 15:12 Dose: 2 mg Morphine Sulfate (Morphine) 4 mg SLOW IVP Q2H PRN PRN Reason: .RESTLESS/PAIN Last Admin: 03/04/19 11:33 Dose: 4 mg Ccu Electrolyte (Replacement Protocol) 0 each FS PRN PRN PRN Reason: FOR ELECTROLYTE REPLACEMENT Ondansetron HCl (Zofran) 4 mg IVP Q6H PRN PRN Reason: Nausea/Vomiting Pantoprazole Sodium (Protonix) 40 mg IVP Q12HR [facility] Last Admin: 03/04/19 09:09 Dose: 40 mg Potassium Chloride (K-Dur) 40 meq PO ASDIR PRN PRN Reason: FOR SERUM K+ 2.5 - 3.5 Potassium Chloride (Klor-Con) 40 meq PER TUBE ASDIR PRN PRN Reason: FOR SERUM K+ 2.5-3.5 Scopolamine (Transderm Scop) 1.5 mg TOP Q3D [facility] Last Admin: 03/03/19 16:10 Dose: 1.5 mg Sodium Chloride (Flush - Normal Saline) 10 ml IVF PRN PRN PRN Reason: Saline Flush Last Admin: 02/19/19 21:31 Dose: 10 ml Sodium Chloride (Normal Saline Pf) 10 ml FS PRN PRN PRN Reason: RECONSTITUTION Last Admin: 03/03/19 21:19 Dose: 10 ml
[2019-03-04] MEDS: Ventilator Sedation Protocol 1 EACH FS SCH (17:47)
--- NOTE | 2019-03-04 18:31 | PRG ---
DATE OF SERVICE: 03/04/2019 SUBJECTIVE: Mr. Stroud remains intubated. He went to the operating room and had a PEG tube placed and a tracheostomy placed on Monday. He has done well with that, but has not really tolerated tube feeds very well. He is on TPN as well. Apparently, his x-ray showed the PEG and the Dobhoff in his nose and his stomach. T-max 99, pulse 98, blood pressure 109/87. He had a small bowel movement yesterday. KRIS is still putting out about 160. So far today, urine output 2175. Urine output yesterday was 6200. Bowel movement on Monday per the nurses. OBJECTIVE: GENERAL: On exam, he is cachectic. He is intubated. He is emaciated. He is on the ventilator. He is sedated. ABDOMEN: Soft and nontender. KRIS drain site has an ostomy bag over it. LABORATORY DATA: No CBC today. Glucose is 171 today. ASSESSMENT: 1. Status post laparoscopy with control of gastrointestinal bleed, duodenostomy, and pyloroplasty. He is on PPIs. Helicobacter pylori was negative. 2. History of hepatitis C, treated and resolved. 3. Malnutrition, status post PEG. He has a Dobhoff that is not in the duodenum. He is getting enteral boluses and also remains on his TPN for now. 4. Respiratory failure, aspiration pneumonia, ARDS, improving, but unable to ventilate on his own. PLAN: Agree with nutrition management. It is important to go forward in this patient, may be reasonable to try to place the Dobhoff past the duodenum into the jejunum, although invariably these things often will not stay in that location even when placed endoscopically, that would be an option to try; however, tolerating his feeds. We will follow from a distance and check on him periodically. If I can be of assistance or if jejunal placement of the feeding tube is desired, please do not hesitate to contact me. Job ID: [id number]
--- NOTE | 2019-03-04 18:48 | PDOC.CTH ---
Cardiology Progress Note - Subjective Trach and PEG in place. No new issues. Currently being ventilated. - Objective Vital Signs Temp Pulse Resp BP Pulse Ox 03/04/19 18:15 83 120/87 03/04/19 18:00 34 H 03/04/19 16:00 99 F 27 H 03/04/19 14:36 98 109/87 03/04/19 14:00 25 H 03/04/19 12:45 91 108/83 03/04/19 12:44 89 38 H 99 03/04/19 12:00 99 F 30 H 03/04/19 10:23 108 H 146/104 H 03/04/19 10:00 37 H 03/04/19 08:10 99 160/109 H 03/04/19 08:00 99.4 F 94 L Admit Weight 144 lb 6.444 oz Weight 136 lb 5 oz 03/03/19 03/04/19 03/05/19 06:59 06:59 06:59 Intake Total 2841 1958 880 Output Total 2625 7860 2460 Balance 216 -7753 -1580 - Physical Examination General/Neuro: other: (Sedated. ) Neck: no JVD present Lungs: other: (Crackles at bases. ) Heart: RRR Abdomen: NT/ND Extremities: other: (no edema) - Telemetry Telemetry Rhythm: NSR - Labs Result Diagrams: 03/03/19 04:50 03/04/19 02:32 Troponin/CKMB Troponin I Less than 0.010 ng/mL (< 0.028) 02/17/19 16:26 - Assessment/Plan 1. Acute blood loss anemia, hgb stable. 2. Severe symptomatic anemia 3. ST elevations on ECG while Hgb 3.9 4. Dilated CM EF at 35-40% 5. Acute on chronic systolic heart failure. 6. Afib RVR, still in sinus. 7. Possible aspiration. 8. Possible ischemic right leg. 9. Possible CVA, not moving left side. PLAN: - Likely ischemic CM but prohibitive to do a LHC due to acute life-threatening bleed. - On PO amiodarone. - No anticoagulation given life-threatening bleed. - Continue current dose of IV metoprolol scheduled. - Continue IV lasix daily. - Replace K. - Bilateral toes seem ischemic. Will do doppler US. - Right foot warm, left foot cold. - May have thrown a clot as he was in afib. - 45 minutes critical care.
[2019-03-04] MEDS: Enoxaparin Sodium 40 MG/0.4 ML SYRINGE SC SCH (20:17)
[2019-03-05] MEDS: Metoprolol Tartrate 5 MG/5 ML VIAL IVP SCH ×3 (00:04→11:48)
[2019-03-05] MEDS: Metoclopramide HCl 10 MG/2 ML VIAL IVP SCH ×2 (01:16→09:38)
[2019-03-05] MEDS: Dextrose 50% Abboject 50 ML SYRINGE SLOW IVP PRN (05:18)
[2019-03-05] MEDS: MEROPENEM 1 GM/50 ML 1 GM in Premix Bag 1 BAG IVPB SCH ×3 (05:22→20:59)
[2019-03-05 05:47] LABS: Anion Gap 7 mmol/L (10-20); BUN (Urea Nitrogen) 52 mg/dL (8.4-25.7); Calc. Creatinine Clearance 77 mL/min (70-130); Calcium 8.8 mg/dL (7.8-10.44); Carbon Dioxide 25 mmol/L (23-31); Chloride 112 mmol/L (98-107); Estimated GFR-MDRD Greater than 90; Glucose 113 mg/dL (80-115); Potassium 3.3 mmol/L (3.5-5.1); Sodium 141 mmol/L (136-145)
[2019-03-05] MEDS: Morphine 4 MG/ML VIAL SLOW IVP PRN ×2 (06:12→16:19)
--- NOTE | 2019-03-05 08:05 | RAD ---
ABDOMEN ONE VIEW: HISTORY: Dobhoff feeding tube placement. COMPARISON: 03/04/2019 FINDINGS: Redemonstration of Dobhoff feeding tube, which appears to be in the mid portion of the stomach. Perc utaneous gastric feeding tube is identified. There is moderate distention of the stomach. IMPRESSION: Dobhoff feeding tube, as above. POS: OFF
--- NOTE | 2019-03-05 09:28 | PRG ---
DATE OF SERVICE: 03/05/2019 SUBJECTIVE: This morning, he remains encephalopathic on the vent. OBJECTIVE: VITAL SIGNS: Pulse 101, blood pressure is 90/67, sats 100%, respiratory rate10. X-ray still shows bilateral infiltrates and large amount of secretions. Status post trach and PEG. His I's and O's have been consistently negative. CHEST: Decreased breath sounds. No wheezing. CARDIAC: Normal S1 and S2. No gallops. ABDOMEN: No masses. IMPRESSION: 1. Multiorgan failure. 2. Massive gastrointestinal bleed, status post lap //peg trach now_. 3. Respiratory failure, aspiration. 4. Left lower extremity weakness. CT was negative. He is going to need MRI at some other time. Marked leukocytosis. Poor respiratory status. PLAN: 1. Restart low-dose hydrocortisone from home. 2. PT supportive care. Nutrition. Diagnostic bronchoscopy. We will follow. One-half hour critical time excluding bronchoscopy. Job ID: [id number] MTDD
[2019-03-05] MEDS: Amiodarone 200 MG TAB PER TUBE SCH ×2 (09:38→20:59)
[2019-03-05] MEDS: Hydrocortisone 10 mg Tablet PO SCH (09:38)
[2019-03-05] MEDS: Multivits W-Minerals Liquid 15mL UDCUP PER TUBE SCH (09:38)
[2019-03-05] MEDS: Pantoprazole 40 MG VIAL IVP SCH ×2 (09:39→20:59)
[2019-03-05] MEDS: Furosemide 40 MG/4 ML VIAL SLOW IVP SCH (09:39)
[2019-03-05] MEDS: Micafungin 100 MG in Sodium Chloride 0.9% 100 ML IVPB SCH (09:59)
--- NOTE | 2019-03-05 10:15 | OP ---
DATE OF PROCEDURE: 03/05/2019 In the morning, he had a large amount of secretions that looked purulent. Discussed with his to repeat it. A bronchoscopy was performed after informed consent. Using an adapter, flexible bronchoscope was used to assess the trachea, which to my surprise was normal. Sandra was sharp. Right lung was inspected initially. There was minimal amount of thick clear secretions, suction lavaged. Thereafter, the right upper and right middle lobes were visualized without any endobronchial obstruction, blood, or pus seen. Left lung was inspected thereafter. It was also surprising that he had a very minimal amount of thick secretion. No endobronchial obstruction or blood seen. This was also lavaged with normal saline until completely clear. The patient otherwise tolerated the procedure well. Job ID: [id number]
--- NOTE | 2019-03-05 12:26 | ULT ---
BILATERAL LOWER EXTREMITY ARTERIAL ULTRASOUND WITH DOPPLER: HISTORY: Bilateral lower extremity ischemia. COMPARISON: None. TECHNIQUE: Acosta-scale, color-flow, Doppler imaging, and spectral wave-form analysis was performed of the left an d right lower extremity arterial system. FINDINGS: Right lower extremity: Triphasic flow throughout the entire right lower extremity. Common femoral artery: 70.4 cm per second Profunda femoral artery: 74.1 cm per second SFA, proximal: 67.0 cm per second SFA, mid: 85.4 cm per second SFA, distal: 54.9 cm per second Popliteal artery: 25.1 cm per second Anterior tibial artery: 49.8 cm per second Posterior tibial artery: 36.0 cm per second Dorsalis pedis artery: 61.4 cm per second Left lower extremity: Triphasic flow throughout the entire left lower extremity arterial system. Common femoral artery: 42.7 cm per second Profunda femoral artery: 42.4 cm per second SFA, proximal: 60.2 cm per second SFA, mid: 79.8 cm per second SFA, distal: 75.1 cm per second Popliteal artery: 58.8 cm per second Anterior tibial artery: 36.7 cm per second Posterior tibial artery: 40.2 cm per second Dorsalis pedis artery: 38.7 cm per second IMPRESSION: No sonographic evidence of hemodynamically significant stenosis. POS: OFF
--- NOTE | 2019-03-05 13:56 | PDOC.CTH ---
Cardiology Progress Note - Subjective Remains ventilated. When he wakes up some he gets agitated and tachycardic. - Objective Vital Signs Temp Pulse Resp BP Pulse Ox 03/05/19 13:25 108 H 93/72 03/05/19 13:24 108 H 31 H 99 03/05/19 10:12 105 H 110/76 03/05/19 10:00 33 H 03/05/19 08:00 27 H 03/05/19 07:30 100 03/05/19 07:00 99.7 F H 03/05/19 06:47 95 92/63 03/05/19 06:46 97 31 H 99 03/05/19 06:00 29 H 03/05/19 05:00 98.1 F 03/05/19 04:00 26 H 03/05/19 02:10 99 118/86 03/05/19 02:00 32 H Admit Weight 144 lb 6.444 oz Weight 126 lb 12.253 oz 03/04/19 03/05/19 03/06/19 06:59 06:59 06:59 Intake Total 1958 1313.6 135 Output Total 7860 3445 290 Balance -5902 -2131.4 -155 - Physical Examination General/Neuro: NAD Neck: no JVD present Lungs: unlabored respirations Heart: RRR Abdomen: NT/ND Extremities: other: (no edema) - Telemetry Telemetry Rhythm: S tach - Labs Result Diagrams: 03/03/19 04:50 03/05/19 04:50 Troponin/CKMB Troponin I Less than 0.010 ng/mL (< 0.028) 02/17/19 16:26 - Assessment/Plan 1. Acute blood loss anemia, hgb stable. 2. Severe symptomatic anemia 3. ST elevations on ECG while Hgb 3.9 4. Dilated CM EF at 35-40% 5. Acute on chronic systolic heart failure. 6. Afib RVR, still in sinus. 7. Possible aspiration. 8. Possible ischemic right leg. 9. Possible CVA, not moving left side. PLAN: - Likely ischemic CM but prohibitive to do a LHC due to acute life-threatening bleed. - Continue PO amiodarone for afib. - No anticoagulation given life-threatening bleed. - Will switch IV metoprolol to scheduled. - Hold lasix for now, seems a little dry. - Replace K. - Doppler US pending today. - Right foot warm, left foot cold. - May have thrown a clot as he was in afib. - 30 minutes critical care.
[2019-03-05] MEDS: POTASSIUM CHLORIDE IV SCH (14:03)
[2019-03-05] MEDS: SODIUM ACETATE IV SCH (14:03)
[2019-03-05] MEDS: POTASSIUM ACETATE IV SCH (14:03)
[2019-03-05] MEDS: [UNRECOGNIZED DRUG - OTHER] IV SCH (14:03)
[2019-03-05] MEDS: Lorazepam 0.5 MG TAB PO PRN (16:20)
[2019-03-05] MEDS: HumaLOG 300 UNITS/3 ML VIAL SC PRN (17:02)
--- NOTE | 2019-03-05 17:51 | PDOC.PN ---
- Subjective Encounter Start Date: 03/05/19 Encounter Start Time: 10:15 Subjective: pt tached on the vent, easily arousable - Objective Resuscitation Status - Order Detail: 03/05/19 12:16 Resuscitation Status Routine Resuscitation Status: DNAR: NO Resuscitation Discussed with: Vital Signs & Weight: Vital Signs (12 hours) Temp Pulse Resp BP Pulse Ox 03/05/19 16:00 101.2 F H 36 H 03/05/19 14:40 109 H 96/63 03/05/19 14:00 35 H 03/05/19 13:25 108 H 93/72 03/05/19 13:24 108 H 31 H 99 03/05/19 12:00 99.3 F 32 H 03/05/19 10:12 105 H 110/76 03/05/19 10:00 33 H 03/05/19 08:00 27 H 03/05/19 07:30 100 03/05/19 07:00 99.7 F H 03/05/19 06:47 95 92/63 03/05/19 06:46 97 31 H 99 03/05/19 06:00 29 H Weight Admit Weight 144 lb 6.444 oz Weight 126 lb 12.253 oz Most Recent Monitor Data Heart Rate from ECG 112 NIBP 95/63 NIBP BP-Mean 69 Respiration from ECG 25 SpO2 98 I&O: 03/04/19 03/05/19 03/06/19 06:59 06:59 06:59 Intake Total 1958 1313.6 195 Output Total 7860 3445 880 [facility] -5902 -2131.4 -685 Result Diagrams: 03/03/19 04:50 03/05/19 04:50 Additional Labs: Accuchecks 03/05/19 03/05/19 03/04/19 17:03 10:09 21:24 POC Glucose 174 H 102 74 Phys Exam - Physical Examination Neck: no nodes, no JVD, supple, full ROM Respiratory: no wheezing, no rales, no rhonchi, wheezing present, clear to auscultation bilateral Cardiovascular: RRR, no significant murmur, no rub, gallop, irregular Gastrointestinal: soft, non-tender, no distention, positive bowel sounds right and left toes have discoloration, pedal pulse present to both feet pt does not move left side Dx/Plan (1) Acute and chronic respiratory failure with hypoxia Code(s): J96.21 - ACUTE AND CHRONIC RESPIRATORY FAILURE WITH HYPOXIA Status: Acute (2) Acute upper GI hemorrhage Code(s): K92.2 - GASTROINTESTINAL HEMORRHAGE, UNSPECIFIED Status: Acute Comment: severe, multiple units PRBC and FFP, now resolved. s/p laparotomy with pyloroplasty (3) Anoxic brain injury Status: Acute Comment: complicating cardiac arrest, not moving LLE since, normal CT brain on 02/24/2019 (4) Aspiration pneumonia due to regurgitated gastric secretions Code(s): J69.0 - PNEUMONITIS DUE TO INHALATION OF FOOD AND VOMIT Status: Acute Qualifiers: Laterality: bilateral Comment: Due to vomiting of coffee ground emesis from GI bleed, bronchoscopy with lavage during initial code (5) Leukocytosis Code(s): D72.829 - ELEVATED WHITE BLOOD CELL COUNT, UNSPECIFIED Status: Acute (6) Protein-calorie malnutrition, moderate Code(s): E44.0 - MODERATE PROTEIN-CALORIE MALNUTRITION Status: Acute - Plan if pt continues to have elevated wbc ? ct abd/pel and ct chest? -: His hh is trending down will monitor. Arterial doppler no stenosis -: pt still on tpn. steroids discontinued. NO AC due to recent bleed -: pt high risk for dvt * . Review of Systems - Review of Systems Respiratory: negative: Cough, Dry, Shortness of Breath, Hemoptysis, SOB with Excertion, Pleuritic Pain, Sputum, Wheezing Cardiovascular: negative: chest pain, palpitations, orthopnea, paroxysmal nocturnal dyspnea, edema, light headedness, other Gastrointestinal: negative: Nausea, Vomiting, Abdominal Pain, Diarrhea, Constipation, Melena, Hematochezia, Other - Medications/Allergies Allergies/Adverse Reactions: Allergies Allergy/AdvReac Type Severity Reaction Status Date / Time No Known Allergies Allergy Unverified 09/19/16 12:31 Medications: Current Medications Acetaminophen (Tylenol Elixir) 650 mg PER TUBE Q6H PRN PRN Reason: Fever > 101 Albuterol/Ipratropium (Duoneb) 3 ml NEB [id number] [facility] Last Admin: 03/05/19 13:24 Dose: 3 ml Amiodarone HCl (Cordarone) 400 mg PER TUBE BID [facility] Last Admin: 03/05/19 09:38 Dose: 400 mg Dextrose/Water (Dextrose 50%) 25 gm SLOW IVP PRN PRN PRN Reason: Hypoglycemia Last Admin: 03/05/19 05:18 Dose: 25 gm Enoxaparin Sodium (Lovenox) 40 mg SC 2100 LANRE Last Admin: 03/04/19 20:17 Dose: 40 mg Glucagon (Glucagon) 1 mg IM PRN PRN PRN Reason: Hypoglycemia Hydralazine HCl (Apresoline) 10 mg SLOW IVP Q4H PRN PRN Reason: SBP > 180 and HR < 70 Last Admin: 03/01/19 21:06 Dose: 10 mg Hydrocortisone (Cortef) 10 mg PO DAILY [facility] Last Admin: 03/05/19 09:38 Dose: 10 mg Potassium Chloride 40 meq/ (Sodium Chloride) 270 mls @ 135 mls/hr IVPB ASDIR PRN PRN Reason: FOR SERUM K+ 2.5 - 3.5 Potassium Chloride 40 meq/ (Device) 100 mls @ 50 mls/hr IVPB ASDIR PRN PRN Reason: FOR SERUM K+ 2.5 - 3.5 Last Admin: 03/03/19 12:42 Dose: 100 mls Magnesium Sulfate 1 gm/ Sodium (Chloride) 102 mls @ 102 mls/hr IV PRN PRN PRN Reason: MAG LEVEL 1.4 - 2.0 Last Admin: 02/23/19 08:35 Dose: 102 mls Magnesium Sulfate 2 gm/ Device 50 mls @ 50 mls/hr IVPB ASDIR PRN PRN Reason: MAGNESIUM < 1.4 Potassium Phosphate 9 mmol/ (Sodium Chloride) 103 mls @ 25.75 mls/hr IVPB ASDIR PRN PRN Reason: Phosphate 1.0-1.8 Potassium Phosphate 12 mmol/ (Sodium Chloride) 254 mls @ 63.5 mls/hr IV ASDIR PRN PRN Reason: Serum phosphate 0.5-0.9 Potassium Phosphate 15 mmol/ (Sodium Chloride) 255 mls @ 63.75 mls/hr IV ASDIR PRN PRN Reason: Serum Phos < 0.5 Meropenem 1 gm/ Device 50 mls @ 100 mls/hr IVPB Q8HR [facility] Last Admin: 03/05/19 14:32 Dose: 50 mls Dextrose/Water (D5w) 1,000 mls @ 0 mls/hr IV .Q0M PRN PRN Reason: Hypoglycemia Sodium Acetate 70 meq/Potassium Acetate 40 meq/Potassium Chloride 40 meq/ Calcium Gluconate 10 meq/Magnesium Sulfate 10 meq/Multivitamins 10 ml/ Chromium/ Copper/Manganese/Seleni/Zn 5 ml/ Insulin Human Regular 14 units/ Dextrose/Water / Sterile Water/ Amino Acids 1,414.3421 mls @ 58.931 mls/hr IV 1400 LANRE Last Admin: 03/05/19 14:03 Dose: 1,414.3421 mls Lactated Ringer's (Lactated Ringer's) 1,000 mls @ 0 mls/hr IV .Q0M LANRE Dexmedetomidine HCl 200 mcg/ (Sodium Chloride) 50 mls @ 0 mls/hr IVPB INF PRN; Protocol PRN Reason: .RESTLESSNESS Last Admin: 03/04/19 20:22 Dose: 50 mls Dextrose/Water (Dextrose 10% In Water) 1,000 mls @ 0 mls/hr IV .Q0M [facility] Last Admin: 03/04/19 14:25 Dose: 1,000 mls Insulin Human Lispro (Humalog) 0 units SC .MILD SLIDING SCALE PRN PRN Reason: Mild Correctional Scale Last Admin: 03/05/19 17:02 Dose: 2 unit Iron/Minerals/Multivitamins (Certa Ana Liquid) 15 ml PER TUBE DAILY [facility] Last Admin: 03/05/19 09:38 Dose: 15 ml Lorazepam (Ativan) 0.5 mg PO PRN PRN PRN Reason: Anxiety Last Admin: 03/05/19 16:20 Dose: 0.5 mg Magnesium Oxide (Magnesium Oxide) 400 mg PO BIDPRN PRN PRN Reason: FOR SERUM MAG 1.4 - 2.0 Magnesium Oxide (Magnesium Oxide) 800 mg PO PRN PRN PRN Reason: FOR SERUM MAG < 1.4 Metoprolol Tartrate (Lopressor) 6.25 mg PO BID [facility] Miscellaneous Medication (Phos-Nak) 1 pkt PO TIDPRN PRN PRN Reason: FOR PHOS LEVEL 1.0 - 1.8 Miscellaneous Medication (Phos-Nak) 2 pkt PO TIDPRN PRN PRN Reason: FOR PHOS LEVEL 0.5 - 1.0 Miscellaneous Medication (Ventilator Sedation Protocol) 1 each FS 1800 [facility] Last Admin: 03/04/19 17:47 Dose: Not Given Morphine Sulfate (Morphine) 2 mg SLOW IVP Q1H PRN PRN Reason: BREAKTHROUGH PAIN/Agitation Stop: 03/24/19 18:10 Last Admin: 03/03/19 15:12 Dose: 2 mg Morphine Sulfate (Morphine) 4 mg SLOW IVP Q2H PRN PRN Reason: .RESTLESS/PAIN Last Admin: 03/05/19 16:19 Dose: 4 mg Ccu Electrolyte (Replacement Protocol) 0 each FS PRN PRN PRN Reason: FOR ELECTROLYTE REPLACEMENT Ondansetron HCl (Zofran) 4 mg IVP Q6H PRN PRN Reason: Nausea/Vomiting Pantoprazole Sodium (Protonix) 40 mg IVP Q12HR [facility] Last Admin: 03/05/19 09:39 Dose: 40 mg Potassium Chloride (K-Dur) 40 meq PO ASDIR PRN PRN Reason: FOR SERUM K+ 2.5 - 3.5 Last Admin: 03/05/19 06:34 Dose: 40 meq Potassium Chloride (Klor-Con) 40 meq PER TUBE ASDIR PRN PRN Reason: FOR SERUM K+ 2.5-3.5 Scopolamine (Transderm Scop) 1.5 mg TOP Q3D [facility] Last Admin: 03/03/19 16:10 Dose: 1.5 mg Sodium Chloride (Flush - Normal Saline) 10 ml IVF PRN PRN PRN Reason: Saline Flush Last Admin: 02/19/19 21:31 Dose: 10 ml Sodium Chloride (Normal Saline Pf) 10 ml FS PRN PRN PRN Reason: RECONSTITUTION Last Admin: 03/03/19 21:19 Dose: 10 ml
[2019-03-05] MEDS: Ventilator Sedation Protocol 1 EACH FS SCH (18:05)
[2019-03-05] MEDS: Metoprolol Tartrate 25 MG TAB PO SCH (20:58)
[2019-03-05] MEDS: Enoxaparin Sodium 40 MG/0.4 ML SYRINGE SC SCH (20:59)
[2019-03-06] MEDS: HumaLOG 300 UNITS/3 ML VIAL SC PRN ×2 (05:25→16:23)
[2019-03-06 05:42] LABS: #Eosinphils 0.2 thou/uL (0.0-0.7); #Lymphocytes 1.7 thou/uL (1.20-3.40); #Monocytes 1.4 thou/uL (0.11-0.59); #Neutrophils 19.4 thou/uL (1.40-6.50); %Eosinophils 0.9 % (0.0-10.0); %Lymphocytes 7.4 % (21.0-51.0); %Neutrophils 85.6 % (42.0-75.0); Hemoglobin 9.2 g/dL (14.0-18.0); Mean Corpuscular HGB CONC 31.6 g/dL (32.0-36.0); Mean Corpuscular Hemoglobin 30.5 pg (27.0-31.0); Mean Corpuscular Volume 96.7 fL (78.0-98.0); Platelet Count 138 thou/uL (130-400); RBC Distribution Width 17.9 % (11.5-14.5); Red Blood Cell (RBC) Count 3.01 mill/uL (4.70-6.10); White Blood Cell (WBC) Count 22.7 thou/uL (4.8-10.8)
[2019-03-06 06:08] LABS: ALT (SGPT) 682 U/L (8-55); AST (SGOT) 666 U/L (5-34); Albumin 2.5 g/dL (3.4-4.8); Alkaline Phosphatase 133 U/L (40-150); Anion Gap 7 mmol/L (10-20); BUN (Urea Nitrogen) 54 mg/dL (8.4-25.7); Bilirubin, Total 3.9 mg/dL (0.2-1.2); Calc. Creatinine Clearance 72 mL/min (70-130); Calcium 8.6 mg/dL (7.8-10.44); Carbon Dioxide 25 mmol/L (23-31); Chloride 116 mmol/L (98-107); Estimated GFR-MDRD Greater than 90; Globulin 2.3 g/dL (2.4-3.5); Glucose 86 mg/dL (80-115); Potassium 3.9 mmol/L (3.5-5.1); Protein, Total 4.8 g/dL (5.8-8.1); Sodium 144 mmol/L (136-145)
[2019-03-06] MEDS: MEROPENEM 1 GM/50 ML 1 GM in Premix Bag 1 BAG IVPB SCH ×2 (06:16→14:21)
[2019-03-06 07:27] LABS: Actual Bicarbonate (HCO3a) 21.1 mEq/L (22-28); Base Excess (BEa) -0.7 mEq/L (-2.0 to +3.0); Calcium, Ionized 1.26 mmol/L (1.12-1.30); Carboxyhemoglobin (COHb) 1.2 gm% (0.0-3.0); Hemoglobin (Hb) 9.5 g/dL (14.0-18.0); O2 Tension (PaO2) 67.4 mmHg (> 80.0); Potassium - ABG Lab 3.81 mmol/L (3.70-5.30); pH, Arterial 7.54 (7.35-7.45)
[2019-03-06 07:37] LABS: CO2 Tension 25.5 mmHg (35.0-45.0)
[2019-03-06 07:38] LABS: ALV-art Gradient 114.625 (0-20); Puncture Site L.B.
--- NOTE | 2019-03-06 07:51 | RAD ---
Exam: Single view of the abdomen HISTORY: Dobbhoff placement COMPARISON: None FINDINGS: Single view of the abdomen shows a nonspecific, nonobstructive bowel gas pattern. A Dobbhof f tube is seen with its tip in the stomach. Multiple radiopaque structures are seen in the left upper quadrant of the abdomen. Surgical parvez project over the abdomen. The bones are unremarkable. IMPRESSION: Dobbhoff tube located in the stomach
--- NOTE | 2019-03-06 07:57 | RAD ---
Portable chest: HISTORY: CHF COMPARISON: 03/04/2019 Tracheostomy device again noted. NG tube remains in place. Bibasilar infiltrates are improved when co mpared to prior study. There continues to be patchy infiltrate in the left mid lung with interstitial and hazy infiltrate in both lung bases. Evidence of small effusions.
[2019-03-06] MEDS ORDERED: predniSONE 5 MG TAB PO SCH (08:00)
--- NOTE | 2019-03-06 08:02 | PRG ---
DATE OF SERVICE: 03/06/2019 SUBJECTIVE: This morning, remains encephalopathic in the ICU. OBJECTIVE: VITAL SIGNS: His respiratory rate is about 40, pulse 115, blood pressure 118/75, saturations are 99%. His I's and O's have been consistently negative. GENERAL: He answers questions appropriately, nods his head. Denies any pain. CHEST: Decreased breath sounds. No wheezing. CARDIAC: Atrial fibrillation. ABDOMEN: Soft. LABORATORY DATA: BUN is 54, white count 20,000. Potassium 3.9. AST and ALT are elevated again at 666. He has evidence of extensive peripheral toes discoloration, bluish, suggestive of maybe an embolic episode. IMPRESSION: 1. Multiorgan failure. 2. Congestive heart failure. 3. Abnormal liver function tests. 4. Peripheral superficial gangrene of multiple toes. 5. Atrial fibrillation. 6. Aspiration pneumonia, status post lap. PLAN: Discussed with the at length. She has made him a DNR because of his overall poor prognosis. We are trying to get him to LTAC to continue nutrition and antibiotics for 2 weeks. This would be discontinued thereafter. I am going to start him on low-dose risperidone to control his encephalopathy. One-half hour of critical care time. Job ID: [id number]
--- NOTE | 2019-03-06 09:11 | PRG ---
DATE OF SERVICE: 03/05/2019 SUBJECTIVE: Mr. Stroud remains intubated. He had a bronchoscopy today, and the mental health worker was surprised to find minimal secretions. OBJECTIVE: VITAL SIGNS: Pulse 108, blood pressures 90s/60s to 118/86. Nurse reports he had a fever this evening at 101, presently it is 99.2. GENERAL: He looks very cachectic and ill. He is sedated. He has muscle wasting in temporal area and upper extremities. LUNGS: Clear. HEART: Regular rhythm. ABDOMEN: Nontender. Ostomy bag is draining. There is an old KRIS site in the right abdomen. EXTREMITIES: No clubbing or edema. He does have to the fingertips and toes. He had Doppler studies today of his legs, showed no evidence of hemodynamically significant stenosis. The nurse reports he has some diarrhea today and his Reglan was stopped. LABORATORY DATA: White count 26,000, hemoglobin 8.6, platelet count 127. Sodium 141, potassium 3.3, BUN and creatinine are 52 and 0.76. ASSESSMENT: 1. Hemorrhaging duodenal ulcer on presentation with hemoglobin of 3, bleeding controlled surgically. 2. ARDS, improving. 3. Ischemic toes and fingers, likely related to his 2 codes and presentation with severe hypotension from GI bleed. Nutrition, he is on tube feeds. He is having some diarrhea now. The Reglan is going to be held, if diarrhea persists, we will need to check stool for Clostridium difficile. He is on both tube-feeds and TPN. 4. Antibiotics. Continue on meropenem. Micafungin was discontinued. Steroids have been discontinued as well. Finally, his has made him a DNR and if he arrests again, she does not him want to be shocked or coded, and this is not an unreasonable request, and orders have been placed for Dr. Sherman. I agree with that plan. Job ID: [id number]
[2019-03-06] MEDS: Hydrocortisone 10 mg Tablet PO SCH ×2 (09:24→20:52)
[2019-03-06] MEDS: risperiDONE 0.25 MG TAB PO SCH ×2 (09:24→20:54)
[2019-03-06] MEDS: Pantoprazole 40 MG VIAL IVP SCH ×2 (09:25→20:53)
[2019-03-06] MEDS: Multivits W-Minerals Liquid 15mL UDCUP PER TUBE SCH (09:25)
[2019-03-06] MEDS: Metoprolol Tartrate 25 MG TAB PO SCH ×2 (09:30→20:54)
[2019-03-06] MEDS: Amiodarone 200 MG TAB PER TUBE SCH ×2 (10:40→20:53)
[2019-03-06] MEDS: Lorazepam 0.5 MG TAB PO PRN ×2 (11:22→23:17)
[2019-03-06] MEDS: Acetaminophen 650 MG/20.3 ML UDCUP PER TUBE PRN ×2 (12:49→22:09)
[2019-03-06] MEDS: SODIUM ACETATE IV SCH (14:22)
[2019-03-06] MEDS: [UNRECOGNIZED DRUG - OTHER] IV SCH (14:22)
[2019-03-06] MEDS: POTASSIUM ACETATE IV SCH (14:22)
[2019-03-06] MEDS: POTASSIUM CHLORIDE IV SCH (14:22)
[2019-03-06] MEDS ORDERED: Albumin 25% 25 GM/100 ML BOT IVPB SCH (15:30)
[2019-03-06] MEDS: Scopolamine 1.5 mg/72 hour Patch TOP SCH (15:42)
--- NOTE | 2019-03-06 16:58 | PRG ---
DATE OF SERVICE: 03/06/2019 SUBJECTIVE: Mr. Stroud is still on the ventilator. He cannot be weaned off the ventilator. Efforts have been unsuccessful. We have had Dobhoff tube down for several days on Reglan. His tube will not pass into the duodenum. We have not been using it. He has been getting tube feedings half target rate bolus and has been tolerating this with minimal residuals. He is having bowel movements. Fingers and toes are slightly mottled and vascular studies are negative. The patient is agitated, off propofol, getting anxiolytics parenteral periodically. He is on TPN and bolus tube feedings (half target rate). LABORATORY DATA: Sodium 144, potassium 3.9, carbon dioxide 25, BUN 54, creatinine 0.82. Accu-Cheks 123, 174. White count has decreased to 23,000 down from 39,000, hemoglobin 9.2. Bilirubin is up as it was normal postoperatively, increased probably related to TPN. OBJECTIVE: LUNGS: Clear to auscultation. Few rhonchi. No wheezing. CARDIAC: Regular rate and rhythm. ABDOMEN: Soft, flat, nondistended. Bowel sounds present. He is having bowel movements. EXTREMITIES: Mottled. ASSESSMENT/PLAN: 1. Do not resuscitate status. Agrees with that decision per family. 2. Acute respiratory distress syndrome with aspiration pneumonia, improving. Continue antibiotics for pulmonary infiltrates, improving but not resolved. 3. Dobhoff tube not migrating. He has had problems with gastric emptying, but since he is tolerating his tube feedings, we will remove the Dobbhoff tube and continue TPN and half rate tube feedings. Increase his tube feedings tomorrow. 4. Respiratory failure with tracheostomy. 5. Malnutrition as noted above. 6. Atrial fibrillation. Amiodarone per feeding tube. 7. LTAC process. 8. Consider PICC line. 9. Fever. Continue meropenem. Job ID: [id number]
--- NOTE | 2019-03-06 17:23 | PRG ---
DATE OF SERVICE: SUBJECTIVE: Mr. Stroud has been agitated today. He received Ativan for that. He remains on the ventilator with tracheostomy. OBJECTIVE: VITAL SIGNS: Blood pressure 139/65, pulse 116, temperature 101.4. HEART: Tachycardic. LUNGS: Clear anteriorly. ABDOMEN: Soft, nondistended. He is receiving wet-to-dry dressings for his wound. EXTREMITIES: He has ischemic appearing tips of his toes. He is not verbally interactive. LABORATORY DATA: White blood cell count 22.7, hemoglobin 9.2, platelets 138, bilirubin 3.9, AST 666, ALT 682, albumin 2.5, alkaline phosphatase 133. IMPRESSION: 1. Ischemic hepatopathy. He has had a bump in his liver enzymes a couple of different times consistent with ischemic hepatopathy. Treatment will continue to be supportive. He is requiring pressors and he has had fever. He has had acute respiratory distress syndrome and has been unable to wean. He has also had aspiration. 2. Hemorrhagic shock from duodenal ulcer bleed, status post surgical correction. He required massive transfusions which certainly may have been related to the lung injury. RECOMMENDATIONS: He will continue supportive care per the ICU team. Job ID: [id number]
--- NOTE | 2019-03-06 17:55 | PDOC.CTH ---
Cardiology Progress Note - Subjective He was hypotensive earlier today after he received his dose of amiodarone. - Objective Vital Signs Temp Pulse Pulse Resp BP BP Pulse Ox 03/06/19 16:26 112 H 98/63 03/06/19 16:00 40 H 03/06/19 15:58 102.1 F H 03/06/19 14:00 41 H 03/06/19 13:18 116 H 85/61 L 03/06/19 13:16 117 H 42 H 03/06/19 12:16 101.4 F H 03/06/19 12:00 42 H 03/06/19 10:56 117 H 117/79 03/06/19 10:05 42 H 03/06/19 08:42 81 102/74 03/06/19 08:00 38 H 03/06/19 07:34 37 H 100 03/06/19 07:10 114 H 108/68 03/06/19 07:09 119 H 38 H 100 03/06/19 07:00 100.2 F H 03/06/19 06:00 99.4 F 38 H Pulse Ox Pulse Ox 03/06/19 16:26 03/06/19 16:00 03/06/19 15:58 03/06/19 14:00 03/06/19 13:18 03/06/19 13:16 03/06/19 12:16 03/06/19 12:00 03/06/19 10:56 03/06/19 10:05 03/06/19 08:42 94 L 93 L 03/06/19 08:00 03/06/19 07:34 03/06/19 07:10 03/06/19 07:09 03/06/19 07:00 03/06/19 06:00 Admit Weight 144 lb 6.444 oz Weight 128 lb 8.472 oz 03/05/19 03/06/19 03/07/19 06:59 06:59 06:59 Intake Total 1313.6 2165 280 Output Total 3445 1885 670 Balance -2131.4 280 -390 - Physical Examination General/Neuro: other: (non verbal ) Neck: no JVD present Lungs: CTA Heart: RRR Abdomen: NT/ND Extremities: + edema B (trace) - Telemetry Telemetry Rhythm: NSR - Labs Result Diagrams: 03/06/19 05:30 03/06/19 05:30 Troponin/CKMB Troponin I Less than 0.010 ng/mL (< 0.028) 02/17/19 16:26 - Assessment/Plan 1. Acute blood loss anemia, hgb stable. 2. Severe symptomatic anemia 3. ST elevations on ECG while Hgb 3.9 4. Dilated CM EF at 35-40% 5. Acute on chronic systolic heart failure. 6. Afib RVR, still in sinus. 7. Possible aspiration. 8. Possible ischemic right leg. 9. Possible CVA, not moving left side. 10. C-Diff colitis PLAN: - Continue PO amiodarone for afib, will lower dose to 200 mg daily. - No anticoagulation given life-threatening bleed. - Continue PO metoprolol. - Continue to hold lasix. - Replace K. - Bilateral toes seem ischemic. - Abx per primary team. - Will follow.
[2019-03-06] MEDS: Vancomycin HCl 25 MG/ML Oral PER TUBE SCH ×2 (18:28→20:52)
[2019-03-06] MEDS: Ventilator Sedation Protocol 1 EACH FS SCH (19:22)
[2019-03-06] MEDS: Enoxaparin Sodium 40 MG/0.4 ML SYRINGE SC SCH (20:53)
--- NOTE | 2019-03-06 21:41 | PDOC.PN ---
- Subjective Encounter Start Date: 03/06/19 Encounter Start Time: 10:00 Subjective: pt intubated - Objective Resuscitation Status - Order Detail: 03/05/19 12:16 Resuscitation Status Routine Resuscitation Status: DNAR: NO Resuscitation Discussed with: Vital Signs & Weight: Vital Signs (12 hours) Temp Pulse Resp BP 03/06/19 19:27 40 H 03/06/19 19:00 99.6 F 03/06/19 18:19 115 H 95/63 03/06/19 18:00 42 H 03/06/19 16:26 112 H 98/63 03/06/19 16:00 40 H 03/06/19 15:58 102.1 F H 03/06/19 14:00 41 H 03/06/19 13:18 116 H 85/61 L 03/06/19 13:16 117 H 42 H 03/06/19 12:16 101.4 F H 03/06/19 12:00 42 H 03/06/19 10:56 117 H 117/79 03/06/19 10:05 42 H Weight Admit Weight 144 lb 6.444 oz Weight 128 lb 8.472 oz Most Recent Monitor Data Heart Rate from ECG 116 NIBP 79/52 NIBP BP-Mean 61 Respiration from ECG 42 SpO2 67 I&O: 03/05/19 03/06/19 03/07/19 06:59 06:59 06:59 Intake Total 1313.6 2165 1767 Output Total 3445 1885 880 Balance -2131.4 280 887 Result Diagrams: 03/06/19 05:30 03/06/19 05:30 Additional Labs: Accuchecks 03/06/19 03/06/19 03/06/19 16:15 10:38 05:13 POC Glucose 291 H 81 168 H 03/05/19 22:25 POC Glucose 123 H Phys Exam - Physical Examination Neck: no nodes, no JVD, supple, full ROM Respiratory: wheezing present Cardiovascular: RRR, no significant murmur, no rub, gallop, irregular Gastrointestinal: soft, positive bowel sounds Dx/Plan (1) Acute and chronic respiratory failure with hypoxia Code(s): J96.21 - ACUTE AND CHRONIC RESPIRATORY FAILURE WITH HYPOXIA Status: Acute (2) Acute upper GI hemorrhage Code(s): K92.2 - GASTROINTESTINAL HEMORRHAGE, UNSPECIFIED Status: Acute Comment: severe, multiple units PRBC and FFP, now resolved. s/p laparotomy with pyloroplasty (3) Anoxic brain injury Status: Acute Comment: complicating cardiac arrest, not moving LLE since, normal CT brain on 02/24/2019 (4) Aspiration pneumonia due to regurgitated gastric secretions Code(s): J69.0 - PNEUMONITIS DUE TO INHALATION OF FOOD AND VOMIT Status: Acute Qualifiers: Laterality: bilateral Comment: Due to vomiting of coffee ground emesis from GI bleed, bronchoscopy with lavage during initial code (5) Leukocytosis Code(s): D72.829 - ELEVATED WHITE BLOOD CELL COUNT, UNSPECIFIED Status: Acute (6) Protein-calorie malnutrition, moderate Code(s): E44.0 - MODERATE PROTEIN-CALORIE MALNUTRITION Status: Acute (7) C. difficile diarrhea Code(s): A04.72 - ENTEROCOLITIS D/T CLOSTRIDIUM DIFFICILE, NOT SPCF RECUR Status: Acute - Plan pt started on vanco, new dx cdiff -: will give ns bolus, pt may need pressors -: hh stable * . Review of Systems - Review of Systems Other: pt intubated - Medications/Allergies Allergies/Adverse Reactions: Allergies Allergy/AdvReac Type Severity Reaction Status Date / Time No Known Allergies Allergy Unverified 09/19/16 12:31 Medications: Current Medications Acetaminophen (Tylenol Elixir) 650 mg PER TUBE Q6H PRN PRN Reason: Fever > 101 Last Admin: 03/06/19 12:49 Dose: 650 mg Albuterol/Ipratropium (Duoneb) 3 ml NEB [id number] [facility] Last Admin: 03/06/19 18:17 Dose: 3 ml Amiodarone HCl (Cordarone) 400 mg PER TUBE BID [facility] Last Admin: 03/06/19 20:53 Dose: 400 mg Dextrose/Water (Dextrose 50%) 25 gm SLOW IVP PRN PRN PRN Reason: Hypoglycemia Last Admin: 03/05/19 05:18 Dose: 25 gm Enoxaparin Sodium (Lovenox) 40 mg SC 2100 [facility] Last Admin: 03/06/19 20:53 Dose: 40 mg Glucagon (Glucagon) 1 mg IM PRN PRN PRN Reason: Hypoglycemia Hydralazine HCl (Apresoline) 10 mg SLOW IVP Q4H PRN PRN Reason: SBP > 180 and HR < 70 Last Admin: 03/01/19 21:06 Dose: 10 mg Hydrocortisone (Cortef) 10 mg PO BID [facility] Last Admin: 03/06/19 20:52 Dose: 10 mg Potassium Chloride 40 meq/ (Sodium Chloride) 270 mls @ 135 mls/hr IVPB ASDIR PRN PRN Reason: FOR SERUM K+ 2.5 - 3.5 Potassium Chloride 40 meq/ (Device) 100 mls @ 50 mls/hr IVPB ASDIR PRN PRN Reason: FOR SERUM K+ 2.5 - 3.5 Last Admin: 03/03/19 12:42 Dose: 100 mls Magnesium Sulfate 1 gm/ Sodium (Chloride) 102 mls @ 102 mls/hr IV PRN PRN PRN Reason: MAG LEVEL 1.4 - 2.0 Last Admin: 02/23/19 08:35 Dose: 102 mls Magnesium Sulfate 2 gm/ Device 50 mls @ 50 mls/hr IVPB ASDIR PRN PRN Reason: MAGNESIUM < 1.4 Potassium Phosphate 9 mmol/ (Sodium Chloride) 103 mls @ 25.75 mls/hr IVPB ASDIR PRN PRN Reason: Phosphate 1.0-1.8 Potassium Phosphate 12 mmol/ (Sodium Chloride) 254 mls @ 63.5 mls/hr IV ASDIR PRN PRN Reason: Serum phosphate 0.5-0.9 Potassium Phosphate 15 mmol/ (Sodium Chloride) 255 mls @ 63.75 mls/hr IV ASDIR PRN PRN Reason: Serum Phos < 0.5 Dextrose/Water (D5w) 1,000 mls @ 0 mls/hr IV .Q0M PRN PRN Reason: Hypoglycemia Sodium Acetate 70 meq/Potassium Acetate 40 meq/Potassium Chloride 40 meq/ Calcium Gluconate 10 meq/Magnesium Sulfate 10 meq/Multivitamins 10 ml/ Chromium/ Copper/Manganese/Seleni/Zn 5 ml/ Insulin Human Regular 14 units/ Dextrose/Water / Sterile Water/ Amino Acids 1,414.3421 mls @ 58.931 mls/hr IV 1400 [facility] Stop: 03/07/19 13:59 Last Admin: 03/06/19 14:22 Dose: 1,414.3421 mls Lactated Ringer's (Lactated Ringer's) 1,000 mls @ 0 mls/hr IV .Q0M [facility] Dexmedetomidine HCl 200 mcg/ (Sodium Chloride) 50 mls @ 0 mls/hr IVPB INF PRN; Protocol PRN Reason: .RESTLESSNESS Last Admin: 03/04/19 20:22 Dose: 50 mls Dextrose/Water (Dextrose 10% In Water) 1,000 mls @ 0 mls/hr IV .Q0M [facility] Last Admin: 03/04/19 14:25 Dose: 1,000 mls Sodium Acetate 70 meq/Potassium Acetate 60 meq/Calcium Chloride 10 meq/ Multivitamins 10 ml/ Chromium/Copper/Manganese/Seleni/Zn 5 ml/ Insulin Human Regular 26 units/ Dextrose/Water/ Sterile Water/ Amino Acids 1,287.6129 mls @ 53.651 mls/hr IV 1400 [facility] Norepinephrine Bitartrate (Levophed) 250 mls @ 0 mls/hr IVPB INF PRN; Protocol PRN Reason: Blood Pressure Insulin Human Lispro (Humalog) 0 units SC .MILD SLIDING SCALE PRN PRN Reason: Mild Correctional Scale Last Admin: 03/06/19 16:23 Dose: 4 unit Iron/Minerals/Multivitamins (Certa Ana Liquid) 15 ml PER TUBE DAILY [facility] Last Admin: 03/06/19 09:25 Dose: 15 ml Lorazepam (Ativan) 0.5 mg PO PRN PRN PRN Reason: Anxiety Last Admin: 03/06/19 11:22 Dose: 0.5 mg Magnesium Oxide (Magnesium Oxide) 400 mg PO BIDPRN PRN PRN Reason: FOR SERUM MAG 1.4 - 2.0 Magnesium Oxide (Magnesium Oxide) 800 mg PO PRN PRN PRN Reason: FOR SERUM MAG < 1.4 Metoprolol Tartrate (Lopressor) 6.25 mg PO BID [facility] Last Admin: 03/06/19 20:54 Dose: Not Given Miscellaneous Medication (Phos-Nak) 1 pkt PO TIDPRN PRN PRN Reason: FOR PHOS LEVEL 1.0 - 1.8 Miscellaneous Medication (Phos-Nak) 2 pkt PO TIDPRN PRN PRN Reason: FOR PHOS LEVEL 0.5 - 1.0 Miscellaneous Medication (Ventilator Sedation Protocol) 1 each FS 1800 [facility] Last Admin: 03/06/19 19:22 Dose: Not Given Morphine Sulfate (Morphine) 2 mg SLOW IVP Q1H PRN PRN Reason: BREAKTHROUGH PAIN/Agitation Stop: 03/24/19 18:10 Last Admin: 03/03/19 15:12 Dose: 2 mg Morphine Sulfate (Morphine) 4 mg SLOW IVP Q2H PRN PRN Reason: .RESTLESS/PAIN Last Admin: 03/05/19 16:19 Dose: 4 mg Ccu Electrolyte (Replacement Protocol) 0 each FS PRN PRN PRN Reason: FOR ELECTROLYTE REPLACEMENT Ondansetron HCl (Zofran) 4 mg IVP Q6H PRN PRN Reason: Nausea/Vomiting Pantoprazole Sodium (Protonix) 40 mg IVP Q12HR [facility] Last Admin: 03/06/19 20:53 Dose: 40 mg Potassium Chloride (K-Dur) 40 meq PO ASDIR PRN PRN Reason: FOR SERUM K+ 2.5 - 3.5 Last Admin: 03/05/19 06:34 Dose: 40 meq Potassium Chloride (Klor-Con) 40 meq PER TUBE ASDIR PRN PRN Reason: FOR SERUM K+ 2.5-3.5 Risperidone (Risperidone) 0.25 mg PO BID [facility] Last Admin: 03/06/19 20:54 Dose: 0.25 mg Scopolamine (Transderm Scop) 1.5 mg TOP Q3D [facility] Last Admin: 03/06/19 15:42 Dose: 1.5 mg Sodium Chloride (Flush - Normal Saline) 10 ml IVF PRN PRN PRN Reason: Saline Flush Last Admin: 02/19/19 21:31 Dose: 10 ml Sodium Chloride (Normal Saline Pf) 10 ml FS PRN PRN PRN Reason: RECONSTITUTION Last Admin: 03/03/19 21:19 Dose: 10 ml Vancomycin HCl (First Vancomycin) 125 mg PER TUBE QID [facility] Last Admin: 03/06/19 20:52 Dose: 125 mg
[2019-03-06] MEDS: Norepinephrine 8 MG/250 ML BAG IVPB PRN (21:51)
[2019-03-06] MEDS: Morphine 4 MG/ML VIAL SLOW IVP PRN (23:11)
[2019-03-07 04:39] LABS: Band 12 % (5-11); Eosinophils 3 % (0-10); Hemoglobin 8.2 g/dL (14.0-18.0); Lymphocytes 8 % (21-51); MDiff Complete? YES; Mean Corpuscular HGB CONC 31.5 g/dL (32.0-36.0); Mean Corpuscular Hemoglobin 30.7 pg (27.0-31.0); Mean Corpuscular Volume 97.4 fL (78.0-98.0); Mean Platelet Volume 10.3 fL (7.4-10.4); Monocytes 5 % (0-10); Neutrophil 72 % (42-75); Platelet Count 157 thou/uL (130-400); RBC Distribution Width 17.4 % (11.5-14.5); Red Blood Cell (RBC) Count 2.66 mill/uL (4.70-6.10); White Blood Cell (WBC) Count 30.6 thou/uL (4.8-10.8)
[2019-03-07] MEDS: Morphine 4 MG/ML VIAL SLOW IVP PRN ×3 (04:47→16:27)
[2019-03-07] MEDS: Lorazepam 0.5 MG TAB PO PRN (04:47)
[2019-03-07] MEDS: Norepinephrine 8 MG/250 ML BAG IVPB PRN ×2 (04:55→10:51)
[2019-03-07] MEDS ORDERED: Albumin 25% 25 GM/100 ML BOT IVPB SCH (08:03)
--- NOTE | 2019-03-07 08:28 | PRG ---
DATE OF SERVICE: 03/07/2019 SUBJECTIVE: Last night, became hypotensive. Restarted on Levophed. He is on high dose of 25 mcg. OBJECTIVE: VITAL SIGNS: Pulse 116 irregular, blood pressure 102/68, saturations are 95% on 30%, respiratory rate is 26. I's and O's are consistently slightly ahead. NEUROLOGIC: He is encephalopathic, but nods appropriately. EXTREMITIES: Still cyanotic. CHEST: Decreased breath sounds. Anterior rhonchi. CARDIAC: Atrial fibrillation. ABDOMEN: Soft. EXTREMITIES: No edema. LABORATORY DATA: His stool is surprisingly positive for C. diff. He is on vancomycin. His white count is 30,000. His platelet count is improved 157,000. IMPRESSION: 1. Congestive heart failure. 2. Lap. 3. C. diff colitis with atrial fibrillation. 4. Hypertension. 5. Sepsis syndrome. 6. Massive aspiration. 7. Encephalopathy. I am going to add low-dose dig to his present regime. Otherwise, continue supportive care. Try and wean Levophed, if possible. I will increase his hydrocortisone to 10 twice a day. He has relative adrenal insufficiency. In fact, he has mason hypoadrenal syndrome, was taking replacement cortisone for years. Otherwise, continue nutritional support, PT. One-half hour of critical care time. Job ID: [id number]
[2019-03-07] MEDS: Metoprolol Tartrate 25 MG TAB PO SCH (08:33)
[2019-03-07] MEDS: Amiodarone 200 MG TAB PER TUBE SCH (08:33)
[2019-03-07] MEDS: Vancomycin HCl 25 MG/ML Oral PER TUBE SCH ×4 (08:33→21:14)
[2019-03-07] MEDS: Pantoprazole 40 MG VIAL IVP SCH ×2 (08:35→21:14)
[2019-03-07] MEDS: risperiDONE 0.25 MG TAB PO SCH ×2 (08:35→21:15)
--- NOTE | 2019-03-07 08:52 | PRG ---
DATE OF SERVICE: 03/07/2019 SUBJECTIVE: The patient is seen and examined at the bedside. He is not responsive to me, although he wakes up and starts moving around, but there is not much communication with him. OBJECTIVE: VITAL SIGNS: Blood pressure is 100/63, pulse is 113, respiratory rate is 31, and O2 saturation is 99%, he is on the ventilator. He has tracheostomy tube through which he is connected to a ventilator. LUNGS: Breath sounds somewhat diminished at the both bases. HEART: S1 and S2, tachycardic. No S3. No S4. ABDOMEN: Nondistended. Colostomy bag in place. PEG tube in place. Postsurgical incision in the midline is healing properly. There are some parvez and strips in place. Bowel sounds are very sluggish. EXTREMITIES: Cold feet with a bluish discoloration, especially plantar part of the left foot. NEUROLOGIC: Postponed. LABORATORY DATA: White count of 30.6, hemoglobin of 8.2, hematocrit 25.9, and platelet count is 159,000. Microbiology shows Clostridium difficile antigen/toxin positive. IMPRESSION: 1. [id number] respiratory failure with hypoxia. 2. Acute upper gastrointestinal hemorrhage, status post laparotomy with pyloroplasty. 3. Anoxic brain injury, status post cardiac arrest. 4. Aspiration pneumonia. 5. Clostridium difficile colitis. 6. Hypotension, on vasopressors with some ischemic signs of both feet. PLAN: He is started on vancomycin through the tube for his Clostridium difficile colitis. His systolic blood pressure is barely 100. He is on amiodarone through the tube and he is going to continue on TPN and we will discuss the case with the family when they come around today, it is very complicated and the chances for him to survive are getting small in view of multiple organ failure. Job ID: [id number]
[2019-03-07] MEDS: Hydrocortisone 10 mg Tablet PO SCH ×2 (08:54→21:14)
[2019-03-07] MEDS: Multivits W-Minerals Liquid 15mL UDCUP PER TUBE SCH (08:54)
[2019-03-07] MEDS: Digoxin 0.25 MG TAB PO SCH (09:21)
[2019-03-07] MEDS ORDERED: Lactated Ringer's 1,000 ML IV SCH (14:00)
--- NOTE | 2019-03-07 14:39 | PRG ---
DATE OF SERVICE: 03/07/2019 SUBJECTIVE: Mr. Stroud has not done well overnight. He has required Levophed 10 mcg now. Blood pressure is 90-106 on 10 mcgs of Levophed drip. The patient's lungs are clear to auscultation with infiltrates improving on chest x-ray. Mild tachycardia 104. Abdomen is soft, but he is tender and grimaces to palpation on any part of the abdomen. There is no significant guarding. Extremities unremarkable except for mottled feet and toes. The patient's urine output in the last 24 hours is 1335 and days past he has had as much as 3-6 L out. The old drain site, right upper quadrant is draining serous drainage, has not been draining hardly anything recently. The patient has had a fever in the last 24 hours of 201 degrees, currently 100 degrees. He is C. diff antigen toxin positive and his meropenem was then discontinued yesterday and he has been started on Vancocin per NG tube. His diarrhea has stopped. LABORATORY DATA: The patient's sodium is 144, potassium 3.9, carbon dioxide 25, BUN 54, creatinine 0.82. Accu-Cheks 81-291. His bilirubin was 3.9 yesterday. The patient's basic metabolic profile reported above was yesterday. His white count is 30 today, up from 22 last night. Hemoglobin 8.2, down from 9.2 yesterday. ASSESSMENT AND PLAN: 1. Sepsis with fever, increased leukocytosis. With his hemoglobin of 8 with requiring Levophed, I would transfuse him. I would give him a liter of LR and increase his IV fluids. He has TPN running at 56 mL/h. We will give him LR at 75 per hour. We would recheck his current metabolic profile in the morning as well as a CBC. We will give him albumin q.6 hours for the next 3 days. I would obtain a CT scan of the abdomen and pelvis because of Clostridium difficile colitis and recent surgery and fever and leukocytosis and mottled feet and apparent sepsis. His central line was recently changed and is unlikely the culprit. 2. Clostridium difficile colitis. Continue Vancocin per PEG tube. Diarrhea has stopped. Await CAT scan results. Job ID: [id number]
[2019-03-07] MEDS: POTASSIUM ACETATE IV SCH (14:44)
[2019-03-07] MEDS: CALCIUM CHLORIDE IV SCH (14:44)
[2019-03-07] MEDS: [UNRECOGNIZED DRUG - OTHER] IV SCH (14:44)
[2019-03-07] MEDS: SODIUM ACETATE IV SCH (14:44)
[2019-03-07] MEDS: Lactated Ringer's 1,000 ML IV SCH (15:05)
--- NOTE | 2019-03-07 16:17 | CT ---
CT Abdomen Pelvis W Con: 03/07/2019 1:59 PM CLINICAL INFORMATION: Abdominal pain. History of surgery to repair bleeding duodenal ulcer COMPARISON: 02/25/2019 TECHNIQUE: Multiple contiguous axial images were obtained and a CT of the abdomen and pelvis with IV contrast. Oral contrast was administered. Coronal reformats were performed. FINDINGS: Lower Chest: Small bilateral pleural effusions with adjacent atelectasis. There are possible areas of lung necrosis in the areas of consolidation in the lower lobes. Abdomen: Liver: within normal limits. Bile Ducts: Normal caliber. Gallbladder: No calcified gallstones. Normal caliber wall. Pancreas: within normal limits. Spleen: within normal limits. Adrenals: within normal limits. Kidneys: Right kidney is unremarkable. The left kidney is absent. Pelvis: Reproductive Organs: No pelvic masses. Ureters: within normal limits. Bladder: Decompressed by a Garcia catheter. Peritoneum: There is a small amount of ascites. No free air is seen in the abdomen or pelvis. Bowel: The small bowel is normal in caliber. The stomach is distended. There is apparent thickening o f the wall of the colon with mucosal enhancement. Mesentery and Retroperitoneum: No enlarged mesenteric or retroperitoneal lymph nodes. Vessels: Atherosclerotic calcifications. Abdominal Wall: Diffuse soft tissue anasarca Bones: Degenerative changes in the spine IMPRESSION: 1. Nonspecific wall thickening of the colon could be secondary to colitis. This can be secondary to a n infectious or inflammatory cause. 2. Bilateral pleural effusions with adjacent atelectasis versus infiltrates. There are possibly areas of lung necrosis amongst the areas of consolidation in the lower lobes.
[2019-03-07] MEDS: Albumin 25% 25 GM/100 ML BOT IVPB SCH (17:47)
--- NOTE | 2019-03-07 18:09 | PDOC.CTH ---
Cardiology Progress Note - Subjective Remains ventilated through his trach. - Objective Vital Signs Temp Pulse Pulse Resp BP BP Pulse Ox 03/07/19 17:15 98.8 F 92 45 H 89/63 L 94 L 03/07/19 17:03 99.8 F H 97 40 H 115/80 94 L 03/07/19 16:30 96 110/69 03/07/19 16:00 99.9 F H 38 H 03/07/19 15:30 99.9 F H 98 35 H 108/71 100 03/07/19 15:16 100 F H 101 H 35 H 101/71 95 03/07/19 14:07 105 H 107/74 03/07/19 14:00 27 H 03/07/19 13:55 103 H 32 H 100 03/07/19 12:00 100 F H 27 H 03/07/19 10:39 109 H 105/69 03/07/19 10:00 34 H 03/07/19 09:21 118 H 03/07/19 08:00 34 H 03/07/19 07:35 113 H 100/63 03/07/19 07:34 113 H 31 H 99 03/07/19 07:29 100 03/07/19 07:00 99.0 F Admit Weight 144 lb 6.444 oz Weight 128 lb 4.944 oz 03/06/19 03/07/19 03/08/19 06:59 06:59 06:59 Intake Total 2165 3073 430 Output Total 1885 1335 675 Balance 280 1738 -245 - Physical Examination General/Neuro: NAD Neck: no JVD present Lungs: unlabored respirations Heart: RRR Abdomen: NT/ND Extremities: other: (no edema, necrotic distal toes likely from sepsis.) - Telemetry Telemetry Rhythm: S Tach. - Labs Result Diagrams: 03/07/19 03:45 03/06/19 05:30 Troponin/CKMB Troponin I Less than 0.010 ng/mL (< 0.028) 02/17/19 16:26 - Assessment/Plan 1. Acute blood loss anemia, hgb stable. 2. Severe symptomatic anemia 3. ST elevations on ECG while Hgb 3.9 4. Dilated CM EF at 35-40% 5. Acute on chronic systolic heart failure. Resolved. 6. Afib RVR, still in sinus. 7. Aspiration. 8. Possible CVA, not moving left side. 9. C-Diff colitis PLAN: - Continue PO amiodarone for afib at maintenance dose of 200 mg daily. - No anticoagulation given life-threatening bleed. - Continue to hold lasix. and metoprolol. - Replace K. - Abx per primary team. - Going in and out of afib, currently in sinus in the 80's. - Wean levophed as tolerated. - Agree with fluids and blood products.
[2019-03-07] MEDS: Ventilator Sedation Protocol 1 EACH FS SCH (21:13)
[2019-03-07] MEDS: Enoxaparin Sodium 40 MG/0.4 ML SYRINGE SC SCH (21:14)
[2019-03-08] MEDS: Norepinephrine 8 MG/250 ML BAG IVPB PRN (00:22)
[2019-03-08] MEDS: Albumin 25% 25 GM/100 ML BOT IVPB SCH ×4 (00:22→18:03)
[2019-03-08] MEDS: Morphine 2 MG/ML SYRINGE SLOW IVP PRN (00:36)
[2019-03-08] MEDS: Lactated Ringer's 1,000 ML IV SCH ×2 (05:13→18:04)
[2019-03-08 06:26] LABS: ALT (SGPT) 108 U/L (8-55); AST (SGOT) 62 U/L (5-34); Alkaline Phosphatase 102 U/L (40-150); Anion Gap 9 mmol/L (10-20); BUN (Urea Nitrogen) 72 mg/dL (8.4-25.7); Bilirubin, Total 2.4 mg/dL (0.2-1.2); Calc. Creatinine Clearance 49 mL/min (70-130); Calcium 8.6 mg/dL (7.8-10.44); Carbon Dioxide 25 mmol/L (23-31); Chloride 116 mmol/L (98-107); Estimated GFR-MDRD 60; Globulin 1.8 g/dL (2.4-3.5); Glucose 94 mg/dL (80-115); Protein, Total 4.8 g/dL (5.8-8.1); Sodium 146 mmol/L (136-145)
[2019-03-08 06:34] LABS: Hemoglobin 8.9 g/dL (14.0-18.0); Mean Corpuscular Hemoglobin 30.1 pg (27.0-31.0); Mean Corpuscular Volume 94.3 fL (78.0-98.0); Mean Platelet Volume 10.5 fL (7.4-10.4); Platelet Count 100 thou/uL (130-400); RBC Distribution Width 16.3 % (11.5-14.5); Red Blood Cell (RBC) Count 2.94 mill/uL (4.70-6.10); White Blood Cell (WBC) Count 29.5 thou/uL (4.8-10.8)
[2019-03-08 08:05] LABS: Anisocytosis SLIGHT = 6-15 cells (100X) (0-5/hpf); Band 26 % (5-11); Eosinophils 1 % (0-10); Lymphocytes 2 % (21-51); MDiff Complete? YES; Monocytes 3 % (0-10); Neutrophil 68 % (42-75); Platelet Morphology Comment Appears Decreased; Polychromasia MODERATE = 3-4 cells (100X) (0-2/hpf); Schistocytes SLIGHT = 2-5 cells (100X) (0-1/hpf); Toxic Granulation SLIGHT
--- NOTE | 2019-03-08 08:37 | RAD ---
XR Chest 1 View Portable History: [Congestive heart failure] Comparison: Radiograph March 06, 2019 Findings: Heart size is enlarged. Large right and moderate left pleural effusion. Moderate pulmonary edema. Tracheostomy is similar. Subclavian central venous catheter tip is similar. Gastrostomy tube projects over the stomach. Impression: Worsening edema and pleural effusions suggesting worsening congestive heart failure.
[2019-03-08] MEDS: Vancomycin HCl 25 MG/ML Oral PER TUBE SCH ×4 (09:29→20:22)
[2019-03-08] MEDS: Pantoprazole 40 MG VIAL IVP SCH ×2 (09:30→20:24)
[2019-03-08] MEDS: Sodium Chloride 0.9% (PF) 10 ML VIAL FS PRN (09:31)
[2019-03-08] MEDS: metroNIDAZOLE 500 MG in Premix Bag 1 BAG IVPB SCH ×2 (09:31→17:59)
[2019-03-08] MEDS: Digoxin 0.25 MG TAB PO SCH (09:32)
[2019-03-08] MEDS: risperiDONE 0.25 MG TAB PO SCH ×2 (09:32→20:23)
[2019-03-08] MEDS: Hydrocortisone 10 mg Tablet PO SCH ×2 (09:32→20:24)
[2019-03-08] MEDS: Amiodarone 200 MG TAB PO SCH (09:32)
[2019-03-08] MEDS: Multivits W-Minerals Liquid 15mL UDCUP PER TUBE SCH (09:32)
--- NOTE | 2019-03-08 09:46 | PDOC.PN ---
- Subjective Encounter Start Date: 03/08/19 (f/u elevated lft's) Encounter Start Time: 09:44 Subjective: Pt remains ventilated on trach, on pressor support. no overnight -: events reported - Objective Resuscitation Status - Order Detail: 03/05/19 12:16 Resuscitation Status Routine Resuscitation Status: DNAR: NO Resuscitation Discussed with: Vital Signs & Weight: Vital Signs (12 hours) Temp Pulse Resp BP Pulse Ox 03/08/19 09:32 89 03/08/19 08:00 35 H 03/08/19 07:18 85 110/68 98 03/08/19 06:00 32 H 03/08/19 04:00 99.1 F 34 H 03/08/19 02:00 32 H 03/08/19 00:11 90 40 H 03/08/19 00:00 98.5 F 38 H 03/07/19 22:00 34 H Weight Admit Weight 144 lb 6.444 oz Weight 134 lb 14.766 oz Most Recent Monitor Data Heart Rate from ECG 88 NIBP 106/67 NIBP BP-Mean 77 Respiration from ECG 27 SpO2 100 I&O: 03/07/19 03/08/19 03/09/19 06:59 06:59 06:59 Intake Total 3073 5279.5 Output Total 1335 3745 Balance 1738 1534.5 Result Diagrams: 03/08/19 05:20 03/08/19 05:20 Additional Labs: Accuchecks 03/08/19 03/03/19 05:28 10:07 POC Glucose 89 107 EKG Reviewed by me: Yes (sinus 80's with intermittent a fib) Phys Exam - Physical Examination Constitutional: NAD moving head, makes eye contacts, moving mouth to speak - I'm unable to understand, makings facial gestures Respiratory: no wheezing, no rales, no rhonchi Cardiovascular: RRR, no significant murmur Gastrointestinal: soft, positive bowel sounds not moving left arm as much as right Deviation from normal: unable to adequately assess Deviation from normal: necrotic toes left > right with foot involvement ( cyanosis to metatarsals) -: loss of right great toenail Dx/Plan (1) Cardiac arrest Code(s): I46.9 - CARDIAC ARREST, CAUSE UNSPECIFIED Status: Acute (2) Tachycardia Code(s): R00.0 - TACHYCARDIA, UNSPECIFIED Status: Acute (3) Elevated liver function tests Code(s): R94.5 - ABNORMAL RESULTS OF LIVER FUNCTION STUDIES Status: Acute (4) Hypokalemia Code(s): E87.6 - HYPOKALEMIA Status: Resolved (5) Acute and chronic respiratory failure with hypoxia Code(s): J96.21 - ACUTE AND CHRONIC RESPIRATORY FAILURE WITH HYPOXIA Status: Acute (6) Acute upper GI hemorrhage Code(s): K92.2 - GASTROINTESTINAL HEMORRHAGE, UNSPECIFIED Status: Acute (7) Anemia due to acute blood loss Code(s): D62 - ACUTE POSTHEMORRHAGIC ANEMIA Status: Acute (8) Duodenal ulcer hemorrhagic Code(s): K26.4 - CHRONIC OR UNSPECIFIED DUODENAL ULCER WITH HEMORRHAGE Status : Acute (9) Hypertension Code(s): I10 - ESSENTIAL (PRIMARY) HYPERTENSION Status: Resolved (10) SALLY (acute kidney injury) Code(s): N17.9 - ACUTE KIDNEY FAILURE, UNSPECIFIED Status: Resolved (11) Hypernatremia Code(s): E87.0 - HYPEROSMOLALITY AND HYPERNATREMIA Status: Acute (12) Anoxic brain injury Status: Acute (13) C. difficile diarrhea Code(s): A04.72 - ENTEROCOLITIS D/T CLOSTRIDIUM DIFFICILE, NOT SPCF RECUR Status: Acute - Plan * Pt remains critically ill with multiple specialists involved in his care: * Pulmonology -has trach, on vent * Gen Surgery - on tPN, recoving from laparotomy with pyloroplasty * GI - elevated lft's which are improved today * Cardilogy for paroxysmal a fib * On Vanc for c diff colitis * On pressor support with ischemic injury to feet * * dvt prophy - scd's * gi prophy - none for now * code status DNAR * * Pt remains at high risk of in-hospital decompensation given the significant critical illness/multi-organ involvement.
--- NOTE | 2019-03-08 10:32 | PRG ---
DATE OF SERVICE: 03/08/2019 SUBJECTIVE: This morning, he is still encephalopathic, awake, but more responsive. OBJECTIVE: VITAL SIGNS: Saturations are 98%, his blood pressure is 110/68 on Levophed, respiratory rate is about 30. He is afebrile. Temperature is 99. He had a large amount of contrast aspirated yesterday. I's and O's have been slightly ahead. NEUROLOGICAL: He nods appropriately. CHEST: Decreased breath sounds. Rhonchi. CARDIAC: SVT. ABDOMEN: Soft. LABORATORY DATA: White count 29,000, H and H , platelet count has improved to 100,000. His albumin is low. His liver function is still abnormal. Bilirubin is 2.4. IMAGING STUDIES: He had a CT scan of the abdomen yesterday, which did not show anything specific. IMPRESSION: 1. Ongoing recurrent aspiration. 2. Sepsis, leukocytosis, has been on antibiotics for 2 weeks to be discontinued. 3. Recurrent aspiration. 4. Severe deconditioning. 5. Supraventricular tachycardia. 6. Abnormal liver function tests. 7. Clostridium difficile colitis. PLAN: At this stage, he is not weanable. We are trying to get him into a LTAC. Restarted his DVT prophylaxis. Restarted his low-dose hydrocortisone for adrenal insufficiency. He is off all antibiotics. If he spikes temperature, we have to restart IV antibiotics. Prognosis is guarded. One-half hour of critical time. Job ID: [id number]
--- NOTE | 2019-03-08 11:34 | PRG ---
DATE OF SERVICE: 03/08/2019 SUBJECTIVE: Mr. Stroud is in ICU on the ventilator. His Levophed has been discontinued after IV fluids resuscitated yesterday and 2 units of blood transfused. The patient's hemoglobin on this morning is 8.9 after 2 units of blood given for a hemoglobin of 8.6 with him on high-dose Levophed. Today, his urine output is improved. His Levophed has been discontinued. Sodium 146, potassium 4, BUN 72, and creatinine 1.2. The patient last night had a CAT scan of the abdomen and pelvis. Oral contrast backed up into his trachea and did not empty well of a stomach. There are not any remarkable findings. On his CAT scan, no evidence of abscess or other problems. This morning, the patient's hemoglobin is 8.9 and white count 29.5. OBJECTIVE: LUNGS: Clear to auscultation with few rhonchi. No wheezing. CARDIAC: Regular rate and rhythm. ABDOMEN: Soft and less tenderness. Diarrhea less. EXTREMITIES: Unremarkable. The patient does have 26% bands on his differential this morning. His feet are mottled. He has some gangrenous changes over one or two of his toes. ASSESSMENT AND PLAN: 1. Sepsis syndrome. With clostridium difficile colitis, he is on Vancocin per percutaneous endoscopic gastrostomy tube and IV Flagyl. His other antibiotics have been discontinued. 2. Acute kidney injury, nonoliguric, stable. 3. Sepsis syndrome with mottled feet, now off his Levophed. Hopefully these will improve with time. 4. Poor gastric emptying. Continue TPN. Hold tube feeding efforts today. May resume tomorrow. 5. Respiratory failure, on the ventilator. 6. Malnutrition. 7. History of aspiration pneumonia, acute respiratory distress syndrome, hemorrhaging duodenal ulcer. 8. Cardiomyopathy per Cardiology. Job ID: [id number]
[2019-03-08] MEDS: POTASSIUM ACETATE IV SCH (13:57)
[2019-03-08] MEDS: [UNRECOGNIZED DRUG - OTHER] IV SCH (13:57)
[2019-03-08] MEDS: CALCIUM CHLORIDE IV SCH (13:57)
[2019-03-08] MEDS: SODIUM ACETATE IV SCH (13:57)
--- NOTE | 2019-03-08 16:09 | PRG ---
DATE OF SERVICE: 03/08/2019 SUBJECTIVE: Mr. Stroud looks much more alert today, I came by yesterday, he was getting a CAT scan downstairs. He had been started on the vancomycin and Flagyl for C difficile, they came back positive on the . His liver function tests have come down as well. PRESENT MEDICATIONS: 1. Tylenol elixir. 2. Albumin. 3. DuoNeb. 4. Coreg. 5. Dexmedetomidine. 6. Lanoxin. 7. Hydrocortisone. 8. LR. 9. TPN. 10. Flagyl 500 IV q.8. 11. Levophed. 12. Vancomycin 500 q.i.d. per PEG tube. PHYSICAL EXAMINATION: VITAL SIGNS: Pulse is 95, blood pressure 117/69. NECK: He has trach collar on. GENERAL: He is much more alert, trying to talk, did shake my hand. Purposeful movements. LUNGS: Clear. ABDOMEN: Soft and nontender. No rebound or guarding. LABORATORY DATA: White count is 29,000, hemoglobin is 8.9, platelet count is 100,000, 26% bands. Sodium 146, potassium 4, BUN and creatinine are 72 and 1.21. Bilirubin is 2.4, AST and ALT are 62 and 108, alkaline phosphatase 102. C difficile toxin positive at 12:00 on 03/06. CT scan yesterday did show some scant abdominal fluid, but no overt abscesses, normal liver and bile ducts, nonspecific wall thickening of the colon, bilateral effusions, consolidation in lower lobes of the lung. ASSESSMENT: 1. Severe aspiration pneumonia. 2. Severe hemorrhage from gastrointestinal bleed from duodenal ulcer, ultimately requiring surgery to control that hemorrhage. 3. Clostridium difficile colitis. 4. On TPN presently. 5. Mental status is much better than it had been in previous days. 6. Poor gastric emptying, possibly related to recent surgery. 7. Sepsis syndrome with mottled feet and hands. He is off Levophed again now. Recommendations, I agree to continue TPN, continue vancomycin per PEG and IV Flagyl. If he does not continue to have improvement, we can think about giving rectal vancomycin. 8. Aspiration pneumonia with ARDS. 9. Cardiomyopathy. We will follow along with you. Job ID: [id number]
--- NOTE | 2019-03-08 17:33 | PDOC.EVN ---
Event Note - Event Note Event Note: Spoke to patients around 16:00 today - about the critical illness, current challenges. Mrs. Stroud was asking if the patient is any better now than a few weeks ago. Discussed that the current challenges are different - he is on pressor support and it's affecting his feet; he experienced a cardiac arrest and there's concern for anoxic brain injury and ischemic injury to the brain causing left sided weakness/deficits. Discussed LTAC was not approved by his insurance, he remains on the vent. His asked how to know if we are doing the right things for the patient, and if he will get better. She sees that we can continue to respond/react to what his body needs. We talked about how there are no overt signs of decline. To consider on Monday sitting down to talk with Dr. Sherman, the Primary Business Sales Consultant from the beginning. He will be the best one to compare where the patient's condition is at, where it looks like it's going, and what decisions can be made. At this time, the treatment he is receiving is necessary for survival. We talked about the likelihood of recovery is low in the face of multi-organ involvement - but it's not zero. She agreed with the plan, there were no further questions at the end of the conversation.
[2019-03-08] MEDS: Dextrose 50% Abboject 50 ML SYRINGE SLOW IVP PRN (18:08)
[2019-03-08] MEDS: Enoxaparin Sodium 40 MG/0.4 ML SYRINGE SC SCH (20:23)
--- NOTE | 2019-03-08 21:37 | RAD ---
SUPINE ABDOMEN: 03/08/19 HISTORY: Assess PEG tube placement. FINDINGS/IMPRESSION: Contrast has been injected through the indwelling PEG tube. Contrast opacifies the stomach indicatin g adequate position. There are gas filled dilated loops of small bowel noted. POS: AGW
[2019-03-08] MEDS: Ventilator Sedation Protocol 1 EACH FS SCH (23:21)
[2019-03-09] MEDS: metroNIDAZOLE 500 MG in Premix Bag 1 BAG IVPB SCH ×3 (00:22→16:29)
[2019-03-09 05:01] LABS: Band 4 % (5-11); Hemoglobin 8.6 g/dL (14.0-18.0); MDiff Complete? YES; Mean Corpuscular Hemoglobin 30.6 pg (27.0-31.0); Mean Corpuscular Volume 95.7 fL (78.0-98.0); Monocytes 1 % (0-10); Neutrophil 95 % (42-75); Platelet Count 78 thou/uL (130-400); Platelet Morphology Comment Appears Decreased; Red Blood Cell (RBC) Count 2.81 mill/uL (4.70-6.10); White Blood Cell (WBC) Count 20.7 thou/uL (4.8-10.8)
[2019-03-09 05:08] LABS: ALT (SGPT) 60 U/L (8-55); AST (SGOT) 39 U/L (5-34); Albumin 2.9 g/dL (3.4-4.8); Alkaline Phosphatase 74 U/L (40-150); Anion Gap 4 mmol/L (10-20); BUN (Urea Nitrogen) 59 mg/dL (8.4-25.7); Bilirubin, Total 2.2 mg/dL (0.2-1.2); Calc. Creatinine Clearance 70 mL/min (70-130); Calcium 8.5 mg/dL (7.8-10.44); Carbon Dioxide 28 mmol/L (23-31); Chloride 119 mmol/L (98-107); Estimated GFR-MDRD 79; Globulin 1.5 g/dL (2.4-3.5); Glucose 72 mg/dL (80-115); Potassium 3.3 mmol/L (3.5-5.1); Protein, Total 4.4 g/dL (5.8-8.1); Sodium 148 mmol/L (136-145)
[2019-03-09] MEDS: Potassium Chloride 40 MEQ in Premix Bag 1 BAG IVPB PRN (06:14)
[2019-03-09] MEDS: Lactated Ringer's 1,000 ML IV SCH (06:16)
--- NOTE | 2019-03-09 08:46 | PDOC.GSPN ---
Surgery Progress Note: Subj - Subjective Narrative: No change Surgery Progress Note: Obj - Vital signs Vital signs: Vital Signs - Most Recent Temp Pulse Resp BP Pulse Ox 97.8 F 88 39 H 104/71 100 03/09/19 08:00 03/09/19 07:54 03/09/19 08:00 03/09/19 07:54 03/09/19 07:54 - Physical Exam Cardiovascular: regular rate and rhythm Respiratory: breath sounds present Abdomen: soft, distended Wound: healing well Surgery Progress Note: Results - Labs Result Diagrams: 03/09/19 04:08 03/09/19 04:08 Lab results: Laboratory Results - last 24 hr 03/08/19 03/09/19 03/09/19 22:46 04:08 04:08 WBC 20.7 H RBC 2.81 L Hgb 8.6 L Hct 26.8 L MCV 95.7 MCH 30.6 MCHC 32.0 RDW 16.0 H Plt Count 78 L MPV 11.0 H Neutrophils % (Manual) 95 H Band Neuts % (Manual) 4 L Monocytes % (Manual) 1 Plt Morphology Comment Appears Decreased L Sodium 148 H Potassium 3.3 L Chloride 119 H Carbon Dioxide 28 Anion Gap 4 L BUN 59 H Creatinine 0.95 Estimated GFR (MDRD) 79 Glucose 72 L POC Glucose 87 Calcium 8.5 Total Bilirubin 2.2 H AST 39 H ALT 60 H Alkaline Phosphatase 74 Serum Total Protein 4.4 L Albumin 2.9 L Globulin 1.5 L Albumin/Globulin Ratio 1.9 03/09/19 04:14 WBC RBC Hgb Hct MCV MCH MCHC RDW Plt Count MPV Neutrophils % (Manual) Band Neuts % (Manual) Monocytes % (Manual) Plt Morphology Comment Sodium Potassium Chloride Carbon Dioxide Anion Gap BUN Creatinine Estimated GFR (MDRD) Glucose POC Glucose 74 Calcium Total Bilirubin AST ALT Alkaline Phosphatase Serum Total Protein Albumin Globulin Albumin/Globulin Ratio Surgery Progress Note: A/P - Problem (1) Acute and chronic respiratory failure with hypoxia Current Visit: Yes Code(s): J96.21 - ACUTE AND CHRONIC RESPIRATORY FAILURE WITH HYPOXIA Status: Acute (2) Acute upper GI hemorrhage Current Visit: Yes Code(s): K92.2 - GASTROINTESTINAL HEMORRHAGE, UNSPECIFIED Status: Acute (3) Anemia due to acute blood loss Current Visit: Yes Code(s): D62 - ACUTE POSTHEMORRHAGIC ANEMIA Status: Acute - Plan Plan: Adjusted Tpn, sugars low SLIP COVER SEWER
--- NOTE | 2019-03-09 09:13 | PRG ---
DATE OF SERVICE: 03/09/2019 TIME SPENT: 35 minutes of critical care time. SUBJECTIVE: The patient remains on mechanical ventilation through tracheostomy. He is awake. He is very tachypneic. OBJECTIVE: VITAL SIGNS: On exam, temperature is 97.8, pulse 94, blood pressure 109/73, and O2 saturation about 92%. Intake for the last 24 hours 3656, output 2140. He looks to have been in positive fluid balance since 03/05. HEENT: Notable for bitemporal wasting. NECK: Tracheostomy with spain secretions. LUNGS: Coarse breath sounds bilaterally. CARDIAC: S1 and S2, regular. ABDOMEN: Slightly distended. Bowel sounds hypoactive. PEG tube noted. EXTREMITIES: Trace edema throughout. LABORATORY DATA: White blood cell count 20.7, hematocrit 26.8, and platelet count 78. Sodium 148, potassium 3.3, chloride 119, CO2 of 28, BUN 59, creatinine 0.9, and glucose 72. ASSESSMENT: 1. Aspiration pneumonitis. 2. Acute respiratory failure, requiring mechanical ventilation and tracheostomy placement. 3. Leukocytosis. 4. Hypernatremia. 5. Thrombocytopenia. 6. Severe deconditioning. 7. Clostridium difficile colitis. PLAN: 1. In my opinion, he cannot advance with weaning at this time. We will continue him on antibiotics for the C difficile colitis. His enoxaparin will be held because of the diminishing platelet count. We will go ahead and stop the lactated Ringer's since he is becoming hypernatremic at his sodium is not decreased, then we may have to adjust the concentration in the TPN. 2. Recheck a chest x-ray tomorrow as yesterday's x-ray did not look very good compared to previous films. 3. Prognosis remains very poor. Job ID: [id number]
[2019-03-09] MEDS: Pantoprazole 40 MG VIAL IVP SCH ×2 (09:14→20:38)
[2019-03-09] MEDS: Multivits W-Minerals Liquid 15mL UDCUP PER TUBE SCH (09:16)
[2019-03-09] MEDS: Vancomycin HCl 25 MG/ML Oral PER TUBE SCH ×4 (09:16→20:38)
[2019-03-09] MEDS: Hydrocortisone 10 mg Tablet PO SCH ×2 (09:17→20:38)
[2019-03-09] MEDS: Amiodarone 200 MG TAB PO SCH (09:17)
[2019-03-09] MEDS: Digoxin 0.25 MG TAB PO SCH (09:17)
[2019-03-09] MEDS: risperiDONE 0.25 MG TAB PO SCH ×2 (09:17→20:38)
--- NOTE | 2019-03-09 09:50 | PDOC.PN ---
- Subjective Encounter Start Date: 03/09/19 (f/u elevated LFT's) Encounter Start Time: 09:48 Subjective: Pt off levophed, no overnight events - Objective Resuscitation Status - Order Detail: 03/05/19 12:16 Resuscitation Status Routine Resuscitation Status: DNAR: NO Resuscitation Discussed with: Vital Signs & Weight: Vital Signs (12 hours) Temp Pulse Resp BP Pulse Ox 03/09/19 09:17 99 03/09/19 08:00 97.8 F 39 H 03/09/19 07:54 88 104/71 100 03/09/19 07:33 44 H 99 03/09/19 07:22 97.8 F 03/09/19 06:00 28 H 03/09/19 04:06 89 03/09/19 03:50 32 H 03/09/19 01:52 30 H 03/09/19 01:50 87 03/09/19 00:00 98.2 F 28 H 03/08/19 22:36 84 92/62 03/08/19 22:00 40 H Weight Admit Weight 144 lb 6.444 oz Weight 144 lb 9.972 oz Most Recent Monitor Data Heart Rate from ECG 103 NIBP 109/80 NIBP BP-Mean 83 Respiration from ECG 33 SpO2 98 I&O: 03/08/19 03/09/19 03/10/19 06:59 06:59 06:59 Intake Total 5279.5 3656 Output Total 3745 2140 270 Balance 1534.5 1516 -270 Result Diagrams: 03/09/19 04:08 03/09/19 04:08 Additional Labs: Accuchecks 03/09/19 03/08/19 03/08/19 04:14 22:46 16:38 POC Glucose 74 87 66 L 03/08/19 03/07/19 03/07/19 10:22 16:21 04:25 POC Glucose 75 116 H 95 03/06/19 22:27 POC Glucose 86 EKG Reviewed by me: Yes (tele - sinus 100's, ) Phys Exam - Physical Examination Constitutional: NAD Respiratory: no wheezing, no rales, no rhonchi Cardiovascular: RRR, no significant murmur Gastrointestinal: soft, positive bowel sounds Musculoskeletal: no edema less movement of left hand and leg Deviation from normal: moves mouth/lips to speak, moves head freely Deviation from normal: necrotic tips of toes on left, present on right with -: edema/violaceous appearance of toes/metatarsals Dx/Plan (1) Cardiac arrest Code(s): I46.9 - CARDIAC ARREST, CAUSE UNSPECIFIED Status: Acute (2) Tachycardia Code(s): R00.0 - TACHYCARDIA, UNSPECIFIED Status: Acute (3) Elevated liver function tests Code(s): R94.5 - ABNORMAL RESULTS OF LIVER FUNCTION STUDIES Status: Acute (4) Hypokalemia Code(s): E87.6 - HYPOKALEMIA Status: Resolved (5) Acute and chronic respiratory failure with hypoxia Code(s): J96.21 - ACUTE AND CHRONIC RESPIRATORY FAILURE WITH HYPOXIA Status: Acute (6) Acute upper GI hemorrhage Code(s): K92.2 - GASTROINTESTINAL HEMORRHAGE, UNSPECIFIED Status: Acute (7) Anemia due to acute blood loss Code(s): D62 - ACUTE POSTHEMORRHAGIC ANEMIA Status: Acute (8) Duodenal ulcer hemorrhagic Code(s): K26.4 - CHRONIC OR UNSPECIFIED DUODENAL ULCER WITH HEMORRHAGE Status : Acute (9) Hypertension Code(s): I10 - ESSENTIAL (PRIMARY) HYPERTENSION Status: Resolved (10) SALLY (acute kidney injury) Code(s): N17.9 - ACUTE KIDNEY FAILURE, UNSPECIFIED Status: Resolved (11) Hypernatremia Code(s): E87.0 - HYPEROSMOLALITY AND HYPERNATREMIA Status: Acute (12) Anoxic brain injury Status: Acute (13) C. difficile diarrhea Code(s): A04.72 - ENTEROCOLITIS D/T CLOSTRIDIUM DIFFICILE, NOT SPCF RECUR Status: Acute - Plan * * Pt remains critically ill with multiple specialists involved in his care: * Pulmonology -has trach, on vent * Gen Surgery - on tPN, recoving from laparotomy with pyloroplasty * GI - elevated lft's which are improved today * Cardilogy for paroxysmal a fib * On Vanc for c diff colitis * Ischemic injury to feet - monitor this * Thrombocytopenia - lovenox d/c * Hypernatremia - fluids d/c and lasix d/c * Hypokalemia - on protocol for replacement * * dvt prophy - scd's * gi prophy - none for now * code status DNAR * * Pt remains at high risk of in-hospital decompensation given the significant critical illness/multi-organ involvement
[2019-03-09] MEDS: CALCIUM CHLORIDE IV SCH ×2 (13:08→14:55)
[2019-03-09] MEDS: POTASSIUM ACETATE IV SCH ×2 (13:08→14:55)
[2019-03-09] MEDS: [UNRECOGNIZED DRUG - OTHER] IV SCH (13:08)
[2019-03-09] MEDS: SODIUM ACETATE IV SCH ×2 (13:08→14:55)
--- NOTE | 2019-03-09 14:48 | PRG ---
DATE OF SERVICE: 03/09/2019 SUBJECTIVE: Mr. Stroud remains nice. He has a trach collar on. He is receiving tube feeds, but it does not go very well. He is also on TPN. He is voiding. He has had minimal stool output. OBJECTIVE: VITAL SIGNS: Temperature is 97, blood pressure 99/60. Total intake this morning for 24 hours 3656, output 2140. GENERAL: He is very cachectic and thin. Dobhoff NG tube in place. ABDOMEN: He has a PEG tube in place. LUNGS: Clear. ABDOMEN: Slightly protuberant. Bowel sounds are quiescent. EXTREMITIES: Reveal pulses are present in both legs, but he has necrotic toes on both feet and the nurses report that he is not really moving his left leg. LABORATORY DATA: White count 20,000, hemoglobin 8.7, platelet count 78,000. Sodium 148, potassium 3.3, BUN and creatinine are 59 and 0.95. ASSESSMENT: 1. Acute on chronic respiratory failure, hypoxemia, on trach collar. He failed weaning. This is related to acute respiratory distress syndrome from aspiration pneumonia. 2. GI hemorrhage with fair goal to control endoscopically, he had to go to Surgery. No signs of bleeding presently. 3. Clostridium difficile colitis. 4. Poor tolerance of tube feeds, likely related to edema at the pylorus and duodenum prior surgery site, receiving TPN. 5. Shock liver, improved. PLAN: Surgery is adjusting TPN today. We will continue to treat for C difficile with p.o. vancomycin and IV Flagyl. We will continue to follow. The patient remains critically ill and remained in the ICU. Job ID: [id number] [facility]
[2019-03-09] MEDS: [UNRECOGNIZED DRUG - OTHER] IV SCH (14:55)
[2019-03-09] MEDS: Scopolamine 1.5 mg/72 hour Patch TOP SCH (16:21)
[2019-03-09] MEDS ORDERED: Dextrose 50% Abboject 50 ML SYRINGE ONE (16:27)
[2019-03-09] MEDS: Dextrose 50% Abboject 50 ML SYRINGE SLOW IVP PRN (16:29)
[2019-03-09] MEDS: Ventilator Sedation Protocol 1 EACH FS SCH (16:54)
[2019-03-10] MEDS: metroNIDAZOLE 500 MG in Premix Bag 1 BAG IVPB SCH ×3 (02:30→16:18)
[2019-03-10 04:52] LABS: #Eosinphils 0.5 thou/uL (0.0-0.7); #Lymphocytes 0.6 thou/uL (1.20-3.40); #Monocytes 0.5 thou/uL (0.11-0.59); #Neutrophils 14.6 thou/uL (1.40-6.50); %Basophils 0.2 % (0.0-1.0); %Eosinophils 3.3 % (0.0-10.0); %Lymphocytes 3.4 % (21.0-51.0); %Monocytes 2.9 % (0.0-10.0); %Neutrophils 90.2 % (42.0-75.0); Hemoglobin 8.1 g/dL (14.0-18.0); Mean Corpuscular HGB CONC 31.2 g/dL (32.0-36.0); Mean Corpuscular Hemoglobin 30.2 pg (27.0-31.0); Mean Corpuscular Volume 96.7 fL (78.0-98.0); Mean Platelet Volume 11.7 fL (7.4-10.4); Platelet Count 75 thou/uL (130-400); Red Blood Cell (RBC) Count 2.69 mill/uL (4.70-6.10); White Blood Cell (WBC) Count 16.2 thou/uL (4.8-10.8)
[2019-03-10 05:09] LABS: ALT (SGPT) 51 U/L (8-55); AST (SGOT) 32 U/L (5-34); Albumin 2.5 g/dL (3.4-4.8); Alkaline Phosphatase 85 U/L (40-150); Anion Gap 10 mmol/L (10-20); BUN (Urea Nitrogen) 64 mg/dL (8.4-25.7); Bilirubin, Total 2.2 mg/dL (0.2-1.2); Calc. Creatinine Clearance 61 mL/min (70-130); Calcium 8.5 mg/dL (7.8-10.44); Carbon Dioxide 25 mmol/L (23-31); Chloride 118 mmol/L (98-107); Estimated GFR-MDRD 67; Globulin 1.9 g/dL (2.4-3.5); Glucose 111 mg/dL (80-115); Potassium 3.9 mmol/L (3.5-5.1); Protein, Total 4.4 g/dL (5.8-8.1); Sodium 149 mmol/L (136-145)
--- NOTE | 2019-03-10 08:00 | RAD ---
PORTABLE CHEST: INDICATION: Pneumonia. COMPARISON: 03/08/2019. FINDINGS: Opacification of the right lung base is again seen consistent with effusion and right basilar atelect asis and consolidation. Hazy infiltrate throughout the left mid and lower lung is again noted. Trac heostomy device and central line are unchanged. IMPRESSION: Not significantly changed from 03/08/2019. POS: OFF
--- NOTE | 2019-03-10 09:40 | PRG ---
DATE OF SERVICE: 03/10/2019 TIME SPENT: 35 minutes critical care time. SUBJECTIVE: The patient remains on mechanical ventilation through tracheostomy. He has had some episodes of bradycardia this morning. OBJECTIVE: VITAL SIGNS: Temperature 98.0, pulse 90, and blood pressure 82/60. A 24-hour intake 1645 and output 1669. He will awaken. He tries to mouth words. HEENT: Severe bitemporal wasting. NECK: Trach in good position. LUNGS: Coarse breath sounds bilaterally. CARDIAC: S1 and S2, now regular. ABDOMEN: Tender throughout. EXTREMITIES: No overt edema. LABORATORY DATA: White blood cell count 16.2, hemoglobin 8, hematocrit 26, and platelet count 75. Sodium 149, potassium 3.8, chloride 118, CO2 of 25, BUN of 64, creatinine 1.1, and glucose 111. He is extremely tachypneic on mechanical ventilation. His chest x-ray demonstrates some partial atelectasis in the right base versus pleural effusion. ASSESSMENT: 1. Acute respiratory failure requiring mechanical ventilation and tracheostomy. 2. Aspiration pneumonitis. 3. Leukocytosis. 4. Atelectasis versus pleural effusion on the right. 5. Thrombocytopenia. 6. Severe deconditioning. 7. Hypernatremia. 8. Clostridium difficile colitis. PLAN: 1. The patient is not weanable at this time. I have actually increased his pressure support to 10. 2. We need to adjust the TPN because of the increasing sodium. 3. May need bronchoscopy tomorrow. I think the patient's prognosis is very poor and I think his chance for functional recovery is almost zero. Job ID: [id number]
--- NOTE | 2019-03-10 09:43 | PDOC.PN ---
- Subjective Encounter Start Date: 03/10/19 (f/u resp failure) Encounter Start Time: 09:42 Subjective: RN reports edilberto to 30-40's with turning and agonal breathing this am, -: that resolved, thick secretions in trach persist. - Objective Resuscitation Status - Order Detail: 03/05/19 12:16 Resuscitation Status Routine Resuscitation Status: DNAR: NO Resuscitation Discussed with: Vital Signs & Weight: Vital Signs (12 hours) Temp Pulse Resp BP 03/10/19 07:29 94 146/69 H 03/10/19 07:00 98.0 F 03/10/19 06:00 34 H 03/10/19 04:00 98 F 34 H 03/10/19 03:14 100 94/58 L 03/10/19 02:00 42 H 03/10/19 01:51 98 03/10/19 00:00 97.8 F 38 H 03/09/19 22:57 88 81/53 L 03/09/19 22:00 40 H Weight Admit Weight 144 lb 6.444 oz Weight 140 lb 14.006 oz Most Recent Monitor Data Heart Rate from ECG 88 NIBP 91/55 NIBP BP-Mean 79 Respiration from ECG 39 SpO2 98 I&O: 03/09/19 03/10/19 03/11/19 06:59 06:59 06:59 Intake Total 3656 1645 Output Total 2140 1669 235 Balance 1516 -24 -235 Result Diagrams: 03/10/19 03:45 03/10/19 03:45 Additional Labs: Accuchecks 03/10/19 03/09/19 03/09/19 03:48 20:52 17:50 POC Glucose 115 H 77 88 03/09/19 03/09/19 16:28 10:14 POC Glucose 43 L* 61 L EKG Reviewed by me: Yes (currently sinus 80's) Phys Exam - Physical Examination Constitutional: NAD Respiratory: no wheezing, no rales, no rhonchi Cardiovascular: RRR, no significant murmur Gastrointestinal: soft, positive bowel sounds left toes edematous/cyanotic with weeping, tips necrotic on left foot right distal toes are nectroci continues to move head, mouth words, makes facial gestures spontaneous movement of left hand/arm, not right hand/legs Deviation from normal: unable to assess Dx/Plan (1) Acute and chronic respiratory failure with hypoxia Code(s): J96.21 - ACUTE AND CHRONIC RESPIRATORY FAILURE WITH HYPOXIA Status: Acute (2) Cardiac arrest Code(s): I46.9 - CARDIAC ARREST, CAUSE UNSPECIFIED Status: Resolved (3) Tachycardia Code(s): R00.0 - TACHYCARDIA, UNSPECIFIED Status: Resolved (4) Elevated liver function tests Code(s): R94.5 - ABNORMAL RESULTS OF LIVER FUNCTION STUDIES Status: Acute (5) Hypokalemia Code(s): E87.6 - HYPOKALEMIA Status: Resolved (6) Acute upper GI hemorrhage Code(s): K92.2 - GASTROINTESTINAL HEMORRHAGE, UNSPECIFIED Status: Acute (7) Anemia due to acute blood loss Code(s): D62 - ACUTE POSTHEMORRHAGIC ANEMIA Status: Acute (8) Duodenal ulcer hemorrhagic Code(s): K26.4 - CHRONIC OR UNSPECIFIED DUODENAL ULCER WITH HEMORRHAGE Status : Acute (9) Hypertension Code(s): I10 - ESSENTIAL (PRIMARY) HYPERTENSION Status: Resolved (10) SALLY (acute kidney injury) Code(s): N17.9 - ACUTE KIDNEY FAILURE, UNSPECIFIED Status: Resolved (11) Hypernatremia Code(s): E87.0 - HYPEROSMOLALITY AND HYPERNATREMIA Status: Acute (12) Anoxic brain injury Status: Acute (13) C. difficile diarrhea Code(s): A04.72 - ENTEROCOLITIS D/T CLOSTRIDIUM DIFFICILE, NOT SPCF RECUR Status: Acute - Plan * * Pt remains critically ill with multiple specialists involved in his care, new onset bradycardia briefly today: * Pulmonology -has trach, on vent * Gen Surgery - on tPN, recoving from laparotomy with pyloroplasty * GI - normalized lft's s/p shock liver * Cardilogy for paroxysmal a fib * On Vanc for c diff colitis * Ischemic injury to feet - necrotic distal phalanges and edema proximally on left side * Thrombocytopenia - about the same, off pharmacologic dvt prophylaxis * Hypernatremia stable * Electrolytes - on protocol for replacement * * dvt prophy - scd's * gi prophy - none for now * code status DNAR * * Pt remains at high risk of in-hospital decompensation given the significant critical illness/multi-organ involvement. will update pt's today.
[2019-03-10] MEDS: Multivits W-Minerals Liquid 15mL UDCUP PER TUBE SCH (10:11)
[2019-03-10] MEDS: Pantoprazole 40 MG VIAL IVP SCH ×2 (10:11→20:13)
[2019-03-10] MEDS: Vancomycin HCl 25 MG/ML Oral PER TUBE SCH ×4 (10:11→20:13)
[2019-03-10] MEDS: Hydrocortisone 10 mg Tablet PO SCH ×2 (10:12→20:13)
[2019-03-10] MEDS: risperiDONE 0.25 MG TAB PO SCH ×2 (10:12→20:13)
[2019-03-10] MEDS: Digoxin 0.25 MG TAB PO SCH (10:12)
[2019-03-10] MEDS: Amiodarone 200 MG TAB PO SCH (10:12)
--- NOTE | 2019-03-10 13:13 | PDOC.EVN ---
Event Note - Event Note Event Note: Asked to contact pt's son Justus today. Called pt's first - discussed that pt's condition is worse today, his is back on pressor support, heart rate dropped earlier, and not as responsive. Reviewed his feet - and how this is related to the pressor support. discussed pt's wishes - she states he would not want to be kept alive. Reviewed Dr Nice's note and chance of functional recovery is close to zero. She asked what is next - we spoke about deternmining patient's wishes and then reviewing current level of care to see if it is in accordance with wishes. We talked about hospice as an option. She will contact the patient's sons and discuss prognosis. She also asked that I contact son - Justus. Reviewed the same information, that pt is on a life support, worse condition today. Son asking if another facility can provide a higher level of care or experimental treatment - none is available. We discussed chance of functional recovery, and that the patient's body may be in the process of shutting down. He asked if family should come to the hospital - I recommend that he talk with his Mom and together determine how to proceed and how we can be helpful for both the patient and them. Pt is DNAR - current level of care will be maintained. Will meet with family as they are available, have questions, or are ready to review current care and patient's wishes. No further questions needs at end of both calls.
[2019-03-10] MEDS: SODIUM ACETATE IV SCH (13:44)
[2019-03-10] MEDS: [UNRECOGNIZED DRUG - OTHER] IV SCH (13:44)
[2019-03-10] MEDS: CALCIUM CHLORIDE IV SCH (13:44)
[2019-03-10] MEDS: POTASSIUM ACETATE IV SCH (13:44)
--- NOTE | 2019-03-10 15:23 | PRG ---
DATE OF SERVICE: 03/10/2019 SUBJECTIVE: Mr. Stroud is back on pressors at a low dose. The nurse notes he seems to be pretty uncomfortable when they manipulate his abdomen. OBJECTIVE: VITAL SIGNS: Pulse is 83, blood pressure 104/71. Temperature, he has been afebrile overnight, 98.3 T-max. In's and out's 1645 in, output 1669, urine output 1469 yesterday. He has got Dobbhoff feeding tube in which has not been used. He also has a PEG tube in. ABDOMEN: Nontender. There is no rebound. There is no guarding. LABORATORY DATA: White count 16.2, hemoglobin is 8.1, platelet count 75,000. Sodium is 149, potassium 3.9, BUN and creatinine 64 and 1.06. Albumin is 2.5, globulin 1.9. Liver function tests normal. ASSESSMENT: 1. Aspiration pneumonia. 2. Gastrointestinal hemorrhage. 3. Acute respiratory distress syndrome, improved. 4. Status post pyloroplasty, duodenal patch for old duodenal ulcer bleed. 5. Peripheral ischemia likely related to pressors. 6. Heart failure. 7. Chronic tobacco use. 8. Clostridium difficile colitis. RECOMMENDATIONS: As the tube feeds never really has been getting out of the stomach with the Dobbhoff feeds or PEG feeds, it has been discontinued. For oral medications it is unlikely he is absorbing those. We will change the vancomycin to vancomycin enemas and continue the IV Flagyl. The patient's prognosis is quite poor at this time, but he is stable and I think it is reasonable to switch the medicine to enemas. Job ID: [id number]
[2019-03-10] MEDS: Ventilator Sedation Protocol 1 EACH FS SCH (16:18)
[2019-03-10] MEDS: Vancomycin HCl 500 MG, Sodium Chloride 0.9% 100 ML PR SCH (20:12)
[2019-03-11] MEDS: Vancomycin HCl 500 MG, Sodium Chloride 0.9% 100 ML PR SCH ×4 (00:25→19:27)
[2019-03-11] MEDS: metroNIDAZOLE 500 MG in Premix Bag 1 BAG IVPB SCH ×3 (00:26→18:01)
[2019-03-11 05:02] LABS: #Eosinphils 0.4 thou/uL (0.0-0.7); #Lymphocytes 0.7 thou/uL (1.20-3.40); #Monocytes 0.5 thou/uL (0.11-0.59); #Neutrophils 13.8 thou/uL (1.40-6.50); %Basophils 0.1 % (0.0-1.0); %Eosinophils 2.8 % (0.0-10.0); %Lymphocytes 4.2 % (21.0-51.0); %Monocytes 3.3 % (0.0-10.0); %Neutrophils 89.6 % (42.0-75.0); Hemoglobin 7.4 g/dL (14.0-18.0); Mean Corpuscular HGB CONC 31.1 g/dL (32.0-36.0); Mean Corpuscular Hemoglobin 30.2 pg (27.0-31.0); Mean Corpuscular Volume 97.3 fL (78.0-98.0); Mean Platelet Volume 11.8 fL (7.4-10.4); Platelet Count 78 thou/uL (130-400); RBC Distribution Width 16.3 % (11.5-14.5); Red Blood Cell (RBC) Count 2.44 mill/uL (4.70-6.10); White Blood Cell (WBC) Count 15.4 thou/uL (4.8-10.8)
[2019-03-11 05:20] LABS: ALT (SGPT) 43 U/L (8-55); AST (SGOT) 29 U/L (5-34); Albumin 2.5 g/dL (3.4-4.8); Alkaline Phosphatase 92 U/L (40-150); Anion Gap 10 mmol/L (10-20); BUN (Urea Nitrogen) 59 mg/dL (8.4-25.7); Bilirubin, Total 1.9 mg/dL (0.2-1.2); Calc. Creatinine Clearance 63 mL/min (70-130); Calcium 8.7 mg/dL (7.8-10.44); Carbon Dioxide 25 mmol/L (23-31); Chloride 120 mmol/L (98-107); Estimated GFR-MDRD 72; Globulin 1.9 g/dL (2.4-3.5); Glucose 110 mg/dL (80-115); Potassium 3.6 mmol/L (3.5-5.1); Protein, Total 4.4 g/dL (5.8-8.1); Sodium 151 mmol/L (136-145)
--- NOTE | 2019-03-11 08:33 | PRG ---
DATE OF SERVICE: 03/11/2019 SUBJECTIVE: Dannie Stroud remains intubated on the vent at rate of 10, trach and PEG in place. OBJECTIVE: VITAL SIGNS: Blood pressure 106/71, respiratory rate 22, sats 100%. His I's and O's have been 1645 in and 1669 out. HEENT: Opens his eyes. CHEST: Decreased breath sounds. No wheezing. Bilateral rhonchi, crackles. CARDIAC: Normal S1, S2. No gallops. ABDOMEN: No masses. LABORATORY DATA: Creatinine is normal, BUN is 59. His sodium is 151, chloride 120. He is on TPN. White count [id number]. Last chest x-ray shows evidence of bilateral infiltrates, probably some pleural effusion. IMPRESSION: 1. Multiorgan failure status post massive upper GI bleed. 2. Aspiration pneumonia, sepsis, thrombocytopenia, clostridium difficile colitis, hyponatremia. His TPN needs to be adjusted regarding his serum sodium. Otherwise, continue supportive care. He is on Flagyl and vancomycin for his clostridium difficile. Still trying to get him a placement. He is on hydrocortisone for his adrenal insufficiency. Neb treatments, supportive care and PT. One-half hour of critical time. We will follow. Job ID: [id number]
[2019-03-11] MEDS: Amiodarone 200 MG TAB PO SCH (09:09)
[2019-03-11] MEDS: Digoxin 0.25 MG TAB PO SCH (09:09)
[2019-03-11] MEDS: Hydrocortisone 10 mg Tablet PO SCH ×2 (09:09→20:15)
[2019-03-11] MEDS: Pantoprazole 40 MG VIAL IVP SCH ×2 (09:24→20:16)
[2019-03-11] MEDS: risperiDONE 0.25 MG TAB PO SCH ×2 (09:24→20:15)
[2019-03-11] MEDS: Sodium Chloride 0.9% (PF) 10 ML VIAL FS PRN (09:24)
[2019-03-11] MEDS: Lorazepam 0.5 MG TAB PO PRN ×2 (11:02→20:44)
[2019-03-11] MEDS: Multivits W-Minerals Liquid 15mL UDCUP PER TUBE SCH (11:05)
[2019-03-11] MEDS: Vancomycin HCl 25 MG/ML Oral PER TUBE SCH ×4 (11:06→20:15)
--- NOTE | 2019-03-11 12:05 | PDOC.PN ---
- Subjective Encounter Start Date: 03/11/19 Encounter Start Time: 11:30 -: non-verbal Subjective: Patient still requiring levophed. Awake on vent but not following -: commands. - Objective Resuscitation Status - Order Detail: 03/05/19 12:16 Resuscitation Status Routine Resuscitation Status: DNAR: NO Resuscitation Discussed with: CALOS Reviewed: Yes Vital Signs & Weight: Vital Signs (12 hours) Temp Pulse Pulse Pulse Resp BP BP 03/11/19 10:30 78 126/71 03/11/19 09:09 81 03/11/19 08:43 103 H 81 122/76 03/11/19 08:06 72 106/71 03/11/19 08:05 73 22 H 03/11/19 07:00 97.1 F L 03/11/19 06:00 29 H 03/11/19 04:00 98 F 28 H 03/11/19 03:59 76 03/11/19 02:00 29 H BP Pulse Ox Pulse Ox Pulse Ox 03/11/19 10:30 03/11/19 09:09 03/11/19 08:43 100/73 100 100 03/11/19 08:06 03/11/19 08:05 100 03/11/19 07:00 03/11/19 06:00 03/11/19 04:00 03/11/19 03:59 03/11/19 02:00 Weight Admit Weight 144 lb 6.444 oz Weight 141 lb 15.643 oz Most Recent Monitor Data Heart Rate from ECG 72 NIBP 105/72 NIBP BP-Mean 80 Respiration from ECG 32 SpO2 100 I&O: 03/10/19 03/11/19 03/12/19 06:59 06:59 06:59 Intake Total 1645 2659.9 Output Total 1669 2115 45 Balance -24 544.9 -45 Result Diagrams: 03/11/19 04:25 03/11/19 04:25 Additional Labs: Accuchecks 03/10/19 03/10/19 03/10/19 22:45 16:24 10:12 POC Glucose 92 135 H 130 H Phys Exam - Physical Examination Constitutional: NAD HEENT: moist MMs Respiratory: no wheezing, no rales, no rhonchi Cardiovascular: RRR Gastrointestinal: soft, positive bowel sounds not moving legs, moving bilateral arms, toe tips necrotic Deviation from normal: intubated, awake Dx/Plan (1) Aspiration pneumonia due to regurgitated gastric secretions Code(s): J69.0 - PNEUMONITIS DUE TO INHALATION OF FOOD AND VOMIT Status: Acute Qualifiers: Laterality: bilateral Comment: Due to vomiting of coffee ground emesis from GI bleed, bronchoscopy with lavage during initial code (2) Sepsis associated hypotension Code(s): A41.9 - SEPSIS, UNSPECIFIED ORGANISM; I95.9 - HYPOTENSION, UNSPECIFIED Status: Acute Comment: Severe WBC elevation slowly trending down, had to restart Levophed over the weekend (3) Acute respiratory failure Code(s): J96.00 - ACUTE RESPIRATORY FAILURE, UNSP W HYPOXIA OR HYPERCAPNIA Status: Acute Qualifiers: Respiratory failure complication: unspecified whether with hypoxia or hypercapnia Qualified Code(s): J96.00 - Acute respiratory failure, unspecified whether with hypoxia or hypercapnia Comment: intubated, s/p trach (4) Acute upper GI hemorrhage Code(s): K92.2 - GASTROINTESTINAL HEMORRHAGE, UNSPECIFIED Status: Acute (5) Duodenal ulcer Status: Acute Comment: Large, pulsatile vessel, s/p failed endoscopic control s/p laparotomy with oversewing ulcer and pyloroplasty (6) Anemia due to acute blood loss Code(s): D62 - ACUTE POSTHEMORRHAGIC ANEMIA Status: Acute (7) Hx of renal cell carcinoma Code(s): Z85.528 - PERSONAL HISTORY OF OTHER MALIGNANT NEOPLASM OF KIDNEY Status: Chronic Comment: S/P nephrectomy (8) Hx of hepatitis C Code(s): Z86.19 - PERSONAL HISTORY OF OTHER INFECTIOUS AND PARASITIC DISEASES Status: Chronic Comment: s/p interferron therapy (9) Anoxic brain injury Status: Acute (10) C. difficile diarrhea Code(s): A04.72 - ENTEROCOLITIS D/T CLOSTRIDIUM DIFFICILE, NOT SPCF RECUR Status: Acute Comment: on IV metronidazole, Vanc. enemas - Plan cont current plan of care, continue antibiotics, respiratory therapy patient not improving, actually seems to be declining, DNAR, poor -: prognosis * . - Discharge Day Encounter end time: 11:45
[2019-03-11] MEDS: SODIUM ACETATE IV SCH (14:48)
[2019-03-11] MEDS: CALCIUM CHLORIDE IV SCH (14:48)
[2019-03-11] MEDS: POTASSIUM ACETATE IV SCH (14:48)
[2019-03-11] MEDS: [UNRECOGNIZED DRUG - OTHER] IV SCH (14:48)
--- NOTE | 2019-03-11 16:00 | PDOC.CTH ---
Cardiology Progress Note - Subjective No new issues, currently ventilated through trach. Follows commands. - Objective Vital Signs Temp Pulse Pulse Pulse Resp BP BP 03/11/19 13:39 75 117/73 03/11/19 13:38 76 28 H 03/11/19 10:30 78 126/71 03/11/19 09:09 81 03/11/19 08:43 103 H 81 122/76 03/11/19 08:06 72 106/71 03/11/19 08:05 73 22 H 03/11/19 07:00 97.1 F L 03/11/19 06:00 29 H 03/11/19 04:00 98 F 28 H 03/11/19 03:59 76 BP Pulse Ox Pulse Ox Pulse Ox 03/11/19 13:39 03/11/19 13:38 99 03/11/19 10:30 03/11/19 09:09 03/11/19 08:43 100/73 100 100 03/11/19 08:06 03/11/19 08:05 100 03/11/19 07:00 03/11/19 06:00 03/11/19 04:00 03/11/19 03:59 Admit Weight 144 lb 6.444 oz Weight 141 lb 15.643 oz 03/10/19 03/11/19 03/12/19 06:59 06:59 06:59 Intake Total 1645 2659.9 Output Total 1669 2115 85 Balance -24 544.9 -85 - Physical Examination General/Neuro: NAD Neck: no JVD present Lungs: unlabored respirations Heart: RRR Abdomen: NT/ND Extremities: + edema B (1+, necrotic toes.) - Telemetry Telemetry Rhythm: NSR, S tach - Labs Result Diagrams: 03/11/19 04:25 03/11/19 04:25 Troponin/CKMB Troponin I Less than 0.010 ng/mL (< 0.028) 02/17/19 16:26 - Assessment/Plan 1. Acute blood loss anemia, hgb stable. 2. Severe symptomatic anemia 3. ST elevations on ECG while Hgb 3.9 4. Dilated CM EF at 35-40% 5. Acute on chronic systolic heart failure. Resolved. 6. Afib RVR, still in sinus. 7. Aspiration. 8. C-Diff colitis PLAN: - Continue PO amiodarone for afib at maintenance dose of 200 mg daily. - No anticoagulation given life-threatening bleed. - Abx per primary team. - CV stable for now. - Will follow.
[2019-03-11] MEDS: Ventilator Sedation Protocol 1 EACH FS SCH (21:33)
[2019-03-12] MEDS: metroNIDAZOLE 500 MG in Premix Bag 1 BAG IVPB SCH ×3 (00:19→17:21)
[2019-03-12] MEDS: Morphine 2 MG/ML SYRINGE SLOW IVP PRN ×2 (00:19→13:41)
[2019-03-12] MEDS: Vancomycin HCl 500 MG, Sodium Chloride 0.9% 100 ML PR SCH ×6 (01:10→23:21)
[2019-03-12 05:14] LABS: #Eosinphils 0.3 thou/uL (0.0-0.7); #Lymphocytes 0.4 thou/uL (1.20-3.40); #Monocytes 0.2 thou/uL (0.11-0.59); #Neutrophils 4.9 thou/uL (1.40-6.50); %Eosinophils 5.2 % (0.0-10.0); %Neutrophils 83.8 % (42.0-75.0); Hemoglobin 7.1 g/dL (14.0-18.0); Mean Corpuscular HGB CONC 31.2 g/dL (32.0-36.0); Mean Corpuscular Hemoglobin 30.2 pg (27.0-31.0); Mean Corpuscular Volume 96.8 fL (78.0-98.0); Mean Platelet Volume 11.4 fL (7.4-10.4); Platelet Count 85 thou/uL (130-400); Red Blood Cell (RBC) Count 2.35 mill/uL (4.70-6.10); White Blood Cell (WBC) Count 5.9 thou/uL (4.8-10.8)
--- NOTE | 2019-03-12 08:12 | PRG ---
DATE OF SERVICE: 03/12/2019 SUBJECTIVE: Dannie Stroud this morning is awake, responsive. He was given some Ativan last night for agitation. OBJECTIVE: VITAL SIGNS: His blood pressure is 110/69, pulse 83, respiratory rate o2 sat 97%. GENERAL: He is a little bit more responsive. CHEST: Decreased breath sounds. No wheezing. CARDIAC: Normal S1 and S2. No gallops. ABDOMEN: No masses. LABORATORY DATA: White count is 5000, hemoglobin and hematocrit are 7 and 21, platelet count 85. IMPRESSION: Respiratory failure, massive aspiration multiple times, status post laparotomy for bleeding ulcer, supraventricular tachycardia, severe deconditioning, encephalopathy. The patient has much improved. Vent is being adjusted. We are still trying to get a placement for him. Apparently, he was denied admission to LTAC. Continue PT supportive care. Continue to follow Nutrition. TIME SPENT: One-half hour of critical time. Job ID: [id number] MTDD
--- NOTE | 2019-03-12 08:38 | PDOC.PN ---
- Subjective Encounter Start Date: 03/12/19 Encounter Start Time: 10:00 -: non-verbal Subjective: Patient remains on vent through trach, awake and mouthing words -: but confused - Objective Resuscitation Status - Order Detail: 03/05/19 12:16 Resuscitation Status Routine Resuscitation Status: DNAR: NO Resuscitation Discussed with: CALOS Reviewed: Yes Vital Signs & Weight: Vital Signs (12 hours) Temp Pulse Resp BP Pulse Ox 03/12/19 08:00 21 H 03/12/19 07:43 82 110/69 03/12/19 07:39 83 110/69 03/12/19 07:38 82 26 H 100 03/12/19 07:00 98.9 F 03/12/19 06:00 28 H 03/12/19 04:00 97.5 F L 29 H 03/12/19 02:12 80 109/63 03/12/19 02:00 28 H 03/12/19 00:19 78 97/67 03/12/19 00:00 98.1 F 22 H 03/11/19 22:30 82 96/60 03/11/19 22:00 38 H Weight Admit Weight 144 lb 6.444 oz Weight 145 lb 11.609 oz Most Recent Monitor Data Heart Rate from ECG 89 NIBP 115/66 NIBP BP-Mean 75 Respiration from ECG 45 SpO2 99 I&O: 03/11/19 03/12/19 03/13/19 06:59 06:59 06:59 Intake Total 2659.9 1657.8 Output Total 2115 1825 50 Balance 544.9 -167.2 -50 Result Diagrams: 03/12/19 04:50 03/11/19 04:25 Additional Labs: Accuchecks 03/12/19 03/11/19 03/11/19 04:59 22:08 17:53 POC Glucose 106 106 115 H 03/11/19 13:45 POC Glucose 112 H Phys Exam - Physical Examination Constitutional: NAD HEENT: moist MMs Respiratory: no wheezing, no rales, no rhonchi Cardiovascular: RRR Gastrointestinal: soft minimal bowel sounds, mild distension necrotic toes bilaterally not moving feet, moving bilateral hands to command Deviation from normal: confused, on vent Dx/Plan (1) Aspiration pneumonia due to regurgitated gastric secretions Code(s): J69.0 - PNEUMONITIS DUE TO INHALATION OF FOOD AND VOMIT Status: Acute Qualifiers: Laterality: bilateral Comment: Due to vomiting of coffee ground emesis from GI bleed, bronchoscopy with lavage during initial code (2) Sepsis associated hypotension Code(s): A41.9 - SEPSIS, UNSPECIFIED ORGANISM; I95.9 - HYPOTENSION, UNSPECIFIED Status: Acute Comment: Severe WBC elevation slowly trending down, had to restart Levophed over the weekend (3) Acute respiratory failure Code(s): J96.00 - ACUTE RESPIRATORY FAILURE, UNSP W HYPOXIA OR HYPERCAPNIA Status: Acute Qualifiers: Respiratory failure complication: unspecified whether with hypoxia or hypercapnia Qualified Code(s): J96.00 - Acute respiratory failure, unspecified whether with hypoxia or hypercapnia Comment: intubated, s/p trach (4) Acute upper GI hemorrhage Code(s): K92.2 - GASTROINTESTINAL HEMORRHAGE, UNSPECIFIED Status: Acute (5) Duodenal ulcer Status: Acute Comment: Large, pulsatile vessel, s/p failed endoscopic control s/p laparotomy with oversewing ulcer and pyloroplasty (6) Anemia due to acute blood loss Code(s): D62 - ACUTE POSTHEMORRHAGIC ANEMIA Status: Acute (7) Hx of renal cell carcinoma Code(s): Z85.528 - PERSONAL HISTORY OF OTHER MALIGNANT NEOPLASM OF KIDNEY Status: Chronic Comment: S/P nephrectomy (8) Hx of hepatitis C Code(s): Z86.19 - PERSONAL HISTORY OF OTHER INFECTIOUS AND PARASITIC DISEASES Status: Chronic Comment: s/p interferron therapy (9) Anoxic brain injury Status: Acute (10) C. difficile diarrhea Code(s): A04.72 - ENTEROCOLITIS D/T CLOSTRIDIUM DIFFICILE, NOT SPCF RECUR Status: Acute Comment: on IV metronidazole, Vanc. enemas - Plan cont current plan of care, continue antibiotics, respiratory therapy, DVT proph w/SCDs Patient improved from respiratory standpoint, but still on pressors, -: intestines have never started working since surgery. Family discussing -: transition to comfort care currently. * . - Discharge Day Encounter end time: 10:20
[2019-03-12] MEDS: Vancomycin HCl 25 MG/ML Oral PER TUBE SCH ×4 (09:55→20:23)
[2019-03-12] MEDS: Digoxin 0.25 MG TAB PO SCH (09:56)
[2019-03-12] MEDS: Amiodarone 200 MG TAB PO SCH (09:56)
[2019-03-12] MEDS: Multivits W-Minerals Liquid 15mL UDCUP PER TUBE SCH (09:56)
[2019-03-12] MEDS: Pantoprazole 40 MG VIAL IVP SCH ×2 (09:57→20:23)
[2019-03-12] MEDS: Hydrocortisone 10 mg Tablet PO SCH ×2 (09:57→20:22)
--- NOTE | 2019-03-12 13:58 | PRG ---
DATE OF SERVICE: 03/12/2019 SUBJECTIVE: Mr. Stroud is doing well today. He is alert. He is interactive. He is on TPN. He has not tolerated his tube feedings as he has high gastric residuals. OBJECTIVE: VITAL SIGNS: Heart rate 87, blood pressure 109/68. LUNGS: Clear to auscultation. CARDIAC: Regular rate and rhythm, 85. ABDOMEN: Soft, flat, nontender. Wound well healed. Gary will be removed today. Chest x-ray reveals lung base opacification, some effusion, atelectasis, consolidation. Tracheostomy in place. EXTREMITIES: Unremarkable. Clostridium difficile positive on 03/06/2019, not repeated. ABDOMEN: Soft and nontender, however, and clinically his C. diff colitis has improved. We will repeat that study. ASSESSMENT/PLAN: 1. Respiratory failure. The patient has been having difficulty weaning from the vent. He has a tracheostomy in place. He becomes bradycardic at times. 2. Cardiomyopathy, 30% ejection fraction. 3. History of nephrectomy. 4. History of renal cell carcinoma. Metastases cleared up on subsequent imaging . 5. Deconditioning. 6. The patient's white count has normalized. White count is 5.9, hemoglobin 7.1. Chemistries unremarkable. Note, I have discussed with the patient's son. They would like to proceed with LTAC efforts again. He remains a DNR. The patient, however, is alert and interactive and we would continue efforts to wean him from the ventilator. Job ID: [id number]
[2019-03-12] MEDS: SODIUM ACETATE IV SCH (14:13)
[2019-03-12] MEDS: [UNRECOGNIZED DRUG - OTHER] IV SCH (14:13)
[2019-03-12] MEDS: CALCIUM CHLORIDE IV SCH (14:13)
[2019-03-12] MEDS: POTASSIUM ACETATE IV SCH (14:13)
[2019-03-12] MEDS: Lorazepam 0.5 MG TAB PO PRN ×2 (15:55→20:22)
[2019-03-12] MEDS: Scopolamine 1.5 mg/72 hour Patch TOP SCH (17:25)
[2019-03-12] MEDS: Ventilator Sedation Protocol 1 EACH FS SCH (18:24)
--- NOTE | 2019-03-12 19:19 | PRG ---
DATE OF SERVICE: 03/11/2019 SUBJECTIVE: Mr. Stroud remains on low-dose pressors. Nurses were giving him vancomycin orally and per his rectum. OBJECTIVE: VITAL SIGNS: Pulse 77, blood pressure is 95/69, temperature is 97.9. GENERAL: The patient is awake. He is trying to talk, but he has a trach, so not intelligible. LUNGS: Clear. HEART: Has regular rhythm. ABDOMEN: Nontender. LABORATORY DATA: White count 15.4, hemoglobin 7.4, platelet count 78,000. Sodium 151, potassium 3.6, BUN 59, creatinine 1.03. Bilirubin 1.9. AST and ALT 29 and 43. ASSESSMENT: 1. Multiorgan failure after massive gastrointestinal bleed with complications of acute respiratory distress syndrome, aspiration pneumonia, sepsis, thrombocytopenia, Clostridium difficile colitis. 2. Leukocytosis, improving. Fever curve trending down. He is coming off his pressors. He seems to be responding to rectal vancomycin. PLAN: Continue to treat with IV Flagyl, rectal vancomycin, and TPN. He remains on hydrocortisone for adrenal insufficiency per Critical Care. Job ID: [id number]
[2019-03-12] MEDS: risperiDONE 0.25 MG TAB PO SCH (20:22)
[2019-03-13] MEDS: metroNIDAZOLE 500 MG in Premix Bag 1 BAG IVPB SCH ×3 (02:52→17:16)
[2019-03-13 05:21] LABS: #Eosinphils 0.5 thou/uL (0.0-0.7); #Lymphocytes 0.4 thou/uL (1.20-3.40); #Monocytes 0.4 thou/uL (0.11-0.59); #Neutrophils 5.2 thou/uL (1.40-6.50); %Basophils 0.2 % (0.0-1.0); %Eosinophils 7.5 % (0.0-10.0); %Lymphocytes 5.3 % (21.0-51.0); %Monocytes 6.4 % (0.0-10.0); %Neutrophils 80.6 % (42.0-75.0); Hemoglobin 6.6 g/dL (14.0-18.0); Mean Corpuscular HGB CONC 31.2 g/dL (32.0-36.0); Mean Corpuscular Hemoglobin 30.4 pg (27.0-31.0); Mean Corpuscular Volume 97.4 fL (78.0-98.0); Mean Platelet Volume 11.7 fL (7.4-10.4); Platelet Count 92 thou/uL (130-400); RBC Distribution Width 16.2 % (11.5-14.5); Red Blood Cell (RBC) Count 2.16 mill/uL (4.70-6.10); White Blood Cell (WBC) Count 6.5 thou/uL (4.8-10.8)
--- NOTE | 2019-03-13 07:55 | PDOC.PN ---
- Subjective Encounter Start Date: 03/13/19 Encounter Start Time: 10:00 Subjective: Patient remains on the vent, arousable and interactive, no events overnight -: not able to wean off pressors - Objective Resuscitation Status - Order Detail: 03/05/19 12:16 Resuscitation Status Routine Resuscitation Status: DNAR: NO Resuscitation Discussed with: CALOS Reviewed: Yes Vital Signs & Weight: Vital Signs (12 hours) Temp Pulse Resp BP Pulse Ox 03/13/19 07:00 98.7 F 03/13/19 06:50 81 98/60 03/13/19 06:49 100 03/13/19 06:47 80 28 H 100 03/13/19 06:00 98.5 F 25 H 03/13/19 04:00 28 H 03/13/19 02:34 80 115/88 03/13/19 02:00 35 H 03/13/19 00:06 77 98/73 03/13/19 00:00 98.5 F 25 H 03/12/19 22:13 78 96/64 03/12/19 22:00 34 H 03/12/19 20:00 29 H 100 Weight Admit Weight 144 lb 6.444 oz Weight 143 lb 4.807 oz Most Recent Monitor Data Heart Rate from ECG 79 NIBP 93/57 NIBP BP-Mean 66 Respiration from ECG 31 SpO2 100 I&O: 03/12/19 03/13/19 03/14/19 06:59 06:59 06:59 Intake Total 1657.8 2353.5 Output Total 1825 2765 45 Balance -167.2 -411.5 -45 Result Diagrams: 03/13/19 04:35 03/13/19 08:50 Additional Labs: Accuchecks 03/13/19 03/12/19 03/12/19 06:49 23:52 16:19 POC Glucose 126 H 121 H 110 03/12/19 11:53 POC Glucose 107 Phys Exam - Physical Examination Constitutional: NAD HEENT: moist MMs trach in place on vent Respiratory: no wheezing, no rales, no rhonchi Cardiovascular: RRR Gastrointestinal: soft mod distension, poor bowel sounds not moving LLE, moved RLE and BUE for me Deviation from normal: arousable, on vent Dx/Plan (1) Aspiration pneumonia due to regurgitated gastric secretions Code(s): J69.0 - PNEUMONITIS DUE TO INHALATION OF FOOD AND VOMIT Status: Acute Qualifiers: Laterality: bilateral Comment: Due to vomiting of coffee ground emesis from GI bleed, bronchoscopy with lavage during initial code (2) Sepsis associated hypotension Code(s): A41.9 - SEPSIS, UNSPECIFIED ORGANISM; I95.9 - HYPOTENSION, UNSPECIFIED Status: Acute Comment: Severe WBC elevation now normalized but still requiring levophed (3) Acute respiratory failure Code(s): J96.00 - ACUTE RESPIRATORY FAILURE, UNSP W HYPOXIA OR HYPERCAPNIA Status: Acute Qualifiers: Respiratory failure complication: unspecified whether with hypoxia or hypercapnia Qualified Code(s): J96.00 - Acute respiratory failure, unspecified whether with hypoxia or hypercapnia Comment: intubated, s/p trach (4) Acute upper GI hemorrhage Code(s): K92.2 - GASTROINTESTINAL HEMORRHAGE, UNSPECIFIED Status: Acute (5) Duodenal ulcer Status: Acute Comment: Large, pulsatile vessel, s/p failed endoscopic control s/p laparotomy with oversewing ulcer and pyloroplasty (6) Anemia due to acute blood loss Code(s): D62 - ACUTE POSTHEMORRHAGIC ANEMIA Status: Acute Comment: drop in H /H again, transfusing 1 unit PRBC for comfort (7) Hx of renal cell carcinoma Code(s): Z85.528 - PERSONAL HISTORY OF OTHER MALIGNANT NEOPLASM OF KIDNEY Status: Chronic Comment: S/P nephrectomy (8) Hx of hepatitis C Code(s): Z86.19 - PERSONAL HISTORY OF OTHER INFECTIOUS AND PARASITIC DISEASES Status: Chronic Comment: s/p interferron therapy (9) Anoxic brain injury Status: Acute (10) C. difficile diarrhea Code(s): A04.72 - ENTEROCOLITIS D/T CLOSTRIDIUM DIFFICILE, NOT SPCF RECUR Status: Acute Comment: on IV metronidazole, Vanc. enemas - Plan cont current plan of care, continue antibiotics, respiratory therapy has decided on hospice, wants sons to get here and discuss with -: them first * . - Discharge Day Encounter end time: 10:20
[2019-03-13] MEDS: Vancomycin HCl 500 MG, Sodium Chloride 0.9% 100 ML PR SCH ×2 (08:16→14:01)
[2019-03-13] MEDS: Amiodarone 200 MG TAB PO SCH (08:29)
[2019-03-13] MEDS ORDERED: Lactated Ringer's 1,000 ML IV SCH (08:45)
[2019-03-13] MEDS: Hydrocortisone 10 mg Tablet PO SCH ×2 (08:51→20:35)
[2019-03-13] MEDS: Vancomycin HCl 25 MG/ML Oral PER TUBE SCH ×4 (08:51→20:35)
[2019-03-13] MEDS: Multivits W-Minerals Liquid 15mL UDCUP PER TUBE SCH (08:51)
[2019-03-13] MEDS: Pantoprazole 40 MG VIAL IVP SCH (08:52)
[2019-03-13] MEDS: Sodium Chloride 0.45% 1,000 ML IV SCH ×2 (09:18→20:36)
[2019-03-13 09:20] LABS: Anion Gap 8 mmol/L (10-20); BUN (Urea Nitrogen) 53 mg/dL (8.4-25.7); Calc. Creatinine Clearance 76 mL/min (70-130); Calcium 8.3 mg/dL (7.8-10.44); Carbon Dioxide 26 mmol/L (23-31); Chloride 120 mmol/L (98-107); Estimated GFR-MDRD 88; Glucose 113 mg/dL (80-115); Sodium 151 mmol/L (136-145)
--- NOTE | 2019-03-13 09:24 | PRG ---
DATE OF SERVICE: SUBJECTIVE: Dannie Stroud this morning intubated in the vent, trach, PEG in place, awake and responsive _,started levophed_ last night because blood pressure dropped to 93 systolic, pulse 80, respiratory rate 18. OBJECTIVE: NEUROLOGIC: He is awake, alert, responsive, moves all 4 extremities. Toes are clearly gangrenous, peripheral. CHEST: Decreased breath sounds. Bilateral rhonchi. CARDIAC: Normal S1, S2. No gallops. ABDOMEN: No masses. LABORATORY DATA: H and H are 6.1 and 21, white count is normal with no left shift. IMPRESSION: 1. Recurrent aspiration, acute respiratory distress syndrome. 2. Congestive heart failure. 3. Leukocytosis, improved. Clostridium diff colitis, severe deconditioning, metastatic renal cancer, alcohol abuse. PLAN: I had a lengthy discussion with the yesterday. She wants to probably get hospice. I spoke with Dr. Rea, general surgeon, he agrees that he order to try and get hospice involved. In the meantime, supportive care will transfer a unit of packed cells. We will follow. Job ID: [id number] MTDD
[2019-03-13 11:52] VITALS: BMI 20.5
[2019-03-13] MEDS: SODIUM ACETATE IV SCH (14:01)
[2019-03-13] MEDS: [UNRECOGNIZED DRUG - OTHER] IV SCH (14:01)
[2019-03-13] MEDS: POTASSIUM ACETATE IV SCH (14:01)
[2019-03-13] MEDS: CALCIUM CHLORIDE IV SCH (14:01)
[2019-03-13] MEDS ORDERED: Morphine 4 MG/ML VIAL SLOW IVP PRN (17:16)
[2019-03-13] MEDS ORDERED: Lorazepam 2 MG/ML VIAL SLOW IVP PRN (17:17)
[2019-03-13] MEDS ORDERED: Morphine 2 MG/ML SYRINGE SLOW IVP PRN (17:31)
--- NOTE | 2019-03-13 17:31 | PDOC.CTH ---
Cardiology Progress Note - Subjective Family has decided to withdraw care tomorrow. - Objective Vital Signs Temp Pulse Pulse Resp BP BP Pulse Ox 03/13/19 17:25 97.9 F 82 31 H 108/75 100 03/13/19 16:00 100 03/13/19 14:38 85 113/87 03/13/19 14:00 37 H 03/13/19 13:00 97.9 F 03/13/19 12:36 71 24 H 100 03/13/19 12:00 32 H 03/13/19 11:20 97.6 F 76 36 H 103/67 100 03/13/19 11:02 97.9 F 81 28 H 107/59 L 100 03/13/19 10:45 75 91/67 03/13/19 10:00 32 H 03/13/19 08:00 28 H 100 03/13/19 07:00 98.7 F 03/13/19 06:50 81 98/60 03/13/19 06:49 100 03/13/19 06:47 80 28 H 100 03/13/19 06:00 98.5 F 25 H Admit Weight 144 lb 6.444 oz Weight 143 lb 4.807 oz 03/12/19 03/13/19 03/14/19 06:59 06:59 06:59 Intake Total 1657.8 2353.5 1844 Output Total 1825 2765 555 Balance -167.2 -411.5 1289 - Physical Examination General/Neuro: NAD Neck: no JVD present Lungs: unlabored respirations Heart: RRR Abdomen: NT/ND Extremities: + edema B (2+, necrotic toes.) - Telemetry Telemetry Rhythm: NSR - Labs Result Diagrams: 03/13/19 04:35 03/13/19 08:50 Troponin/CKMB Troponin I Less than 0.010 ng/mL (< 0.028) 02/17/19 16:26 - Assessment/Plan 1. Acute blood loss anemia, hgb stable. 2. Severe symptomatic anemia 3. ST elevations on ECG while Hgb 3.9 4. Dilated CM EF at 35-40% 5. Acute on chronic systolic heart failure. Resolved. 6. Afib RVR, still in sinus. 7. Aspiration. 8. C-Diff colitis PLAN: - Family has decided to withdraw care tomorrow. They don't think Mr. Stroud would have wanted this prolonged course and would have rather be left alone and let nature take its course. I think this is reasonable as his likelihood of significant recovery is dismal. - Withdraw care tomorrow per families wishes. - Will sign off, please call with any questions.
--- NOTE | 2019-03-13 17:40 | PRG ---
DATE OF SERVICE: 03/13/2019 SUBJECTIVE: Dannie Stroud is stable today. He makes efforts to communicate, but is not appropriate. The patient has had problems with pulmonary secretions. He has problems with mucus plugging. When he is mobilized, he may suffer severe bradycardia and hypotension. Norepinephrine drip had to be started again last night. The patient has severe cardiomyopathy. The patient's son from dialysis has arrived and I discussed with him the patient's care considering his multiple morbidities, and the patient's son had discussed with his father. Prior to this hospitalization, the patient did not want to have all this done. The patient's and son are in agreement that they desire hospice care. The patient's will visit him tomorrow and then they will plan removal of the ventilation and hospice care. Hospice has been consulted. We will discontinue the TPN. We will not give him the second unit of blood. OBJECTIVE: VITAL SIGNS: Heart rate 81, blood pressure 110/73, and respiratory rate 35. LUNGS: Clear to auscultation. CARDIAC: Regular rhythm without murmur or gallop. ABDOMEN: Soft, flat, and nondistended. EXTREMITIES: Unremarkable. LABORATORY DATA: White count 5.9 and hemoglobin 6.6 this morning. He was given one unit of blood. Basic metabolic profile: Sodium 151, potassium 3.0, BUN 53, and creatinine 0.87. ASSESSMENT AND PLAN: 1. Multiple organ failure with pneumonia, chronic obstructive pulmonary disease, and ongoing tobacco abuse prior to this hospitalization. 2. Status post duodenal hemorrhage, hemorrhagic shock, multiple transfusions. 3. Chronic obstructive pulmonary disease. 4. History of metastatic renal cell carcinoma. 5. Lower extremities have gangrenous toes from sepsis and pressors. He will lose portions of his feet in the long run. 6. Malnutrition, on total parenteral nutrition. Considering the family's wishes, we will discontinue his total parenteral nutrition and continue IV fluid at 75 mL per hour. We will not give the second unit of blood and we will plan removal of the ventilator tomorrow and institution of hospice care. Job ID: [id number]
[2019-03-13] MEDS: Ventilator Sedation Protocol 1 EACH FS SCH (19:24)
[2019-03-13] MEDS: risperiDONE 0.25 MG TAB PO SCH (20:35)
[2019-03-14] MEDS: metroNIDAZOLE 500 MG in Premix Bag 1 BAG IVPB SCH ×2 (01:53→11:09)
[2019-03-14 06:52] VITALS: BP 85/57
[2019-03-14] MEDS ORDERED: Sodium Chloride 0.45% 1,000 ML IV SCH (08:00)
--- NOTE | 2019-03-14 08:06 | PRG ---
DATE OF SERVICE: 03/14/2019 SUBJECTIVE: Dannie Stroud remains in the ICU, intubated on the vent and trach. He is on low-dose Levophed. This is day #25 in the hospital. A very lengthy discussion with the patient's son and the . They all want comfort measures right now. They are in the process of trying to discontinue the vent and get Hospice involved. The patient is awake this morning, still encephalopathic. Appears to be relatively comfortable. Denies any pain. His feet are gangrenous toes. OBJECTIVE: VITAL SIGNS: Blood pressure 92/50 on low-dose Diprivan. Pulse is 80, irregular. Respirations 20. Afebrile. I's and O's have been good. CHEST: Bilateral rhonchi. CARDIAC: Atrial fibrillation. ABDOMEN: Soft. LABORATORY DATA: Sodium is 151, chloride 120, suggests he maybe slightly prerenal. IMPRESSION: 1. Multiorgan failure, sepsis syndrome, multiple aspiration. 2. Status post lap for bleeding ulcer. 3. Encephalopathy. 4. Adrenal insufficiency, long-term steroids. 5. Gangrenous toes. 6. Electrolyte imbalance. 7. Clostridium difficile colitis. PLAN: Family bernal, further discussion, they want him to be placed on a trach collar, we will do so. Comfort measures. He would benefit from inpatient Hospice. We will follow. One half hour critical care time. Job ID: [id number]
[2019-03-14] MEDS ORDERED: Albumin 5% 500 ML ONE (08:08)
--- NOTE | 2019-03-14 08:37 | PDOC.PN ---
- Subjective Encounter Start Date: 03/14/19 Encounter Start Time: 12:00 Subjective: Family decision to take off vent and transition to comfort care this AM. -: Patient now with trach collar. O2 sats in 80s. Patient sedated and appears -: comfortable in no distress. - Objective Resuscitation Status - Order Detail: 03/05/19 12:16 Resuscitation Status Routine Resuscitation Status: DNAR: NO Resuscitation Discussed with: CALOS Reviewed: Yes Vital Signs & Weight: Vital Signs (12 hours) Temp Pulse Resp BP Pulse Ox 03/14/19 06:50 79 85/57 L 03/14/19 06:49 77 40 H 98 03/14/19 06:00 34 H 03/14/19 04:00 97.6 F 36 H 03/14/19 02:00 38 H 03/14/19 00:09 88 90/60 03/14/19 00:00 98.1 F 41 H 03/13/19 22:00 38 H Weight Admit Weight 144 lb 6.444 oz Weight 143 lb 4.807 oz Most Recent Monitor Data Heart Rate from ECG 82 NIBP 94/68 NIBP BP-Mean 76 Respiration from ECG 37 SpO2 100 I&O: 03/13/19 03/14/19 03/15/19 06:59 06:59 06:59 Intake Total 2353.5 4606.4 Output Total 2765 1280 15 Balance -411.5 3326.4 -15 Result Diagrams: 03/13/19 04:35 03/13/19 08:50 Additional Labs: Accuchecks 03/13/19 11:20 POC Glucose 113 H Phys Exam - Physical Examination HEENT: moist MMs shallow breathing Cardiovascular: RRR distended, hypoactive bowel sounds Deviation from normal: patient sedated but opens eyes a bit occassionally, no distress Dx/Plan (1) Aspiration pneumonia due to regurgitated gastric secretions Code(s): J69.0 - PNEUMONITIS DUE TO INHALATION OF FOOD AND VOMIT Status: Acute Qualifiers: Laterality: bilateral Comment: Due to vomiting of coffee ground emesis from GI bleed, bronchoscopy with lavage during initial code (2) Sepsis associated hypotension Code(s): A41.9 - SEPSIS, UNSPECIFIED ORGANISM; I95.9 - HYPOTENSION, UNSPECIFIED Status: Acute Comment: Severe WBC elevation now normalized but still requiring levophed (3) Acute respiratory failure Code(s): J96.00 - ACUTE RESPIRATORY FAILURE, UNSP W HYPOXIA OR HYPERCAPNIA Status: Acute Qualifiers: Respiratory failure complication: unspecified whether with hypoxia or hypercapnia Qualified Code(s): J96.00 - Acute respiratory failure, unspecified whether with hypoxia or hypercapnia Comment: intubated, s/p trach (4) Acute upper GI hemorrhage Code(s): K92.2 - GASTROINTESTINAL HEMORRHAGE, UNSPECIFIED Status: Acute (5) Duodenal ulcer Status: Acute Comment: Large, pulsatile vessel, s/p failed endoscopic control s/p laparotomy with oversewing ulcer and pyloroplasty (6) Anemia due to acute blood loss Code(s): D62 - ACUTE POSTHEMORRHAGIC ANEMIA Status: Acute Comment: drop in H /H again, transfusing 1 unit PRBC for comfort (7) Hx of renal cell carcinoma Code(s): Z85.528 - PERSONAL HISTORY OF OTHER MALIGNANT NEOPLASM OF KIDNEY Status: Chronic Comment: S/P nephrectomy (8) Hx of hepatitis C Code(s): Z86.19 - PERSONAL HISTORY OF OTHER INFECTIOUS AND PARASITIC DISEASES Status: Chronic Comment: s/p interferron therapy (9) Anoxic brain injury Status: Acute (10) C. difficile diarrhea Code(s): A04.72 - ENTEROCOLITIS D/T CLOSTRIDIUM DIFFICILE, NOT SPCF RECUR Status: Acute Comment: on IV metronidazole, Vanc. enemas - Plan Patient on comfort care measures. Will likely pass today, if not can -: consider transfer to inpatient hospice. * . - Discharge Day Encounter end time: 12:15
[2019-03-14 09:17] VITALS: TEMP 97.7
[2019-03-14] MEDS ORDERED: Potassium Chloride 40 MEQ in Sodium Chloride 0.9% 250 ML 250 ML IVPB SCH (10:00)
[2019-03-14] MEDS ORDERED: Morphine 10 MG/ML VIAL SLOW IVP PRN (10:45)
[2019-03-14] MEDS: Hydrocortisone 10 mg Tablet PO SCH (11:09)
[2019-03-14] MEDS: Amiodarone 200 MG TAB PO SCH (11:09)
[2019-03-14] MEDS: Vancomycin HCl 25 MG/ML Oral PER TUBE SCH (11:09)
[2019-03-14] MEDS: Lorazepam 2 MG/ML VIAL SLOW IVP PRN ×2 (11:30→13:17)
--- NOTE | 2019-03-14 15:13 | PRG ---
DATE OF SERVICE: 03/14/2019 SUBJECTIVE: Dannie Stroud has been taken off the ventilator today per family wishes. He is a DNR. Hospice care. The patient is not responsive. OBJECTIVE: VITAL SIGNS: Respiratory rate is 42, blood pressure 98/62, heart rate 74. LABORATORY DATA: Labs and blood draws have been discontinued. ASSESSMENT AND PLAN: The patient is comfort measures only. At this point, I will see as needed, and the patient can be transferred to a noncritical care floor for hospice care and terminal care. Family has visited him this morning, but will not be at his bedside as they do not want to witness this. Job ID: [id number]
--- NOTE | 2019-03-15 04:17 | DIS ---
DATE OF ADMISSION: 02/17/2019 DATE OF DISCHARGE: 03/14/2019 PRIMARY CARE PHYSICIAN: Viki Cohen DO REASON FOR ADMISSION: Upper gastrointestinal bleed with severe acute blood loss anemia. CAUSE OF : Aspiration pneumonia with respiratory failure. CONTRIBUTING DIAGNOSES: 1. Acute upper gastrointestinal hemorrhage from duodenal ulcers, status post laparotomy. 2. Anemia due to acute blood loss. 3. Anoxic brain injury. 4. Clostridium difficile colitis. 5. Postoperative persistent ileus. 6. Tobacco abuse. HOSPITAL COURSE: This is a 69-year-old white male, who has a history of chronic back pain, was taking nonsteroidal anti-inflammatories and was also on hydrocortisone, came in with severe chest pain, nausea, diaphoresis, hypotension. He was found to have GI bleed with severe anemia causing an acute ST-elevation myocardial infarction. The patient had transfusion of blood products and attempted to stabilize the bleeding with endoscopy. This was ultimately unsuccessful and General Surgery had to do a laparotomy and oversewed the ulcer. This did stop the bleeding. The patient was starting to recover a little bit from this, but then he had an episode of vomiting up of a large amount of coffee-ground emesis which he aspirated. This led to a cardiac arrest code. The patient was eventually resuscitated from this and intubated. The patient had a complicated course aspiration pneumonia and sepsis as well as having persistent hypotension, persistent ileus, not allowing us to use his intestines to feed him and C difficile colitis. The patient also had an anoxic brain injury from the duration of his code when his heart had stopped with no movement at all in the left lower extremity and persistent encephalopathy. He was not able to be weaned off the vent and was eventually given a tracheostomy, but still had to be ventilated at this point given his lack of improvement and his previously stated wishes that he would not want to be living on life support. He did not have a chance of recovery and return to vigorous state of living. His and children determined to make him comfort care only. We did remove him from the ventilator and transitioned to a trach collar, and gave him sedative medications as needed for agitation. The patient did pass away at 1422 hours on 03/14/2019. His body is being discharged to the home. Job ID: [id number]
== END 2019-03-14 17:00 | disposition expired | DRG 3 ==
LOC: ERS 16:16 → CCL 16:33 → ERHOLD 16:34 → CCU 21:21
PROVIDERS: ADMIT Internal Medicine Cardiovascular Disease; ATTEND Internal Medicine Cardiovascular Disease
PROC: 30233N1 Transfusion of Nonautologous Red Blood Cells into Peripheral Vein, Percutaneous Approach (ICD-10-PCS; 2019-02-17)
PROC: 30233L1 Transfusion of Nonautologous Fresh Plasma into Peripheral Vein, Percutaneous Approach (ICD-10-PCS; 2019-02-17)
PROC: 30233K1 Transfusion of Nonautologous Frozen Plasma into Peripheral Vein, Percutaneous Approach (ICD-10-PCS; 2019-02-17)
PROC: 0DH67UZ Insertion of Feeding Device into Stomach, Via Natural or Artificial Opening (ICD-10-PCS; 2019-02-17)
PROC: 05H533Z Insertion of Infusion Device into Right Subclavian Vein, Percutaneous Approach (ICD-10-PCS; 2019-02-17)
PROC: 0W3P8ZZ Control Bleeding in Gastrointestinal Tract, Via Natural or Artificial Opening Endoscopic (ICD-10-PCS; 2019-02-17)
PROC: 0W3P8ZZ Control Bleeding in Gastrointestinal Tract, Via Natural or Artificial Opening Endoscopic (ICD-10-PCS; 2019-02-17)
PROC: 0DB68ZX Excision of Stomach, Via Natural or Artificial Opening Endoscopic, Diagnostic (ICD-10-PCS; 2019-02-17)
PROC: 0DC98ZZ Extirpation of Matter from Duodenum, Via Natural or Artificial Opening Endoscopic (ICD-10-PCS; 2019-02-17)
PROC: 0DC60ZZ Extirpation of Matter from Stomach, Open Approach (ICD-10-PCS; 2019-02-18)
PROC: 0DQ70ZZ Repair Stomach, Pylorus, Open Approach (ICD-10-PCS; 2019-02-18)
PROC: 0D9600Z Drainage of Stomach with Drainage Device, Open Approach (ICD-10-PCS; 2019-02-18)
PROC: 0DU907Z Supplement Duodenum with Autologous Tissue Substitute, Open Approach (ICD-10-PCS; 2019-02-18)
PROC: 30233R1 Transfusion of Nonautologous Platelets into Peripheral Vein, Percutaneous Approach (ICD-10-PCS; 2019-02-21)
PROC: 0B9M8ZZ Drainage of Bilateral Lungs, Via Natural or Artificial Opening Endoscopic (ICD-10-PCS; 2019-02-22)
PROC: 5A1955Z Respiratory Ventilation, Greater than 96 Consecutive Hours (ICD-10-PCS; 2019-02-22)
PROC: 5A02216 Assistance with Cardiac Output using Other Pump, Continuous (ICD-10-PCS; 2019-02-22)
PROC: 0BH18EZ Insertion of Endotracheal Airway into Trachea, Via Natural or Artificial Opening Endoscopic (ICD-10-PCS; 2019-02-22)
PROC: 5A2204Z Restoration of Cardiac Rhythm, Single (ICD-10-PCS; 2019-02-22)
PROC: 3E0336Z Introduction of Nutritional Substance into Peripheral Vein, Percutaneous Approach (ICD-10-PCS; 2019-02-23)
PROC: 0B110F4 Bypass Trachea to Cutaneous with Tracheostomy Device, Open Approach (ICD-10-PCS; principal; 2019-03-01)
PROC: 05PY03Z Removal of Infusion Device from Upper Vein, Open Approach (ICD-10-PCS; 2019-03-01)
PROC: 0DH63UZ Insertion of Feeding Device into Stomach, Percutaneous Approach (ICD-10-PCS; 2019-03-01)
PROC: 05H533Z Insertion of Infusion Device into Right Subclavian Vein, Percutaneous Approach (ICD-10-PCS; 2019-03-01)
DX: K26.6 Chronic or unspecified duodenal ulcer with both hemorrhage and perforation (principal); I21.3 ST elevation (STEMI) myocardial infarction of unspecified site; J69.0 Pneumonitis due to inhalation of food and vomit; A41.9 Sepsis, unspecified organism; I50.23 Acute on chronic systolic (congestive) heart failure; J96.21 Acute and chronic respiratory failure with hypoxia; R65.21 Severe sepsis with septic shock; K72.00 Acute and subacute hepatic failure without coma; D62 Acute posthemorrhagic anemia; G93.1 Anoxic brain damage, not elsewhere classified; A04.72 Enterocolitis due to Clostridium difficile, not specified as recurrent; K56.7 Ileus, unspecified; G93.40 Encephalopathy, unspecified; I47.1 Supraventricular tachycardia; J44.0 Chronic obstructive pulmonary disease with (acute) lower respiratory infection; E27.40 Unspecified adrenocortical insufficiency; I42.0 Dilated cardiomyopathy; I47.2 Ventricular tachycardia; N17.9 Acute kidney failure, unspecified; E87.0 Hyperosmolality and hypernatremia; E44.0 Moderate protein-calorie malnutrition; K56.609 Unspecified intestinal obstruction, unspecified as to partial versus complete obstruction; E87.1 Hypo-osmolality and hyponatremia; E87.2 Acidosis; I96 Gangrene, not elsewhere classified; J98.11 Atelectasis; K63.0 Abscess of intestine; K91.89 Other postprocedural complications and disorders of digestive system; I24.8 Other forms of acute ischemic heart disease; I24.9 Acute ischemic heart disease, unspecified; F17.210 Nicotine dependence, cigarettes, uncomplicated; G89.29 Other chronic pain; M54.9 Dorsalgia, unspecified; I46.9 Cardiac arrest, cause unspecified; Z51.5 Encounter for palliative care; Z85.528 Personal history of other malignant neoplasm of kidney; Z90.5 Acquired absence of kidney; R91.8 Other nonspecific abnormal finding of lung field; R57.1 Hypovolemic shock; Z86.19 Personal history of other infectious and parasitic diseases; E88.09 Other disorders of plasma-protein metabolism, not elsewhere classified; Z85.9 Personal history of malignant neoplasm, unspecified; I11.0 Hypertensive heart disease with heart failure; I99.8 Other disorder of circulatory system; E87.6 Hypokalemia; Z66 Do not resuscitate; R94.5 Abnormal results of liver function studies; I48.0 Paroxysmal atrial fibrillation; R57.8 Other shock; R73.9 Hyperglycemia, unspecified; F10.10 Alcohol abuse, uncomplicated; E83.42 Hypomagnesemia; K31.84 Gastroparesis; D69.6 Thrombocytopenia, unspecified
CPT/HCPCS: 36415; 36416; 36430; 70450; 71045; 71275; 72100; 74018; 74177; 76705; 80048; 80053; 80076; 81003; 82248; 82542; 82805; 83690; 83735; 83880; 84100; 84443; 84484; 85025; 85576; 85610; 85730; 86850; 86900; 86901; 87040; 87070; 87086; 87205; 87324; 87338; 87449; 87493; 88305; 88312; 93005; 93010; 93306; 93923; 94002; 94003; 94640; 94660; A4217; C9113; J0131; J0171; J0282; J0360; J0670; J0692; J0696; J1120; J1160; J1200; J1450; J1630; J1642; J1644; J1650; J1720; J1815; J1885; J1940; J2001; J2060; J2185; J2248; J2250; J2270; J2354; J2405; J2543; J2704; J2765; J2920; J2930; J3010; J3370; J3411; J3475; J3480; J3490; J7050; J7070; J7611; J7620; J7626; P9012; P9016; P9035; P9045; P9047; P9048; P9059; Q9966; Q9967